=== PATIENT | male | born 1955 | race African-American/Black ===

== ENCOUNTER 2016-05-20 15:57 | Inpatient (IN) | payer OTHER ==
[2016-05-20 17:22] VITALS: BMI 24.1
--- NOTE | 2016-05-20 19:03 | HP ---
COWS - Scale Resting Pulse: 0= [place] 80 or Below Sweatin=Flushed/Facial Moisture Restless Observation: 1= Difficult to Sit Still Pupil Size: 0= Normal to Room Light Bone or Joint Aches: 1= Mild Discomfort Runny Nose/ Eye Tearin= Runny Nose/Eyes GI Upset > 30mins: 3= Vomiting/Diarrhea Tremor Observation: 2= Slight Tremor Visible Yawning Observation: 1= 1-2x During Session Anxiety or Irritability: 2=Irritable/Anxious Goose Flesh Skin: 3=Piloerection COWS Score: 17 CIWA Score - CIWA Score Nausea/Vomitin Muscle Tremors: 4-Moderate,w/Arms Extend Anxiety: 4-Mod. Anxious/Guarded Agitation: 4-Moderately Restless Paroxysmal Sweats: 2 Orientation: 0-Oriented Tacttile Disturbances: 0-None Auditory Disturbances: 0-None Visual Disturbances: 0-None Headache: 0-None Present CIWA-Ar Total Score: 16 Admission [facility] - HPI Chief Complaint: withdrawal sx Allergies/Adverse Reactions: Allergies Allergy/AdvReac Type Severity Reaction Status Date / Time acetaminophen [From Tylenol] Allergy Intermediate Rash Verified 05/20/16 17:37 ibuprofen Allergy Intermediate Rash Verified 05/20/16 17:37 History of Present Illness: 60 years old male with long history of alcohol heroin nicotine dependence has heart attack 2011, hypertension hypercholesterolemia, diabetes II and depression is admitted to detox patient had chest pain on 05/20/16 at [facility] medically cleared released to [facility] for alcohol and heroin detox Exam Limitations: No Limitations - Ebola screening Have you traveled outside of the country in the last 21 days: No Have you had contact with anyone from an Ebola affected area: No Have you been sick,other than usual withdrawal symptoms: No Do you have a fever: No - Review of Systems Constitutional: Loss of Appetite, Night Sweats, Changes in sleep, Unintentional Wgt. Loss EENT: reports: No Symptoms Reported Respiratory: reports: No Symptoms reported Cardiac: reports: No Symptoms Reported GI: reports: Nausea, Poor Appetite, Poor Fluid Intake, Vomiting, Indigestion, Abdominal cramping : reports: No Symptoms Reported Musculoskeletal: reports: Back Pain, Joint Pain, Muscle Pain, Neck Pain Integumentary: reports: No Symptoms Reported Neuro: reports: Tremors Endocrine: reports: No Symptoms Reported Hematology: reports: Easy Bleeding (plavix + aspirin) Psychiatric: reports: Judgement Intact, Orientated x3, Depressed Other Systems: Reviewed and Negative Patient History - Patient Medical History Hx Anemia: No Hx Asthma: No Hx Chronic Obstructive Pulmonary Disease (COPD): No Hx Cancer: No Hx Cardiac Disorders: Yes (CHF) Hx Congestive Heart Failure: No Hx Hypertension: Yes (BP: 149/95) Hx Hypercholesterolemia: Yes Hx Pacemaker: No HX Cerebrovascular Accident: No Hx Seizures: No Hx Dementia: No Hx Diabetes: Yes (Yes, BGM: 114) Hx Gastrointestinal Disorders: No Hx Liver Disease: No Hx Genitourinary Disorders: No Hx Sexually Transmitted Disorders: No Hx Renal Disease (ESRD): No Hx Thyroid Disease: No Hx Human Immunodeficiency Virus (HIV): No Hx Hepatitis C: Yes Hx Depression: Yes Hx Suicide Attempt: No Hx Bipolar Disorder: No Hx Schizophrenia: No - Patient Surgical History Past Surgical History: No Hx Neurologic Surgery: No Hx Cataract Extraction: No Hx Cardiac Surgery: Yes (2011 cardiac stent ) Hx Lung Surgery: No Hx Breast Surgery: No Hx Breast Biopsy: No Hx Abdominal Surgery: No Hx Appendectomy: No Hx Cholecystectomy: No Hx Genitourinary Surgery: No Hx Orthopedic Surgery: No Other Surgical History: Stent Placement in 2011 Anesthesia Reaction: No - PPD History Previous Implant?: Yes Documented Results: Negative w/o proof Implanted On Prior [facility] Admission?: No PPD to be Administered?: Yes - Smoking Cessation Smoking history: Current every day smoker Have you smoked in the past 12 months: Yes Aproximately how many cigarettes per day: 5 Hx Chewing Tobacco Use: No Initiated information on smoking cessation: Yes 'Breaking Loose' booklet given: 05/20/16 - Substance & Tx. History Hx Alcohol Use: Yes Hx Substance Use: Yes Substance Use Type: Alcohol, Heroin Hx Substance Use Treatment: Yes - Substances Abused Alcohol Route: Oral Frequency: 3-6 times per week Amount used: Beer 1x6 pack, Liquor 1 pint Age of first use: 20 Date of Last Use: 05/19/16 Heroin Route: Inhalation Frequency: Daily Amount used: 4-5 bags Age of first use: 30 Date of Last Use: 05/19/16 Cocaine Route: Smoking Frequency: Daily Amount used: $200-$300 Age of first use: 20 Date of Last Use: 05/19/16 Family Disease History - Family Disease History Family Disease History: Heart Disease: Mother, Other: Father () Admission Physical Exam [facility] - Vital Signs Vital Signs: Vital Signs - 24 hr 05/20/16 17:20 Temperature 99.4 F Pulse Rate 68 Respiratory 16 Rate Blood Pressure 149/95 - Physical General Appearance: Yes: Appropriately Dressed, Mild Distress, Thin, Tremorous, Irritable, Sweating, Anxious HEENTM: Yes: Hearing grossly Normal, Normal ENT Inspection, Normocephalic, Normal Voice Respiratory: Yes: Chest Non-Tender, Lungs Clear, Normal Breath Sounds, No Respiratory Distress, No Accessory Muscle Use Neck: Yes: Supple, Trachea in good position Breast: Yes: Breasts Symetrical Cardiology: Yes: Regular Rhythm, Regular Rate, S1, S2 Abdominal: Yes: Non Tender, Soft Genitourinary: Yes: Within Normal Limits Back: Yes: Normal Inspection Musculoskeletal: Yes: full range of Motion, Gait Steady, Back pain, Muscle Pain Extremities: Yes: Normal Range of Motion, Non-Tender, Tremors Neurological: Yes: Fully Oriented, Alert, Motor Strength 5/5, Normal Response, Depressed Affect Integumentary: Yes: Warm Lymphatic: Yes: Within Normal Limits - Diagnostic (1) Alcohol dependence with uncomplicated withdrawal Current Visit: Yes Status: Acute (2) Opioid dependence with withdrawal Current Visit: Yes Status: Acute (3) Hypertension Current Visit: Yes Status: Acute Qualifiers: Hypertension type: essential hypertension Qualified Code(s): I10 - Essential (primary) hypertension (4) Diabetes mellitus type II, controlled Current Visit: Yes Status: Acute Qualifiers: Diabetes mellitus complication status: without complication Diabetes mellitus terminal carman insulin use: without care home use Qualified Code(s): E11.9 - Type 2 diabetes mellitus without complications (5) Weight loss Current Visit: Yes Status: Acute (6) Nicotine dependence Current Visit: Yes Status: Acute Qualifiers: Nicotine product type: cigarettes Substance use status: uncomplicated Qualified Code(s): F17.210 - Nicotine dependence, cigarettes, uncomplicated (7) Depression (emotion) Current Visit: Yes Status: Suspected Qualifiers: Depression Type: dysthymia Qualified Code(s): F34.1 - Dysthymic disorder (8) History of heart artery stent Current Visit: Yes Status: Resolved Cleared for Admission [facility] - Detox or Rehab [facility] Level of Care: Medically Managed Detox Regimen/Protocol: Methadone/Librium BHS Breath Alcohol Content Breath Alcohol Content: 0 Urine Drug Screen - Results Drug Screen Negative: No Urine Drug Screen Results: OPI-Opiates
[2016-05-20] MEDS ORDERED: P-EPHED 60MG/TRIPROLIDI 2.5MG TABLET PO PRN (19:10)
[2016-05-20] MEDS ORDERED: MENTHOL/PHENOL 1 EACH UD MM PRN (19:10)
[2016-05-20] MEDS ORDERED: chlordiazePOXIDE HCL 25 MG CAPSULE PO ONE (19:10)
[2016-05-20] MEDS ORDERED: MAGNESIUM HYDROX 2400MG/30ML ORAL SUSPENSION 30 ML CUP PO PRN (19:10)
[2016-05-20] MEDS ORDERED: guaiFENesin/D-METHORPHAN HB 10 ML UNIT-DOSE CUPS PO PRN (19:10)
[2016-05-20] MEDS ORDERED: MAGNESIUM CITRATE 300 ML BOTTLE PO PRN (19:10)
[2016-05-20] MEDS ORDERED: NICOTINE POLACRILEX 2 MG GUM BC PRN (19:10)
[2016-05-20] MEDS ORDERED: MAG HYDROX/AL HYDROX/SIMETH 30 ML UNIT-DOSE CUP PO PRN (19:10)
[2016-05-20] MEDS ORDERED: chlordiazePOXIDE HCL 25 MG CAPSULE PO PRN (19:10)
[2016-05-20] MEDS ORDERED: LOPERAMIDE HCL 2 MG CAPSULE PO PRN (19:10)
[2016-05-20] MEDS ORDERED: METHADONE HCL 10 MG TABLET (FOR DETOX USE ONLY) PO ONE ×2 (19:10→23:00)
[2016-05-20] MEDS: chlordiazePOXIDE HCL 25 MG CAPSULE PO SCH (22:37)
[2016-05-20] MEDS: ATORVASTATIN CA 20 MG TABLET (FP) PO SCH (22:37)
[2016-05-20] MEDS: THIAMINE HCL 100 MG TABLET (FP) PO SCH (22:39)
[2016-05-20] MEDS: ENALAPRIL MALEATE 10 MG TABLET (FP) PO SCH (22:39)
[2016-05-20 23:04] LABS: URINE APPEARANCE CLEAR; URINE BILIRUBIN NEGATIVE (NEGATIVE); URINE BLOOD NEGATIVE (NEGATIVE); URINE COLOR STRAW; URINE GLUCOSE (UA) NEGATIVE (NEGATIVE); URINE KETONE NEGATIVE (NEGATIVE); URINE LEUK ESTERASE NEGATIVE (NEGATIVE); URINE NITRITE NEGATIVE (NEGATIVE); URINE PROTEIN NEGATIVE (NEGATIVE); URINE UROBILINOGEN NEGATIVE E.U./dl (0.2-1.0)
[2016-05-21] MEDS: glyBURIDE 5 MG TABLET (UD) PO SCH (06:00)
[2016-05-21] MEDS: metFORMIN HCL 500 MG TABLET (FP) PO SCH ×2 (06:00→17:22)
[2016-05-21] MEDS: chlordiazePOXIDE HCL 25 MG CAPSULE PO SCH ×4 (06:00→22:08)
[2016-05-21] MEDS ORDERED: GABAPENTIN 400 MG CAPSULE (FP) PO SCH (10:00)
[2016-05-21] MEDS ORDERED: METHADONE HCL 10 MG TABLET (FOR DETOX USE ONLY) PO SCH (10:00)
[2016-05-21] MEDS ORDERED: ISOSORBIDE MONONITRATE 10 MG TABLET PO SCH (10:00)
[2016-05-21 10:10] LABS: MCH 22.8 pg (25.7-33.7); MCHC 31.3 g/dl (32.0-35.9); MEAN CELL VOLUME 72.9 fl (80-96); MEAN PLT VOLUME 9.8 fl (7.5-11.1); PLATELET COUNT 138 K/MM3 (134-434); RDW 15.9 % (11.9-15.9); WHITE BLOOD COUNT 3.7 K/mm3 (4.0-10.0)
--- NOTE | 2016-05-21 10:14 | PN ---
[facility] CIWA - CIWA Score Nausea/Vomitin Muscle Tremors: 3 Anxiety: 3 Agitation: 3 Paroxysmal Sweats: 1-Minimal Palms Moist Orientation: 0-Oriented Tacttile Disturbances: 1-Very Mild Itch/Numbness Auditory Disturbances: 1-Very Mild Visual Disturbances: 1-Very Mild Sensitivity Headache: 2-Mild CIWA-Ar Total Score: 17 BHS COWS - Scale Resting Pulse: 0= [place] 80 or Below Sweatin= Chills/Flushing Restless Observation: 3= Extraneous Movement Pupil Size: 1= Pupils >than Normal Bone or Joint Aches: 2= Severe Diffuse Aches Runny Nose/ Eye Tearin= Runny Nose/Eyes GI Upset > 30mins: 3= Vomiting/Diarrhea Tremor Observation of Outstretched Hands: 2= Slight Tremor Visible Yawning Observation: 1= 1-2x During Session Anxiety or Irritability: 2=Irritable/Anxious Goose Flesh Skin: 0=Smooth Skin COWS Score: 17 S Progress Note (SOAP) Subjective: ALERT,IRRITABLE,ANXIOUS,INTERRUPTED SLEEP,TREMOR,PAIN IN THE BODY AND BACK Objective: 05/21/16 10:11 Vital Signs Temperature 96.4 F L 05/21/16 09:45 Pulse Rate 51 L 05/21/16 09:45 Respiratory Rate 18 05/21/16 09:45 Blood Pressure 146/89 05/21/16 09:45 O2 Sat by Pulse Oximetry (%) EKG NSR WITH SINUS ARRHYTHMIA OCCASIONAL VPC NO CHEST PAIN,NO SOB,NO DIZZINESS Laboratory Last Values POC Glucometer 165 UNITS (()) 05/21/16 05:58 Urine Color Straw 05/20/16 22:26 Urine Appearance Clear 05/20/16 22:26 Urine pH 6.0 (5.0-8.0) 05/20/16 22:26 Ur Specific [place] 1.006 (1.001-1.035) 05/20/16 22:26 Urine Protein Negative (NEGATIVE) 05/20/16 22:26 Urine Glucose (UA) Negative (NEGATIVE) 05/20/16 22:26 Urine Ketones Negative (NEGATIVE) 05/20/16 22:26 Urine Blood Negative (NEGATIVE) 05/20/16 22:26 Urine Nitrite Negative (NEGATIVE) 05/20/16 22:26 Urine Bilirubin Negative (NEGATIVE) 05/20/16 22:26 Urine Urobilinogen Negative E.U./dl (0.2-1.0) 05/20/16 22:26 Ur Leukocyte Esterase Negative (NEGATIVE) 05/20/16 22:26 LABS PENDING Assessment: 05/21/16 10:13 WITHDRAWAL SYMPTOM Plan: CONTINUE DETOX,BGM MONITORING
[2016-05-21] MEDS: SERTRALINE HCL 50 MG TABLET (FP) PO SCH (10:31)
[2016-05-21] MEDS: PRENATAL VITAMINS W/ FOLIC ACID TABLET (FP) PO SCH (10:31)
[2016-05-21] MEDS: GABAPENTIN 100 MG CAPSULE (FP) PO SCH (10:31)
[2016-05-21] MEDS: CLOPIDOGREL BISULFATE 75 MG TABLET (FP) PO SCH (10:31)
[2016-05-21] MEDS: ASPIRIN 81 MG CHEWABLE TABLETS PO SCH (10:31)
[2016-05-21] MEDS: NICOTINE 14 MG/24 HOURS TOPICAL PATCH TD SCH (10:32)
[2016-05-21 10:33] LABS: ALBUMIN 3.1 g/dl (3.4-5.0); ALK PHOS 81 U/L (45-117); ANION GAP 8 (8-16); BILIRUBIN,TOTAL 0.7 mg/dL (0.2-1.0); CALCIUM 8.8 mg/dL (8.5-10.1); CO2 28 mmol/L (21-32); CREATININE 0.9 mg/dL (0.7-1.3); GLUCOSE,RANDOM 133 mg/dL (74-106); SGOT/AST 66 U/L (15-37); SGPT/ALT 63 U/L (12-78); TOT PROT 6.5 g/dl (6.4-8.2)
[2016-05-21 11:46] LABS: HIV 1 & 2 AB NEGATIVE; HIV 1 AGp24 NEGATIVE
[2016-05-21] MEDS: ISOSORBIDE MONONITRATE 20 MG TABLET PO SCH (12:11)
--- NOTE | 2016-05-21 14:40 | CONSULT ---
[facility] Psychiatric Consult - Data Date of interview: 05/21/16 Admission source: [facility] Identifying data: This is 60 years old male with no psychiatric hospitalization history intoxicated with Alcohol, Opioids, Nicotine Substance Abuse History: - Smoking Cessation. Smoking history: Current every day smoker. Have you smoked in the past 12 months: Yes. Aproximately how many cigarettes per day: 5. Hx Chewing Tobacco Use: No. Initiated information on smoking cessation: Yes. 'Breaking Loose' booklet given: 05/20/16. - Substance & Tx. History. Hx Alcohol Use: Yes. Hx Substance Use: Yes. Substance Use Type : Alcohol, Heroin. Hx Substance Use Treatment: Yes. - Substances Abused. Alcohol. Route: Oral. Frequency: 3-6 times per week. Amount used: Beer 1x6 pack, Liquor 1 pint. Age of first use: 20. Date of Last Use: 05/19/16. Heroin. Route: Inhalation. Frequency: Daily. Amount used: 4-5 bags. Age of first use: 30. Date of Last Use: 05/19/16. Cocaine. Route: Smoking. Frequency: Daily. Amount used: $200-$300. Age of first use: 20. Date of Last Use: 05/19/16 Medical History: DM-2, Weight loss Psychiatric History: Patient reports history of depresion, reports taking prior to admission: Trazodone 200mg po qhs. Zoloft 50mg poqd. Gabapentin 100mg poqd Physical/Sexual Abuse/Trauma History: Denies Additional Comment: Trazodone 200mg po qhs. Zoloft 50mg poqd. Gabapentin 100mg poqd Mental Status Exam - Mental Status Exam Alert and Oriented to: Person Cognitive Function: Fair Patient Appearance: Unkempt Mood: Sad Affect: Flat Patient Behavior: Sedated Speech Pattern: Delayed Voice Loudness: Mildly Soft/Quiet Thought Process: Circumstantial Thought Disorder: Being Controlled Hallucinations: Denies Suicidal Ideation: Denies Homicidal Ideation: Denies Insight/Judgement: Impaired Sleep: Difficulty falling asleep Appetite: Weight gain Muscle strength/Tone: Mild Hypotonicity Gait/Station: Shuffling Additional Comments: Trazodone 200mg po qhs. Zoloft 50mg poqd. Gabapentin 100mg poqd Psychiatric Findings - Problem List ([place] 1, 2,3) (1) Alcohol dependence with uncomplicated withdrawal Current Visit: Yes Status: Acute (2) Nicotine dependence Current Visit: Yes Status: Acute Qualifiers: Nicotine product type: cigarettes Substance use status: uncomplicated Qualified Code(s): F17.210 - Nicotine dependence, cigarettes, uncomplicated (3) Opioid dependence with withdrawal Current Visit: Yes Status: Acute (4) Depression (emotion) Current Visit: Yes Status: Suspected Qualifiers: Depression Type: dysthymia Qualified Code(s): F34.1 - Dysthymic disorder (5) Drug-induced mood disorder Current Visit: Yes Status: Acute - Initial Treatment Plan Initial Treatment Plan: Trazodone 200mg po qhs. Zoloft 50mg poqd. Gabapentin 100mg poqd
[2016-05-21] MEDS: ATORVASTATIN CA 20 MG TABLET (FP) PO SCH (22:06)
[2016-05-21] MEDS: ENALAPRIL MALEATE 10 MG TABLET (FP) PO SCH (22:06)
[2016-05-21] MEDS: traZODone HCL 100 MG TABLET (FP) PO SCH (22:06)
[2016-05-21] MEDS: THIAMINE HCL 100 MG TABLET (FP) PO SCH (22:08)
[2016-05-22] MEDS: metFORMIN HCL 500 MG TABLET (FP) PO SCH ×2 (06:28→17:03)
[2016-05-22] MEDS: chlordiazePOXIDE HCL 25 MG CAPSULE PO SCH ×3 (06:28→17:04)
[2016-05-22] MEDS: glyBURIDE 5 MG TABLET (UD) PO SCH (06:29)
--- NOTE | 2016-05-22 10:32 | PN ---
[facility] CIWA - CIWA Score Nausea/Vomitin Muscle Tremors: 3 Anxiety: 3 Agitation: 2 Paroxysmal Sweats: 1-Minimal Palms Moist Orientation: 0-Oriented Tacttile Disturbances: 1-Very Mild Itch/Numbness Auditory Disturbances: 1-Very Mild Visual Disturbances: 1-Very Mild Sensitivity Headache: 2-Mild CIWA-Ar Total Score: 17 BHS COWS - Scale Resting Pulse: 0= [place] 80 or Below Sweatin= Chills/Flushing Restless Observation: 3= Extraneous Movement Pupil Size: 1= Pupils >than Normal Bone or Joint Aches: 2= Severe Diffuse Aches Runny Nose/ Eye Tearin= Runny Nose/Eyes GI Upset > 30mins: 2= Nausea/Diarrhea Tremor Observation of Outstretched Hands: 2= Slight Tremor Visible Yawning Observation: 1= 1-2x During Session Anxiety or Irritability: 2=Irritable/Anxious Goose Flesh Skin: 0=Smooth Skin COWS Score: 16 S Progress Note (SOAP) Subjective: alert,irritable,anxious,pain in the body and back,tremor Objective: 05/22/16 10:31 Vital Signs Temperature 96.2 F L 05/22/16 09:54 Pulse Rate 62 05/22/16 09:54 Respiratory Rate 18 05/22/16 09:54 Blood Pressure 86/57 05/22/16 09:54 O2 Sat by Pulse Oximetry (%) 05/22/16 10:31 Laboratory Last Values WBC 3.7 K/mm3 (4.0-10.0) L 05/21/16 07:00 RBC 5.18 M/mm3 (4.00-5.60) 05/21/16 07:00 Hgb 11.8 GM/dL (11.7-16.9) 05/21/16 07:00 Hct 37.7 % (35.4-49) 05/21/16 07:00 MCV 72.9 fl (80-96) L 05/21/16 07:00 MCHC 31.3 g/dl (32.0-35.9) L 05/21/16 07:00 RDW 15.9 % (11.9-15.9) 05/21/16 07:00 Plt Count 138 K/MM3 (134-434) 05/21/16 07:00 MPV 9.8 fl (7.5-11.1) 05/21/16 07:00 Sodium 143 mmol/L (136-145) 05/21/16 07:00 Potassium 3.8 mmol/L (3.5-5.1) 05/21/16 07:00 Chloride 107 mmol/L (98-107) 05/21/16 07:00 Carbon Dioxide 28 mmol/L (21-32) 05/21/16 07:00 Anion Gap 8 (8-16) 05/21/16 07:00 BUN 14 mg/dL (7-18) 05/21/16 07:00 Creatinine 0.9 mg/dL (0.7-1.3) 05/21/16 07:00 Creat Clearance w eGFR > 60 (>60) 05/21/16 07:00 POC Glucometer 157 UNITS (()) 05/21/16 16:18 Random Glucose 133 mg/dL (74-106) H 05/21/16 07:00 Calcium 8.8 mg/dL (8.5-10.1) 05/21/16 07:00 Total Bilirubin 0.7 mg/dL (0.2-1.0) 05/21/16 07:00 AST 66 U/L (15-37) H 05/21/16 07:00 ALT 63 U/L (12-78) 05/21/16 07:00 Alkaline Phosphatase 81 U/L (45-117) 05/21/16 07:00 Total Protein 6.5 g/dl (6.4-8.2) 05/21/16 07:00 Albumin 3.1 g/dl (3.4-5.0) L 05/21/16 07:00 Urine Color Straw 05/20/16 22:26 Urine Appearance Clear 05/20/16 22:26 Urine pH 6.0 (5.0-8.0) 05/20/16 22:26 Ur Specific [place] 1.006 (1.001-1.035) 05/20/16 22:26 Urine Protein Negative (NEGATIVE) 05/20/16 22:26 Urine Glucose (UA) Negative (NEGATIVE) 05/20/16 22:26 Urine Ketones Negative (NEGATIVE) 05/20/16 22:26 Urine Blood Negative (NEGATIVE) 05/20/16 22:26 Urine Nitrite Negative (NEGATIVE) 05/20/16 22:26 Urine Bilirubin Negative (NEGATIVE) 05/20/16 22:26 Urine Urobilinogen Negative E.U./dl (0.2-1.0) 05/20/16 22:26 Ur Leukocyte Esterase Negative (NEGATIVE) 05/20/16 22:26 RPR Titer Nonreactive (NONREACTIVE) 05/21/16 07:00 Hepatitis C Antibody >11.0 s/co ratio (0.0-0.9) H 05/21/16 07:00 HIV 1&2 Antibody Screen Negative 05/21/16 07:00 HIV P24 Antigen Negative 05/21/16 07:00 patient has history of hepatitis c,follow up with pmd at [facility] Assessment: 05/22/16 10:32 withdrawal symptom Plan: continue detox
[2016-05-22] MEDS: METHADONE HCL 5 MG TABLET (FOR DETOX USE ONLY) PO SCH (10:41)
[2016-05-22] MEDS: ISOSORBIDE MONONITRATE 20 MG TABLET PO SCH (10:41)
[2016-05-22] MEDS: ASPIRIN 81 MG CHEWABLE TABLETS PO SCH (10:42)
[2016-05-22] MEDS: CLOPIDOGREL BISULFATE 75 MG TABLET (FP) PO SCH (10:42)
[2016-05-22] MEDS: NICOTINE 14 MG/24 HOURS TOPICAL PATCH TD SCH (10:42)
[2016-05-22] MEDS: SERTRALINE HCL 50 MG TABLET (FP) PO SCH (10:42)
[2016-05-22] MEDS: PRENATAL VITAMINS W/ FOLIC ACID TABLET (FP) PO SCH (10:42)
[2016-05-22] MEDS: GABAPENTIN 100 MG CAPSULE (FP) PO SCH (10:42)
[2016-05-22] MEDS: ATORVASTATIN CA 20 MG TABLET (FP) PO SCH (22:20)
[2016-05-22] MEDS: THIAMINE HCL 100 MG TABLET (FP) PO SCH (22:20)
[2016-05-22] MEDS: traZODone HCL 100 MG TABLET (FP) PO SCH (22:20)
[2016-05-22] MEDS: chlordiazePOXIDE 5 MG CAPSULE PO SCH (22:20)
[2016-05-22] MEDS: diphenhydrAMINE HCL 50 MG CAPSULE PO PRN (22:20)
[2016-05-22] MEDS: ENALAPRIL MALEATE 10 MG TABLET (FP) PO SCH ×2 (22:20→22:50)
[2016-05-23] MEDS: glyBURIDE 5 MG TABLET (UD) PO SCH (06:06)
[2016-05-23] MEDS: metFORMIN HCL 500 MG TABLET (FP) PO SCH ×2 (06:06→17:42)
[2016-05-23] MEDS: chlordiazePOXIDE 5 MG CAPSULE PO SCH ×3 (06:06→17:24)
[2016-05-23] MEDS: METHADONE HCL 5 MG TABLET (FOR DETOX USE ONLY) PO SCH (10:35)
[2016-05-23] MEDS: SERTRALINE HCL 50 MG TABLET (FP) PO SCH (10:35)
[2016-05-23] MEDS: PRENATAL VITAMINS W/ FOLIC ACID TABLET (FP) PO SCH (10:35)
[2016-05-23] MEDS: GABAPENTIN 100 MG CAPSULE (FP) PO SCH (10:36)
[2016-05-23] MEDS: CLOPIDOGREL BISULFATE 75 MG TABLET (FP) PO SCH (10:36)
[2016-05-23] MEDS: ASPIRIN 81 MG CHEWABLE TABLETS PO SCH (10:36)
[2016-05-23] MEDS: NICOTINE 14 MG/24 HOURS TOPICAL PATCH TD SCH (10:36)
[2016-05-23] MEDS: ISOSORBIDE MONONITRATE 20 MG TABLET PO SCH (10:36)
[2016-05-23] MEDS: THIAMINE HCL 100 MG TABLET (FP) PO SCH (23:06)
[2016-05-23] MEDS: diphenhydrAMINE HCL 50 MG CAPSULE PO PRN (23:06)
--- NOTE | 2016-05-23 23:06 | PN ---
BHS Progress Note (SOAP) Subjective: SWEATING,INTERRUPTED SLEEP,RESTLESS Objective: 05/23/16 23:04 Vital Signs - 8 hr 05/23/16 20:02 Temperature 96.1 F L Pulse Rate 55 L Respiratory 16 Rate Blood Pressure 102/65 Assessment: 05/23/16 23:05 withdrawal sx Plan: CONTINUE DETOX
[2016-05-23] MEDS: ATORVASTATIN CA 20 MG TABLET (FP) PO SCH (23:07)
[2016-05-23] MEDS: traZODone HCL 100 MG TABLET (FP) PO SCH (23:07)
[2016-05-23] MEDS: chlordiazePOXIDE HCL 10 MG CAPSULE PO SCH (23:07)
[2016-05-23] MEDS: ENALAPRIL MALEATE 10 MG TABLET (FP) PO SCH (23:08)
[2016-05-24] MEDS: chlordiazePOXIDE HCL 10 MG CAPSULE PO SCH ×3 (05:58→17:02)
[2016-05-24] MEDS: metFORMIN HCL 500 MG TABLET (FP) PO SCH ×2 (07:39→17:02)
[2016-05-24] MEDS: glyBURIDE 5 MG TABLET (UD) PO SCH (07:40)
[2016-05-24] MEDS ORDERED: METHADONE HCL 10 MG TABLET (FOR DETOX USE ONLY) PO SCH (10:00)
[2016-05-24] MEDS: ASPIRIN 81 MG CHEWABLE TABLETS PO SCH (10:13)
[2016-05-24] MEDS: CLOPIDOGREL BISULFATE 75 MG TABLET (FP) PO SCH (10:13)
[2016-05-24] MEDS: PRENATAL VITAMINS W/ FOLIC ACID TABLET (FP) PO SCH (10:13)
[2016-05-24] MEDS: GABAPENTIN 100 MG CAPSULE (FP) PO SCH (10:14)
[2016-05-24] MEDS: SERTRALINE HCL 50 MG TABLET (FP) PO SCH (10:14)
[2016-05-24] MEDS: NICOTINE 14 MG/24 HOURS TOPICAL PATCH TD SCH (10:15)
[2016-05-24] MEDS: ISOSORBIDE MONONITRATE 20 MG TABLET PO SCH (10:16)
--- NOTE | 2016-05-24 14:57 | PN ---
BHS Progress Note (SOAP) Subjective: N/V/D (vomited once), sweating, tremor, anxiety Objective: 05/24/16 14:52 Last Vital Signs Temp Pulse Resp BP Pulse Ox 95.9 F L 64 18 96/71 05/24/16 13:32 05/24/16 13:32 05/24/16 13:32 05/24/16 13:32 Noted with hypotension Laboratory Tests 05/20/16 05/20/16 05/21/16 18:16 22:26 05:58 WBC RBC Hgb Hct MCV MCHC RDW Plt Count MPV Sodium Potassium Chloride Carbon Dioxide Anion Gap BUN Creatinine Creat Clearance w eGFR POC Glucometer 114 165 Random Glucose Calcium Total Bilirubin AST ALT Alkaline Phosphatase Total Protein Albumin Urine Color Straw Urine Appearance Clear Urine pH 6.0 Ur Specific [place] 1.006 Urine Protein Negative Urine Glucose (UA) Negative Urine Ketones Negative Urine Blood Negative Urine Nitrite Negative Urine Bilirubin Negative Urine Urobilinogen Negative Ur Leukocyte Esterase Negative RPR Titer Hepatitis C Antibody HIV 1&2 Antibody Screen HIV P24 Antigen 05/21/16 05/21/16 05/21/16 07:00 07:00 07:00 WBC 3.7 L RBC 5.18 Hgb 11.8 Hct 37.7 MCV 72.9 L MCHC 31.3 L RDW 15.9 Plt Count 138 MPV 9.8 Sodium 143 Potassium 3.8 Chloride 107 Carbon Dioxide 28 Anion Gap 8 BUN 14 Creatinine 0.9 Creat Clearance w eGFR > 60 POC Glucometer Random Glucose 133 H Calcium 8.8 Total Bilirubin 0.7 AST 66 H ALT 63 Alkaline Phosphatase 81 Total Protein 6.5 Albumin 3.1 L Urine Color Urine Appearance Urine pH Ur Specific [place] Urine Protein Urine Glucose (UA) Urine Ketones Urine Blood Urine Nitrite Urine Bilirubin Urine Urobilinogen Ur Leukocyte Esterase RPR Titer Hepatitis C Antibody HIV 1&2 Antibody Screen Negative HIV P24 Antigen Negative 05/21/16 05/21/16 05/21/16 07:00 07:00 16:18 WBC RBC Hgb Hct MCV MCHC RDW Plt Count MPV Sodium Potassium Chloride Carbon Dioxide Anion Gap BUN Creatinine Creat Clearance w eGFR POC Glucometer 157 Random Glucose Calcium Total Bilirubin AST ALT Alkaline Phosphatase Total Protein Albumin Urine Color Urine Appearance Urine pH Ur Specific [place] Urine Protein Urine Glucose (UA) Urine Ketones Urine Blood Urine Nitrite Urine Bilirubin Urine Urobilinogen Ur Leukocyte Esterase RPR Titer Nonreactive Hepatitis C Antibody >11.0 H HIV 1&2 Antibody Screen HIV P24 Antigen 05/22/16 05/23/16 05/23/16 16:18 06:08 16:18 WBC RBC Hgb Hct MCV MCHC RDW Plt Count MPV Sodium Potassium Chloride Carbon Dioxide Anion Gap BUN Creatinine Creat Clearance w eGFR POC Glucometer 147 110 143 Random Glucose Calcium Total Bilirubin AST ALT Alkaline Phosphatase Total Protein Albumin Urine Color Urine Appearance Urine pH Ur Specific [place] Urine Protein Urine Glucose (UA) Urine Ketones Urine Blood Urine Nitrite Urine Bilirubin Urine Urobilinogen Ur Leukocyte Esterase RPR Titer Hepatitis C Antibody HIV 1&2 Antibody Screen HIV P24 Antigen 05/24/16 05:57 WBC RBC Hgb Hct MCV MCHC RDW Plt Count MPV Sodium Potassium Chloride Carbon Dioxide Anion Gap BUN Creatinine Creat Clearance w eGFR POC Glucometer 156 Random Glucose Calcium Total Bilirubin AST ALT Alkaline Phosphatase Total Protein Albumin Urine Color Urine Appearance Urine pH Ur Specific [place] Urine Protein Urine Glucose (UA) Urine Ketones Urine Blood Urine Nitrite Urine Bilirubin Urine Urobilinogen Ur Leukocyte Esterase RPR Titer Hepatitis C Antibody HIV 1&2 Antibody Screen HIV P24 Antigen Labs noted: serum glucose 133, albumin 3.1 Assessment: 05/24/16 14:55 Withdrawal symptoms Noted with hyperglycemia secondary to DMT2 Noted with hypoalbuminemia Plan: Continue detox Hyperglycemia secondary to DMT2: continue present regimen Hypoalbuminemia: continue diet
[2016-05-24] MEDS: THIAMINE HCL 100 MG TABLET (FP) PO SCH (22:34)
[2016-05-24] MEDS: ATORVASTATIN CA 20 MG TABLET (FP) PO SCH (22:34)
[2016-05-24] MEDS: traZODone HCL 100 MG TABLET (FP) PO SCH (22:34)
[2016-05-24] MEDS: ENALAPRIL MALEATE 10 MG TABLET (FP) PO SCH (22:34)
[2016-05-24] MEDS: diphenhydrAMINE HCL 50 MG CAPSULE PO PRN (22:35)
[2016-05-25] MEDS ORDERED: METHADONE HCL 5 MG TABLET (FOR DETOX USE ONLY) PO SCH (06:00)
[2016-05-25 06:10] VITALS: BP 88/61; PULSE 60; TEMP 98.1
[2016-05-25] MEDS: glyBURIDE 5 MG TABLET (UD) PO SCH (07:17)
[2016-05-25] MEDS: metFORMIN HCL 500 MG TABLET (FP) PO SCH (07:17)
--- NOTE | 2016-05-25 08:21 | PN ---
S Progress Note (SOAP) Subjective: alert,no complaint Objective: 05/25/16 08:16 Vital Signs Temperature 98.1 F 05/25/16 06:10 Pulse Rate 60 05/25/16 06:10 Respiratory Rate 16 05/25/16 06:10 Blood Pressure 88/61 05/25/16 06:10 O2 Sat by Pulse Oximetry (%) Assessment: 05/25/16 08:17 detox completed,no withdrawal symptom Plan: discharge today,follow up [facility] arrangement
--- NOTE | 2016-05-25 08:27 | DS ---
[facility] Detox Discharge Summary Admission Date: 05/20/16 Discharge Date: 05/25/16 - History Present History: Alcohol Dependence, Opioid Dependence Additional Comments: follow up with after care program as arrangement and pmd as arrangement patient has all medications at home Pertinent Past History: hypertension type2 dm weight loss nicotine dependenc depression s/p angiplasty with stent hepatitis c - Physical Exam Results Vital Signs: Vital Signs Temperature 98.1 F 05/25/16 06:10 Pulse Rate 60 05/25/16 06:10 Respiratory Rate 16 05/25/16 06:10 Blood Pressure 88/61 05/25/16 06:10 O2 Sat by Pulse Oximetry (%) Pertinent Admission Physical Exam Findings: withdrawal symptom - Treatment Hospital Course: Detox Protocol Followed, Detoxed Safely, Responded well, Discharged Condition Good Patient has Accepted a Rehab Referral to: declined - Medication Discharge Medications: Ambulatory Orders Aspirin [ASA -] 81 mg PO DAILY 05/20/16 Atorvastatin Ca [Lipitor] 20 mg PO HS 05/20/16 Clopidogrel Bisulfate [Plavix -] 75 mg PO DAILY 05/20/16 Enalapril Maleate [Vasotec -] 10 mg PO DAILY 05/20/16 Gabapentin [Neurontin -] 100 mg PO DAILY 05/20/16 Glyburide 5 mg PO DAILY 05/20/16 Isosorbide Mononitrate 10 mg PO DAILY 05/20/16 Metformin HCl [Glucophage] 1,000 mg PO BID 05/20/16 Sertraline HCl [Zoloft -] 50 mg PO DAILY 05/20/16 Trazodone HCl 200 mg PO HS 05/20/16 - AMA Did Patient Leave Against Medical Advice: No
[2016-05-26 00:14] LABS: HCV RNA IU/ML 11457000 IU/mL (.)
== END 2016-05-25 09:48 | disposition home or self-care (01) | DRG 773 ==
LOC: YASAS 15:57 → Y3N 18:47
PROVIDERS: ADMIT Internal Medicine; ATTEND Internal Medicine
PROC: HZ2ZZZZ Detoxification Services for Substance Abuse Treatment (ICD-10-PCS; principal; 2016-05-20)
DX: F11.23 Opioid dependence with withdrawal (principal); F10.230 Alcohol dependence with withdrawal, uncomplicated; F17.210 Nicotine dependence, cigarettes, uncomplicated; F19.24 Other psychoactive substance dependence with psychoactive substance-induced mood disorder; F34.1 Dysthymic disorder; I10 Essential (primary) hypertension; E11.65 Type 2 diabetes mellitus with hyperglycemia; E88.09 Other disorders of plasma-protein metabolism, not elsewhere classified; E78.00 Pure hypercholesterolemia, unspecified; B18.2 Chronic viral hepatitis C; Z86.79 Personal history of other diseases of the circulatory system; Z95.5 Presence of coronary angioplasty implant and graft; Z87.898 Personal history of other specified conditions; Z79.82 Long term (current) use of aspirin
CPT/HCPCS: 36415; 80053; 81003; 85027; 86593; 86803; 87389; 87522; 93005; 93010

== ENCOUNTER 2016-06-09 16:33 | Inpatient (IN) | payer OTHER ==
[2016-06-09 18:14] VITALS: BMI 24.3
--- NOTE | 2016-06-09 20:13 | HP ---
Admission ROS [facility] - [facility] Chief Complaint: i want to go to rehab Allergies/Adverse Reactions: Allergies Allergy/AdvReac Type Severity Reaction Status Date / Time acetaminophen [From Tylenol] Allergy Intermediate Rash Verified 06/09/16 19:42 ibuprofen Allergy Intermediate Rash Verified 06/09/16 19:42 History of Present Illness: 60 years old male with alcohol heroin nicotine dependence, hypertension diabetes ii heart attack 2011 and depression and neuropathy is admitted to rehab Exam Limitations: No Limitations - Ebola screening Have you traveled outside of the country in the last 21 days: No Have you had contact with anyone from an Ebola affected area: No Have you been sick,other than usual withdrawal symptoms: No Do you have a fever: No - Review of Systems Constitutional: Loss of Appetite, Unintentional Wgt. Loss EENT: reports: No Symptoms Reported Respiratory: reports: No Symptoms reported Cardiac: reports: No Symptoms Reported GI: reports: Poor Appetite : reports: No Symptoms Reported Musculoskeletal: reports: No Symptoms Reported Integumentary: reports: No Symptoms Reported Neuro: reports: No Symptoms reported Endocrine: reports: No Symptoms Reported Hematology: reports: Blood Clots (plavix) Psychiatric: reports: Judgement Intact, Mood/Affect Appropiate Other Systems: Reviewed and Negative Patient History - Patient Medical History Hx Anemia: No Hx Asthma: No Hx Chronic Obstructive Pulmonary Disease (COPD): No Hx Cancer: No Hx Cardiac Disorders: Yes (CHF) Hx Congestive Heart Failure: No Hx Hypertension: Yes (BP: 149/95) Hx Hypercholesterolemia: Yes Hx Pacemaker: No HX Cerebrovascular Accident: No Hx Seizures: No Hx Dementia: No Hx Diabetes: Yes (Yes, BGM: 114) Hx Gastrointestinal Disorders: No Hx Liver Disease: No Hx Genitourinary Disorders: No Hx Sexually Transmitted Disorders: No Hx Renal Disease (ESRD): No Hx Thyroid Disease: No Hx Human Immunodeficiency Virus (HIV): No Hx Hepatitis C: Yes Hx Depression: Yes Hx Suicide Attempt: No Hx Bipolar Disorder: No Hx Schizophrenia: No - Patient Surgical History Past Surgical History: Yes Hx Neurologic Surgery: No Hx Cataract Extraction: No Hx Cardiac Surgery: Yes (2011 cardiac stent ) Hx Lung Surgery: No Hx Breast Surgery: No Hx Breast Biopsy: No Hx Abdominal Surgery: No Hx Appendectomy: No Hx Cholecystectomy: No Hx Genitourinary Surgery: No Hx Orthopedic Surgery: No Other Surgical History: Stent Placement in 2011 Anesthesia Reaction: No - PPD History Previous Implant?: Yes Documented Results: Negative w/proof Implanted On Prior [facility] Admission?: Yes Date: 05/22/16 PPD to be Administered?: No - Smoking Cessation Smoking history: Current every day smoker Have you smoked in the past 12 months: Yes Aproximately how many cigarettes per day: 5 Cigars Per Day: 0 Hx Chewing Tobacco Use: No Initiated information on smoking cessation: Yes 'Breaking Loose' booklet given: 06/16/16 - Substance & Tx. History Hx Alcohol Use: Yes Hx Substance Use: Yes Substance Use Type: Alcohol, Cocaine, Heroin, Marijuana Hx Substance Use Treatment: Yes - Substances Abused Alcohol Route: Oral Frequency: Daily Amount used: 2 pints volka Age of first use: 25 Date of Last Use: 06/02/16 Heroin Route: Inhalation Frequency: Daily Amount used: 7 bags Age of first use: 19 Date of Last Use: 06/02/16 Family Disease History - Family Disease History Family Disease History: Heart Disease: Mother, Other: Father () Admission Physical Exam [facility] - Vital Signs Vital Signs: Vital Signs - 24 hr 06/09/16 18:13 Temperature 97.0 F L Pulse Rate 64 Respiratory 18 Rate Blood Pressure 154/96 - Physical General Appearance: Yes: No Apparent Distress, Appropriately Dressed, Thin HEENTM: Yes: Hearing grossly Normal, Normal ENT Inspection, Normocephalic, Normal Voice Respiratory: Yes: Chest Non-Tender, Lungs Clear, Normal Breath Sounds, No Respiratory Distress, No Accessory Muscle Use Neck: Yes: Supple, Trachea in good position Breast: Yes: Breasts Symetrical Cardiology: Yes: Regular Rhythm, Regular Rate, S1, S2 Abdominal: Yes: Non Tender, Soft Genitourinary: Yes: Within Normal Limits Back: Yes: Normal Inspection Musculoskeletal: Yes: full range of Motion, Gait Steady Extremities: Yes: Normal Range of Motion, Non-Tender Neurological: Yes: Fully Oriented, Alert, Motor Strength 5/5, Normal Response, Depressed Affect Integumentary: Yes: Warm Lymphatic: Yes: Within Normal Limits - Diagnostic (1) Alcohol dependence with uncomplicated withdrawal Current Visit: Yes Status: Acute (2) Diabetes mellitus type II, controlled Current Visit: Yes Status: Acute Qualifiers: Diabetes mellitus complication status: with neurologic complications Diabetes mellitus complication detail: with other neurological complication Diabetes mellitus nursing home insulin use: without nursing home use Qualified Code(s): E11.49 - Type 2 diabetes mellitus with other diabetic neurological complication (3) Hypertension Current Visit: Yes Status: Acute Qualifiers: Hypertension type: essential hypertension Qualified Code(s): I10 - Essential (primary) hypertension (4) Nicotine dependence Current Visit: Yes Status: Acute Qualifiers: Nicotine product type: cigarettes Substance use status: in withdrawal Qualified Code(s): F17.213 - Nicotine dependence, cigarettes, with withdrawal (5) Opioid dependence with withdrawal Current Visit: Yes Status: Acute (6) Weight loss Current Visit: Yes Status: Acute (7) Depression (emotion) Current Visit: Yes Status: Suspected Qualifiers: Depression Type: dysthymia Qualified Code(s): F34.1 - Dysthymic disorder (8) Hyperlipidemia Current Visit: Yes Status: Acute Qualifiers: Hyperlipidemia type: pure hypercholesterolemia Qualified Code(s): E78.0 - Pure hypercholesterolemia (9) History of heart attack Current Visit: Yes Status: Resolved (10) S/P angioplasty with stent Current Visit: Yes Status: Resolved Cleared for Admission [facility] - Detox or Rehab [facility] Level of Care: Observation Bed Claeared for Rehab Admission: Yes [facility] Breath Alcohol Content Breath Alcohol Content: 0 Urine Drug Screen - Results Drug Screen Negative: No Urine Drug Screen Results: OPI-Opiates, BZO-Benzodiazepines, MTD-Methadone
[2016-06-09] MEDS ORDERED: NICOTINE POLACRILEX 2 MG GUM BC PRN (20:21)
[2016-06-09] MEDS ORDERED: MAGNESIUM CITRATE 300 ML BOTTLE PO PRN (20:21)
[2016-06-09] MEDS ORDERED: MENTHOL/PHENOL 1 EACH UD MM PRN (20:21)
[2016-06-09] MEDS ORDERED: hydrOXYzine PAMOATE 50 MG CAPSULE (FP) PO PRN (20:21)
[2016-06-09] MEDS ORDERED: guaiFENesin/D-METHORPHAN HB 10 ML UNIT-DOSE CUPS PO PRN (20:21)
[2016-06-09] MEDS ORDERED: P-EPHED 60MG/TRIPROLIDI 2.5MG TABLET PO PRN (20:21)
[2016-06-09] MEDS ORDERED: MAGNESIUM HYDROX 2400MG/30ML ORAL SUSPENSION 30 ML CUP PO PRN (20:21)
[2016-06-09] MEDS ORDERED: MAG HYDROX/AL HYDROX/SIMETH 30 ML UNIT-DOSE CUP PO PRN (20:21)
[2016-06-09] MEDS ORDERED: LOPERAMIDE HCL 2 MG CAPSULE PO PRN (20:21)
[2016-06-09] MEDS ORDERED: diphenhydrAMINE HCL 50 MG CAPSULE PO PRN (20:21)
[2016-06-09] MEDS ORDERED: RANOLAZINE E.R. 500 MG TABLET (FP) PO SCH (22:00)
[2016-06-09 22:32] LABS: URINE APPEARANCE CLEAR; URINE BILIRUBIN NEGATIVE (NEGATIVE); URINE BLOOD NEGATIVE (NEGATIVE); URINE COLOR LTYELLOW; URINE GLUCOSE (UA) NEGATIVE (NEGATIVE); URINE KETONE NEGATIVE (NEGATIVE); URINE LEUK ESTERASE NEGATIVE (NEGATIVE); URINE NITRITE NEGATIVE (NEGATIVE); URINE PROTEIN NEGATIVE (NEGATIVE); URINE UROBILINOGEN 2.0 E.U/dl E.U./dl (0.2-1.0)
[2016-06-09] MEDS: THIAMINE HCL 100 MG TABLET (FP) PO SCH (22:44)
[2016-06-09] MEDS: ATORVASTATIN CA 20 MG TABLET (FP) PO SCH (22:44)
--- NOTE | 2016-06-09 22:58 | PN ---
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 Anderson Chin is a 60 y/o male admitted from [facility]. Diagnosis :alcohol/heroin dependence. Co-morbidities :HTN,CHF,DM,hepatitis C and dyslipidemia. Noted hx of stent placement (2011). Contact established with patient via telephone.History taken. [facility] report reviewed.As per patient:trazodone 200 mg/hs + zoloft 50 mg/day. Discharged today from ED after evaluation for chest pain. Mr Chin indicates non-adherence to his medications for past 6 months. Decision : hold trazodone and zoloft until psychiatric evaluation in AM. Discussed with nurse on duty. .
--- NOTE | 2016-06-10 06:56 | HP ---
Psychiatrist Admission - Data Date of interview: 06/10/16 Admission source: [facility] Identifying data: This is the first [facility] admission for this 60 years old signle male, father of a 43 years old daughter, unemployed on SSI, domiciled Medical History: Significant for history of HTN, Hyperlipidemia, CAD/NM s/p stent placement in 2011, DM II, CHF, Neuropathy. Smokes 5-6 cigarettes daily Psychiatric History: Patient is initially a guarded historian and reports that his first psychiatric contact was 8-9 years ago at [facility], in order to be placed for housing, where he was diagnosed with Major Depressive Disorder and prescribed Zoloft and Trazodone by Dr. Miller. He states he took the medications a few times a year but stopped approximately 5-6 years ago. He last took Zoloft and Trazodone during his last detox treatment earlier this month. Patient denies psychiatric hospitalization and suicide attempts. Physical/Sexual Abuse/Trauma History: Denies history of physical, sexual abuse as well as DV relationship Additional Comment: Reports history of multiple arrests including 5 felony convictions. Denies being on parole/probation at present Vital Signs: Vital Signs - 24 hr 06/09/16 06/10/16 18:13 03:30 Temperature 97.0 F L Pulse Rate 64 Respiratory 18 16 Rate Blood Pressure 154/96 Allergies/Adverse Reactions: Allergies Allergy/AdvReac Type Severity Reaction Status Date / Time acetaminophen [From Tylenol] Allergy Intermediate Rash Verified 06/11/16 21:02 ibuprofen Allergy Intermediate Rash Verified 06/11/16 21:02 Date of last physical exam: 06/09/16 Concur with the findings of this exam: Yes - Substance Abuse/Tx History Hx Alcohol Use: Yes Hx Substance Use: Yes Substance Use Type: Alcohol (Started driking alcohol at age 25, consumes 2 pints of vodka daily. Last drink on 06/02/16), Cocaine (Started using cocaine at age 20, consumes $200-300 worth daily. Last used on), Heroin (Started using heroin at age 19, consumes 7 bags daily. Last used on 06/02/16), Marijuana ( Started smoking marijuana at age 15, consumes 2-3 bags 1-2 times weekly. Last smoked on 06/09/16) Hx Substance Use Treatment: Yes (Previous detox @ [facility], [facility], [facility]/Rehab : [place], [facility]) - Admission Criteria Previous failed treatment: No Poor recovery environment: Yes Comorbidities: Yes Lacks judgement: Yes Mental Status Exam - Mental Status Exam Alert and Oriented to: Time, Place, Person Cognitive Function: Fair Patient Appearance: Well Groomed Mood: Euthymic, Irritable (underlying irritability) Affect: Appropriate Patient Behavior: Guarded, Cooperative (superficially) Speech Pattern: Clear Voice Loudness: Normal Thought Process: Intact Hallucinations: Denies Suicidal Ideation: Denies Homicidal Ideation: Denies Insight/Judgement: Fair Sleep: Poorly Appetite: Good Muscle strength/Tone: Normal Gait/Station: Normal Psychiatric Findings - Problem List ([place] 1, 2,3) (1) Alcohol dependence with uncomplicated withdrawal Status: Acute (2) Opioid dependence with withdrawal Status: Acute (3) Cocaine dependence Status: Acute (4) Cannabis abuse Status: Acute (5) Nicotine dependence Status: Acute Qualifiers: Nicotine product type: cigarettes Substance use status: in withdrawal Qualified Code(s): F17.213 - Nicotine dependence, cigarettes, with withdrawal (6) Depressive disorder Status: Acute (7) MDD (major depressive disorder) Status: Ruled-out (8) Substance induced mood disorder Status: Ruled-out (9) Diabetes mellitus type II, controlled Status: Acute Qualifiers: Diabetes mellitus complication status: with neurologic complications Diabetes mellitus complication detail: with other neurological complication 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: without 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 2) Monitor progress
[2016-06-10] MEDS: metFORMIN HCL 500 MG TABLET (FP) PO SCH ×2 (07:41→17:09)
[2016-06-10] MEDS: glyBURIDE 5 MG TABLET (UD) PO SCH (07:41)
[2016-06-10] MEDS: ENALAPRIL MALEATE 10 MG TABLET (FP) PO SCH (10:22)
[2016-06-10] MEDS: GABAPENTIN 100 MG CAPSULE (FP) PO SCH (10:22)
[2016-06-10] MEDS: CLOPIDOGREL BISULFATE 75 MG TABLET (FP) PO SCH (10:22)
[2016-06-10] MEDS: RANOLAZINE E.R. 500 MG TABLET (FP) PO SCH (10:22)
[2016-06-10] MEDS: PRENATAL VITAMINS W/ FOLIC ACID TABLET (FP) PO SCH (10:22)
[2016-06-10] MEDS: ASPIRIN COATED 81 MG TABLET.EC PO SCH (10:22)
[2016-06-10] MEDS: NICOTINE 14 MG/24 HOURS TOPICAL PATCH TD SCH (10:22)
[2016-06-10] MEDS: ISOSORBIDE MONONITRATE 60 MG TAB.SR.24H (FP) PO SCH (10:22)
--- NOTE | 2016-06-10 12:32 | EKG ---
Test Reason : Blood Pressure : / mmHG Vent. Rate : 064 BPM Atrial Rate : 064 BPM P-R Int : 200 ms QRS Dur : 140 ms QT Int : 436 ms P-R-T Axes : 073 -74 027 degrees QTc Int : 449 ms NORMAL SINUS RHYTHM POSSIBLE LEFT ATRIAL ENLARGEMENT RIGHT BUNDLE BRANCH BLOCK LEFT ANTERIOR FASCICULAR BLOCK BIFASCICULAR BLOCK ANTEROSEPTAL INFARCT , AGE UNDETERMINED ABNORMAL ECG NO PREVIOUS ECGS AVAILABLE Confirmed by STEVEN DE LA TORRE MD ([id number]) on 06/10/2016 12:31:54 PM Referred By: Confirmed By:STEVEN DE LA TORRE MD
[2016-06-10] MEDS: traZODone HCL 100 MG TABLET (FP) PO SCH (21:33)
[2016-06-10] MEDS: THIAMINE HCL 100 MG TABLET (FP) PO SCH (21:33)
[2016-06-10] MEDS: ATORVASTATIN CA 20 MG TABLET (FP) PO SCH (21:34)
[2016-06-11] MEDS: metFORMIN HCL 500 MG TABLET (FP) PO SCH ×2 (07:06→16:59)
[2016-06-11] MEDS: glyBURIDE 5 MG TABLET (UD) PO SCH (07:06)
[2016-06-11] MEDS: ISOSORBIDE MONONITRATE 60 MG TAB.SR.24H (FP) PO SCH (09:49)
[2016-06-11] MEDS: NICOTINE 14 MG/24 HOURS TOPICAL PATCH TD SCH (09:49)
[2016-06-11] MEDS: GABAPENTIN 100 MG CAPSULE (FP) PO SCH (09:49)
[2016-06-11] MEDS: CLOPIDOGREL BISULFATE 75 MG TABLET (FP) PO SCH (09:49)
[2016-06-11] MEDS: ASPIRIN COATED 81 MG TABLET.EC PO SCH (09:49)
[2016-06-11] MEDS: RANOLAZINE E.R. 500 MG TABLET (FP) PO SCH (09:49)
[2016-06-11] MEDS: PRENATAL VITAMINS W/ FOLIC ACID TABLET (FP) PO SCH (09:49)
[2016-06-11] MEDS: ENALAPRIL MALEATE 10 MG TABLET (FP) PO SCH (09:49)
[2016-06-11] MEDS ORDERED: ASPIRIN 81 MG CHEWABLE TABLETS PO ONE (20:15)
--- NOTE | 2016-06-11 20:21 | PN ---
[facility] Progress Note Note: 60 years old male admitted to rehab on 06/09/16 for alcohol, opiate, cocaine, nicotine dependence, medical history of hypertension, diabetes II, hyperlipidemia, s/p cardiac stent (the one on the right) psychiatric history of depression allergic to tylenal and motrin cardiac: transient arrhythmia, ap 54 lung: clear, o2 99% skin: moist abd: soft none tender c/o 8/10 pressure like chest pain, radiating from mid left sternal border to left axillary, on and off x "hours", relieved by laying down ambulance was called information provided to ER may return to [facility] continue rehab once medically cleared
[2016-06-11 21:24] VITALS: BP 121/62; PULSE 53; TEMP 98.6
[2016-06-11] MEDS: traZODone HCL 100 MG TABLET (FP) PO SCH (21:55)
[2016-06-11] MEDS: THIAMINE HCL 100 MG TABLET (FP) PO SCH (21:55)
[2016-06-11] MEDS: ATORVASTATIN CA 20 MG TABLET (FP) PO SCH (21:55)
[2016-06-12] MEDS ORDERED: GABAPENTIN 100 MG CAPSULE (FP) PO SCH (12:00)
[2016-06-12] MEDS ORDERED: CLOPIDOGREL BISULFATE 75 MG TABLET (FP) PO SCH (12:00)
[2016-06-12] MEDS ORDERED: RANOLAZINE E.R. 500 MG TABLET (FP) PO SCH (12:00)
== END 2016-06-11 11:55 | disposition short-term general hospital (02) | DRG 772 ==
LOC: YASAS 16:33 → Y3W 19:53
PROVIDERS: ADMIT Psychiatry & Neurology Psychiatry; ATTEND Psychiatry & Neurology Psychiatry
PROC: HZ42ZZZ Group Counseling for Substance Abuse Treatment, Cognitive-Behavioral (ICD-10-PCS; principal; 2016-06-09)
DX: F11.20 Opioid dependence, uncomplicated (principal); F10.20 Alcohol dependence, uncomplicated; F14.20 Cocaine dependence, uncomplicated; F12.10 Cannabis abuse, uncomplicated; F17.210 Nicotine dependence, cigarettes, uncomplicated; F19.24 Other psychoactive substance dependence with psychoactive substance-induced mood disorder; I10 Essential (primary) hypertension; I50.9 Heart failure, unspecified; E11.9 Type 2 diabetes mellitus without complications; E07.89 Other specified disorders of thyroid; Z86.79 Personal history of other diseases of the circulatory system; Z95.5 Presence of coronary angioplasty implant and graft; R07.89 Other chest pain
CPT/HCPCS: 81003; 93005; 93010

== ENCOUNTER 2016-06-11 20:58 | Observation (INO) | payer OTHER ==
[2016-06-11 21:03] VITALS: BMI 24.3
--- NOTE | 2016-06-11 22:02 | PDOC ---
History of Present Illness - General History Source: Patient, Old Records Exam Limitations: No Limitations <Janel Lopez - Last Filed: 06/12/16 02:39> <Juan Carlos Rob - Last Filed: 06/12/16 02:47> - General Chief Complaint: Chest Pain Stated Complaint: CHEST PAIN Time Seen by Provider: 06/11/16 21:17 - History of Present Illness Initial Comments: 06/11/16 22:24 The patient is a 60 year old male, with a significant past medical history of HTN, hyperlipidemia, diabetes, CHF, ND (2011) s/p stent, and polysubstance abuse (cocaine, heroin, marijuana, alcohol), who presents to the emergency department from [facility] with intermittent radiating substernal chest pain since approximately 1PM this afternoon. The patient states that his chest pain began at 1PM and he has experienced intermittent episodes of diaphoresis, nausea and vomiting since then. He rates his chest pain as an 8/10 in severity, states that it is stabbing in nature and radiates bilaterally. He states that these symptoms feel similar to his previous ND but not as bad. After being given aspirin and nitroglycerin, he rates it as a 4/10 in severity. He reports that he has been clean since entering detox earlier this week. The patient denies fever, chills, palpitations or shortness of breath. Allergies: Acetaminophen, Ibuprofen Past Surgical History: Stent (2011) Social History: Current everyday smoker. See HPI. (Janel Lopez) Past History <Janel Lopez - Last Filed: 06/12/16 02:39> - Past Medical History Anemia: No Asthma: No Cancer: No Cardiac Disorders: Yes (CHF) CVA: No COPD: No CHF: No Dementia: No Diabetes: Yes GI Disorders: No Disorders: No HTN: Yes Hypercholesterolemia: Yes Kidney Stones: No Liver Disease: No Suicide Attempt (Hx): No Seizures: No Thyroid Disease: No - Surgical History Abdominal Surgery: No Appendectomy: No Cardiac Surgery: Yes (2011 cardiac stent ) Cholecystectomy: No Lung Surgery: No Neurologic Surgery: No Orthopedic Surgery: No - Reproductive History Testicular Surgery: No - Psycho/Social/Smoking Cessation Hx Anxiety: No Suicidal Ideation: No Smoking History: Current every day smoker Have you smoked in the past 12 months: Yes Number of Cigarettes Smoked Daily: 5 Cigars Per Day: 0 Information on smoking cessation initiated: No 'Breaking Loose' booklet given: 06/16/16 Hx Alcohol Use: Yes Drug/Substance Use Hx: Yes Substance Use Type: Alcohol (Started driking alcohol at age 25, consumes 2 pints of vodka daily. Last drink on 06/02/16), Cocaine (Started using cocaine at age 20, consumes $200-300 worth daily. Last used on), Heroin (Started using heroin at age 19, consumes 7 bags daily. Last used on 06/02/16), Marijuana ( Started smoking marijuana at age 15, consumes 2-3 bags 1-2 times weekly. Last smoked on 06/09/16) Hx Substance Use Treatment: Yes (Previous detox @ [facility], [facility]) <Juan Carlos Rob - Last Filed: 06/12/16 02:47> - Past Medical History Allergies/Adverse Reactions: Allergies Allergy/AdvReac Type Severity Reaction Status Date / Time acetaminophen [From Tylenol] Allergy Intermediate Rash Verified 06/11/16 21:02 ibuprofen Allergy Intermediate Rash Verified 06/11/16 21:02 Home Medications: Ambulatory Orders Aspirin [ASA -] 81 mg PO DAILY 05/20/16 Clopidogrel Bisulfate [Plavix -] 75 mg PO DAILY 05/20/16 Enalapril Maleate [Vasotec -] 10 mg PO DAILY 05/20/16 Gabapentin [Neurontin -] 100 mg PO DAILY 05/20/16 Glyburide 5 mg PO DAILY 05/20/16 Metformin HCl [Glucophage] 1,000 mg PO BID 05/20/16 Sertraline HCl [Zoloft -] 50 mg PO DAILY 05/20/16 Trazodone HCl 100 mg PO HS 05/20/16 Atorvastatin Ca [Lipitor] 20 mg PO HS tablet 05/25/16 Isosorbide Mononitrate [Ismo -] 10 mg PO DAILY tablet 05/25/16 Nitroglycerin 0.4 mg PO DAILY PRN MDD 1.2mg 06/09/16 Cardiac Specific PMH - Complaint Specific PMHX Pacemaker: No <Juan Carlos Rob - Last Filed: 06/12/16 02:47> Review of Systems - Review of Systems Able to Perform ROS?: Yes <Livingston,Janel - Last Filed: 06/12/16 02:39> <Juan Carlos Rob - Last Filed: 06/12/16 02:47> - Review of Systems Comments:: 06/11/16 22:11 CONSTITUTIONAL: No fever, no chills, no fatigue EYES: No visual changes ENT: No ear pain, no sore throat CARDIOVASCULAR: +Chest pain, diaphoresis. No palpitations RESPIRATORY: No cough, no SOB GI: +Nausea, vomiting. No abdominal pain, no constipation, no diarrhea GENITOURINARY: No dysuria, no frequency, no hematuria MUSKULOSKELETAL: No back pain, no joint pain, no myalgias SKIN: No rash NEURO: No headache (Janel Lopez) *Physical Exam <Janel Lopez - Last Filed: 06/12/16 02:39> <Juan Carlos Rob - Last Filed: 06/12/16 02:47> - Vital Signs Last Vital Signs Temp Pulse Resp BP Pulse Ox 98 F 59 L 18 141/70 98 06/11/16 21:02 06/11/16 21:02 06/11/16 21:02 06/11/16 21:02 06/11/16 21:02 - Physical Exam Comments: 06/12/16 02:39 CONSTITUTIONAL: Well-appearing; well-nourished; in no apparent distress. HEAD: Normocephalic; atraumatic. EYES: PERRL; EOM intact. ENMT: External appears normal; normal oropharynx. NECK: Supple; non-tender; no cervical lymphadenopathy. CARD: Normal S1, S2; no murmurs, rubs, or gallops. RESP: Normal chest excursion with respiration; breath sounds clear and equal bilaterally; no wheezes, rhonchi, or rales. ABD: Soft, non-distended; non-tender; no palpable organomegaly, no palpable hernias. EXT: Normal ROM in all four extremities; non-tender to palpation; distal pulses intact. SKIN: Warm, dry, no rash. NEURO: No focal neurological deficiencies. Gait is normal. (Janel Lopez) Heart Score/ECG Review #1 ECG reviewed & interpreted by me at: 21:03 (Vent Rate: 44 bpm. Marked sinus bradycardia. Left axis deviation. Nonspecific intraventricular block. ) <Janel Lopez - Last Filed: 06/12/16 02:39> - History History: Moderately suspicious - Electrocardiogram EKG: Non specific repolarization disturbance - Age Age: 45-65 - Risk Factors Risk Factors Heart Score: Yes Hx Hypercholesterolemia, Yes Hx Hypertension, Yes Hx Diabetes, Yes Smoking History Based on the list above the patient has:: >/=3 risk factors or Hx atherosclerotic disease - Troponin Troponin: </= normal limit - Score Heart Score - Total: 5 <Juan Carlos Rob - Last Filed: 06/12/16 02:47> ED Treatment Course - LABORATORY CBC & Chemistry Diagram: 06/12/16 01:00 06/12/16 01:00 <Janel Lopez - Last Filed: 06/12/16 02:39> - LABORATORY CBC & Chemistry Diagram: 06/12/16 01:00 06/12/16 01:00 <Juan Carlos Rob - Last Filed: 06/12/16 02:47> - ADDITIONAL ORDERS Additional order review: Laboratory Results 06/12/16 06/12/16 06/12/16 01:00 01:00 01:00 INR 0.96 D-Dimer 260 H Sodium 141 Potassium 4.3 Chloride 102 Carbon Dioxide 29 Anion Gap 10 BUN 18 D Creatinine 1.2 D Creat Clearance w eGFR > 60 Random Glucose 111 H Calcium 9.4 Total Bilirubin 0.4 D AST 45 H D ALT 54 Alkaline Phosphatase 89 Creatine Kinase 114 Troponin I 0.02 Total Protein 8.2 D Albumin 3.9 D 06/12/16 01:00 RBC 5.27 MCV 72.2 L MCHC 31.8 L RDW 16.1 H MPV 9.1 Neutrophils % 45.6 Lymphocytes % 35.1 Monocytes % 14.8 H Eosinophils % 3.2 Basophils % 1.3 - RADIOLOGY Radiology Studies Ordered: Category Date Time Status CHEST CTA [CT] Stat CT Scan 06/12/16 00:03 Taken CHEST PA & LAT [RAD] Stat Radiology 06/11/16 22:10 Taken Medical Decision Making <Janel Lopez - Last Filed: 06/12/16 02:39> <Juan Carlos Rob - Last Filed: 06/12/16 02:47> - Medical Decision Making 06/12/16 02:43 Patient is a well-appearing 60-year-old male with history of CAD, hypertension, hyperlipidemia, diabetes, status post ND, polysubstance abuse who presents with substernal chest pain, sharp, minimally relieved by sublingual nitroglycerin. On initial evaluation, patient was noted to be mildly hypertensive and bradycardic. EKG showed LBBB-like pattern without positive scarBosa criteria. Chest x-ray reveals no evidence of infiltrate or effusion. CTA of chest reveals no evidence of dissection. First set of cardiac enzymes within normal limit. Patient's received aspirin and Plavix as well as numerous sublingual nitroglycerin with relief. Patient will be placed in observation to telemetry for serial cardiac enzymes and further evaluation of. (Juan Carlos Rob) *DC/Admit/Observation/Transfer <Janel Lopez - Last Filed: 06/12/16 02:39> - Discharge Dispostion Admit: Yes <Juan Carlos Rob - Last Filed: 06/12/16 02:47> Diagnosis at time of Disposition: Chest pain Qualifiers: Chest pain type: unspecified Qualified Code(s): R07.9 - Chest pain, unspecified - Discharge Dispostion Condition at time of disposition: Fair - Attestations Scribe Attestion: 06/11/16 22:09 Documentation prepared by Janel Lopez, acting as medical office representative for Juan Carlos Rob MD. (Janel Lopez) Physician Attestion: 06/12/16 02:42 The documentation was prepared by the scribe under my direct supervision. I have reviewed the documentation which correctly represents the findings, medical decision-making and critical action taken by me. (Juan Carlos Rob)
[2016-06-11] MEDS ORDERED: NITROGLYCERIN SUBLINGUAL 1/150 0.4 MG TAB SL SCH (22:30)
[2016-06-12 01:10] LABS: BASOPHIL 1.3 % (0-2.0); EOSINOPHIL 3.2 % (0-4.5); MCHC 31.8 g/dl (32.0-35.9); MEAN CELL VOLUME 72.2 fl (80-96); MEAN PLT VOLUME 9.1 fl (7.5-11.1); NEUTROPHILS 45.6 % (42.8-82.8); PLATELET COUNT 158 K/MM3 (134-434); RDW 16.1 % (11.9-15.9); WHITE BLOOD COUNT 4.7 K/mm3 (4.0-10.0)
[2016-06-12 01:27] LABS: INR 0.96 (0.82-1.09); PROTHROMBIN TIME (PATIENT) 10.5 SEC (9.98-11.88)
[2016-06-12 01:35] LABS: ALBUMIN 3.9 g/dl (3.4-5.0); ANION GAP 10 (8-16); BILIRUBIN,TOTAL 0.4 mg/dL (0.2-1.0); CALCIUM 9.4 mg/dL (8.5-10.1); CO2 29 mmol/L (21-32); CREATININE 1.2 mg/dL (0.7-1.3); GLUCOSE,RANDOM 111 mg/dL (74-106); SGOT/AST 45 U/L (15-37); SGPT/ALT 54 U/L (12-78); TOT PROT 8.2 g/dl (6.4-8.2)
[2016-06-12 01:38] LABS: ALK PHOS 89 U/L (45-117); TROPONIN I 0.02 ng/ml (0.00-0.05)
[2016-06-12] MEDS ORDERED: traMADol HCL 50 MG TABLET PO ONE (02:38)
[2016-06-12] MEDS ORDERED: traMADol HCL 50 MG TABLET ONE (02:51)
--- NOTE | 2016-06-12 03:00 | PN ---
<Alda Seay - Last Filed: 06/12/16 02:59> Teaching Attending Note Name of Resident: Ekta Macias <Ulises Marie - Last Filed: 06/12/16 05:04> Teaching Attending Note ATTENDING PHYSICIAN STATEMENT I saw and evaluated the patient. I reviewed the resident's note and discussed the case with the resident. I agree with the resident's findings and plan as documented. SUBJECTIVE: 60 year old male who presented to the emergency department from [facility] with chest pain since 1pm. Patient described his chest pain as intermittent, stabbing in sensation, located on the right sided radiating to the left arm pit. He has been experiencing associated intermittent episodes of SOB (since resolved), diaphoresis, dry cough, nausea, vomiting (2 episodes yesterday), and right sided headache. After being given aspirin and nitroglycerin he rated his chest pain as an 4/10 in severity but states that it intermittently reaches an 8 /10 in severity. Patient recently admitted to [facility] for similar symptoms and was seen by his rotary pump operator who recommended a cardiac cath. However, patient was requested by his rotary pump operator to enter rehab in order to avoid complications during cardiac cath procedure. He reports that he has been clean since entering detox earlier this week. Patient noted associated withdrawal symptoms of diarrhea (3 episodes since arriving at the ED), runny nose, excessive yawning, difficulty sleeping, and irritability Patient denied abdominal pain, fever, chills, palpitations or shortness of breath. Past medical history: HTN, Hepatitis C, hyperlipidemia, diabetes, CHF, [place] (2012, 1 stent), current smoker, and polysubstance abuse (marijuana, heroin, crack cocaine, alcohol). Social History: Cigarettes (started smoking at age 12, consumes 5 cigarettes daily last smoked ) Marijuana (Started smoking marijuana at age 15, consumes 2-3 bags 1-2 times weekly. Last smoked on 06/09/16) Heroin (Started using heroin at age 19, consumes 7 bags daily. Last used on 06/02) Crack Cocaine (Started using cocaine at age 20, consumes $200-300 worth daily. Last smoked on 06/02/16) Alcohol (Started drinking alcohol at age 25, consumes 2 pints of vodka daily. Last drink on 06/02/16) OBJECTIVE: Vital Signs: Last Vital Signs Temp Pulse Resp BP Pulse Ox 98 F 59 L 18 141/70 98 06/11/16 21:02 06/11/16 21:02 06/11/16 21:02 06/11/16 21:02 06/11/16 21:02 GENERAL: Awake, alert, and fully oriented, in no acute distress HEENT: Atraumatic. PERRLA, EOMI. Moist mucosa. No JVD LUNGS: No distress, speaks full sentences, clear to auscultation bilaterally HEART: Regular rate irregular rhythm, normal S1 and S2, no murmurs, rubs or gallops, peripheral pulses normal and equal bilaterally. ABDOMEN: Soft, nontender, normoactive bowel sounds. No guarding, no rebound. No masses EXTREMITIES: (+) Clubbing. Normal inspection, Normal range of motion, no edema. No cyanosis. NEUROLOGICAL: Cranial nerves II through XII grossly intact. Normal speech, normal gait, no focal sensorimotor deficits SKIN: (+) Scaley, warm, dry, normal turgor, no rashes or lesions noted. Labs: CBCD WBC 4.7 K/mm3 (4.0-10.0) 06/12/16 01:00 RBC 5.27 M/mm3 (4.00-5.60) 06/12/16 01:00 Hgb 12.1 GM/dL (11.7-16.9) 06/12/16 01:00 Hct 38.1 % (35.4-49) 06/12/16 01:00 MCV 72.2 fl (80-96) L 06/12/16 01:00 MCHC 31.8 g/dl (32.0-35.9) L 06/12/16 01:00 RDW 16.1 % (11.9-15.9) H 06/12/16 01:00 Plt Count 158 K/MM3 (134-434) 06/12/16 01:00 MPV 9.1 fl (7.5-11.1) 06/12/16 01:00 CMP Sodium 141 mmol/L (136-145) 06/12/16 01:00 Potassium 4.3 mmol/L (3.5-5.1) 06/12/16 01:00 Chloride 102 mmol/L (98-107) 06/12/16 01:00 Carbon Dioxide 29 mmol/L (21-32) 06/12/16 01:00 Anion Gap 10 (8-16) 06/12/16 01:00 BUN 18 mg/dL (7-18) D 06/12/16 01:00 Creatinine 1.2 mg/dL (0.7-1.3) D 06/12/16 01:00 Creat Clearance w eGFR > 60 (>60) 06/12/16 01:00 Calcium 9.4 mg/dL (8.5-10.1) 06/12/16 01:00 Total Bilirubin 0.4 mg/dL (0.2-1.0) D 06/12/16 01:00 AST 45 U/L (15-37) H D 06/12/16 01:00 ALT 54 U/L (12-78) 06/12/16 01:00 Alkaline Phosphatase 89 U/L (45-117) 06/12/16 01:00 Total Protein 8.2 g/dl (6.4-8.2) D 06/12/16 01:00 Albumin 3.9 g/dl (3.4-5.0) D 06/12/16 01:00 Imaging: Chest CT with contrast Impression: No pulmonary embolism. No aortic dissection or aneurysm. No pneumonia or pleural effusions. Minimal emphysematous changes. ECG Impression: Marked sinus bradycardia. Left axis deviation. Nonspecific intraventricular block. Abnormal ECG. ASSESSMENT AND PLAN : Chest pain r/o ACS KESHA score of 3 -Nitro sl PRN -Aspirin -Plavix -Telemetry monitoring -Cardiology consult -ECHO -Contact monte for records -Ativan PRN -get lipid panel, hemoglobin A1c -Riss continue statin -Urine toxicology -Heparin subQ Polysubstance Abuse -Methadone 10 mg TRD -Rehab consult -Continue detox Admit to tele Documentation prepared by Ulises Marie, acting as medical director/head team physician for Alda Seay MD.
--- NOTE | 2016-06-12 04:07 | HP ---
CHIEF COMPLAINT: Chest pain PCP: Dr. Gayle Parra (electric range preparer at [facility]) HISTORY OF PRESENT ILLNESS: 60 year old male from rehab at [facility], presented to the ED via EMS with the complaint of chest pain. A/c to the patient, he started having chest pain since 1 pm yesterday, located on the right side radiating towards the left underarm, stabbing in quality, progressively getting worse from 3 to 7/10 in intensity, associated with Nausea and 3 episodes of vomiting. Vomitus containing food particles, no blood was noticed. Chest pain associated with SOB, palpitations on /off, dry cough. Denies stuffy/runny nose. Complaints of headache on/off, mainly on the right temporal area. Since his last drug abuse (cocaine, marijuana, heroine, alcohol) was on 2016, he is now developing withdrawal symptoms like 3 episodes of diarrhoea, yawning, palpitations, irritability, sweating. Lives alone in the [place]. Denies h/o loc, dizziness. Patient reports of having similar chest pain 4 days ago, visited [facility], had an EKG done. Doctor mentioned to him that he has EKG changes and has to go for Cath. Since he was under illicit drug use, he was sent to [facility] for rehab and do the cath after he is discharged from the rehab. ER course was notable for: (1) CBC, CMP, UA (2) CXR, CTA (3) Tramadol Recent Travel: None PAST MEDICAL HISTORY: HTN, hyperlipidemia, diabetes, CHF, [place] (2011) s/p stent, and polysubstance abuse (cocaine, heroin, marijuana, alcohol) PAST SURGICAL HISTORY: As mentioned above Social History: Alcohol (Started driking alcohol at age 25, consumes 2 pints of vodka daily. Last drink on 06/02/16), Cocaine (Started using cocaine at age 20, consumes $200- 300 worth daily. Last used on 06/02/2016), Heroin (Started using heroin at age 19 , consumes 7 bags daily. Last used on 06/02/16), Marijuana (Started smoking marijuana at age 15, consumes 2-3 bags 1-2 times weekly. 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 Was in shelter for 25 years. Denies being on parole/probation at present HOME MEDICATIONS: Medication Instructions Recorded Aspirin [ASA -] 81 mg PO DAILY 05/20/16 Clopidogrel Bisulfate [Plavix -] 75 mg PO DAILY 05/20/16 Enalapril Maleate [Vasotec -] 10 mg PO DAILY 05/20/16 Gabapentin [Neurontin -] 100 mg PO DAILY 05/20/16 Glyburide 5 mg PO DAILY 05/20/16 Metformin HCl [Glucophage] 1,000 mg PO BID 05/20/16 Sertraline HCl [Zoloft -] 50 mg PO DAILY 05/20/16 Trazodone HCl 100 mg PO HS 05/20/16 Atorvastatin Ca [Lipitor] 20 mg PO HS tablet 05/25/16 Isosorbide Mononitrate [Ismo -] 10 mg PO DAILY tablet 05/25/16 Nitroglycerin 0.4 mg PO DAILY PRN MDD 1.2mg 06/09/16 REVIEW OF SYSTEMS CONSTITUTIONAL: Present: diaphoresis, generalized weakness Absent: fever, chills, , malaise, loss of appetite, weight change HEENT: Absent: rhinorrhea, nasal congestion, throat pain, throat swelling, difficulty swallowing, mouth swelling, ear pain, eye pain, visual changes CARDIOVASCULAR: Present: chest pain, palpitations, Absent: , syncope, irregular heart rate, lightheadedness, peripheral edema RESPIRATORY: Present: cough, shortness of breath Absent: dyspnea with exertion, orthopnea, wheezing, stridor, hemoptysis GASTROINTESTINAL: Present: diarrhea Absent: abdominal pain, abdominal distension, nausea, vomiting, constipation, melena, hematochezia GENITOURINARY: Absent: dysuria, frequency, urgency, hesitancy, hematuria, flank pain, genital pain MUSCULOSKELETAL: Absent: myalgia, arthralgia, joint swelling, back pain, neck pain SKIN: Absent: rash, itching, pallor HEMATOLOGIC/IMMUNOLOGIC: Absent: easy bleeding, easy bruising, lymphadenopathy, frequent infections ENDOCRINE: Absent: unexplained weight gain, unexplained weight loss, heat intolerance, cold intolerance NEUROLOGIC: Absent: headache, focal weakness or paresthesias, dizziness, unsteady gait, seizure, mental status changes, bladder or bowel incontinence PSYCHIATRIC: Present: depression Absent: anxiety, suicidal or homicidal ideation, hallucinations. PHYSICAL EXAMINATION GENERAL: Patient lying in bed in supine position, Awake, alert, and fully oriented, in no acute distress. HEAD: Normal with no signs of trauma. EYES: EOM intact, no pallor or icterus. EARS, NOSE, THROAT: Ears normal. Moist mucous membranes. NECK: Supple. LUNGS: Breath sounds equal, clear to auscultation bilaterally. No wheezes, and no crackles. No accessory muscle use. HEART: Regular rate, irregularly rhythm, normal S1 and S2 without murmur. ABDOMEN: Soft, nontender, not distended, normoactive bowel sounds, no guarding, no rebound, no masses. No hepatomegaly or splenomegaly. MUSCULOSKELETAL: Normal range of motion at all joints. No bony deformities or tenderness. No CVA tenderness. UPPER EXTREMITIES: 2+ pulses, warm, well-perfused. No cyanosis. No clubbing. Cap refill <2 seconds. No peripheral edema. LOWER EXTREMITIES: 2+ pulses, warm, well-perfused. No calf tenderness. No peripheral edema. NEUROLOGICAL: Cranial nerves II-XII intact. Normal speech. Normal gait. PSYCHIATRIC: Cooperative. Good eye contact. Appropriate mood and affect. SKIN: Warm, dry, normal turgor, no rashes or lesions noted. ASSESSMENT/PLAN: 60 year old male with significant PMHx of HTN, hyperlipidemia, diabetes, CHF, SD (2011) s/p stent, and polysubstance abuse (cocaine, heroin, marijuana, alcohol) from rehab at [facility], presented to the ED via EMS with the complaint of chest pain # Chest pain-r/o ACS Most likely cocaine induced chest pain given the h/o recent use of cocaine HEART Score-7, KESHA score-5 EKG showed LBBB chest pain minimally relieved by sublingual nitrate Troponin x 1 negative, next troponin pending Cardiology consult placed Echo ordered Nasal oxygen PRN Tramadol didn't relieve the pain, patient wants morphine. Explained to the patient that morphine cannot be prescribed at this time. Upon hearing this, he said he wants to sign out AMA but agreed to stay until we get second set of troponins. Continuous cardiac monitoring Continue Aspirin, Plavix, Isosorbide mononitrate, sublingual nitroglycerine PRN # Polysubstance abuse Urine toxicology ordered, report pending Last drugs used on 06/02/2016 (cocaine, marijuana, heroine, alcohol) Continued Methadone 10mg TID Dr. Luna consult placed # CHF Not on exacerbation # Hyperlipidemia Continue Statin # FEN Not on IV fluids Electrolytes to be repeated Diabetic diet # Prophylaxis For DVT- On Heparin sq For GI- On Pantoprazole # Code Status- Full code # Dispo: Admitted in Tele. Duration of stay unknown. Illness, Investigation and Plan of care explained to the patient. He verbalized understanding. Case seen and discussed with Dr. Seay. Visit type - Emergency Visit Emergency Visit: Yes ED Registration Date: 06/12/16 Care time: The patient presented to the Emergency Department on the above date and was hospitalized for further evaluation of their emergent condition. - New Patient This patient is new to me today: Yes Date on this admission: 06/12/16 - Critical Care Critical Care patient: No
[2016-06-12] MEDS ORDERED: METHADONE HCL 10 MG TABLET (FOR DETOX USE ONLY) PO ONE (04:15)
[2016-06-12] MEDS ORDERED: NITROGLYCERIN SUBLINGUAL 1/150 0.4 MG TAB SL PRN (04:17)
[2016-06-12] MEDS ORDERED: LORAZEPAM CARPU-JECT 2 MG/ML DISP.SYRIN IVPUSH PRN (04:24)
[2016-06-12] MEDS ORDERED: METHADONE HCL 10 MG TABLET ONE ×2 (06:06→13:51)
[2016-06-12 06:11] LABS: URINE MARIJUANA THC NEGATIVE ng/ml (CUTOFF=50)
[2016-06-12 07:07] LABS: BASOPHIL 0.6 % (0-2.0); EOSINOPHIL 2.9 % (0-4.5); MCH 23.2 pg (25.7-33.7); MCHC 31.8 g/dl (32.0-35.9); MEAN CELL VOLUME 72.9 fl (80-96); MEAN PLT VOLUME 8.9 fl (7.5-11.1); NEUTROPHILS 46.3 % (42.8-82.8); PLATELET COUNT 133 K/MM3 (134-434); RDW 16.1 % (11.9-15.9); WHITE BLOOD COUNT 4.6 K/mm3 (4.0-10.0)
[2016-06-12 08:00] LABS: ALBUMIN 3.6 g/dl (3.4-5.0); ANION GAP 9 (8-16); BILIRUBIN,TOTAL 0.4 mg/dL (0.2-1.0); CALCIUM 8.8 mg/dL (8.5-10.1); CHOLESTEROL 124 mg/dL (50-200); CO2 26 mmol/L (21-32); CREATININE 1.1 mg/dL (0.7-1.3); GLUCOSE,RANDOM 100 mg/dL (74-106); LDL CHOLESTEROL (ONLY SJRH) 66 mg/dL (5-100); SGOT/AST 45 U/L (15-37); SGPT/ALT 52 U/L (12-78); TOT PROT 7.5 g/dl (6.4-8.2)
[2016-06-12 08:02] LABS: ALK PHOS 88 U/L (45-117)
[2016-06-12 08:03] LABS: TROPONIN I 0.04 ng/ml (0.00-0.05)
[2016-06-12] MEDS: INSULIN SLIDING SCALE (NOVOLOG) 1 VIAL SQ SCH ×2 (09:00→11:00)
[2016-06-12] MEDS ORDERED: GABAPENTIN 100 MG CAPSULE (FP) PO SCH (10:00)
[2016-06-12] MEDS ORDERED: SERTRALINE HCL 50 MG TABLET (FP) PO SCH (10:00)
[2016-06-12] MEDS ORDERED: CLOPIDOGREL BISULFATE 75 MG TABLET (FP) PO SCH (10:00)
[2016-06-12] MEDS ORDERED: ASPIRIN 81 MG CHEWABLE TABLETS PO SCH (10:00)
[2016-06-12] MEDS ORDERED: HEPARIN NA (PORCINE) 5,000 UNITS/ML 1ML VIAL SQ SCH (10:00)
[2016-06-12] MEDS ORDERED: ISOSORBIDE MONONITRATE 10 MG TABLET PO SCH (10:00)
[2016-06-12] MEDS ORDERED: ENALAPRIL MALEATE 10 MG TABLET (FP) PO SCH (10:00)
[2016-06-12] MEDS ORDERED: PANTOPRAZOLE 40 MG TABLET (FP) PO SCH (10:00)
--- NOTE | 2016-06-12 10:05 | EKG ---
Test Reason : Blood Pressure : / mmHG Vent. Rate : 044 BPM Atrial Rate : 044 BPM P-R Int : 192 ms QRS Dur : 148 ms QT Int : 488 ms P-R-T Axes : 059 -72 -06 degrees QTc Int : 417 ms POOR DATA QUALITY, INTERPRETATION MAY BE ADVERSELY AFFECTED MARKED SINUS BRADYCARDIA LEFT ANTERIOR HEMIBLOCK RIGHT BUNDLE BRANCH BLOCK ABNORMAL ECG Confirmed by AMY PICKENS MD ([id number]) on 06/12/2016 10:04:57 AM Referred By: Confirmed By:AMY PICKENS MD
--- NOTE | 2016-06-12 12:04 | PN ---
[facility] Progress Note (SOAP) Subjective: PT. WAS SENT TO ED BECAUSE OF CHEST PAIN. HE COMPLETED DETOX ON 05/25/16 THEN WENT HOME AND CAME BACK TO REHAB ON 06/09/16. Objective: 06/12/16 12:02 Vital Signs - 8 hr 06/12/16 06/12/16 06/12/16 05:30 07:35 07:43 Temperature 97.9 F Pulse Rate [ 45 L 51 L Left Radial] Respiratory 18 17 16 Rate Blood Pressure 159/70 151/74 [Left Arm] O2 Sat by Pulse 98 98 98 Oximetry (%) 06/12/16 09:42 Temperature 97.8 F Pulse Rate [ 55 L Left Radial] Respiratory 17 Rate Blood Pressure 143/85 [Left Arm] O2 Sat by Pulse 98 Oximetry (%) Laboratory Last Values WBC 4.6 K/mm3 (4.0-10.0) 06/12/16 06:27 RBC 5.31 M/mm3 (4.00-5.60) 06/12/16 06:27 Hgb 12.3 GM/dL (11.7-16.9) 06/12/16 06:27 Hct 38.7 % (35.4-49) 06/12/16 06:27 MCV 72.9 fl (80-96) L 06/12/16 06:27 MCHC 31.8 g/dl (32.0-35.9) L 06/12/16 06:27 RDW 16.1 % (11.9-15.9) H 06/12/16 06:27 Plt Count 133 K/MM3 (134-434) L 06/12/16 06:27 MPV 8.9 fl (7.5-11.1) 06/12/16 06:27 Neutrophils % 46.3 % (42.8-82.8) 06/12/16 06:27 Lymphocytes % 34.7 % (8-40) 06/12/16 06:27 Monocytes % 15.5 % (3.8-10.2) H 06/12/16 06:27 Eosinophils % 2.9 % (0-4.5) 06/12/16 06:27 Basophils % 0.6 % (0-2.0) 06/12/16 06:27 INR 0.96 (0.82-1.09) 06/12/16 01:00 D-Dimer 260 ng/ml (<200-235) H 06/12/16 01:00 Sodium 141 mmol/L (136-145) 06/12/16 06:27 Potassium 4.4 mmol/L (3.5-5.1) 06/12/16 06:27 Chloride 106 mmol/L (98-107) 06/12/16 06:27 Carbon Dioxide 26 mmol/L (21-32) 06/12/16 06:27 Anion Gap 9 (8-16) 06/12/16 06:27 BUN 19 mg/dL (7-18) H 06/12/16 06:27 Creatinine 1.1 mg/dL (0.7-1.3) 06/12/16 06:27 Creat Clearance w eGFR > 60 (>60) 06/12/16 06:27 POC Glucometer 145.57480 UNITS (()) 06/12/16 09:01 Random Glucose 100 mg/dL (74-106) 06/12/16 06:27 Hemoglobin A1c % 6.6 % (4.8-6.0) H 06/12/16 06:27 Calcium 8.8 mg/dL (8.5-10.1) 06/12/16 06:27 Total Bilirubin 0.4 mg/dL (0.2-1.0) 06/12/16 06:27 AST 45 U/L (15-37) H 06/12/16 06:27 ALT 52 U/L (12-78) 06/12/16 06:27 Alkaline Phosphatase 88 U/L (45-117) 06/12/16 06:27 Creatine Kinase 105 IU/L (39-308) 06/12/16 06:27 Troponin I 0.04 ng/ml (0.00-0.05) D 06/12/16 06:27 Total Protein 7.5 g/dl (6.4-8.2) 06/12/16 06:27 Albumin 3.6 g/dl (3.4-5.0) 06/12/16 06:27 Triglycerides 242 mg/dL (35-160) H 06/12/16 06:27 Cholesterol 124 mg/dL (50-200) 06/12/16 06:27 Total LDL Cholesterol 66 mg/dL (5-100) 06/12/16 06:27 HDL Cholesterol 35 mg/dL (40-60) L 06/12/16 06:27 Opiates Screen Negative ng/ml (TRPRIX=178) 06/12/16 05:25 Methadone Screen Negative ng/ml (HEXNBM=751) 06/12/16 05:25 Barbiturate Screen Negative ng/ml (CDFGBX=008) 06/12/16 05:25 Phencyclidine Screen Negative ng/ml (CUTOFF=25) 06/12/16 05:25 Ur Amphetamines Screen Negative ng/ml (SBSCBC=564) 06/12/16 05:25 MDMA (Ecstasy) Screen Negative ng/ml (AESYHF=120) 06/12/16 05:25 Benzodiazepines Screen Positive ng/ml (XOHRXS=198) 06/12/16 05:25 Cocaine Screen Negative ng/ml (JUERIU=094) 06/12/16 05:25 U Marijuana (THC) Screen Negative ng/ml (CUTOFF=50) 06/12/16 05:25 LABS NOTED Assessment: 06/12/16 12:03 CHEST PAIN Plan: PT. MAY RETURN TO REHAB ONCE MEDICALLY STABLE
--- NOTE | 2016-06-12 12:31 | CON.CARD ---
Consult Consult Specialty:: Cardiology Referred by:: Hospitalist Medicine Reason for Consultation:: Chest pain - History of Present Illness Chief Complaint: Chest pain History of Present Illness: 60 year old male with a significant past medical history of HTN, hyperlipidemia , diabetes, CHF, CAD post [place] (2011) s/p stent, and polysubstance abuse (cocaine , heroin, marijuana, alcohol), who presented to the emergency department from [facility] with sharp retrosternal chest pain since resolved without dyspnea, near or true syncope, palps, orthopnea, PND or LE edema. He reports nausea, emesis, diarrhea from withdrawal, last abuse last week, follows with ammonia print operator at [facility] Dr. Parra who has planned for LHC +/- PCI after detox. Past medical history: HTN, Hepatitis C, hyperlipidemia, diabetes, CHF, VT (2011, 1 stent), current smoker, and polysubstance abuse (marijuana, heroin, crack cocaine, alcohol). Social History: Cigarettes (started smoking at age 12, consumes 5 cigarettes daily last smoked ) Marijuana (Started smoking marijuana at age 15, consumes 2-3 bags 1-2 times weekly. Last smoked on 06/09/16) Heroin (Started using heroin at age 19, consumes 7 bags daily. Last used on 06/02) Crack Cocaine (Started using cocaine at age 20, consumes $200-300 worth daily. Last smoked on 06/02/16) Alcohol (Started drinking alcohol at age 25, consumes 2 pints of vodka daily. Last drink on 06/02/16) - History Source History Provided By: Patient Limitations to Obtaining History: No Limitations - Alcohol/Substance Use Hx Alcohol Use: Yes - Smoking History Smoking history: Current every day smoker Have you smoked in the past 12 months: Yes Aproximately how many cigarettes per day: 5 Home Medications - Allergies Allergies/Adverse Reactions: Allergies Allergy/AdvReac Type Severity Reaction Status Date / Time acetaminophen [From Tylenol] Allergy Intermediate Rash Verified 06/11/16 21:02 ibuprofen Allergy Intermediate Rash Verified 06/11/16 21:02 - Home Medications Home Medications: Ambulatory Orders Aspirin [ASA -] 81 mg PO DAILY 05/20/16 Clopidogrel Bisulfate [Plavix -] 75 mg PO DAILY 05/20/16 Enalapril Maleate [Vasotec -] 10 mg PO DAILY 05/20/16 Gabapentin [Neurontin -] 100 mg PO DAILY 05/20/16 Glyburide 5 mg PO DAILY 05/20/16 Metformin HCl [Glucophage] 1,000 mg PO BID 05/20/16 Sertraline HCl [Zoloft -] 50 mg PO DAILY 05/20/16 Trazodone HCl 100 mg PO HS 05/20/16 Atorvastatin Ca [Lipitor] 20 mg PO HS tablet 05/25/16 Isosorbide Mononitrate [Ismo -] 10 mg PO DAILY tablet 05/25/16 Nitroglycerin 0.4 mg PO DAILY PRN MDD 1.2mg 06/09/16 Family Disease History - Family Disease History Family Disease History: Heart Disease: Mother, Other: Father () Review of Systems - Review of Systems Cardiovascular: reports: Chest Pain Vital Signs: Vital Signs Temperature 97.8 F 06/12/16 09:42 Pulse Rate 55 L 06/12/16 09:42 Respiratory Rate 17 06/12/16 09:42 Blood Pressure 143/85 06/12/16 09:42 O2 Sat by Pulse Oximetry (%) 98 06/12/16 09:42 Constitutional: Yes: No Distress, Calm Neck: Yes: Supple Respiratory: Yes: Regular, CTA Bilaterally Gastrointestinal: Yes: Normal Bowel Sounds, Soft Cardiovascular: Yes: Regular Rate and Rhythm JVD: No Carotid Bruit: No Heart Sounds: Yes: S1, S2 Edema: No - Other Data Labs, Other Data: CBC, BMP 06/12/16 06:27 06/12/16 06:27 INR, PTT INR 0.96 (0.82-1.09) 06/12/16 01:00 Troponin, BNP 06/12/16 06:27 Troponin I 0.04 D Troponin, BNP 06/12/16 06:27 Troponin I 0.04 D SB @ 44 Incomplete LBBB Prior Cardiac Procedures: PTCA with Stent Ejection Fraction %: LVEF > or = 40 % Imaging - Results Chest X-ray: Report Reviewed (NAD) Cat Scan: Report Reviewed (No dissection or aneurysm, 6 mm RUL nodule for 6 month f/u) Problem List - Problems (1) Chest pain Code(s): R07.9 - CHEST PAIN, UNSPECIFIED Qualifiers: Chest pain type: unspecified Qualified Code(s): R07.9 - Chest pain, unspecified (2) Cocaine dependence Code(s): F14.20 - COCAINE DEPENDENCE, UNCOMPLICATED (3) Diabetes mellitus type II, controlled Code(s): E11.9 - TYPE 2 DIABETES MELLITUS WITHOUT COMPLICATIONS Qualifiers: Diabetes mellitus complication status: with neurologic complications Diabetes mellitus complication detail: with other neurological complication Diabetes mellitus superintendent terminal insulin use: without intermediate use Qualified Code(s): E11.49 - Type 2 diabetes mellitus with other diabetic neurological complication (4) Hyperlipidemia Code(s): E78.5 - HYPERLIPIDEMIA, UNSPECIFIED Qualifiers: Hyperlipidemia type: pure hypercholesterolemia Qualified Code(s): E78.0 - Pure hypercholesterolemia (5) Hypertension Code(s): I10 - ESSENTIAL (PRIMARY) HYPERTENSION Qualifiers: Hypertension type: essential hypertension Qualified Code(s): I10 - Essential (primary) hypertension (6) History of heart attack Code(s): I25.2 - OLD MYOCARDIAL INFARCTION (7) S/P angioplasty with stent Code(s): Z95.9 - PRESENCE OF CARDIAC AND VASCULAR IMPLANT AND GRAFT, UNSP (8) Hypertensive cardiomyopathy Code(s): I11.9 - HYPERTENSIVE HEART DISEASE WITHOUT HEART FAILURE I42.9 - CARDIOMYOPATHY, UNSPECIFIED Assessment/Plan 06/12/2016 Echo: Mildly dilated with mild decreased LV fxn, mild inf HK, mild LAE , mild MR, TR 1. Chest pain ruled out for VT 2. CAD s/p VT, PCI (stent), angina pectoris 3. LV systolic dysfunction 4. Polysubstance abuse 5. Type 2 DM 6. HTN/HCVD P:1. Ruled out for VT 2. Continue ASA 81 qd, Plavix 75 qd, vasotec 10 qd, Lipitor 20 qd, change ISMO to Imdur 30 qd with emphasis on medication compliance 3. May return to [facility] for detox with further CV f/u with ammonia print operator at [facility] 4. Thank you for consultative opportunity
[2016-06-12 12:37] LABS: TROPONIN I 0.02 ng/ml (0.00-0.05)
--- NOTE | 2016-06-12 12:43 | HOSP ---
Physical Examination Vital Signs: Vital Signs Temperature 97.8 F 06/12/16 09:42 Pulse Rate 55 L 06/12/16 09:42 Respiratory Rate 17 06/12/16 09:42 Blood Pressure 143/85 06/12/16 09:42 O2 Sat by Pulse Oximetry (%) 98 06/12/16 09:42 Findings/Remarks: Chief complaint: Chest Pain History of Present Illness: This is a 60 year old male with PMH of HTN, HLD, DM , CHF, PA (2011), Hep C, and poly substance abuse (cocaine, heroin, marijuana, alcohol and current smoker), who [facility] with substernal chest pain that radiates to the left shoulder and back. The patient rates the pain 8/10 that was relieved for 5-10 minutes by nitroglycerin to 4/10 pain. Patient states that pain he has also experienced episodes on nausea/vomiting/diaphoresis since, likely due to withdrawal. Patient can typically walk four blocks before he becomes dyspneic, swelling and pain in his legs, and chest pain that is only relieved (sustained) by morphine when he receives it at the hospital. Was seen by feed miller at [facility], who requested he go to rehab in order to decrease complications before receiving a cardiac cath procedure. Progress note: today the patient states he has pain a pounding chest pain that is currently an 8/10 and that comes on with some to no exertion, and headache ( likely d/t nitroglycerin). Objective: GENERAL: awake, alert and oriented, answers questions appropriately HEENT: normocephalic atramatic LUNGS: no acute respiratory distress, equal rise and fall bilaterally, clear to auscultation bilaterally. HEART: Bradycardic, normal S1, S2, no murmurs, gallops, rubs, peripheral pulses (radial and DP) equal bilaterally. ABDOMEN: soft nontender, non- distended, normoactive bowel sounds. No guarding, rebound or masses. EXTREMITIES: + clubbing, normal range of motion, gait stable. NEURO: Cranial nerves II- XII intact, normal speech, normal gait, 4/5 strength. SKIN: dry, scaley, no edema noted to b/l lower extremites, no rashes or lesions. Selected Entries 06/12/16 09:42 Temperature 97.8 F Pulse Rate [ 55 L Left Radial] Pulse Rhythm [ Regular Left Radial] Blood Pressure 143/85 [Left Arm] Blood Pressure 104 Mean [Left Arm] Blood Pressure Sitting Position [Left Arm] O2 Sat by Pulse 98 Oximetry (%) Oxygen Delivery Room Air Method CBCD WBC 4.6 K/mm3 (4.0-10.0) 06/12/16 06:27 RBC 5.31 M/mm3 (4.00-5.60) 06/12/16 06:27 Hgb 12.3 GM/dL (11.7-16.9) 06/12/16 06:27 Hct 38.7 % (35.4-49) 06/12/16 06:27 MCV 72.9 fl (80-96) L 06/12/16 06:27 MCHC 31.8 g/dl (32.0-35.9) L 06/12/16 06:27 RDW 16.1 % (11.9-15.9) H 06/12/16 06:27 Plt Count 133 K/MM3 (134-434) L 06/12/16 06:27 MPV 8.9 fl (7.5-11.1) 06/12/16 06:27 CMP Sodium 141 mmol/L (136-145) 06/12/16 06:27 Potassium 4.4 mmol/L (3.5-5.1) 06/12/16 06:27 Chloride 106 mmol/L (98-107) 06/12/16 06:27 Carbon Dioxide 26 mmol/L (21-32) 06/12/16 06:27 Anion Gap 9 (8-16) 06/12/16 06:27 BUN 19 mg/dL (7-18) H 06/12/16 06:27 Creatinine 1.1 mg/dL (0.7-1.3) 06/12/16 06:27 Creat Clearance w eGFR > 60 (>60) 06/12/16 06:27 Random Glucose 100 mg/dL (74-106) 06/12/16 06:27 Calcium 8.8 mg/dL (8.5-10.1) 06/12/16 06:27 Total Bilirubin 0.4 mg/dL (0.2-1.0) 06/12/16 06:27 AST 45 U/L (15-37) H 06/12/16 06:27 ALT 52 U/L (12-78) 06/12/16 06:27 Alkaline Phosphatase 88 U/L (45-117) 06/12/16 06:27 Total Protein 7.5 g/dl (6.4-8.2) 06/12/16 06:27 Albumin 3.6 g/dl (3.4-5.0) 06/12/16 06:27 CARDIAC ENZYMES Creatine Kinase 105 IU/L (39-308) 06/12/16 06:27 Troponin I 0.04 ng/ml (0.00-0.05) D 06/12/16 06:27 Assessment: 60 year old male with PMH of HTN, HLD, DM, CHF, PA (2011), Hep C, and poly substance abuse (cocaine, heroin, marijuana, alcohol and current smoker ), who presented to to the Emergency Department from [facility] rehab with substernal chest pain that radiates to the left shoulder and back Plan: (1) ACS - Possible Unstable Angina -Chest pain is very briefly relived by nitroglycerin , and comes on with or without exertion. - Troponin - 0.04, CK 105 IU/L - EKG changes- sinus bradycardic, left anterior doyle-block, and RBBB - Please repeat EKG - ECHO - left ventricle is mildly dilated and left systolic function is mildly reduced. Inferior wall and apex mild hypokinesis. There is mild MR and TR, and mild aortic sclerosis. - CXR - no infiltrate or edema in the lungs - CT Chest CTA - no evidence of PE, aortic dissection/aneurism, no PNA/pleural effusion. - Continue Aspirin, plavix - Continue telemetry monitoring - Cardiology consult, for possible cardiac cath (recommended by cardiology at [facility]) - Follow up medical records from [facility] Poly substance abuse - Negative Urine tox - Nicotine patch/gum - Methadone 10 mg TRD - Return to [facility] to continue detox as per Detox consult Endocrine - Diabetes Mellitus - Hgb A1C - 6.6 - Continue Insulin Sliding Scale Respiratory - Education on cigarette cessation - Right upper lobe lung nodule (6mm) on CT Chest - Pulmonary consult - Will likely need repeat CT in 6 months. Labs: CBC, BMP 06/12/16 06:27 06/12/16 06:27
[2016-06-12] MEDS ORDERED: METHADONE HCL 10 MG TABLET PO SCH (13:00)
--- NOTE | 2016-06-12 14:01 | DS ---
[id number] 4Bd Past Medical History: Cardiac: Hypertension, hyperlipidemia, congestive heart failure, coronary artery disease post [place] (2011) s/p stent Endocrine: diabetes Poly substance abuse: cocaine, heroin, marijuana, alcohol, current smoker. Social history Cigarettes (started smoking at age 12, consumes 5 cigarettes daily last smoked ) Marijuana (Started smoking marijuana at age 15, consumes 2-3 bags 1-2 times weekly. Last smoked on 06/09/16) Heroin (Started using heroin at age 19, consumes 7 bags daily. Last used on 06/02) Crack Cocaine (Started using cocaine at age 20, consumes $200-300 worth daily. Last smoked on 06/02/16) Alcohol (Started drinking alcohol at age 25, consumes 2 pints of vodka daily. Last drink on 06/02/16) Family history Mother - heart disease Father - Medication Instructions Recorded Aspirin [ASA -] 81 mg PO DAILY 05/20/16 Clopidogrel Bisulfate [Plavix -] 75 mg PO DAILY 05/20/16 Enalapril Maleate [Vasotec -] 10 mg PO DAILY 05/20/16 Gabapentin [Neurontin -] 100 mg PO DAILY 05/20/16 Glyburide 5 mg PO DAILY 05/20/16 Metformin HCl [Glucophage] 1,000 mg PO BID 05/20/16 Sertraline HCl [Zoloft -] 50 mg PO DAILY 05/20/16 Trazodone HCl 100 mg PO HS 05/20/16 Atorvastatin Ca [Lipitor] 20 mg PO HS tablet 05/25/16 Nitroglycerin 0.4 mg PO DAILY PRN MDD 1.2mg 06/09/16 Isosorbide Mononitrate [Imdur -] 30 mg PO DAILY tab.sr.24h 06/12/16 Methadone [Dolophine -] 10 mg PO Q8H tablet MDD 30mg 06/12/16 Allergies: Acetaminophen, Ibuprofen OBJECTIVE: Vital Signs Period Temp Pulse Resp BP Sys/Paulino Pulse Ox Last 24 Hr 97.8 F-97.9 F 45-55 16-18 143-159/70-85 98-98 PHYSICAL EXAM GENERAL: The patient is awake, alert, and fully oriented, in no acute distress, answers questions appropriately. HEAD: Normocephalic, atraumatic, with no signs of trauma. EYES: PERRL, extraocular movements intact, sclera anicteric, conjunctiva clear. ENT: Ears normal, nares patent, oropharynx clear without exudates, moist mucous membranes. NECK: Trachea midline, full range of motion, supple. No JVD LUNGS: Breath sounds equal, clear to auscultation bilaterally, no wheezes, no crackles, no accessory muscle use. No acute respiratory distress, equal rise and fall bilaterally. HEART: Bradycardic, normal S1, S2, no murmurs, gallops, rubs, peripheral pulses (radial and DP) equal bilaterally. ABDOMEN: Soft nontender, non- distended, normoactive bowel sounds. No guarding, rebound or masses. EXTREMITIES: (+) clubbing, normal range of 2+ pulses, warm, well-perfused, no edema. NEUROLOGICAL: Cranial nerves II through XII grossly intact. Normal speech, gait not observed. PSYCH: Normal mood, normal affect. SKIN: dry, scaley, no edema noted to b/l lower extremites, no rashes or lesions. LABS CBCD WBC 4.6 K/mm3 (4.0-10.0) 06/12/16 06:27 RBC 5.31 M/mm3 (4.00-5.60) 06/12/16 06:27 Hgb 12.3 GM/dL (11.7-16.9) 06/12/16 06:27 Hct 38.7 % (35.4-49) 06/12/16 06:27 MCV 72.9 fl (80-96) L 06/12/16 06:27 MCHC 31.8 g/dl (32.0-35.9) L 06/12/16 06:27 RDW 16.1 % (11.9-15.9) H 06/12/16 06:27 Plt Count 133 K/MM3 (134-434) L 06/12/16 06:27 MPV 8.9 fl (7.5-11.1) 06/12/16 06:27 CMP Sodium 141 mmol/L (136-145) 06/12/16 06:27 Potassium 4.4 mmol/L (3.5-5.1) 06/12/16 06:27 Chloride 106 mmol/L (98-107) 06/12/16 06:27 Carbon Dioxide 26 mmol/L (21-32) 06/12/16 06:27 Anion Gap 9 (8-16) 06/12/16 06:27 BUN 19 mg/dL (7-18) H 06/12/16 06:27 Creatinine 1.1 mg/dL (0.7-1.3) 06/12/16 06:27 Creat Clearance w eGFR > 60 (>60) 06/12/16 06:27 Random Glucose 100 mg/dL (74-106) 06/12/16 06:27 Calcium 8.8 mg/dL (8.5-10.1) 06/12/16 06:27 Total Bilirubin 0.4 mg/dL (0.2-1.0) 06/12/16 06:27 AST 45 U/L (15-37) H 06/12/16 06:27 ALT 52 U/L (12-78) 06/12/16 06:27 Alkaline Phosphatase 88 U/L (45-117) 06/12/16 06:27 Total Protein 7.5 g/dl (6.4-8.2) 06/12/16 06:27 Albumin 3.6 g/dl (3.4-5.0) 06/12/16 06:27 CARDIAC ENZYMES Creatine Kinase 105 IU/L (39-308) 06/12/16 06:27 Troponin I 0.04 ng/ml (0.00-0.05) D 06/12/16 06:27 Laboratory Tests 06/12/16 05:25 Opiates Screen Negative Methadone Screen Negative Barbiturate Screen Negative Phencyclidine Screen Negative Ur Amphetamines Screen Negative MDMA (Ecstasy) Screen Negative Benzodiazepines Screen Positive Cocaine Screen Negative U Marijuana (THC) Screen Negative HOSPITAL COURSE: This is a 60 year old male with PMH of HTN, HLD, DM, CHF, [place] ( 2011), Hep C, and poly substance abuse (cocaine, heroin, marijuana, alcohol and current smoker), who [facility] and presented to to the Emergency Department via EMS with substernal chest pain that radiates to the left shoulder and back. The patient rates the stabbing and progressive pain quality as 8/10 that was relieved for 5-10 minutes by nitroglycerin to 4/10 pain. Patient states that chest pain has also associated dyspnea, palpitations and dry cough. Since his last abuse (06/02/16) he has had episodes of nausea, vomiting, diaphoresis. Patient lives alone in the [place] and can typically walk four blocks before he becomes dyspneic, swelling and pain in his legs, and chest pain that is only relieved by morphine, when he receives it at the hospital. Four days ago, patient was seen by fixed income trading vice president at [facility], who discussed cath procedure, was sent to [facility] rehab in order to decrease complications of his illicit drug use, and will do cardiac cath procedure after discharged from rehab. ED Course: 06/11/16 - Patient presented to the ED with chest pain that started since 1PM that afternoon, that improved in severity after receiving aspirin and nitroglycerin. Patient placed on telemetry monitoring, urine toxicology negative , except benzodiazepines. 06/12/16 - Chest pain minimally relieved by sublingual nitrate. Tramadol given without relief, patient wants morphine. Methodone continued for detox. Chest pain ruled out for [place]. Troponin x3 negative, and EKG showed LBBB. Seen by detox (Dr. Luna) and cardiology consult stating patient may return to rehab once medically stable with further CV follow up with fixed income trading vice president at [facility]. Continue Aspirin, Plavix, Isosorbide mononitrate, sublingual nitroglycerine PRN with emphasis on medication compliance. Imaging: - EKG changes- sinus bradycardia, left axis deviation. Non specific intraventricular block, and LBBB - ECHO - left ventricle is mildly dilated and left systolic function is mildly reduced. Inferior wall and apex mild hypokinesis. There is mild MR and TR, and mild aortic sclerosis. - CXR - no infiltrate or edema in the lungs - CTA - no evidence of PE, aortic dissection/aneurism, no PNA/pleural effusion. Right upper lobe lung nodule (6mm) present, pulmonary follow up and need repeat CT in 6 months. Consults - Cardiology: Virgil Beebe - Detox: Geoffrey Luna - Pulmonary: Abram Ruiz Date of Admission:06/12/16 Date of Discharge: 06/12/16 Minutes to complete discharge: 45 Discharge Summary Reason For Visit: CHEST PAIN Current Active Problems Alcohol dependence with uncomplicated withdrawal (Acute) Cannabis abuse (Acute) Chest pain (Acute) Cocaine dependence (Acute) Depressive disorder (Acute) Diabetes mellitus type II, controlled (Acute) Hyperlipidemia (Acute) Hypertension (Acute) Hypertensive cardiomyopathy (Acute) Nicotine dependence (Acute) Opioid dependence with withdrawal (Acute) Weight loss (Acute) Condition: Improved - Instructions Diet, Activity, Other Instructions: You are being transferred back to [facility]. Please return to the ED with new, persistent, or worsening symptoms. Please follow-up with providers as indicated. Please follow-up in 6 months to have your right upper lobe nodule checked with a CT scan of your chest. Please follow-up with your fixed income trading vice president at [facility] within 1 week. Referrals: Micah Henderson MD [Staff Physician] - 1 Week Abram Ruiz MD [Staff Physician] - (Please follow-up with pulmonary within [address] chest to evaluate your right upper lobe nodule.) Disposition: TRANSFER ACUTE CARE/OTHER HOSP - Home Medications Comprehensive Discharge Medication List: Ambulatory Orders Aspirin [ASA -] 81 mg PO DAILY 05/20/16 Clopidogrel Bisulfate [Plavix -] 75 mg PO DAILY 05/20/16 Enalapril Maleate [Vasotec -] 10 mg PO DAILY 05/20/16 Gabapentin [Neurontin -] 100 mg PO DAILY 05/20/16 Glyburide 5 mg PO DAILY 05/20/16 Metformin HCl [Glucophage] 1,000 mg PO BID 05/20/16 Sertraline HCl [Zoloft -] 50 mg PO DAILY 05/20/16 Trazodone HCl 100 mg PO HS 05/20/16 Atorvastatin Ca [Lipitor] 20 mg PO HS tablet 05/25/16 Nitroglycerin 0.4 mg PO DAILY PRN MDD 1.2mg 06/09/16 Isosorbide Mononitrate [Imdur -] 30 mg PO DAILY tab.sr.24h 06/12/16 Methadone [Dolophine -] 10 mg PO Q8H tablet MDD 30mg 06/12/16 This patient is new to me today: Yes Date on this admission: 06/23/16 Emergency Visit: Yes ED Registration Date: 06/12/16 Care time: The patient presented to the Emergency Department on the above date and was hospitalized for further evaluation of their emergent condition. Critical Care patient: No - Discharge Referral Referred to [facility] Med [facility].C[facility] Yes Physician Referral: Micah Del Angel MD ([facility])
[2016-06-12 14:24] VITALS: BP 137/75; PULSE 53; TEMP 97.7
[2016-06-12] MEDS ORDERED: ATORVASTATIN CA 20 MG TABLET (FP) PO SCH (22:00)
[2016-06-13] MEDS ORDERED: ISOSORBIDE MONONITRATE 30 MG TAB.SR.24H (FP) PO SCH (10:00)
--- NOTE | 2016-06-17 09:14 | EKG ---
Test Reason : Blood Pressure : / mmHG Vent. Rate : 056 BPM Atrial Rate : 056 BPM P-R Int : 208 ms QRS Dur : 128 ms QT Int : 472 ms P-R-T Axes : 079 -74 007 degrees QTc Int : 455 ms SINUS BRADYCARDIA LEFT AXIS DEVIATION NON-SPECIFIC INTRA-VENTRICULAR CONDUCTION BLOCK CANNOT RULE OUT ANTEROSEPTAL INFARCT (CITED ON OR BEFORE 09-JUN-2016) ABNORMAL ECG WHEN COMPARED WITH ECG OF 09-JUN-2016 20:59, LIKELY NO SIGNIFICANT CHANGE. Confirmed by KIM PÉREZ, JILLIAN ([id number]), greeting card editor ALAYNA LOYOLA (1) on 06/17/2016 9:14:43 AM Referred By: Confirmed By:JILLIAN ALVAREZ MD
== END 2016-06-12 13:56 | disposition short-term general hospital (02) ==
LOC: JER 20:58 → JERBED 06-12 03:18
PROVIDERS: ADMIT Internal Medicine; ATTEND Registered Nurse
DX: R07.89 Other chest pain (principal); I10 Essential (primary) hypertension; E78.5 Hyperlipidemia, unspecified; E11.9 Type 2 diabetes mellitus without complications; I25.2 Old myocardial infarction; Z95.5 Presence of coronary angioplasty implant and graft; F14.10 Cocaine abuse, uncomplicated; F12.10 Cannabis abuse, uncomplicated; I50.9 Heart failure, unspecified; E78.00 Pure hypercholesterolemia, unspecified; F17.200 Nicotine dependence, unspecified, uncomplicated
CPT/HCPCS: 36415; 71020-TC; 71275-TC; 80053; 80061; 80307; 82550; 83036; 83721; 84484; 85025; 85379; 85610; 93005; 93010; 93306-TC; 99285-25; G0378; J1644

== ENCOUNTER 2016-06-12 14:46 | Inpatient (IN) | payer OTHER ==
[2016-06-12 15:05] VITALS: BMI 25.0
--- NOTE | 2016-06-12 15:18 | HP ---
KAVON PÉREZ Rehab Assess/Revision - Admission History Admitted to Rehab from: Emergency Department (PT BROUGHT BACK FROM [facility] TO GO BACK TO REHAB.) Date of Admission to Rehab: 06/12/16 - Vital signs Vital Signs: Vital Signs Period Temp Pulse Resp BP Sys/Paulino Pulse Ox Last 24 Hr 96.7 F 54 20 136/88 - Findings Detox History & Physical reviewed: Yes Concur with findings: Yes Comments/Additional Findings: PT RETURNED FROM [facility] TODAY. WAS ADMITTED TO REHAB ON 06/09/16 AND TRANSFERRED TO ER ON 06/11/16 DUE TO C/O CHEST PAIN. EVALUATED, TREATED AND CLEARED TO RETURN TO [facility]. PT TO F/U WITH HIS BUSINESS CENTER REPRESENTATIVE AT [facility] WITHIN 1 WEEK. ALERT O X 3. NAD. NO C/O CHEST PAIN AT THIS TIME. VSS- BP 136/88 P54 RR20 T96.7. PT TO RETURN TO [facility]
[2016-06-12] MEDS ORDERED: LOPERAMIDE HCL 2 MG CAPSULE PO PRN (15:19)
[2016-06-12] MEDS ORDERED: MENTHOL/PHENOL 1 EACH UD MM PRN (15:19)
[2016-06-12] MEDS ORDERED: guaiFENesin/D-METHORPHAN HB 10 ML UNIT-DOSE CUPS PO PRN (15:19)
[2016-06-12] MEDS ORDERED: MAG HYDROX/AL HYDROX/SIMETH 30 ML UNIT-DOSE CUP PO PRN (15:19)
[2016-06-12] MEDS ORDERED: NICOTINE POLACRILEX 2 MG GUM BC PRN (15:19)
[2016-06-12] MEDS ORDERED: P-EPHED 60MG/TRIPROLIDI 2.5MG TABLET PO PRN (15:19)
[2016-06-12] MEDS ORDERED: IBUPROFEN 400 MG TABLET (FP) PO PRN (15:19)
[2016-06-12] MEDS ORDERED: ACETAMINOPHEN 325 MG TABLET (FP) PO PRN (15:19)
[2016-06-12] MEDS ORDERED: MAGNESIUM HYDROX 2400MG/30ML ORAL SUSPENSION 30 ML CUP PO PRN (15:19)
[2016-06-12] MEDS ORDERED: MAGNESIUM CITRATE 300 ML BOTTLE PO PRN (15:19)
[2016-06-12] MEDS: metFORMIN HCL 500 MG TABLET (FP) PO SCH (19:16)
[2016-06-12] MEDS: NICOTINE 14 MG/24 HOURS TOPICAL PATCH TD SCH (19:18)
[2016-06-12] MEDS: ATORVASTATIN CA 20 MG TABLET (FP) PO SCH (21:38)
[2016-06-12] MEDS: diphenhydrAMINE HCL 50 MG CAPSULE PO PRN (21:38)
[2016-06-12] MEDS: THIAMINE HCL 100 MG TABLET (FP) PO SCH (21:38)
[2016-06-13] MEDS: glyBURIDE 5 MG TABLET (UD) PO SCH (07:22)
[2016-06-13] MEDS: metFORMIN HCL 500 MG TABLET (FP) PO SCH ×2 (07:25→17:03)
--- NOTE | 2016-06-13 09:31 | EKG ---
Test Reason : Blood Pressure : / mmHG Vent. Rate : 052 BPM Atrial Rate : 052 BPM P-R Int : 202 ms QRS Dur : 150 ms QT Int : 478 ms P-R-T Axes : 074 -72 -31 degrees QTc Int : 444 ms SINUS BRADYCARDIA WITH OCCASIONAL PREMATURE VENTRICULAR COMPLEXES RIGHT BUNDLE BRANCH BLOCK LEFT ANTERIOR FASCICULAR BLOCK BIFASCICULAR BLOCK CANNOT RULE OUT ANTEROSEPTAL INFARCT (MASKED BY FASCICULAR BLOCK?) ABNORMAL ECG WHEN COMPARED WITH ECG OF 11-JUN-2016 21:03, PREMATURE VENTRICULAR COMPLEXES ARE NOW PRESENT RIGHT BUNDLE BRANCH BLOCK HAS REPLACED NON-SPECIFIC INTRA-VENTRICULAR CONDUCTION BLOCK ANTEROSEPTAL INFARCT IS NOW PRESENT Confirmed by CELIO PÉREZ, AMY ([id number]) on 06/13/2016 9:30:39 AM Referred By: Confirmed By:AMY PICKENS MD
[2016-06-13] MEDS: ASPIRIN 81 MG CHEWABLE TABLETS PO SCH (10:10)
[2016-06-13] MEDS: NICOTINE 14 MG/24 HOURS TOPICAL PATCH TD SCH (10:10)
[2016-06-13] MEDS: ISOSORBIDE MONONITRATE 30 MG TAB.SR.24H (FP) PO SCH (10:10)
[2016-06-13] MEDS: CLOPIDOGREL BISULFATE 75 MG TABLET (FP) PO SCH (10:11)
[2016-06-13] MEDS: PRENATAL VITAMINS W/ FOLIC ACID TABLET (FP) PO SCH (10:11)
[2016-06-13] MEDS: THIAMINE HCL 100 MG TABLET (FP) PO SCH (21:29)
[2016-06-13] MEDS: diphenhydrAMINE HCL 50 MG CAPSULE PO PRN (21:30)
[2016-06-13] MEDS: ATORVASTATIN CA 20 MG TABLET (FP) PO SCH (21:30)
[2016-06-14] MEDS: glyBURIDE 5 MG TABLET (UD) PO SCH (07:04)
[2016-06-14] MEDS: metFORMIN HCL 500 MG TABLET (FP) PO SCH ×2 (07:04→17:53)
[2016-06-14] MEDS: CLOPIDOGREL BISULFATE 75 MG TABLET (FP) PO SCH ×2 (10:20→11:20)
[2016-06-14] MEDS: NICOTINE 14 MG/24 HOURS TOPICAL PATCH TD SCH (10:20)
[2016-06-14] MEDS: ASPIRIN 81 MG CHEWABLE TABLETS PO SCH ×2 (10:20→11:20)
[2016-06-14] MEDS: ISOSORBIDE MONONITRATE 30 MG TAB.SR.24H (FP) PO SCH ×2 (10:20→11:21)
[2016-06-14] MEDS: PRENATAL VITAMINS W/ FOLIC ACID TABLET (FP) PO SCH (10:21)
[2016-06-14] MEDS: NITROGLYCERIN SUBLINGUAL 1/150 0.4 MG TAB SL PRN ×4 (14:07→17:44)
--- NOTE | 2016-06-14 14:14 | PN ---
[facility] Progress Note (SOAP) Subjective: PT. C/O CHEST PAIN WHICH STARTED ON RT. SIDE OF CHEST WHICH PT. SAYS WILL ULTIMATELY MOVE TO THE LEFT.PT. WAS PREVIOUSLY IN THE ED FOR W/U OF CHEST PAIN, CARDIAC ENZYMES & EKGs WERE NEGATIVE FOR ACUTE FL. BURGLAR ALARM INSTALLER WAS CONSULTED, NO FL & CLEARED PT. TO RETURN TO REHAB. Objective: 06/14/16 14:15 Vital Signs - 8 hr 06/14/16 06/14/16 07:15 10:30 Temperature 98.3 F Pulse Rate 50 L 53 L Respiratory 18 16 Rate Blood Pressure 136/80 140/80 EKG DONE TODAY WAS COMPARED TO PREVIOUS EKGs,NO ACUTE CHANGES NOTED. O2 SAT 98% LUNGS : CLEAR TO A&P HEART : RR,NO MURMUR,S1 S2 Assessment: 06/14/16 14:17 CHEST PAIN,NO FL PER EKG Plan: CONTINUE REHAB PRN NITRO
--- NOTE | 2016-06-14 18:03 | PN ---
Cj Progress Note Note: PT. IS STILL C/O CHEST PAIN,NOW IT IS 6/10 FROM 3/10 EARLIER. SL NITRO X3 WAS GIVEN WITHOUT ANY RELIEF. NO NEED TO REPEAT EKG BECAUSE PT. HAS TO GO TO ED FOR [place] W/U. Vital Signs - 8 hr 06/14/16 06/14/16 10:30 17:46 Temperature 98.7 F Pulse Rate 53 L 76 Respiratory 16 20 Rate Blood Pressure 140/80 125/81 DX. : ANGINA PECTORIS P : PT. WILL BE TRANSFERRED TO [facility] ED, REPORT GIVEN TO DR. FAGAN.
[2016-06-14 19:21] LABS: URINE APPEARANCE CLEAR; URINE BILIRUBIN NEGATIVE (NEGATIVE); URINE BLOOD NEGATIVE (NEGATIVE); URINE COLOR YELLOW; URINE GLUCOSE (UA) NEGATIVE (NEGATIVE); URINE KETONE NEGATIVE (NEGATIVE); URINE LEUK ESTERASE NEGATIVE (NEGATIVE); URINE NITRITE NEGATIVE (NEGATIVE); URINE PROTEIN NEGATIVE (NEGATIVE); URINE UROBILINOGEN NEGATIVE E.U./dl (0.2-1.0)
[2016-06-14] MEDS: ATORVASTATIN CA 20 MG TABLET (FP) PO SCH (22:59)
[2016-06-14] MEDS: THIAMINE HCL 100 MG TABLET (FP) PO SCH (22:59)
[2016-06-15] MEDS: metFORMIN HCL 500 MG TABLET (FP) PO SCH ×2 (07:33→17:45)
[2016-06-15] MEDS: glyBURIDE 5 MG TABLET (UD) PO SCH (07:33)
[2016-06-15] MEDS: ISOSORBIDE MONONITRATE 30 MG TAB.SR.24H (FP) PO SCH (10:04)
[2016-06-15] MEDS: NICOTINE 14 MG/24 HOURS TOPICAL PATCH TD SCH (10:04)
[2016-06-15] MEDS: CLOPIDOGREL BISULFATE 75 MG TABLET (FP) PO SCH (10:04)
[2016-06-15] MEDS: PRENATAL VITAMINS W/ FOLIC ACID TABLET (FP) PO SCH (10:08)
[2016-06-15 10:18] VITALS: BP 133/84; PULSE 64; TEMP 97.8
[2016-06-15] MEDS: ASPIRIN 81 MG CHEWABLE TABLETS PO SCH (10:26)
--- NOTE | 2016-06-15 10:37 | EKG ---
Test Reason : Blood Pressure : / mmHG Vent. Rate : 051 BPM Atrial Rate : 051 BPM P-R Int : 188 ms QRS Dur : 146 ms QT Int : 452 ms P-R-T Axes : 072 -77 001 degrees QTc Int : 416 ms SINUS BRADYCARDIA LEFT AXIS DEVIATION LEFT BUNDLE BRANCH BLOCK ABNORMAL ECG WHEN COMPARED WITH ECG OF 12-JUN-2016 21:17, PREMATURE VENTRICULAR COMPLEXES ARE NO LONGER PRESENT Confirmed by GEORGIA LEYVA MD ([id number]) on 06/15/2016 10:37:18 AM Referred By: Confirmed By:GEORGIA LEYVA MD
--- NOTE | 2016-06-15 12:09 | HP ---
Psychiatrist Admission - Data Date of interview: 06/15/16 Admission source: [facility]/Amandeep Lee Identifying data: Patient is a 60 years old single Black male, father of a 43 years old daughter, unemployed on SSI, domiciled. He was originally admitted for inpatient rehab on this unit on 06/09/16. On 06/11/16, he developed chest pain and was transferred to [facility] for evaluation. On 06/12/16, after proper investigation, he was medically cleared and transferred back to this unit so he can resume inpatient rehabilitation Medical History: Significant for history of HTN, Hyperlipidemia, CAD/[place] s/p stent placement in 2011, DM II, CHF, Neuropathy. Smokes 5-6 cigarettes daily Psychiatric History: Patient is initially a guarded historian and reports that his first psychiatric contact was 8-9 years ago at [facility], in order to be placed for housing, where he was diagnosed with Major Depressive Disorder and prescribed Zoloft and Trazodone by Dr. Miller. He states he took the medications a few times a year but stopped approximately 5-6 years ago. He last took Zoloft and Trazodone during his last detox treatment earlier this month. Patient denies psychiatric hospitalization and suicide attempts. Physical/Sexual Abuse/Trauma History: Denies history of physical and sexual abuse as well as DV relationship Additional Comment: Reports history of multiple arrests including 5 felony convictions. Denies being on parole/probation at present Vital Signs: Vital Signs - 24 hr 06/14/16 06/15/16 06/15/16 17:46 06:20 10:18 Temperature 98.7 F 97.6 F 97.8 F Pulse Rate 76 61 64 Respiratory 20 18 18 Rate Blood Pressure 125/81 128/67 133/84 Allergies/Adverse Reactions: Allergies Allergy/AdvReac Type Severity Reaction Status Date / Time acetaminophen [From Tylenol] Allergy Intermediate Rash Verified 06/14/16 18:36 ibuprofen Allergy Intermediate Rash Verified 06/14/16 18:36 - Substance Abuse/Tx History Hx Alcohol Use: Yes Hx Substance Use: Yes Substance Use Type: Alcohol (Started driking alcohol at age 25, consumes 2 pints of vodka daily. Last drink on 06/02/16), Cocaine (Started using cocaine at age 20, consumes $200-300 worth daily. Last used on 06/05/16), Heroin (Started using heroin at age 19, consumes 7 bags daily. Last used on 06/02/16), Marijuana (Started smoking marijuana at age 15, consumes 2-3 bags 1-2 times weekly. Last smoked on 06/09/16)) Hx Substance Use Treatment: Yes (Previous detox @ [facility], [facility], [facility]/Rehab : [facility], [facility]) - Admission Criteria Previous failed treatment: No Poor recovery environment: Yes Comorbidities: Yes Lacks judgement: Yes Mental Status Exam - Mental Status Exam Alert and Oriented to: Time, Place, Person Cognitive Function: Fair Patient Appearance: Well Groomed Mood: Irritable Affect: Appropriate Patient Behavior: Guarded, Cooperative Speech Pattern: Clear Voice Loudness: Normal Thought Process: Intact Thought Disorder: Not Present Hallucinations: Denies Suicidal Ideation: Denies Homicidal Ideation: Denies Insight/Judgement: Poor Sleep: Well, Poorly Appetite: Good Muscle strength/Tone: Normal Gait/Station: Normal Psychiatric Findings - Problem List ([place] 1, 2,3) (1) Alcohol dependence with uncomplicated withdrawal Current Visit: No Status: Acute (2) Opioid dependence with withdrawal Current Visit: No Status: Acute (3) Cocaine dependence Current Visit: No Status: Acute (4) Cannabis abuse Current Visit: No Status: Acute (5) Nicotine dependence Current Visit: No Status: Acute Qualifiers: Nicotine product type: cigarettes Substance use status: in withdrawal Qualified Code(s): F17.213 - Nicotine dependence, cigarettes, with withdrawal (6) Depressive disorder Current Visit: No Status: Acute (7) Drug-induced mood disorder Current Visit: No Status: Ruled-out (8) Chest pain Current Visit: No Status: Acute Qualifiers: Chest pain type: unspecified Qualified Code(s): R07.9 - Chest pain, unspecified (9) Diabetes mellitus type II, controlled Current Visit: No Status: Acute Qualifiers: Diabetes mellitus complication status: with neurologic complications Diabetes mellitus complication detail: with other neurological complication Diabetes mellitus oysterman insulin use: without long-term use Qualified Code(s): E11.49 - Type 2 diabetes mellitus with other diabetic neurological complication (10) Hyperlipidemia Current Visit: No Status: Acute Qualifiers: Hyperlipidemia type: pure hypercholesterolemia Qualified Code(s): E78.0 - Pure hypercholesterolemia (11) Hypertension Current Visit: No Status: Acute Qualifiers: Hypertension type: essential hypertension Qualified Code(s): I10 - Essential (primary) hypertension (12) Hypertensive cardiomyopathy Current Visit: No Status: Acute - Initial Treatment Plan Initial Treatment Plan: Patient was referred by his hospice clinical supervisor to rehab so indicated procedure could be performed in a sober state. However, because of patient's medical condition, he has not been able to participate in this program. Twice, [facility]. He will be discharged tomorrow and referred to [facility] for outpatient treatment. Patient reports seeing Dr Zechariah Javed from [facility]. [facility] was contacted and copy writer was told that the doctor no longer worked there
--- NOTE | 2016-06-15 13:00 | PN ---
Cj Progress Note Note: Patient, due to his medical condition, is not able to function in this setting. He will be discharged tomorrow and referred to [facility] for [facility].
[2016-06-15] MEDS: ATORVASTATIN CA 20 MG TABLET (FP) PO SCH (22:02)
[2016-06-15] MEDS: diphenhydrAMINE HCL 50 MG CAPSULE PO PRN (22:02)
[2016-06-15] MEDS: THIAMINE HCL 100 MG TABLET (FP) PO SCH (22:02)
[2016-06-16] MEDS: glyBURIDE 5 MG TABLET (UD) PO SCH (06:24)
[2016-06-16] MEDS: metFORMIN HCL 500 MG TABLET (FP) PO SCH (06:24)
[2016-06-16] MEDS ORDERED: ASPIRIN COATED 81 MG TABLET.EC PO SCH (10:00)
== END 2016-06-16 08:55 | disposition home or self-care (01) | DRG 772 ==
LOC: YASAS 14:46 → Y3W 15:56
PROVIDERS: ADMIT Psychiatry & Neurology Psychiatry; ATTEND Psychiatry & Neurology Psychiatry
PROC: HZ42ZZZ Group Counseling for Substance Abuse Treatment, Cognitive-Behavioral (ICD-10-PCS; principal; 2016-06-16)
DX: F11.23 Opioid dependence with withdrawal (principal); F10.230 Alcohol dependence with withdrawal, uncomplicated; F14.20 Cocaine dependence, uncomplicated; F12.20 Cannabis dependence, uncomplicated; F17.213 Nicotine dependence, cigarettes, with withdrawal; F19.24 Other psychoactive substance dependence with psychoactive substance-induced mood disorder; F32.9 Major depressive disorder, single episode, unspecified; R07.9 Chest pain, unspecified; I10 Essential (primary) hypertension; I11.9 Hypertensive heart disease without heart failure; E11.49 Type 2 diabetes mellitus with other diabetic neurological complication; Z79.84 Long term (current) use of oral hypoglycemic drugs; E78.00 Pure hypercholesterolemia, unspecified
CPT/HCPCS: 81003; 93005; 93010

== ENCOUNTER 2016-06-14 18:26 | Emergency (ER) | payer OTHER ==
--- NOTE | 2016-06-14 18:35 | PDOC ---
History of Present Illness <Nicole Lomeli - Last Filed: 06/14/16 20:47> <Melvi Turner - Last Filed: 06/15/16 02:41> - General Chief Complaint: Chest Pain Stated Complaint: CHEST PAIN Time Seen by Provider: 06/14/16 18:30 - History of Present Illness Initial Comments: 06/14/16 20:11 Patient is a 60 year old male with significant medical hx of HTN, HLD, DM, CHF, DE (2011) s/p stent, and polysubstance abuse (cocaine, heroin, marijuana, alcohol) who has been sent to the ED from [facility] for intermittent chest pain for the past month but worsened today. Patient reports that he has had chest pain three times in the past month that resolved with three administrations of nitroglycerin. He reports that his chest pain usually occurs while he is at rest. Today the patient had right sided chest pain that radiated over to his left side. During the time of onset, patient reports his pain was 6/10 in severity and describes it as a stabbing sensation. He took 3 NTG that eased the pain but reports it still lingered. The patient states that after a while his pain returned with greater severity. The patient denies fever, chills, nausea, vomiting, diarrhea, shortness of breath, and changes in urination. The patient is currently at [facility] for rehab; he was sent by yoke presser so he can be detoxed before possible stent placement. Patient was at the ER at [facility] 05/20/16 and was cleared for detox. He was discharged from here twice within the past week for chest pain. Service Line Bus Cleaner: Zechariah Parra MD Allergies: Tylenol, Motrin Social Hx: Alcohol abuse (since age 25, consumes 2 pints of vodka daily), cocaine (started using cocaine at age 20, consumes $200-300 worth daily), heroin (started using heroin at age 19, consumes 7 bags daily), marijuana ( started smoking at age 15, consumes 2-3 bags, 1-2 times weekly). Patient received a chest CTA and echocardiogram on 06/12/16. CTA revealed no aortic dissection, no aneurysm, no PE, and no pleural effusion. Echocardiogram revealed mildly dilated left ventricle, inferior wall and apex with mild hypokinesis, mild MR and TR, and mild aortic sclerosis. (Nicole Lomeli) Past History <YaniNicole - Last Filed: 06/14/16 20:47> - Past Medical History Anemia: No Asthma: No Cancer: No Cardiac Disorders: Yes (CHF) CVA: No COPD: No CHF: No Dementia: No Diabetes: Yes GI Disorders: No Disorders: No HTN: Yes Hypercholesterolemia: Yes Kidney Stones: No Liver Disease: No Suicide Attempt (Hx): No Seizures: No Thyroid Disease: No - Surgical History Abdominal Surgery: No Appendectomy: No Cardiac Surgery: Yes (2011 cardiac stent ) Cholecystectomy: No Lung Surgery: No Neurologic Surgery: No Orthopedic Surgery: No - Reproductive History Testicular Surgery: No - Psycho/Social/Smoking Cessation Hx Anxiety: No Suicidal Ideation: No Smoking History: Current every day smoker Have you smoked in the past 12 months: Yes Number of Cigarettes Smoked Daily: 5 Cigars Per Day: 0 'Breaking Loose' booklet given: 06/16/16 Hx Alcohol Use: Yes Drug/Substance Use Hx: Yes Substance Use Type: Alcohol (Started driking alcohol at age 25, consumes 2 pints of vodka daily. Last drink on 06/02/16), Cocaine (Started using cocaine at age 20, consumes $200-300 worth daily. Last used on), Heroin (Started using heroin at age 19, consumes 7 bags daily. Last used on 06/02/16), Marijuana ( Started smoking marijuana at age 15, consumes 2-3 bags 1-2 times weekly. Last smoked on 06/09/16) Hx Substance Use Treatment: Yes (Previous detox @ [facility] [place] & [facility]/Rehab : [place] [facility], [facility]) <Melvi Turner - Last Filed: 06/15/16 02:41> - Past Medical History Allergies/Adverse Reactions: Allergies Allergy/AdvReac Type Severity Reaction Status Date / Time acetaminophen [From Tylenol] Allergy Intermediate Rash Verified 06/14/16 18:36 ibuprofen Allergy Intermediate Rash Verified 06/14/16 18:36 Home Medications: Ambulatory Orders Aspirin [ASA -] 81 mg PO DAILY 05/20/16 Clopidogrel Bisulfate [Plavix -] 75 mg PO DAILY 05/20/16 Enalapril Maleate [Vasotec -] 10 mg PO DAILY 05/20/16 Gabapentin [Neurontin -] 100 mg PO DAILY 05/20/16 Glyburide 5 mg PO DAILY 05/20/16 Metformin HCl [Glucophage] 1,000 mg PO BID 05/20/16 Sertraline HCl [Zoloft -] 50 mg PO DAILY 05/20/16 Trazodone HCl 100 mg PO HS 05/20/16 Atorvastatin Ca [Lipitor] 20 mg PO HS tablet 05/25/16 Nitroglycerin 0.4 mg PO DAILY PRN MDD 1.2mg 06/09/16 Isosorbide Mononitrate [Imdur -] 30 mg PO DAILY tab.sr.24h 06/12/16 Cardiac Specific PMH - Complaint Specific PMHX Pacemaker: No <Melvi Turner - Last Filed: 06/15/16 02:41> Review of Systems <Nicole Lomeli - Last Filed: 06/14/16 20:47> <Melvi Turner - Last Filed: 06/15/16 02:41> - Review of Systems Comments:: 06/14/16 20:28 CONSTITUTIONAL: Absent: fever, chills, diaphoresis, generalized weakness, malaise, loss of appetite HEENT: Absent: rhinorrhea, nasal congestion, throat pain, throat swelling, difficulty swallowing, mouth swelling, ear pain, eye pain, visual changes CARDIOVASCULAR: Present: chest pain Absent: syncope, palpitations, irregular heart rate, lightheadedness, peripheral edema RESPIRATORY: Absent: cough, shortness of breath, dyspnea with exertion, orthopnea, wheezing, stridor, hemoptysis GASTROINTESTINAL: Absent: abdominal pain, abdominal distension, nausea, vomiting, diarrhea, constipation, melena, hematochezia GENITOURINARY: Absent: dysuria, frequency, urgency, hesitancy, hematuria, flank pain, genital pain MUSCULOSKELETAL: Absent: myalgia, arthralgia, joint swelling SKIN: Absent: rash, itching, pallor HEMATOLOGIC/IMMUNOLOGIC: Absent: easy bleeding, easy bruising, lymphadenopathy, frequent infections ENDOCRINE: Absent: unexplained weight gain, unexplained weight loss, heat intolerance, cold intolerance NEUROLOGIC: Absent: headache, focal weakness or paresthesia, dizziness, unsteady gait, seizure, mental status changes, bladder or bowel incontinence. PSYCHIATRIC: Absent: anxiety, depression, suicidal or homicidal ideation, hallucinations (Nicole Lomeli) *Physical Exam <Sly Lomelia - Last Filed: 06/14/16 20:47> <Melvi Turner - Last Filed: 06/15/16 02:41> - Vital Signs Last Vital Signs Temp Pulse Resp BP Pulse Ox 99.0 F 64 16 125/82 98 06/14/16 18:29 06/15/16 01:47 06/15/16 01:47 06/15/16 01:47 06/15/16 01:47 - Physical Exam Comments: 06/14/16 20:28 GENERAL: Well developed, well nourished. Awake and alert. No acute distress. HEENT: Normocephalic, atraumatic. PERRLA, EOMI. No conjunctival pallor. Sclera are non- icteric. Moist mucous membranes. Oropharynx is clear. NECK: Supple. Full ROM. No JVD. Carotid pulses 2+ and symmetric, without bruits. No thyromegaly. No lymphadenopathy. CARDIOVASCULAR: Regular rate and rhythm. No murmurs, rubs, or gallops. Distal pulses are 2+ and symmetric. PULMONARY: No evidence of respiratory distress. Lungs clear to auscultation bilaterally. No wheezing, rales or rhonchi. ABDOMINAL: Soft. Non-tender. Non-distended. No rebound or guarding. No organomegaly. Normoactive bowel sounds. MUSCULOSKELETAL: Normal range of motion at all joints. No bony deformities or tenderness. No CVA tenderness. EXTREMITIES: No cyanosis. No clubbing. No edema. No calf tenderness. SKIN: Warm and dry. Normal capillary refill. No rashes. No jaundice. NEUROLOGICAL: Alert, awake, appropriate. Cranial nerves 2-12 intact. Normal speech. Gait is normal without ataxia. PSYCHIATRIC: Cooperative. Good eye contact. Appropriate mood and affect. (YaniNicole) Heart Score/ECG Review <Stan Lomeliantha - Last Filed: 06/14/16 20:47> <Melvi Turner - Last Filed: 06/15/16 02:41> #1 06/14/16 20:47 Sinus rhythm with premature supraventricular complexes at 61 bpm Left axis deviation Nonspecific intraventricular block Cannot rule out Septal infarct, age undetermined Abnormal ECG (Nicole Lomeli) ED Treatment Course - LABORATORY CBC & Chemistry Diagram: 06/14/16 18:50 06/14/16 18:50 <Nicole Lomeli - Last Filed: 06/14/16 20:47> - LABORATORY CBC & Chemistry Diagram: 06/14/16 18:50 06/14/16 18:50 <Melvi Turner - Last Filed: 06/15/16 02:41> - ADDITIONAL ORDERS Additional order review: Laboratory Results 06/15/16 06/14/16 06/14/16 00:54 18:50 18:50 INR 1.02 Sodium 139 Potassium 4.7 Chloride 103 Carbon Dioxide 27 Anion Gap 9 BUN 24 H D Creatinine 1.2 Creat Clearance w eGFR > 60 Random Glucose 182 H D Calcium 9.0 Total Bilirubin 0.3 D AST 43 H ALT 53 Alkaline Phosphatase 82 Creatine Kinase 94 98 Troponin I 0.02 < 0.02 Total Protein 7.5 Albumin 3.6 06/14/16 18:50 RBC 5.20 MCV 73.1 L MCHC 31.4 L RDW 16.1 H MPV 8.8 Neutrophils % 46.5 Lymphocytes % 31.3 Monocytes % 18.4 H Eosinophils % 3.0 Basophils % 0.8 - Medications Given in the ED: ED Medications Discontinued Medications Generic Name Dose Route Start Last Admin Trade Name Freq PRN Reason Stop Dose Admin Morphine Sulfate 2 mg 06/14/16 21:05 06/14/16 21:05 Morphine Injection - IVPUSH 06/14/16 21:06 2 mg NOW ONE Administration Morphine Sulfate 2 mg 06/15/16 01:01 06/15/16 01:47 Morphine Injection - IVPUSH 06/15/16 01:02 2 mg ONCE ONE Administration Medical Decision Making <Nicole Lomeli - Last Filed: 06/14/16 20:47> <Melvi Turner - Last Filed: 06/15/16 02:41> - Medical Decision Making 06/14/16 19:59 60-year-old male with a known history of coronary artery disease and had cardiac stents in 2011 and is currently over at [facility] for polysubstance abuse experienced right sided chest pain that he describes as 5 out of 10 and sharp. He said at the time he was just reading a newspaper. He took his 3 nitroglycerin each 5 minutes prior, but still had some chest pain although is diminished. Reviewing an old chart. His yoke presser, Dr. Zechariah Parra stated that once he was done with rehabilitation, he would probably need to be restented. He did have a hospital admission several days ago to telemetry observation for a 3 cardiac enzyme rule out after which she was referred back to rehabilitation. Past medical history -coronary artery disease, diabetes, hypertension, hyperlipidemia Past surgical history- cardiac stents 2012 Sent from [facility] and is currently refusing any Hep-Lock placement, but he did allow blood to be drawn 06/14/16 23:40 patient eventually did allow us to draw blood and trace Hep-Lock after explained to him he could not get any IV morphine without Hep-Lock -My concern is that the patient may be stating he has chest pain in order to get IV morphine. He currently is in rehabilitation for polysubstance abuse. EKG did not show any signs of acute ischemia and the first cardiac enzyme was negative pt will require repeat cardiac enzymes and ekg prior to his returning to [facility]. He did receive some IV morphine and since that time has not complained of any chest pain. We'll repeat a second cardiac enzyme 2 hours 06/15/16 01:03 (Melvi Turner) *DC/Admit/Observation/Transfer <Nicole Lomeli - Last Filed: 06/14/16 20:47> <Melvi Turner - Last Filed: 06/15/16 02:41> Diagnosis at time of Disposition: Chest pain Qualifiers: Chest pain type: unspecified Qualified Code(s): R07.9 - Chest pain, unspecified - Discharge Dispostion Disposition: I.P. ALCOHOL/SUBS ABUSE REHAB Condition at time of disposition: Stable - Referrals Referrals: STAFF,NOT ON [Primary Care Provider] - - Patient Instructions Printed Discharge Instructions: DI for Atypical Chest Pain Additional Instructions: please see your yoke presser for further evaluation - Attestations Scribe Attestion: 06/14/16 20:29 Documentation prepared by Nicole Lomeli, acting as medical clerical assistant for Melvi Turner MD. (Nicole Lomeli)
[2016-06-14 18:38] VITALS: TEMP 99; BMI 24.5
[2016-06-14 19:10] LABS: BASOPHIL 0.8 % (0-2.0); MCH 22.9 pg (25.7-33.7); MCHC 31.4 g/dl (32.0-35.9); MEAN CELL VOLUME 73.1 fl (80-96); MEAN PLT VOLUME 8.8 fl (7.5-11.1); NEUTROPHILS 46.5 % (42.8-82.8); PLATELET COUNT 147 K/MM3 (134-434); RDW 16.1 % (11.9-15.9); WHITE BLOOD COUNT 4.5 K/mm3 (4.0-10.0)
[2016-06-14 19:22] LABS: INR 1.02 (0.82-1.09); PROTHROMBIN TIME (PATIENT) 11.2 SEC (9.98-11.88)
[2016-06-14 20:05] LABS: ALBUMIN 3.6 g/dl (3.4-5.0); ANION GAP 9 (8-16); CO2 27 mmol/L (21-32); CREATININE 1.2 mg/dL (0.7-1.3); GLUCOSE,RANDOM 182 mg/dL (74-106)
[2016-06-14 20:13] LABS: ALK PHOS 82 U/L (45-117); BILIRUBIN,TOTAL 0.3 mg/dL (0.2-1.0); SGOT/AST 43 U/L (15-37); SGPT/ALT 53 U/L (12-78); TOT PROT 7.5 g/dl (6.4-8.2); TROPONIN I < 0.02 ng/ml (0.00-0.05)
[2016-06-14] MEDS ORDERED: morphine CARPU-JECT 2 MG/1 ML DISP.SYRIN ONE (20:50)
[2016-06-14] MEDS ORDERED: morphine CARPU-JECT 2 MG/1 ML DISP.SYRIN IVPUSH ONE ×2 (21:05→21:40)
[2016-06-15] MEDS ORDERED: morphine CARPU-JECT 2 MG/1 ML DISP.SYRIN IVPUSH ONE (01:01)
[2016-06-15] MEDS ORDERED: morphine CARPU-JECT 2 MG/1 ML DISP.SYRIN ONE (01:43)
[2016-06-15 01:47] VITALS: BP 125/82; PULSE 64
[2016-06-15 02:38] LABS: TROPONIN I 0.02 ng/ml (0.00-0.05)
--- NOTE | 2016-06-15 10:26 | EKG ---
Test Reason : Blood Pressure : / mmHG Vent. Rate : 061 BPM Atrial Rate : 061 BPM P-R Int : 182 ms QRS Dur : 142 ms QT Int : 442 ms P-R-T Axes : 079 -75 050 degrees QTc Int : 444 ms SINUS RHYTHM WITH PREMATURE SUPRAVENTRICULAR COMPLEXES LEFT AXIS DEVIATION NON-SPECIFIC INTRA-VENTRICULAR CONDUCTION BLOCK CANNOT RULE OUT SEPTAL INFARCT , AGE UNDETERMINED ABNORMAL ECG WHEN COMPARED WITH ECG OF 14-JUN-2016 13:06, PREMATURE SUPRAVENTRICULAR COMPLEXES ARE NOW PRESENT T WAVE INVERSION NO LONGER EVIDENT IN INFERIOR LEADS Confirmed by GEORGIA LEYVA MD ([id number]) on 06/15/2016 10:26:17 AM Referred By: Confirmed By:GEORGIA LEYVA MD
== END 2016-06-15 03:16 | disposition other institution (70) ==
LOC: JER 18:26
PROC: 3E033NZ Introduction of Analgesics, Hypnotics, Sedatives into Peripheral Vein, Percutaneous Approach (ICD-10-PCS; principal; 2016-06-14)
DX: R07.9 Chest pain, unspecified (principal); I25.2 Old myocardial infarction; I10 Essential (primary) hypertension; F17.210 Nicotine dependence, cigarettes, uncomplicated; Z95.5 Presence of coronary angioplasty implant and graft; E11.9 Type 2 diabetes mellitus without complications; Z79.84 Long term (current) use of oral hypoglycemic drugs; E78.00 Pure hypercholesterolemia, unspecified; F10.20 Alcohol dependence, uncomplicated; F19.20 Other psychoactive substance dependence, uncomplicated; F11.20 Opioid dependence, uncomplicated; F14.20 Cocaine dependence, uncomplicated; F12.20 Cannabis dependence, uncomplicated
CPT/HCPCS: 36415; 71010-TC; 80053; 82550; 84484; 85025; 85610; 93005; 93010; 96374; 96375; 99284-25

== ENCOUNTER 2016-10-23 16:36 | Inpatient (IN) | payer OTHER ==
[2016-10-23 18:15] VITALS: BMI 24.4
--- NOTE | 2016-10-23 18:34 | HP ---
COWS - Scale Resting Pulse: 0= [place] 80 or Below Sweatin= Chills/Flushing Restless Observation: 3= Extraneous Movement Pupil Size: 0= Normal to Room Light Bone or Joint Aches: 2= Severe Diffuse Aches Runny Nose/ Eye Tearin= Runny Nose/Eyes GI Upset > 30mins: 3= Vomiting/Diarrhea Tremor Observation: 2= Slight Tremor Visible Yawning Observation: 0= None Anxiety or Irritability: 2=Irritable/Anxious Goose Flesh Skin: 0=Smooth Skin COWS Score: 15 CIWA Score - CIWA Score Nausea/Vomitin-Mild Nausea/No Vomiting Muscle Tremors: 4-Moderate,w/Arms Extend Anxiety: 4-Mod. Anxious/Guarded Agitation: 4-Moderately Restless Paroxysmal Sweats: 1-Minimal Palms Moist Orientation: 0-Oriented Tacttile Disturbances: 0-None Auditory Disturbances: 0-None Visual Disturbances: 0-None Headache: 0-None Present CIWA-Ar Total Score: 14 Admission ROS S - HPI Chief Complaint: WITHDRAWAL SX Allergies/Adverse Reactions: Allergies Allergy/AdvReac Type Severity Reaction Status Date / Time acetaminophen [From Tylenol] Allergy Intermediate Rash Verified 06/14/16 18:36 ibuprofen Allergy Intermediate Rash Verified 06/14/16 18:36 History of Present Illness: 61 YEARS OLD MALE WITH LONG HISTORY OF ALCOHOL, COCAINE, OPIUM, NICOTINE DEPENDENCE HAS HYPERTENSIN AND DIABETES II AND DEPRESSION AND CHRONIC CHEST PAIN , TREATED AT [facility] 10/23/16 IS ADMITTED TO DETOX Exam Limitations: No Limitations - Ebola screening Have you traveled outside of the country in the last 21 days: No Have you had contact with anyone from an Ebola affected area: No Have you been sick,other than usual withdrawal symptoms: No Do you have a fever: No - Review of Systems Constitutional: Chills, Changes in sleep, Weight Stable EENT: reports: No Symptoms Reported Respiratory: reports: No Symptoms reported Cardiac: reports: No Symptoms Reported, Chest Pain (CHRONIC CHEST PAIN X 4 YEARS ) GI: reports: Nausea, Poor Fluid Intake, Vomiting, Abdominal cramping : reports: No Symptoms Reported Musculoskeletal: reports: Back Pain, Joint Pain, Muscle Pain, Neck Pain Integumentary: reports: No Symptoms Reported Neuro: reports: Tremors Endocrine: reports: No Symptoms Reported Hematology: reports: Blood Clots Psychiatric: reports: Judgement Intact, Orientated x3, Depressed Other Systems: Reviewed and Negative Patient History - Patient Medical History Hx Anemia: No Hx Asthma: No Hx Chronic Obstructive Pulmonary Disease (COPD): No Hx Cancer: No Hx Cardiac Disorders: Yes (CHF) Hx Congestive Heart Failure: No Hx Hypertension: Yes Hx Hypercholesterolemia: No Hx Pacemaker: No HX Cerebrovascular Accident: No Hx Seizures: No Hx Dementia: No Hx Diabetes: Yes Hx Gastrointestinal Disorders: No Hx Liver Disease: No Hx Genitourinary Disorders: No Hx Sexually Transmitted Disorders: No Hx Renal Disease (ESRD): No Hx Thyroid Disease: No Hx Human Immunodeficiency Virus (HIV): No Hx Hepatitis C: Yes Hx Depression: Yes Hx Suicide Attempt: No Hx Bipolar Disorder: No Hx Schizophrenia: No - Patient Surgical History Past Surgical History: Yes Hx Neurologic Surgery: No Hx Cataract Extraction: No Hx Cardiac Surgery: Yes (2011 cardiac stent ) Hx Lung Surgery: No Hx Breast Surgery: No Hx Breast Biopsy: No Hx Abdominal Surgery: No Hx Appendectomy: No Hx Cholecystectomy: No Hx Genitourinary Surgery: No Hx Orthopedic Surgery: No Other Surgical History: Stent Placement in 2011 Anesthesia Reaction: No - PPD History Previous Implant?: Yes Documented Results: Negative w/o proof Implanted On Prior R Admission?: Yes Date: 05/22/16 Results: 0mm PPD to be Administered?: Yes - Smoking Cessation Smoking history: Current every day smoker Have you smoked in the past 12 months: Yes Aproximately how many cigarettes per day: 5 Cigars Per Day: 0 Hx Chewing Tobacco Use: No Initiated information on smoking cessation: Yes 'Breaking Loose' booklet given: 10/23/16 - Substance & Tx. History Hx Alcohol Use: Yes Hx Substance Use: Yes Substance Use Type: Alcohol, Cocaine, Opiates Hx Substance Use Treatment: Yes ([facility] 06/12/16-06/16/16) - Substances Abused Alcohol Route: Oral Frequency: Daily Amount used: 6 PACK 22 OZ+ PINT VOLKA Age of first use: 25 Date of Last Use: 10/23/16 Heroin Route: Inhalation Frequency: Daily Amount used: 15 BAGS Age of first use: 25 Date of Last Use: 10/23/16 Family Disease History - Family Disease History Family Disease History: Heart Disease: Mother, Other: Father () Admission Physical Exam B[facility] - Vital Signs Vital Signs: Vital Signs - 24 hr 10/23/16 18:05 Temperature 96.5 F L Pulse Rate 54 L Respiratory 18 Rate Blood Pressure 145/83 - Physical General Appearance: Yes: Nourished, Appropriately Dressed, Mild Distress, Tremorous, Irritable, Sweating, Anxious HEENTM: Yes: Hearing grossly Normal, Normal ENT Inspection, Normocephalic, Normal Voice Respiratory: Yes: Chest Non-Tender, Lungs Clear, Normal Breath Sounds, No Respiratory Distress, No Accessory Muscle Use Neck: Yes: Supple, Trachea in good position Breast: Yes: Breasts Symetrical Cardiology: Yes: Regular Rhythm, S1, S2, Bradycardia Abdominal: Yes: Non Tender, Soft Genitourinary: Yes: Within Normal Limits Back: Yes: Normal Inspection Musculoskeletal: Yes: full range of Motion, Gait Steady Extremities: Yes: Normal Inspection, Normal Range of Motion, Non-Tender, Tremors Neurological: Yes: Alert, Motor Strength 5/5, Normal Response, Depressed Affect Integumentary: Yes: Warm Lymphatic: Yes: Within Normal Limits - Diagnostic (1) Alcohol dependence with uncomplicated withdrawal Current Visit: Yes Status: Acute (2) Diabetes mellitus type II, controlled Current Visit: Yes Status: Chronic Qualifiers: Diabetes mellitus complication status: with neurologic complications Diabetes mellitus complication detail: with other neurological complication Diabetes mellitus moth exterminator insulin use: without moth exterminator use Qualified Code(s): E11.49 - Type 2 diabetes mellitus with other diabetic neurological complication (3) Hyperlipidemia Current Visit: Yes Status: Chronic Qualifiers: Hyperlipidemia type: pure hypercholesterolemia (4) Hypertension Current Visit: Yes Status: Chronic Qualifiers: Hypertension type: essential hypertension Qualified Code(s): I10 - Essential (primary) hypertension (5) Nicotine dependence Current Visit: Yes Status: Acute Qualifiers: Nicotine product type: cigarettes Substance use status: in withdrawal Qualified Code(s): F17.213 - Nicotine dependence, cigarettes, with withdrawal (6) GERD (gastroesophageal reflux disease) Current Visit: Yes Status: Chronic Qualifiers: Esophagitis presence: without esophagitis Qualified Code(s): K21.9 - Gastro-esophageal reflux disease without esophagitis (7) H/O heart artery stent Current Visit: Yes Status: Resolved Cleared for Admission B[facility] - Detox or Rehab S Level of Care: Medically Managed Detox Regimen/Protocol: Methadone/Librium B[facility] Breath Alcohol Content Breath Alcohol Content: 0 Urine Drug Screen - Results Drug Screen Negative: No Urine Drug Screen Results: SIDDHARTH-Cocaine, OPI-Opiates, BZO-Benzodiazepines, MTD- Methadone
[2016-10-23] MEDS ORDERED: METHADONE HCL 10 MG TABLET (FOR DETOX USE ONLY) PO ONE ×2 (18:38→23:00)
[2016-10-23] MEDS ORDERED: P-EPHED 60MG/TRIPROLIDI 2.5MG TABLET PO PRN (18:38)
[2016-10-23] MEDS ORDERED: MAG HYDROX/AL HYDROX/SIMETH 30 ML UNIT-DOSE CUP PO PRN (18:38)
[2016-10-23] MEDS ORDERED: guaiFENesin/D-METHORPHAN HB 10 ML UNIT-DOSE CUPS PO PRN (18:38)
[2016-10-23] MEDS ORDERED: MENTHOL/PHENOL 1 EACH UD MM PRN (18:38)
[2016-10-23] MEDS ORDERED: diphenhydrAMINE HCL 50 MG CAPSULE PO PRN (18:38)
[2016-10-23] MEDS ORDERED: MAGNESIUM CITRATE 300 ML BOTTLE PO PRN (18:38)
[2016-10-23] MEDS ORDERED: MAGNESIUM HYDROX 2400MG/30ML ORAL SUSPENSION 30 ML CUP PO PRN (18:38)
[2016-10-23] MEDS ORDERED: NICOTINE POLACRILEX 2 MG GUM BC PRN (18:38)
[2016-10-23] MEDS ORDERED: LOPERAMIDE HCL 2 MG CAPSULE PO PRN (18:38)
[2016-10-23] MEDS ORDERED: chlordiazePOXIDE HCL 25 MG CAPSULE PO PRN (18:38)
[2016-10-23] MEDS ORDERED: NITROGLYCERIN SUBLINGUAL 1/150 0.4 MG TAB SL PRN (19:11)
[2016-10-23] MEDS ORDERED: METHADONE HCL 10 MG TABLET (FOR DETOX USE ONLY) ONE (21:46)
[2016-10-23] MEDS: ATORVASTATIN CA 40 MG TABLET (FP) PO SCH (21:46)
[2016-10-23] MEDS: THIAMINE HCL 100 MG TABLET (FP) PO SCH (21:48)
[2016-10-23] MEDS: RANITIDINE HCL 150 MG TABLET (FP) PO SCH (21:48)
[2016-10-23] MEDS: chlordiazePOXIDE HCL 25 MG CAPSULE PO SCH (22:34)
[2016-10-23] MEDS: RANOLAZINE E.R. 500 MG TABLET (FP) PO SCH (22:42)
[2016-10-24] MEDS: chlordiazePOXIDE HCL 25 MG CAPSULE PO SCH ×4 (05:55→22:51)
[2016-10-24] MEDS: metFORMIN HCL 500 MG TABLET (FP) PO SCH ×2 (08:28→17:13)
[2016-10-24] MEDS ORDERED: METHADONE HCL 10 MG TABLET (FOR DETOX USE ONLY) PO SCH (10:00)
[2016-10-24 10:10] LABS: ALBUMIN 3.5 g/dl (3.4-5.0); BILIRUBIN,TOTAL 0.7 mg/dL (0.2-1.0); COCKROFT - GAULT 59.7; CREATININE 1.3 mg/dL (0.7-1.3); MCH 23.1 pg (25.7-33.7); MCHC 31.2 g/dl (32.0-35.9); MEAN CELL VOLUME 74.2 fl (80-96); MEAN PLT VOLUME 9.5 fl (7.5-11.1); PLATELET COUNT 154 K/MM3 (134-434); TOT PROT 7.1 g/dl (6.4-8.2)
[2016-10-24] MEDS: NICOTINE 14 MG/24 HOURS TOPICAL PATCH TD SCH (10:33)
[2016-10-24] MEDS: ASPIRIN 81 MG CHEWABLE TABLETS PO SCH (10:33)
[2016-10-24] MEDS: PRENATAL VITAMINS W/ FOLIC ACID TABLET (FP) PO SCH (10:33)
[2016-10-24] MEDS: CLOPIDOGREL BISULFATE 75 MG TABLET (FP) PO SCH (10:33)
[2016-10-24] MEDS: RANITIDINE HCL 150 MG TABLET (FP) PO SCH ×2 (10:33→22:21)
[2016-10-24] MEDS: ENALAPRIL MALEATE 10 MG TABLET (FP) PO SCH (10:33)
[2016-10-24] MEDS: RANOLAZINE E.R. 500 MG TABLET (FP) PO SCH ×2 (10:34→22:22)
[2016-10-24] MEDS: ISOSORBIDE MONONITRATE 60 MG TAB.SR.24H (FP) PO SCH (11:33)
--- NOTE | 2016-10-24 14:02 | CONSULT ---
[facility] Psychiatric Consult - Data Date of interview: 10/24/16 Admission source: [facility] Identifying data: Readmission to [facility] for this 61 y/o AA male seeking detox treatment for alcohol,cocaine and heroin dependence.Patient is single,a father of one,domiciled,unemployed and supported on SSI benefits. Substance Abuse History: - Smoking Cessation. Smoking history: Current every day smoker. Have you smoked in the past 12 months: Yes. Aproximately how many cigarettes per day: 5. Cigars Per Day: 0. Hx Chewing Tobacco Use: No. Initiated information on smoking cessation: Yes. 'Breaking Loose' booklet given : 10/23/16. - Substance & Tx. History. Hx Alcohol Use: Yes. Hx Substance Use : Yes. Substance Use Type: Alcohol, Cocaine, Opiates. Hx Substance Use Treatment: Yes ([facility] 06/12/16-06/16/16). - Substances Abused. Alcohol. Route: Oral. Frequency: Daily. Amount used: 6 PACK 22 OZ+ PINT VOLKA. Age of first use: 25. Date of Last Use: 10/23/16. Heroin. Route: Inhalation. Frequency: Daily. Amount used: 15 BAGS. Age of first use: 25. Date of Last Use: 10/23/16. Confirmed by patient. Medical History: Hypertension,dyslipidemia,neuropathy,diabetes mellitus, congestive heart failure (stent placed in 2011) and hepatitis C. Psychiatric History: Diagnosed with MDD (10 years ago) during a stay at [facility].Prescribed trazodone 50 mg/hs and zoloft 50 mg/day.Mr Chin admits to poor compliance with medications and referrals.No current psychiatric OPD care.Last took his medications shortly after discharge from [facility] in May 2016.No reported history of psychiatric hospitalizations.Patient denies suicide attempts. Physical/Sexual Abuse/Trauma History: Patient denies. Additional Comment: Urine Drug Screen Results: SIDDHARTH-Cocaine, OPI-Opiates, BZO- Benzodiazepines, MTD-Methadone.Noted. Mental Status Exam - Mental Status Exam Alert and Oriented to: Time, Place, Person Cognitive Function: Grossly Intact Patient Appearance: Well Groomed Mood: Nervous, Withdrawn Affect: Mood Congruent Patient Behavior: Fatigued, Appropriate, Cooperative Speech Pattern: Clear Voice Loudness: Normal Thought Process: Goal Oriented Thought Disorder: Not Present Hallucinations: Denies Suicidal Ideation: Denies Homicidal Ideation: Denies Insight/Judgement: Fair Sleep: Poorly, Difficulty falling asleep Appetite: Good Muscle strength/Tone: Normal Gait/Station: Normal Psychiatric Findings - Problem List ([place] 1, 2,3) (1) Opioid dependence with withdrawal Current Visit: Yes Status: Acute (2) Alcohol dependence with uncomplicated withdrawal Current Visit: Yes Status: Acute (3) Cocaine dependence Current Visit: Yes Status: Acute (4) Nicotine dependence Current Visit: Yes Status: Acute Qualifiers: Nicotine product type: cigarettes Substance use status: in withdrawal Qualified Code(s): F17.213 - Nicotine dependence, cigarettes, with withdrawal (5) Diabetes mellitus type II, controlled Current Visit: Yes Status: Chronic Qualifiers: Diabetes mellitus complication status: with neurologic complications Diabetes mellitus complication detail: with other neurological complication Diabetes mellitus termite inspector insulin use: without termite inspector use Qualified Code(s): E11.49 - Type 2 diabetes mellitus with other diabetic neurological complication (6) GERD (gastroesophageal reflux disease) Current Visit: Yes Status: Chronic Qualifiers: Esophagitis presence: without esophagitis Qualified Code(s): K21.9 - Gastro-esophageal reflux disease without esophagitis (7) Hyperlipidemia Current Visit: Yes Status: Chronic Qualifiers: Hyperlipidemia type: pure hypercholesterolemia (8) Hypertension Current Visit: Yes Status: Chronic Qualifiers: Hypertension type: essential hypertension Qualified Code(s): I10 - Essential (primary) hypertension (9) H/O heart artery stent Current Visit: Yes Status: Resolved (10) Depressive disorder Current Visit: Yes Status: Chronic (11) Insomnia Current Visit: Yes Status: Acute - Initial Treatment Plan Initial Treatment Plan: Psychoeducation.Detoxification.Medications : zoloft 50 mg po daily + trazodone 50 mg po hs.Side effects/benefits discussed with the patient.Made aware of potential for priapism (trazodone).Keily is in agreement with careplan.Eager to resume his medications and inquisitive about scripts at discharge.Observation.
--- NOTE | 2016-10-24 15:46 | PN ---
[facility] CIWA - CIWA Score Nausea/Vomitin-Mild Nausea/No Vomiting Muscle Tremors: 4-Moderate,w/Arms Extend Anxiety: 3 Agitation: 2 Paroxysmal Sweats: 3 Orientation: 0-Oriented Tacttile Disturbances: 2-Mild Itch/Numbness/Burn Auditory Disturbances: 2-Mild Harshness/Frighten Visual Disturbances: 0-None Headache: 0-None Present CIWA-Ar Total Score: 17 S COWS - Scale Resting Pulse: 0= [place] 80 or Below Sweatin= Chills/Flushing Restless Observation: 1= Difficult to Sit Still Pupil Size: 0= Normal to Room Light Bone or Joint Aches: 1= Mild Discomfort Runny Nose/ Eye Tearin= Nasal Congestion GI Upset > 30mins: 1= Stomach Cramp Tremor Observation of Outstretched Hands: 2= Slight Tremor Visible Yawning Observation: 1= 1-2x During Session Anxiety or Irritability: 2=Irritable/Anxious Goose Flesh Skin: 3=Piloerection COWS Score: 13 S Progress Note (SOAP) Subjective: Interrupted sleep, sweating, Tremors. Objective: PT. A & O X 3, OBSERVED AMBULATING ON UNIT. NO ACUTE DISTRESS. 10/24/16 15:43 Vital Signs Temperature 97.3 F L 10/24/16 13:11 Pulse Rate 65 10/24/16 13:11 Respiratory Rate 18 10/24/16 13:11 Blood Pressure 106/65 10/24/16 13:11 O2 Sat by Pulse Oximetry (%) Laboratory Tests 10/24/16 10/24/16 10/24/16 05:54 08:00 08:00 WBC 3.0 L D RBC 5.04 Hgb 11.7 Hct 37.4 MCV 74.2 L MCHC 31.2 L RDW 15.0 Plt Count 154 MPV 9.5 Sodium 143 Potassium 4.2 Chloride 108 H Carbon Dioxide 28 Anion Gap 7 L BUN 19 H D Creatinine 1.3 Creat Clearance w eGFR 56.12 POC Glucometer 120 Random Glucose 88 D Calcium 9.0 Total Bilirubin 0.7 D AST 89 H D ALT 72 D Alkaline Phosphatase 71 Total Protein 7.1 Albumin 3.5 LABS NOTED. Assessment: 10/24/16 15:43 WITHDRAWAL SYMPTOMS. Plan: CONTINUE DETOX. D/C MAGNESIUM-CONTAINING MEDS. REPEAT AST LEVEL ON 10/26/2016 FOR ELEVATED ADMISSION LEVEL. ADVISED PATIENT TO FOLLOW-UP WITH [facility] AFTER DISCHARGE FROM DETOX FOR GENERAL MEDICAL ASSESSMENT AND FOR ABNORMAL ADMISSION RENAL LAB VALUES.
--- NOTE | 2016-10-24 15:46 | EKG ---
Test Reason : Blood Pressure : / mmHG Vent. Rate : 046 BPM Atrial Rate : 046 BPM P-R Int : 212 ms QRS Dur : 144 ms QT Int : 502 ms P-R-T Axes : 074 -78 -32 degrees QTc Int : 439 ms SINUS BRADYCARDIA WITH 1ST DEGREE A-V BLOCK LEFT AXIS DEVIATION NON-SPECIFIC INTRA-VENTRICULAR CONDUCTION BLOCK ABNORMAL ECG WHEN COMPARED WITH ECG OF 14-JUN-2016 18:38, PREMATURE SUPRAVENTRICULAR COMPLEXES ARE NO LONGER PRESENT ME INTERVAL HAS INCREASED T WAVE INVERSION NOW EVIDENT IN INFERIOR LEADS CLINICAL CORRELATION IS RECOMMENDED Confirmed by GELY PÉREZ, YUN ([id number]) on 10/24/2016 3:46:19 PM Referred By: Confirmed By:YUN HONG MD
[2016-10-24] MEDS: ATORVASTATIN CA 40 MG TABLET (FP) PO SCH (22:21)
[2016-10-24] MEDS: traZODone HCL 50 MG TABLET (FP) PO SCH (22:21)
[2016-10-24] MEDS: THIAMINE HCL 100 MG TABLET (FP) PO SCH (22:21)
[2016-10-25] MEDS: chlordiazePOXIDE HCL 25 MG CAPSULE PO SCH ×3 (05:41→17:05)
[2016-10-25] MEDS: metFORMIN HCL 500 MG TABLET (FP) PO SCH ×2 (06:18→17:05)
[2016-10-25] MEDS: ISOSORBIDE MONONITRATE 60 MG TAB.SR.24H (FP) PO SCH (10:13)
[2016-10-25] MEDS: ASPIRIN 81 MG CHEWABLE TABLETS PO SCH (10:13)
[2016-10-25] MEDS: METHADONE HCL 5 MG TABLET (FOR DETOX USE ONLY) PO SCH (10:13)
[2016-10-25] MEDS: PRENATAL VITAMINS W/ FOLIC ACID TABLET (FP) PO SCH (10:13)
[2016-10-25] MEDS: SERTRALINE HCL 50 MG TABLET (FP) PO SCH (10:13)
[2016-10-25] MEDS: CLOPIDOGREL BISULFATE 75 MG TABLET (FP) PO SCH (10:13)
[2016-10-25] MEDS: ENALAPRIL MALEATE 10 MG TABLET (FP) PO SCH (10:13)
[2016-10-25] MEDS: NICOTINE 14 MG/24 HOURS TOPICAL PATCH TD SCH (10:14)
[2016-10-25] MEDS: RANITIDINE HCL 150 MG TABLET (FP) PO SCH ×2 (10:14→23:04)
[2016-10-25] MEDS: RANOLAZINE E.R. 500 MG TABLET (FP) PO SCH ×2 (10:14→23:03)
[2016-10-25 10:35] LABS: URINE APPEARANCE CLEAR; URINE BILIRUBIN NEGATIVE (NEGATIVE); URINE BLOOD NEGATIVE (NEGATIVE); URINE COLOR LTYELLOW; URINE GLUCOSE (UA) NEGATIVE (NEGATIVE); URINE KETONE NEGATIVE (NEGATIVE); URINE LEUK ESTERASE NEGATIVE (NEGATIVE); URINE NITRITE NEGATIVE (NEGATIVE); URINE PROTEIN NEGATIVE (NEGATIVE); URINE UROBILINOGEN NEGATIVE E.U./dl (0.2-1.0)
--- NOTE | 2016-10-25 14:12 | PN ---
S CIWA - CIWA Score Nausea/Vomitin Muscle Tremors: 4-Moderate,w/Arms Extend Anxiety: 4-Mod. Anxious/Guarded Agitation: 4-Moderately Restless Paroxysmal Sweats: 3 Orientation: 0-Oriented Tacttile Disturbances: 1-Very Mild Itch/Numbness Auditory Disturbances: 0-None Visual Disturbances: 0-None Headache: 0-None Present CIWA-Ar Total Score: 19 [facility] COWS - Scale Resting Pulse: 0= [place] 80 or Below Sweatin=Flushed/Facial Moisture Restless Observation: 3= Extraneous Movement Pupil Size: 1= Pupils >than Normal Bone or Joint Aches: 2= Severe Diffuse Aches Runny Nose/ Eye Tearin= Runny Nose/Eyes GI Upset > 30mins: 3= Vomiting/Diarrhea Tremor Observation of Outstretched Hands: 2= Slight Tremor Visible Yawning Observation: 1= 1-2x During Session Anxiety or Irritability: 2=Irritable/Anxious Goose Flesh Skin: 0=Smooth Skin COWS Score: 18 [facility] Progress Note (SOAP) Subjective: Stomach cramps, nausea, diarrhea, sweating, tremor Objective: 10/25/16 14:10 Last Vital Signs Temp Pulse Resp BP Pulse Ox 96.8 F L 46 L 18 83/51 10/25/16 13:11 10/25/16 13:11 10/25/16 13:11 10/25/16 13:11 b/p: 83/51, pulse 46 Laboratory Tests 10/24/16 10/24/16 10/24/16 05:54 08:00 08:00 WBC 3.0 L D RBC 5.04 Hgb 11.7 Hct 37.4 MCV 74.2 L MCHC 31.2 L RDW 15.0 Plt Count 154 MPV 9.5 Sodium 143 Potassium 4.2 Chloride 108 H Carbon Dioxide 28 Anion Gap 7 L BUN 19 H D Creatinine 1.3 Creat Clearance w eGFR 56.12 POC Glucometer 120 Random Glucose 88 D Calcium 9.0 Total Bilirubin 0.7 D AST 89 H D ALT 72 D Alkaline Phosphatase 71 Total Protein 7.1 Albumin 3.5 Urine Color Urine Appearance Urine pH Ur Specific [place] Urine Protein Urine Glucose (UA) Urine Ketones Urine Blood Urine Nitrite Urine Bilirubin Urine Urobilinogen Ur Leukocyte Esterase 10/24/16 10/25/16 10/25/16 16:12 05:39 09:00 WBC RBC Hgb Hct MCV MCHC RDW Plt Count MPV Sodium Potassium Chloride Carbon Dioxide Anion Gap BUN Creatinine Creat Clearance w eGFR POC Glucometer 108 120 Random Glucose Calcium Total Bilirubin AST ALT Alkaline Phosphatase Total Protein Albumin Urine Color Ltyellow Urine Appearance Clear Urine pH 5.0 Ur Specific [place] 1.010 Urine Protein Negative Urine Glucose (UA) Negative Urine Ketones Negative Urine Blood Negative Urine Nitrite Negative Urine Bilirubin Negative Urine Urobilinogen Negative Ur Leukocyte Esterase Negative Labs noted 10/25/16 14:13 Assessment: 10/25/16 14:11 Withdrawal symptoms Noted with hypotension Plan: Continue detox Hypotension and bradycardia: encouraged to drink lots of water, hold detox medication if b/p < 90/60, water pitcher ordered
[2016-10-25] MEDS ORDERED: TRIMETHOBENZAMIDE HCL 200MG/2ML INJ IM PRN (22:24)
[2016-10-25] MEDS: ONDANSETRON *ODT* 4 MG TABLET SL PRN (23:03)
[2016-10-25] MEDS: chlordiazePOXIDE 5 MG CAPSULE PO SCH (23:04)
[2016-10-25] MEDS: THIAMINE HCL 100 MG TABLET (FP) PO SCH (23:04)
[2016-10-25] MEDS: traZODone HCL 50 MG TABLET (FP) PO SCH (23:04)
[2016-10-25] MEDS: ATORVASTATIN CA 40 MG TABLET (FP) PO SCH (23:04)
[2016-10-26] MEDS: metFORMIN HCL 500 MG TABLET (FP) PO SCH ×2 (06:17→17:30)
[2016-10-26] MEDS: chlordiazePOXIDE 5 MG CAPSULE PO SCH ×3 (06:54→17:30)
[2016-10-26] MEDS: PRENATAL VITAMINS W/ FOLIC ACID TABLET (FP) PO SCH (10:28)
[2016-10-26] MEDS: ISOSORBIDE MONONITRATE 60 MG TAB.SR.24H (FP) PO SCH (10:28)
[2016-10-26] MEDS: METHADONE HCL 5 MG TABLET (FOR DETOX USE ONLY) PO SCH (10:28)
[2016-10-26] MEDS: CLOPIDOGREL BISULFATE 75 MG TABLET (FP) PO SCH (10:28)
[2016-10-26] MEDS: RANOLAZINE E.R. 500 MG TABLET (FP) PO SCH ×2 (10:28→22:26)
[2016-10-26] MEDS: NICOTINE 14 MG/24 HOURS TOPICAL PATCH TD SCH (10:29)
[2016-10-26] MEDS: RANITIDINE HCL 150 MG TABLET (FP) PO SCH ×2 (10:29→22:26)
[2016-10-26] MEDS: ASPIRIN 81 MG CHEWABLE TABLETS PO SCH (10:29)
[2016-10-26] MEDS: SERTRALINE HCL 50 MG TABLET (FP) PO SCH (10:29)
--- NOTE | 2016-10-26 12:41 | PN ---
[facility] Progress Note (SOAP) Subjective: Sweating,interrupted sleep,restless Objective: 10/26/16 12:39 Vital Signs - 8 hr 10/26/16 10/26/16 06:16 09:24 Temperature 97.8 F 97.0 F L Pulse Rate 45 L 44 L Respiratory 16 18 Rate Blood Pressure 89/56 104/60 Laboratory Last Values WBC 3.0 K/mm3 (4.0-10.0) L D 10/24/16 08:00 RBC 5.04 M/mm3 (4.00-5.60) 10/24/16 08:00 Hgb 11.7 GM/dL (11.7-16.9) 10/24/16 08:00 Hct 37.4 % (35.4-49) 10/24/16 08:00 MCV 74.2 fl (80-96) L 10/24/16 08:00 MCHC 31.2 g/dl (32.0-35.9) L 10/24/16 08:00 RDW 15.0 % (11.9-15.9) 10/24/16 08:00 Plt Count 154 K/MM3 (134-434) 10/24/16 08:00 MPV 9.5 fl (7.5-11.1) 10/24/16 08:00 Sodium 143 mmol/L (136-145) 10/24/16 08:00 Potassium 4.2 mmol/L (3.5-5.1) 10/24/16 08:00 Chloride 108 mmol/L (98-107) H 10/24/16 08:00 Carbon Dioxide 28 mmol/L (21-32) 10/24/16 08:00 Anion Gap 7 (8-16) L 10/24/16 08:00 BUN 19 mg/dL (7-18) H D 10/24/16 08:00 Creatinine 1.3 mg/dL (0.7-1.3) 10/24/16 08:00 Creat Clearance w eGFR 56.12 (>60) 10/24/16 08:00 POC Glucometer 179 UNITS (()) 10/26/16 06:13 Random Glucose 88 mg/dL (74-106) D 10/24/16 08:00 Calcium 9.0 mg/dL (8.5-10.1) 10/24/16 08:00 Total Bilirubin 0.7 mg/dL (0.2-1.0) D 10/24/16 08:00 AST 63 U/L (15-37) H D 10/26/16 07:00 ALT 72 U/L (12-78) D 10/24/16 08:00 Alkaline Phosphatase 71 U/L (45-117) 10/24/16 08:00 Total Protein 7.1 g/dl (6.4-8.2) 10/24/16 08:00 Albumin 3.5 g/dl (3.4-5.0) 10/24/16 08:00 Urine Color Ltyellow 10/25/16 09:00 Urine Appearance Clear 10/25/16 09:00 Urine pH 5.0 (5.0-8.0) 10/25/16 09:00 Ur Specific [place] 1.010 (1.005-1.025) 10/25/16 09:00 Urine Protein Negative (NEGATIVE) 10/25/16 09:00 Urine Glucose (UA) Negative (NEGATIVE) 10/25/16 09:00 Urine Ketones Negative (NEGATIVE) 10/25/16 09:00 Urine Blood Negative (NEGATIVE) 10/25/16 09:00 Urine Nitrite Negative (NEGATIVE) 10/25/16 09:00 Urine Bilirubin Negative (NEGATIVE) 10/25/16 09:00 Urine Urobilinogen Negative E.U./dl (0.2-1.0) 10/25/16 09:00 Ur Leukocyte Esterase Negative (NEGATIVE) 10/25/16 09:00 labs noted Assessment: 10/26/16 12:40 Withdrawal sx. Plan: Continue detox
[2016-10-26] MEDS: ONDANSETRON *ODT* 4 MG TABLET SL PRN (14:32)
[2016-10-26] MEDS: chlordiazePOXIDE HCL 10 MG CAPSULE PO SCH (22:26)
[2016-10-26] MEDS: traZODone HCL 50 MG TABLET (FP) PO SCH (22:26)
[2016-10-26] MEDS: THIAMINE HCL 100 MG TABLET (FP) PO SCH (22:26)
[2016-10-26] MEDS: ATORVASTATIN CA 40 MG TABLET (FP) PO SCH (22:26)
[2016-10-27] MEDS: metFORMIN HCL 500 MG TABLET (FP) PO SCH ×2 (06:41→16:49)
[2016-10-27] MEDS: chlordiazePOXIDE HCL 10 MG CAPSULE PO SCH ×3 (06:41→16:49)
[2016-10-27] MEDS ORDERED: INSULIN (NOVOLOG) ASPART 100 UNITS/ML 10ML VIAL ONE (07:39)
[2016-10-27] MEDS ORDERED: METHADONE HCL 10 MG TABLET (FOR DETOX USE ONLY) PO SCH (10:00)
--- NOTE | 2016-10-27 10:12 | PN ---
[facility] Progress Note (SOAP) Subjective: Sweating,interrupted sleep,restless. Objective: 10/27/16 10:10 Vital Signs - 8 hr 10/27/16 10/27/16 10/27/16 06:14 07:49 09:21 Temperature 97.7 F 96.8 F L Pulse Rate 47 L 48 L 45 L Respiratory 16 18 Rate Blood Pressure 85/54 104/66 90/51 Laboratory Last Values WBC 3.0 K/mm3 (4.0-10.0) L D 10/24/16 08:00 RBC 5.04 M/mm3 (4.00-5.60) 10/24/16 08:00 Hgb 11.7 GM/dL (11.7-16.9) 10/24/16 08:00 Hct 37.4 % (35.4-49) 10/24/16 08:00 MCV 74.2 fl (80-96) L 10/24/16 08:00 MCHC 31.2 g/dl (32.0-35.9) L 10/24/16 08:00 RDW 15.0 % (11.9-15.9) 10/24/16 08:00 Plt Count 154 K/MM3 (134-434) 10/24/16 08:00 MPV 9.5 fl (7.5-11.1) 10/24/16 08:00 Sodium 143 mmol/L (136-145) 10/24/16 08:00 Potassium 4.2 mmol/L (3.5-5.1) 10/24/16 08:00 Chloride 108 mmol/L (98-107) H 10/24/16 08:00 Carbon Dioxide 28 mmol/L (21-32) 10/24/16 08:00 Anion Gap 7 (8-16) L 10/24/16 08:00 BUN 19 mg/dL (7-18) H D 10/24/16 08:00 Creatinine 1.3 mg/dL (0.7-1.3) 10/24/16 08:00 Creat Clearance w eGFR 56.12 (>60) 10/24/16 08:00 POC Glucometer 128 UNITS (()) 10/26/16 16:13 Random Glucose 88 mg/dL (74-106) D 10/24/16 08:00 Calcium 9.0 mg/dL (8.5-10.1) 10/24/16 08:00 Total Bilirubin 0.7 mg/dL (0.2-1.0) D 10/24/16 08:00 AST 63 U/L (15-37) H D 10/26/16 07:00 ALT 72 U/L (12-78) D 10/24/16 08:00 Alkaline Phosphatase 71 U/L (45-117) 10/24/16 08:00 Total Protein 7.1 g/dl (6.4-8.2) 10/24/16 08:00 Albumin 3.5 g/dl (3.4-5.0) 10/24/16 08:00 Urine Color Ltyellow 10/25/16 09:00 Urine Appearance Clear 10/25/16 09:00 Urine pH 5.0 (5.0-8.0) 10/25/16 09:00 Ur Specific [place] 1.010 (1.005-1.025) 10/25/16 09:00 Urine Protein Negative (NEGATIVE) 10/25/16 09:00 Urine Glucose (UA) Negative (NEGATIVE) 10/25/16 09:00 Urine Ketones Negative (NEGATIVE) 10/25/16 09:00 Urine Blood Negative (NEGATIVE) 10/25/16 09:00 Urine Nitrite Negative (NEGATIVE) 10/25/16 09:00 Urine Bilirubin Negative (NEGATIVE) 10/25/16 09:00 Urine Urobilinogen Negative E.U./dl (0.2-1.0) 10/25/16 09:00 Ur Leukocyte Esterase Negative (NEGATIVE) 10/25/16 09:00 RPR Titer Reactive 1:2 (NONREACTIVE) H D 10/24/16 08:00 T.pallidum Ab (MHA) Reactive (NONREACTIVE) 10/24/16 08:00 pt. tells me that he had syphillis in the 1960s and was previously treated.No treatment needed. Assessment: 10/27/16 10:12 Withdrawal sx. Plan: Continue detox
[2016-10-27] MEDS ORDERED: ONDANSETRON *ODT* 4 MG TABLET SL PRN (10:16)
[2016-10-27] MEDS: RANITIDINE HCL 150 MG TABLET (FP) PO SCH (10:41)
[2016-10-27] MEDS: PRENATAL VITAMINS W/ FOLIC ACID TABLET (FP) PO SCH (10:41)
[2016-10-27] MEDS: ASPIRIN 81 MG CHEWABLE TABLETS PO SCH (10:41)
[2016-10-27] MEDS: SERTRALINE HCL 50 MG TABLET (FP) PO SCH (10:41)
[2016-10-27] MEDS: CLOPIDOGREL BISULFATE 75 MG TABLET (FP) PO SCH (10:41)
[2016-10-27] MEDS: ISOSORBIDE MONONITRATE 60 MG TAB.SR.24H (FP) PO SCH (10:41)
[2016-10-27] MEDS: RANOLAZINE E.R. 500 MG TABLET (FP) PO SCH (10:42)
[2016-10-27] MEDS: NICOTINE 14 MG/24 HOURS TOPICAL PATCH TD SCH (10:42)
[2016-10-27 17:54] VITALS: BP 108/65; PULSE 46; TEMP 96.5
[2016-10-28] MEDS ORDERED: METHADONE HCL 5 MG TABLET (FOR DETOX USE ONLY) PO SCH (06:00)
--- NOTE | 2016-10-28 17:20 | DS ---
[facility] Detox Discharge Summary Admission Date: 10/23/16 Discharge Date: 10/27/16 - History Present History: Alcohol Dependence, Cocaine Dependence, Opioid Dependence Additional Comments: patient wants to leave the facility, refuses to wait face to face with the provider, refuses e prescription, will consider aftercare as per counselor arranged Pertinent Past History: diabetes ii hypertension - Physical Exam Results Vital Signs: Vital Signs Temperature 96.5 F L 10/27/16 17:53 Pulse Rate 46 L 10/27/16 17:53 Respiratory Rate 20 10/27/16 17:53 Blood Pressure 108/65 10/27/16 17:53 O2 Sat by Pulse Oximetry (%) Pertinent Admission Physical Exam Findings: withdrawal sx Laboratory Last Values WBC 3.0 K/mm3 (4.0-10.0) L D 10/24/16 08:00 RBC 5.04 M/mm3 (4.00-5.60) 10/24/16 08:00 Hgb 11.7 GM/dL (11.7-16.9) 10/24/16 08:00 Hct 37.4 % (35.4-49) 10/24/16 08:00 MCV 74.2 fl (80-96) L 10/24/16 08:00 MCHC 31.2 g/dl (32.0-35.9) L 10/24/16 08:00 RDW 15.0 % (11.9-15.9) 10/24/16 08:00 Plt Count 154 K/MM3 (134-434) 10/24/16 08:00 MPV 9.5 fl (7.5-11.1) 10/24/16 08:00 Sodium 143 mmol/L (136-145) 10/24/16 08:00 Potassium 4.2 mmol/L (3.5-5.1) 10/24/16 08:00 Chloride 108 mmol/L (98-107) H 10/24/16 08:00 Carbon Dioxide 28 mmol/L (21-32) 10/24/16 08:00 Anion Gap 7 (8-16) L 10/24/16 08:00 BUN 19 mg/dL (7-18) H D 10/24/16 08:00 Creatinine 1.3 mg/dL (0.7-1.3) 10/24/16 08:00 Creat Clearance w eGFR 56.12 (>60) 10/24/16 08:00 POC Glucometer 95 UNITS (()) 10/27/16 16:13 Random Glucose 88 mg/dL (74-106) D 10/24/16 08:00 Calcium 9.0 mg/dL (8.5-10.1) 10/24/16 08:00 Total Bilirubin 0.7 mg/dL (0.2-1.0) D 10/24/16 08:00 AST 63 U/L (15-37) H D 10/26/16 07:00 ALT 72 U/L (12-78) D 10/24/16 08:00 Alkaline Phosphatase 71 U/L (45-117) 10/24/16 08:00 Total Protein 7.1 g/dl (6.4-8.2) 10/24/16 08:00 Albumin 3.5 g/dl (3.4-5.0) 10/24/16 08:00 Urine Color Ltyellow 10/25/16 09:00 Urine Appearance Clear 10/25/16 09:00 Urine pH 5.0 (5.0-8.0) 10/25/16 09:00 Ur Specific Lefors 1.010 (1.005-1.025) 10/25/16 09:00 Urine Protein Negative (NEGATIVE) 10/25/16 09:00 Urine Glucose (UA) Negative (NEGATIVE) 10/25/16 09:00 Urine Ketones Negative (NEGATIVE) 10/25/16 09:00 Urine Blood Negative (NEGATIVE) 10/25/16 09:00 Urine Nitrite Negative (NEGATIVE) 10/25/16 09:00 Urine Bilirubin Negative (NEGATIVE) 10/25/16 09:00 Urine Urobilinogen Negative E.U./dl (0.2-1.0) 10/25/16 09:00 Ur Leukocyte Esterase Negative (NEGATIVE) 10/25/16 09:00 RPR Titer Reactive 1:2 (NONREACTIVE) H D 10/24/16 08:00 T.pallidum Ab (MHA) Reactive (NONREACTIVE) 10/24/16 08:00 lab noted - Treatment Hospital Course: Detox Protocol Followed, Responded well - Medication Discharge Medications: Ambulatory Orders Gabapentin [Neurontin -] 100 mg PO DAILY 05/20/16 Sertraline HCl [Zoloft -] 50 mg PO DAILY 05/20/16 Trazodone HCl 100 mg PO HS 05/20/16 Aspirin [ASA -] 81 mg PO DAILY #30 tab.chew 06/15/16 Atorvastatin Ca [Lipitor] 20 mg PO HS #30 tablet 06/15/16 Clopidogrel Bisulfate [Plavix -] 75 mg PO DAILY #30 tablet 06/15/16 Enalapril Maleate [Vasotec -] 10 mg PO DAILY #30 tablet 06/15/16 Glyburide [Micronase -] 5 mg PO ACBK #30 tablet 06/15/16 Isosorbide Mononitrate [Imdur -] 30 mg PO DAILY #60 tab.sr.24h 06/15/16 Metformin HCl [Glucophage] 1,000 mg PO BID #60 tablet 06/15/16 Nitroglycerin 0.4 mg PO DAILY PRN #30 tab.subl MDD 1.2mg 06/15/16 Sertraline HCl [Zoloft -] 50 mg PO DAILY #30 tablet 10/24/16 Trazodone HCl [Desyrel -] 50 mg PO HS #30 tablet 10/24/16 - Diagnosis (1) Alcohol dependence with uncomplicated withdrawal Status: Acute (2) Diabetes mellitus type II, controlled Status: Chronic Qualifiers: Diabetes mellitus complication status: with neurologic complications Diabetes mellitus complication detail: with other neurological complication Diabetes mellitus organizational research consultant insulin use: without organizational research consultant use Qualified Code(s): E11.49 - Type 2 diabetes mellitus with other diabetic neurological complication (3) Hypertension Status: Chronic Qualifiers: Hypertension type: essential hypertension Qualified Code(s): I10 - Essential (primary) hypertension (4) Nicotine dependence Status: Acute Qualifiers: Nicotine product type: cigarettes Substance use status: in withdrawal Qualified Code(s): F17.213 - Nicotine dependence, cigarettes, with withdrawal - AMA Did Patient Leave Against Medical Advice: Yes
== END 2016-10-27 18:58 | disposition left against medical advice (07) | DRG 770 ==
LOC: YASAS 16:36 → Y3N 20:18
PROVIDERS: ADMIT Internal Medicine; ATTEND Internal Medicine
PROC: HZ2ZZZZ Detoxification Services for Substance Abuse Treatment (ICD-10-PCS; principal; 2016-10-23)
DX: F11.23 Opioid dependence with withdrawal (principal); F10.230 Alcohol dependence with withdrawal, uncomplicated; F14.20 Cocaine dependence, uncomplicated; F17.213 Nicotine dependence, cigarettes, with withdrawal; F32.9 Major depressive disorder, single episode, unspecified; E11.49 Type 2 diabetes mellitus with other diabetic neurological complication; E78.5 Hyperlipidemia, unspecified; K21.9 Gastro-esophageal reflux disease without esophagitis; I10 Essential (primary) hypertension; I25.10 Atherosclerotic heart disease of native coronary artery without angina pectoris; I50.9 Heart failure, unspecified; I95.9 Hypotension, unspecified; G47.00 Insomnia, unspecified; R00.1 Bradycardia, unspecified; Z87.438 Personal history of other diseases of male genital organs; Z95.5 Presence of coronary angioplasty implant and graft
CPT/HCPCS: 36415; 80053; 81003; 84450; 85027; 86593; 86780; 93005; 93010

== ENCOUNTER 2017-11-30 16:28 | Inpatient (IN) | payer OTHER ==
[2017-11-30 19:23] VITALS: BMI 24.5
[2017-11-30] MEDS ORDERED: guaiFENesin/D-METHORPHAN HB 10 ML UNIT-DOSE CUPS PO PRN (21:11)
[2017-11-30] MEDS ORDERED: MENTHOL/PHENOL 1 EACH UD MM PRN (21:11)
[2017-11-30] MEDS ORDERED: MAGNESIUM CITRATE 300 ML BOTTLE PO PRN (21:11)
[2017-11-30] MEDS ORDERED: LOPERAMIDE HCL 2 MG CAPSULE PO PRN (21:11)
[2017-11-30] MEDS ORDERED: MAGNESIUM HYDROX 2400MG/30ML ORAL SUSPENSION 30 ML CUP PO PRN (21:11)
[2017-11-30] MEDS ORDERED: MAG HYDROX/AL HYDROX/SIMETH 30 ML UNIT-DOSE CUP PO PRN (21:11)
[2017-11-30] MEDS ORDERED: hydrOXYzine PAMOATE 50 MG CAPSULE (FP) PO PRN (21:11)
[2017-11-30] MEDS ORDERED: P-EPHED 60MG/TRIPROLIDI 2.5MG TABLET PO PRN (21:11)
--- NOTE | 2017-11-30 21:11 | HP ---
[facility] Rehab Assess/Revision - Admission History Admitted to Rehab from: Medical/Surgical ([facility]) Date of Admission to Rehab: 11/30/2017 - Vital signs Vital Signs: Vital Signs Period Temp Pulse Resp BP Sys/Paulino Pulse Ox Last 24 Hr 97.1 F 72 16 105/58 - Findings Detox History & Physical reviewed: Yes Concur with findings: Yes Comments/Additional Findings: CLIENT IS A READMISSION AFTER A 24 HOUR OBSERVATION AT [facility] IN [facility] FOR C/O C.P. HE HAS SINCE BEEN CLEARED AND HAS NOW RETURNED TO COMPLETE REHAB
[2017-11-30] MEDS ORDERED: NICOTINE POLACRILEX 2 MG GUM BUC PRN (21:17)
[2017-11-30] MEDS ORDERED: PATIENT'S OWN MEDICATION (NON-FORMULARY) (Metformin Hcl [Glucophage] 1,000 MG) PO SCH (22:00)
[2017-11-30] MEDS: THIAMINE HCL 100 MG TABLET (FP) PO SCH (23:26)
[2017-11-30] MEDS: ATORVASTATIN CA 20 MG TABLET (FP) PO SCH (23:26)
[2017-12-01] MEDS: metFORMIN HCL 500 MG TABLET (FP) PO SCH ×2 (06:36→16:30)
[2017-12-01] MEDS: glyBURIDE 5 MG TABLET (UD) PO SCH (06:36)
[2017-12-01] MEDS: PRENATAL VITAMINS W/ FOLIC ACID TABLET (FP) PO SCH (10:16)
[2017-12-01] MEDS: NICOTINE 14 MG/24 HOURS TOPICAL PATCH TD SCH (10:16)
[2017-12-01] MEDS: ENALAPRIL MALEATE 10 MG TABLET (FP) PO SCH (10:16)
[2017-12-01] MEDS: ASPIRIN 81 MG CHEWABLE TABLETS PO SCH (10:16)
[2017-12-01] MEDS: GABAPENTIN 100 MG CAPSULE (FP) PO SCH ×2 (10:16→10:19)
[2017-12-01] MEDS: CLOPIDOGREL BISULFATE 75 MG TABLET (FP) PO SCH (10:16)
[2017-12-01] MEDS: ISOSORBIDE MONONITRATE 30 MG TAB.SR.24H (FP) PO SCH (10:16)
[2017-12-01] MEDS: THIAMINE HCL 100 MG TABLET (FP) PO SCH (21:53)
[2017-12-01] MEDS: ATORVASTATIN CA 20 MG TABLET (FP) PO SCH (21:53)
[2017-12-02] MEDS ORDERED: PT OWN MED DRAWER 7, Y5N ONE (04:26)
[2017-12-02] MEDS: glyBURIDE 5 MG TABLET (UD) PO SCH (06:01)
[2017-12-02] MEDS: metFORMIN HCL 500 MG TABLET (FP) PO SCH ×2 (06:01→16:48)
[2017-12-02] MEDS: ASPIRIN 81 MG CHEWABLE TABLETS PO SCH (11:08)
[2017-12-02] MEDS: ENALAPRIL MALEATE 10 MG TABLET (FP) PO SCH (11:08)
[2017-12-02] MEDS: NICOTINE 14 MG/24 HOURS TOPICAL PATCH TD SCH (11:08)
[2017-12-02] MEDS: CLOPIDOGREL BISULFATE 75 MG TABLET (FP) PO SCH (11:08)
[2017-12-02] MEDS: PRENATAL VITAMINS W/ FOLIC ACID TABLET (FP) PO SCH (11:08)
[2017-12-02] MEDS: ISOSORBIDE MONONITRATE 30 MG TAB.SR.24H (FP) PO SCH (11:08)
[2017-12-02] MEDS: GABAPENTIN 100 MG CAPSULE (FP) PO SCH ×2 (11:08→11:10)
--- NOTE | 2017-12-02 12:02 | HP ---
Psychiatrist Admission - Data Date of interview: 12/02/17 Admission source: [facility] Identifying data: This is the third [facility] admission for this 62 years old single Black male, father of a 43 years old daughter, unemployed on SSI, domiciled sharing apt with his brother Medical History: Significant for hypertension, dyslipidemia, neuropathy, diabetes mellitus, congestive heart failure/ coronary heart disease (stent placed in 2011) and hepatitis C. Smokes 5 cigarettes daily Psychiatric History: Patient is well known to this facility and to grant writer by virtue of previous admissions to this facility. Historical narrative is more or less consistent. He reports that he was diagnosed with MDD (10 years ago) during a 6 months stay at [facility] and was prescribed Trazodone 50 mg/hs and Zoloft 50 mg/day. Reports since leaving [facility] his compliance with medication hs been erratic at best. Told grant writer that he only takes medications when admitted to substance abuse inpatient including this facility. Told grant writer that he last took medications(Zoloft 50 mg & Trazadone 50 mg) when he was admitted to this facility in October 2016. He reports feeling, sleeping well and has no need for medication. No reported history of psychiatric hospitalizations or suicide attempt. Physical/Sexual Abuse/Trauma History: Denies history of physical and sexual abuse as well as DV relationship Additional Comment: Reports history of multiple arrests including 5 felony convictions. Denies being on parole/probation at present. Patient was originally admitted to this unit on 11/26/17. On 11/29/17, he developed chest pain and was referred to [facility] for evaluation. He was cleared by cardiology and transferred to back to the unit of 11/30/17. His chest pain was labelled atypical likely musculosheletal Vital Signs: Vital Signs - 24 hr 12/02/17 12/02/17 12/02/17 00:30 07:06 10:00 Temperature 97 F L Pulse Rate 47 L 55 L Respiratory 16 16 18 Rate Blood Pressure 127/62 123/64 Allergies/Adverse Reactions: Allergies Allergy/AdvReac Type Severity Reaction Status Date / Time acetaminophen [From Tylenol] Allergy Intermediate Rash Verified 11/30/17 20:26 ibuprofen Allergy Intermediate Rash Verified 11/30/17 20:26 Date of last physical exam: 11/26/17 Concur with the findings of this exam: Yes - Substance Abuse/Tx History Hx Alcohol Use: Yes Hx Substance Use: Yes Substance Use Type: Alcohol (Started drinking alcohol at age 30, consumes half to one pint 1-2 times weekly. Last drank on 11/19/17), Cocaine (Started smoking crack cocaine at age , consumes $100 3-6 times weekly. Last smoked on 11/19/17), Heroin (Started using heroin at age 53, consumes 9-10 bags 3-6 times weekly. Last used on 11/19/17) Hx Substance Use Treatment: Yes (2 previous inpt detox & 2 inpt rehab @ [facility]) Mental Status Exam - Mental Status Exam Alert and Oriented to: Time, Place, Person Cognitive Function: Fair Patient Appearance: Disheveled Mood: Hopeful, Euthymic Patient Behavior: Cooperative Speech Pattern: Clear Voice Loudness: Normal Thought Process: Intact, Goal Oriented Hallucinations: Denies Suicidal Ideation: Denies Homicidal Ideation: Denies Insight/Judgement: Fair Sleep: Well Appetite: Fair Muscle strength/Tone: Normal Gait/Station: Normal Psychiatric Findings - Problem List ([place] 1, 2,3) (1) Alcohol dependence Current Visit: Yes Status: Acute (2) Opioid dependence Current Visit: Yes Status: Acute (3) Cocaine dependence Current Visit: Yes Status: Acute (4) Nicotine dependence Current Visit: No Status: Chronic Qualifiers: (5) Depressive disorder Current Visit: No Status: Chronic (6) CAD (coronary artery disease) Current Visit: No Status: Chronic (7) History of heart artery stent Current Visit: No Status: Chronic (8) Hypertensive cardiomyopathy Current Visit: No Status: Chronic (9) Diabetes mellitus type II, controlled Current Visit: No Status: Chronic Qualifiers: (10) Hyperlipidemia Current Visit: No Status: Chronic Qualifiers: (11) Hypertension Current Visit: No Status: Chronic Qualifiers: - Initial Treatment Plan Initial Treatment Plan: Monitor progress
[2017-12-02] MEDS: THIAMINE HCL 100 MG TABLET (FP) PO SCH (23:07)
[2017-12-02] MEDS: ATORVASTATIN CA 20 MG TABLET (FP) PO SCH (23:07)
[2017-12-03] MEDS: metFORMIN HCL 500 MG TABLET (FP) PO SCH ×2 (06:14→16:37)
[2017-12-03] MEDS: glyBURIDE 5 MG TABLET (UD) PO SCH (06:14)
[2017-12-03] MEDS: GABAPENTIN 100 MG CAPSULE (FP) PO SCH (10:14)
[2017-12-03] MEDS: PRENATAL VITAMINS W/ FOLIC ACID TABLET (FP) PO SCH (10:14)
[2017-12-03] MEDS: ISOSORBIDE MONONITRATE 30 MG TAB.SR.24H (FP) PO SCH (10:14)
[2017-12-03] MEDS: CLOPIDOGREL BISULFATE 75 MG TABLET (FP) PO SCH (10:14)
[2017-12-03] MEDS: ASPIRIN 81 MG CHEWABLE TABLETS PO SCH (10:14)
[2017-12-03] MEDS: ENALAPRIL MALEATE 10 MG TABLET (FP) PO SCH (10:14)
[2017-12-03] MEDS: NICOTINE 14 MG/24 HOURS TOPICAL PATCH TD SCH (10:15)
--- NOTE | 2017-12-03 14:32 | PN ---
[facility] Progress Note Note: PATIENT SEEN FOR REFUSAL OF DIABETES MEDICATION AND BGM. PATIENT STATES HE DOES NOT HAVE DIABETES AND WILL NOT ALLOW BLOOD SUGAR TO BE TESTED DAILY. PATIENT EXPLAINED HEALTH RISK FACTORS REGARDING MEDICATION TREATMENT AND BLOOD SUGAR TESTING. PATIENT CONTINUED TO REFUSED ALL TREATMENT. RECOMMENDED HG AIC TESTING TO CONFIRM DIAGNOSIS OF DM AND PATIENT REFUSED BLOOD TEST WELL. PATIENT RECOMMENDED TO FOLLOW UP WITH PCP ONCE DISCHARGE FOR FOLLOW UP AND TESTING.
[2017-12-03] MEDS: ATORVASTATIN CA 20 MG TABLET (FP) PO SCH (21:43)
[2017-12-03] MEDS: THIAMINE HCL 100 MG TABLET (FP) PO SCH (21:43)
[2017-12-04] MEDS: metFORMIN HCL 500 MG TABLET (FP) PO SCH ×2 (06:46→16:59)
[2017-12-04] MEDS: glyBURIDE 5 MG TABLET (UD) PO SCH (06:46)
[2017-12-04] MEDS: ISOSORBIDE MONONITRATE 30 MG TAB.SR.24H (FP) PO SCH (10:05)
[2017-12-04] MEDS: ASPIRIN 81 MG CHEWABLE TABLETS PO SCH (10:05)
[2017-12-04] MEDS: PRENATAL VITAMINS W/ FOLIC ACID TABLET (FP) PO SCH (10:05)
[2017-12-04] MEDS: GABAPENTIN 100 MG CAPSULE (FP) PO SCH (10:05)
[2017-12-04] MEDS: CLOPIDOGREL BISULFATE 75 MG TABLET (FP) PO SCH (10:06)
[2017-12-04] MEDS: ENALAPRIL MALEATE 10 MG TABLET (FP) PO SCH (10:06)
[2017-12-04] MEDS: NICOTINE 14 MG/24 HOURS TOPICAL PATCH TD SCH (10:06)
[2017-12-04] MEDS: ATORVASTATIN CA 20 MG TABLET (FP) PO SCH (21:47)
[2017-12-04] MEDS: THIAMINE HCL 100 MG TABLET (FP) PO SCH (21:47)
[2017-12-05] MEDS: glyBURIDE 5 MG TABLET (UD) PO SCH (07:04)
[2017-12-05] MEDS: metFORMIN HCL 500 MG TABLET (FP) PO SCH ×2 (07:05→16:30)
[2017-12-05] MEDS: ASPIRIN 81 MG CHEWABLE TABLETS PO SCH (09:43)
[2017-12-05] MEDS: GABAPENTIN 100 MG CAPSULE (FP) PO SCH (09:43)
[2017-12-05] MEDS: PRENATAL VITAMINS W/ FOLIC ACID TABLET (FP) PO SCH (09:43)
[2017-12-05] MEDS: CLOPIDOGREL BISULFATE 75 MG TABLET (FP) PO SCH (09:43)
[2017-12-05] MEDS: NICOTINE 14 MG/24 HOURS TOPICAL PATCH TD SCH (09:43)
[2017-12-05] MEDS: ISOSORBIDE MONONITRATE 30 MG TAB.SR.24H (FP) PO SCH (09:43)
[2017-12-05] MEDS: ENALAPRIL MALEATE 10 MG TABLET (FP) PO SCH (09:43)
[2017-12-05] MEDS: THIAMINE HCL 100 MG TABLET (FP) PO SCH (21:23)
[2017-12-05] MEDS: ATORVASTATIN CA 20 MG TABLET (FP) PO SCH (21:23)
[2017-12-06] MEDS: metFORMIN HCL 500 MG TABLET (FP) PO SCH ×2 (06:07→16:37)
[2017-12-06] MEDS: glyBURIDE 5 MG TABLET (UD) PO SCH (06:07)
[2017-12-06] MEDS: CLOPIDOGREL BISULFATE 75 MG TABLET (FP) PO SCH (09:45)
[2017-12-06] MEDS: ENALAPRIL MALEATE 10 MG TABLET (FP) PO SCH (09:45)
[2017-12-06] MEDS: ISOSORBIDE MONONITRATE 30 MG TAB.SR.24H (FP) PO SCH (09:45)
[2017-12-06] MEDS: PRENATAL VITAMINS W/ FOLIC ACID TABLET (FP) PO SCH (09:45)
[2017-12-06] MEDS: ASPIRIN 81 MG CHEWABLE TABLETS PO SCH (09:45)
[2017-12-06] MEDS: GABAPENTIN 100 MG CAPSULE (FP) PO SCH (09:45)
[2017-12-06] MEDS: NICOTINE 14 MG/24 HOURS TOPICAL PATCH TD SCH (09:46)
[2017-12-06] MEDS: ATORVASTATIN CA 20 MG TABLET (FP) PO SCH (21:38)
[2017-12-06] MEDS: THIAMINE HCL 100 MG TABLET (FP) PO SCH (21:38)
[2017-12-07] MEDS: metFORMIN HCL 500 MG TABLET (FP) PO SCH ×2 (06:23→17:07)
[2017-12-07] MEDS: glyBURIDE 5 MG TABLET (UD) PO SCH (06:23)
[2017-12-07] MEDS: GABAPENTIN 100 MG CAPSULE (FP) PO SCH (10:02)
[2017-12-07] MEDS: NICOTINE 14 MG/24 HOURS TOPICAL PATCH TD SCH (10:02)
[2017-12-07] MEDS: PRENATAL VITAMINS W/ FOLIC ACID TABLET (FP) PO SCH (10:02)
[2017-12-07] MEDS: ENALAPRIL MALEATE 10 MG TABLET (FP) PO SCH (10:02)
[2017-12-07] MEDS: ISOSORBIDE MONONITRATE 30 MG TAB.SR.24H (FP) PO SCH (10:02)
[2017-12-07] MEDS: CLOPIDOGREL BISULFATE 75 MG TABLET (FP) PO SCH (10:02)
[2017-12-07] MEDS: ASPIRIN 81 MG CHEWABLE TABLETS PO SCH (10:05)
--- NOTE | 2017-12-07 13:58 | EKG ---
Test Reason : Blood Pressure : / mmHG Vent. Rate : 055 BPM Atrial Rate : 044 BPM P-R Int : 202 ms QRS Dur : 124 ms QT Int : 454 ms P-R-T Axes : 075 -74 -36 degrees QTc Int : 434 ms MARKED SINUS BRADYCARDIA WITH FREQUENT PREMATURE VENTRICULAR COMPLEXES LEFT AXIS DEVIATION LEFT BUNDLE BRANCH BLOCK ABNORMAL ECG Confirmed by Heriberto Dyson MD ([id number]) on 12/07/2017 1:57:49 PM Referred By: Confirmed By:Heriberto Dyson MD
[2017-12-07] MEDS: THIAMINE HCL 100 MG TABLET (FP) PO SCH (21:27)
[2017-12-07] MEDS: MELATONIN 5 MG TABLETS PO PRN (21:27)
[2017-12-07] MEDS: ATORVASTATIN CA 20 MG TABLET (FP) PO SCH (21:28)
[2017-12-08] MEDS: metFORMIN HCL 500 MG TABLET (FP) PO SCH ×2 (06:31→17:10)
[2017-12-08] MEDS: glyBURIDE 5 MG TABLET (UD) PO SCH (06:31)
[2017-12-08] MEDS: ASPIRIN 81 MG CHEWABLE TABLETS PO SCH (10:03)
[2017-12-08] MEDS: ENALAPRIL MALEATE 10 MG TABLET (FP) PO SCH (10:03)
[2017-12-08] MEDS: ISOSORBIDE MONONITRATE 30 MG TAB.SR.24H (FP) PO SCH (10:03)
[2017-12-08] MEDS: NICOTINE 14 MG/24 HOURS TOPICAL PATCH TD SCH (10:03)
[2017-12-08] MEDS: PRENATAL VITAMINS W/ FOLIC ACID TABLET (FP) PO SCH (10:03)
[2017-12-08] MEDS: GABAPENTIN 100 MG CAPSULE (FP) PO SCH (10:05)
[2017-12-08] MEDS: CLOPIDOGREL BISULFATE 75 MG TABLET (FP) PO SCH (10:05)
[2017-12-08] MEDS: THIAMINE HCL 100 MG TABLET (FP) PO SCH (21:28)
[2017-12-08] MEDS: MELATONIN 5 MG TABLETS PO PRN (21:28)
[2017-12-08] MEDS: ATORVASTATIN CA 20 MG TABLET (FP) PO SCH (21:28)
[2017-12-09] MEDS: metFORMIN HCL 500 MG TABLET (FP) PO SCH ×2 (07:40→16:45)
[2017-12-09] MEDS: glyBURIDE 5 MG TABLET (UD) PO SCH (07:40)
[2017-12-09] MEDS: PRENATAL VITAMINS W/ FOLIC ACID TABLET (FP) PO SCH (10:14)
[2017-12-09] MEDS: CLOPIDOGREL BISULFATE 75 MG TABLET (FP) PO SCH (10:14)
[2017-12-09] MEDS: ISOSORBIDE MONONITRATE 30 MG TAB.SR.24H (FP) PO SCH (10:14)
[2017-12-09] MEDS: NICOTINE 14 MG/24 HOURS TOPICAL PATCH TD SCH (10:14)
[2017-12-09] MEDS: ENALAPRIL MALEATE 10 MG TABLET (FP) PO SCH (10:14)
[2017-12-09] MEDS: ASPIRIN 81 MG CHEWABLE TABLETS PO SCH (10:14)
[2017-12-09] MEDS: GABAPENTIN 100 MG CAPSULE (FP) PO SCH (10:15)
[2017-12-09] MEDS: MELATONIN 5 MG TABLETS PO PRN (21:31)
[2017-12-09] MEDS: ATORVASTATIN CA 20 MG TABLET (FP) PO SCH (21:31)
[2017-12-09] MEDS: THIAMINE HCL 100 MG TABLET (FP) PO SCH (21:32)
[2017-12-10] MEDS: metFORMIN HCL 500 MG TABLET (FP) PO SCH ×2 (07:01→16:39)
[2017-12-10] MEDS: glyBURIDE 5 MG TABLET (UD) PO SCH (07:01)
[2017-12-10] MEDS: ENALAPRIL MALEATE 10 MG TABLET (FP) PO SCH (10:39)
[2017-12-10] MEDS: CLOPIDOGREL BISULFATE 75 MG TABLET (FP) PO SCH (10:39)
[2017-12-10] MEDS: PRENATAL VITAMINS W/ FOLIC ACID TABLET (FP) PO SCH (10:39)
[2017-12-10] MEDS: ASPIRIN 81 MG CHEWABLE TABLETS PO SCH (10:39)
[2017-12-10] MEDS: GABAPENTIN 100 MG CAPSULE (FP) PO SCH (10:39)
[2017-12-10] MEDS: ISOSORBIDE MONONITRATE 30 MG TAB.SR.24H (FP) PO SCH (10:39)
[2017-12-10] MEDS: NICOTINE 14 MG/24 HOURS TOPICAL PATCH TD SCH (10:40)
[2017-12-10] MEDS: ATORVASTATIN CA 20 MG TABLET (FP) PO SCH (21:52)
[2017-12-10] MEDS: THIAMINE HCL 100 MG TABLET (FP) PO SCH (21:52)
[2017-12-11] MEDS: glyBURIDE 5 MG TABLET (UD) PO SCH (06:21)
[2017-12-11] MEDS: metFORMIN HCL 500 MG TABLET (FP) PO SCH ×2 (06:21→17:50)
[2017-12-11 07:16] VITALS: TEMP 98.3
[2017-12-11] MEDS: ENALAPRIL MALEATE 10 MG TABLET (FP) PO SCH (09:46)
[2017-12-11] MEDS: ASPIRIN 81 MG CHEWABLE TABLETS PO SCH (09:46)
[2017-12-11] MEDS: PRENATAL VITAMINS W/ FOLIC ACID TABLET (FP) PO SCH (09:46)
[2017-12-11] MEDS: GABAPENTIN 100 MG CAPSULE (FP) PO SCH (09:47)
[2017-12-11] MEDS: CLOPIDOGREL BISULFATE 75 MG TABLET (FP) PO SCH (09:47)
[2017-12-11] MEDS: ISOSORBIDE MONONITRATE 30 MG TAB.SR.24H (FP) PO SCH (09:47)
[2017-12-11] MEDS: NICOTINE 14 MG/24 HOURS TOPICAL PATCH TD SCH (09:47)
[2017-12-11 10:13] VITALS: BP 132/72; PULSE 64
--- NOTE | 2017-12-11 11:26 | PN ---
[facility] Progress Note Note: PATIENT REPORTS CHEST PAIN (CONTINUOUS, SHARP QUALITY, 6/10 ON PAIN SCALE) SINCE YESTERDAY. PATIENT REPORTS HISTORY OF INTERMITTENT PERIODS OF CHEST PAIN IN PAST, BUT NOTES THAT PAIN HAS BECOME MORE NOTICEABLE AND SEVERE YESTERDAY. PATIENT DENIES PAIN IN JAW, FACE, OR IN LEFT ARM. PATIENT DENIES N/V, DIZZINESS , AND SOB. PATIENT DENIES HISTORY OF RESPIRATORY/LUNG DISEASE OR GASTRIC DISEASE. ECG ORDERED, RESULTS NOTED. VS STABLE. LUNG SOUNDS AUSCULTATED CLEAR AND EQUAL BILATERALLY. PATIENT HAS HISTORY OF HTN, CARDIAC STENT PLACEMENT (2), TYPE II DM, AND HYPERCHOLESTEROLEMIA. REPORT GIVEN TO DR. Janette SALVADOR MD AT [facility]. PATIENT TO BE TAKEN TO [facility] VIA AMBULANCE FOR FURTHER MEDICAL EVALUATION. Zane ERNANDEZ NP
--- NOTE | 2017-12-13 11:08 | EKG ---
Test Reason : Blood Pressure : / mmHG Vent. Rate : 061 BPM Atrial Rate : 061 BPM P-R Int : 196 ms QRS Dur : 146 ms QT Int : 416 ms P-R-T Axes : 076 -77 031 degrees QTc Int : 418 ms SINUS RHYTHM WITH OCCASIONAL PREMATURE VENTRICULAR COMPLEXES LEFT BUNDLE BRANCH BLOCK ABNORMAL ECG WHEN COMPARED WITH ECG OF 30-NOV-2017 22:41, T WAVE VARIATION Confirmed by JILLIAN ALVAREZ MD ([id number]) on 12/13/2017 11:08:10 AM Referred By: Confirmed By:JILLIAN ALVAREZ MD
== END 2017-12-11 11:01 | disposition short-term general hospital (02) | DRG 772 ==
LOC: YASAS 16:28 → Y3W 20:05
PROVIDERS: ADMIT Psychiatry & Neurology Psychiatry; ATTEND Nurse Practitioner Acute Care
PROC: HZ42ZZZ Group Counseling for Substance Abuse Treatment, Cognitive-Behavioral (ICD-10-PCS; principal; 2017-11-30)
DX: F11.20 Opioid dependence, uncomplicated (principal); F10.20 Alcohol dependence, uncomplicated; F17.210 Nicotine dependence, cigarettes, uncomplicated; F32.9 Major depressive disorder, single episode, unspecified; R07.9 Chest pain, unspecified; B18.2 Chronic viral hepatitis C; I25.10 Atherosclerotic heart disease of native coronary artery without angina pectoris; I11.9 Hypertensive heart disease without heart failure; I43 Cardiomyopathy in diseases classified elsewhere; Z95.5 Presence of coronary angioplasty implant and graft; E11.9 Type 2 diabetes mellitus without complications; Z79.84 Long term (current) use of oral hypoglycemic drugs; E78.5 Hyperlipidemia, unspecified
CPT/HCPCS: 82962; 93005; 93010

== ENCOUNTER 2017-12-11 12:16 | Observation (INO) | payer OTHER ==
[2017-12-11] MEDS ORDERED: ASPIRIN 81 MG CHEWABLE TABLETS PO ONE (12:29)
[2017-12-11] MEDS ORDERED: ASPIRIN 81 MG CHEWABLE TABLETS ONE (12:32)
--- NOTE | 2017-12-11 12:37 | PDOC ---
Attending Attestation - HPI HPI: 12/11/17 12:58 The patient is a 62 year old male, with a significant past medical history of PR (1 month ago, s/p stents x2), hypertension, and CHF, who presents to the emergency department with chest pain since last night. He reports his pain began at approximately 19:00 while lying down and has been constant since. Patient currently rates his pain a 10/10. He reports it radiates into his left arm, neck, and back. He denies any alleviating or exacerbating factors. However , he denies any associated shortness of breath, diaphoresis, palpitations, or lower extremity edema. He denies catheterization one month ago. He denies any abdominal pain, nausea, or vomiting. He denies any fever, chills, cough, headache, dizziness, or lightheadedness. He denies any recent travel or sick contacts. Allergies: Acetominophen, Ibuprofen Past Surgical History: Cardiac stentsx2 Social History: Current everyday smoker. ETOH, cocaine, and heroin abuse. - Medical Decision Making 12/11/17 13:04 Documentation prepared by Nitish Mendez, acting as medical accounts receivable specialist for Renetta King MD. <Nitish Mendez - Last Filed: 12/11/17 13:04> - Resident Resident Name: Janel Waite - ED Attending Attestation I have performed the following: I have examined & evaluated the patient, The case was reviewed & discussed with the resident, I agree w/resident's findings & plan, Exceptions are as noted - Physicial Exam PE: GENERAL: Awake, alert, and fully oriented, in no acute distress HEAD: No signs of trauma EYES: PERRLA, EOMI, sclera anicteric, conjunctiva clear ENT: Auricles normal inspection, hearing grossly normal, nares patent, oropharynx clear without exudates. Moist mucosa NECK: Normal ROM, supple, no lymphadenopathy, JVD, or masses LUNGS: Breath sounds equal, clear to auscultation bilaterally. No wheezes, and no crackles HEART: Regular rate and rhythm, normal S1 and S2, no murmurs, rubs or gallops ABDOMEN: Soft, nontender, normoactive bowel sounds. No guarding, no rebound. No masses EXTREMITIES: Normal range of motion, no edema. No clubbing or cyanosis. No cords, erythema, or tenderness NEUROLOGICAL: Cranial nerves II through XII grossly intact. Normal speech, motor and sensation intact. SKIN: Warm, Dry, normal turgor, no rashes or lesions noted. - Medical Decision Making Pt presents with substernal chest pain since last night, progressively worsening. He has prior cardiac history with placement of two stents. His EKG is abnormal, showing multiple PVCs, and he has risk factors for ACS. However, he also has history of substance abuse including cocaine. Will avoid any B- blockers. <Renetta King - Last Filed: 12/11/17 15:31>
--- NOTE | 2017-12-11 12:47 | PDOC ---
History of Present Illness - General Stated Complaint: CHEST PAIN Time Seen by Provider: 12/11/17 12:23 History Source: Patient, EMS Exam Limitations: No Limitations - History of Present Illness Initial Comments: 12/11/17 12:43 62 year old male with PMH TN (x1 month ago), 2 stents, HTN, CHF presents to ED from [facility] for chest pain since last night. He states the pain started at 7-8pm, has been constant, increasing in severity, currently 10/10, radiating to his left arm/left neck/back, with no alleviating or aggravating factors. He states he was lying down at rest when this pain began. He states he was not catheterized with his TN x1 month ago. Pt admits to everyday cocaine abuse, last used x3 weeks ago. Pt admits to everyday heroine use, last used x3 week ago. Pt admits to everyday ETOH use, last drank x3 weeks ago. Past History - Past Medical History Allergies/Adverse Reactions: Allergies Allergy/AdvReac Type Severity Reaction Status Date / Time acetaminophen [From Tylenol] Allergy Intermediate Rash Verified 11/30/17 20:26 ibuprofen Allergy Intermediate Rash Verified 11/30/17 20:26 Home Medications: Ambulatory Orders Gabapentin [Neurontin -] 100 mg PO DAILY 05/20/16 Trazodone HCl 200 mg PO HS 05/20/16 Aspirin [ASA -] 81 mg PO DAILY #30 tab.chew 06/15/16 Atorvastatin Ca [Lipitor] 20 mg PO HS #30 tablet 06/15/16 Clopidogrel Bisulfate [Plavix -] 75 mg PO DAILY #30 tablet 06/15/16 Enalapril Maleate [Vasotec -] 10 mg PO DAILY #30 tablet 06/15/16 Glyburide [Micronase -] 5 mg PO ACBK #30 tablet 06/15/16 Isosorbide Mononitrate [Imdur -] 30 mg PO DAILY #60 tab.sr.24h 06/15/16 Metformin HCl [Glucophage] 1,000 mg PO BID #60 tablet 06/15/16 Nitroglycerin 0.4 mg PO DAILY PRN #30 tab.subl MDD 1.2mg 06/15/16 Sertraline HCl [Zoloft -] 50 mg PO DAILY #30 tablet 10/24/16 traZODone HCL [Desyrel -] 50 mg PO HS #30 tablet 10/24/16 Anemia: No Asthma: No Cancer: No Cardiac Disorders: No CVA: No COPD: No CHF: No Dementia: No Diabetes: No GI Disorders: No Disorders: No HTN: Yes Hypercholesterolemia: No Kidney Stones: No Liver Disease: No Seizures: No Thyroid Disease: No - Surgical History Abdominal Surgery: No Appendectomy: No Cardiac Surgery: Yes (2011 cardiac stent ) Cholecystectomy: No Lung Surgery: No Neurologic Surgery: No Orthopedic Surgery: No - Reproductive History Testicular Surgery: No - Suicide/Smoking/Psychosocial Hx Smoking History: Current every day smoker Have you smoked in the past 12 months: Yes Number of Cigarettes Smoked Daily: 3 Cigars Per Day: 0 Information on smoking cessation initiated: No 'Breaking Loose' booklet given: 11/26/17 Hx Alcohol Use: Yes (3 wks ago) Drug/Substance Use Hx: Yes (cocaine,heroin) Substance Use Type: Alcohol (Started drinking alcohol at age 30, consumes half to one pint 1-2 times weekly. Last drank on 11/19/17), Cocaine (Started smoking crack cocaine at age , consumes $100 3-6 times weekly. Last smoked on 11/19/17), Heroin (Started using heroin at age 53, consumes 9-10 bags 3-6 times weekly. Last used on 11/19/17) Hx Substance Use Treatment: Yes (2 previous inpt detox & 2 inpt rehab @ [facility]) Review of Systems - Review of Systems Able to Perform ROS?: Yes Comments:: 12/11/17 12:45 General: denies fever, chills, night sweats, generalized weakness. HEENT: denies sore throat, rhinorrhea, ear pain. Heart: admits to chest pain, palpitations, lightheadedness. denies syncope, lower extremity swelling. Respiratory: admits to shortness of breath. denies cough, sputum production, hematemesis. Abdomen: denies abdominal pain, nausea, vomiting, diarrhea, constipation, blood in stool. : denies dysuria, urinary frequency, hematuria. Musculoskeletal: denies joint pain, muscle pain, joint swelling. Neurological: admits to dizziness. denies headache, numbness, tingling. Skin: denies rash, laceration, abrasion. *Physical Exam - Vital Signs Last Vital Signs Temp Pulse Resp BP Pulse Ox 98.9 F 63 20 106/69 98 12/11/17 12:20 12/11/17 12:20 12/11/17 12:20 12/11/17 12:20 12/11/17 12:20 - Physical Exam Comments: 12/11/17 12:46 Appearance: awake. alert. laying flat in bed. HEENT: head is normocephalic, atraumatic. EOMI. PERRLA. Neck: supple. Full ROM. Heart: regular rhythm. no murmurs, rubs or gallops. Lungs: clear to auscultation bilaterally. no crackles, rhonchi or wheezing. no stridor. Abdomen: soft, nontender. normal bowel sounds. no rebound, guarding, masses. Back: no CVA tenderness. Extremities: Peripheral pulses intact and equal. No lower extremity edema. Neurological: Alert. Oriented x3. CN 2-12 grossly intact. Moves all four extremities. 12/11/17 18:13 Equal radial and femoral pulses. Bradycardia, 50 bpm Right arm BP 103/71 Left arm BP 112/78 Heart Score/ECG Review - ECG Impressions Comment:: 12/11/17 12:49 Rate 65. Regular rhythm with occasional PVCs. Left axis. No acute ST changes. 12/11/17 18:26 Repeat EKG at 18:15 - rate 50. regular rhythm. left axis. newly flipped T waves in V5, V6, 3 and AVF. ED Treatment Course - LABORATORY CBC & Chemistry Diagram: 12/11/17 12:45 12/11/17 12:45 - RADIOLOGY Radiology Studies Ordered: Category Date Time Status CHEST X-RAY PORTABLE* [RAD] Stat Radiology 12/11/17 12:28 Ordered - Medications Given in the ED: ED Medications Discontinued Medications Generic Name Dose Route Start Last Admin Trade Name Freq PRN Reason Stop Dose Admin Aspirin 224 mg 12/11/17 12:29 12/11/17 12:31 Asa - PO 12/11/17 12:30 224 mg ONCE ONE Administration Medical Decision Making - Medical Decision Making 12/11/17 13:06 62 year old male with PMH TN (x1 month ago), 2 stents, HTN, CHF, cocaine abuse, heroine abuse, etoh abuse, on ASA 81 mg and plavix presents for chest pain. Chest pain is located to the left chest, constant since last night, increasing in severity, currently 10/10, radiating to left arm/left neck/back. Initial Vital Signs Temp Pulse Resp BP Pulse Ox 98.9 F 63 20 106/69 98 12/11/17 12:20 12/11/17 12:20 12/11/17 12:20 12/11/17 12:20 12/11/17 12:20 Afebrile. No bradycardia. No tachycardia. Mild hypotension. No hypoxia. EKG - rate 65. normal rhythm with occasional PVC. Left axis. no acute ST changes. ASA 244 mg given. Cannot give nitro for pain due to mild hypotension. Morphine for pain. Pending labs, CXR. 12/11/17 13:35 Pt reassessed, state his pain is a 7/10 after given morphine. 12/11/17 14:20 Pt reassessed, states his current pain is 9/10. Unable to control pt's chest pain medically. No leukocytosis. WBC 4.3 Magnesium 1.5, electrolytes other nathan normal. Kidney function normal. BUN 30. Cr 1.2. Coags within normal limits. CXR negative. Troponin negative. BNP normal. Pending urine drug screen. HEART Score = 3 Pt will be admitted for observation of chest pain to Dr. Rudolph. 12/11/17 17:58 Pt reassessed. Continued chest pain, now radiating to his back. Equal radial and femoral pulses. Bradycardia, 50 bpm Pending repeat EKG. Right arm BP 103/71 Left arm BP 112/78 Repeat EKG at 18:15 - rate 50. regular rhythm. left axis. newly flipped T waves in V5, V6, 3 and AVF. I presented the two EKGs to Adela Ramey at the patient's bedside. She has placed a consult for cardiology, Dr. Stover. *DC/Admit/Observation/Transfer Diagnosis at time of Disposition: Chest pain, Cocaine abuse, Heroin abuse - Discharge Dispostion Condition at time of disposition: Stable Decision to Admit order: Yes - Referrals - Patient Instructions - Post Discharge Activity
[2017-12-11] MEDS ORDERED: NITROGLYCERIN SUBLINGUAL 1/150 0.4 MG TAB SL PRN ×2 (12:51→18:17)
[2017-12-11 12:55] VITALS: BMI 25.0
[2017-12-11] MEDS ORDERED: morphine CARPU-JECT 4 MG/1 ML DISP.SYRIN IVPUSH ONE ×2 (12:57→18:12)
[2017-12-11 13:00] LABS: BASO % 0.9 % (0-2.0); EOS % 2.8 % (0-4.5); HEMATOCRIT 34.8 % (35.4-49); LYMPH % 29.5 % (8-40); MCH 22.8 pg (25.7-33.7); MCHC 31.8 g/dl (32.0-35.9); MEAN CELL VOLUME 71.7 fl (80-96); MEAN PLT VOLUME 8.7 fl (7.5-11.1); MONO % 18.4 % (3.8-10.2); NEUT % 48.4 % (42.8-82.8); PLATELET COUNT 157 K/MM3 (134-434); RBC 4.85 M/mm3 (4.00-5.60); RDW 15.3 % (11.9-15.9); WHITE BLOOD COUNT 4.3 K/mm3 (4.0-10.0)
[2017-12-11] MEDS ORDERED: morphine SULFATE 4 MG/ML VIAL ONE (13:06)
[2017-12-11 13:30] LABS: INR 0.97 (0.82-1.09)
[2017-12-11 13:33] LABS: ACTIVATED PTT 27.5 SECONDS (25.2-36.5)
[2017-12-11 13:54] LABS: ALBUMIN 3.5 g/dl (3.4-5.0); ANION GAP 7 (8-16); BLOOD UREA NITROGEN 30 mg/dL (7-18); CALCIUM 9.2 mg/dL (8.5-10.1); CHLORIDE 106 mmol/L (98-107); CO2 25 mmol/L (21-32); CREATININE 1.2 mg/dL (0.7-1.3); GLUCOSE,RANDOM 98 mg/dL (74-106); SGPT/ALT 60 U/L (12-78); SODIUM 138 mmol/L (136-145)
[2017-12-11 13:58] LABS: ALK PHOS 78 U/L (45-117); BILIRUBIN,TOTAL 0.5 mg/dL (0.2-1.0); N-TERMINAL BNP 123.07 pg/ml (5-125); TOT PROT 7.7 g/dl (6.4-8.2)
[2017-12-11 13:59] LABS: MAGNESIUM 1.5 mg/dL (1.8-2.4); POTASSIUM 5.1 mmol/L (3.5-5.1); SGOT/AST 52 U/L (15-37)
--- NOTE | 2017-12-11 15:05 | HP ---
CHIEF COMPLAINT: Chest pain HISTORY OF PRESENT ILLNESS: 62 year old male with PMH significant for HTN, HLD, CAD s/p HI s/p stents, systolic HF, NIDDM and polysubstance abuse. Patient was seen and evaluated for chest pain at [facility] on 11/02/17 and was told he had a mild heart attack. He did not have a catheterization at that time. He was evaluated again for chest pain here from 11/30-12/01/17, the workup was negative for ACS. Patient presents today with a complaint of chest pain since last night. He reports his pain began at approximately 7:00pm while lying down and has been constant since. Patient currently rates his pain a 10/10. He reports it radiates into his left arm, neck, and back. He denies any alleviating or exacerbating factors. He denies any associated shortness of breath, diaphoresis, palpitations, or lower extremity edema. He denies any abdominal pain, nausea, or vomiting. He denies any fever, chills, cough, headache, dizziness, or lightheadedness. He denies any recent travel or sick contacts. Recent Travel: No PAST MEDICAL HISTORY: Hypertension Hyperlipidemia Coronary artery disease Systolic heart failure NIDDM Polysubstance abuse PAST SURGICAL HISTORY: Coronary stenting (2011) Social History: Smoking: current every day Alcohol/Drugs: Alcohol (Started drinking alcohol at age 30, consumes half to one pint 1-2 times weekly. Last drank on 11/19/17), Cocaine (Started smoking crack cocaine at age , consumes $100 3-6 times weekly. Last smoked on 11/19/17), Heroin (Started using heroin at age 53, consumes 9-10 bags 3-6 times weekly. Last used on 11/19/17) Family History: Allergies acetaminophen [From Tylenol] Allergy (Intermediate, Verified 11/30/17 20:26) Rash ibuprofen Allergy (Intermediate, Verified 11/30/17 20:26) Rash HOME MEDICATIONS: Home Medications Medication Instructions Recorded Gabapentin [Neurontin -] 100 mg PO DAILY 05/20/16 Trazodone HCl 200 mg PO HS 05/20/16 Aspirin [ASA -] 81 mg PO DAILY #30 tab.chew 06/15/16 Atorvastatin Ca [Lipitor] 20 mg PO HS #30 tablet 06/15/16 Clopidogrel Bisulfate [Plavix -] 75 mg PO DAILY #30 tablet 06/15/16 Enalapril Maleate [Vasotec -] 10 mg PO DAILY #30 tablet 06/15/16 Glyburide [Micronase -] 5 mg PO ACBK #30 tablet 06/15/16 Isosorbide Mononitrate [Imdur -] 30 mg PO DAILY #60 tab.sr.24h 06/15/16 Metformin HCl [Glucophage] 1,000 mg PO BID #60 tablet 06/15/16 Nitroglycerin 0.4 mg PO DAILY PRN #30 tab.subl 06/15/16 MDD 1.2mg Sertraline HCl [Zoloft -] 50 mg PO DAILY #30 tablet 10/24/16 traZODone HCL [Desyrel -] 50 mg PO HS #30 tablet 10/24/16 REVIEW OF SYSTEMS CONSTITUTIONAL: Absent: fever, chills, diaphoresis, generalized weakness, malaise, loss of appetite, weight change HEENT: Absent: rhinorrhea, nasal congestion, throat pain, throat swelling, difficulty swallowing, mouth swelling, ear pain, eye pain, visual changes CARDIOVASCULAR: +chest pain Absent: syncope, palpitations, irregular heart rate, lightheadedness, peripheral edema RESPIRATORY: Absent: cough, shortness of breath, dyspnea with exertion, orthopnea, wheezing, stridor, hemoptysis GASTROINTESTINAL: Absent: abdominal pain, abdominal distension, nausea, vomiting, diarrhea, constipation, melena, hematochezia GENITOURINARY: Absent: dysuria, frequency, urgency, hesitancy, hematuria, flank pain, genital pain MUSCULOSKELETAL: Absent: myalgia, arthralgia, joint swelling, back pain, neck pain SKIN: Absent: rash, itching, pallor HEMATOLOGIC/IMMUNOLOGIC: Absent: easy bleeding, easy bruising, lymphadenopathy, frequent infections ENDOCRINE: Absent: unexplained weight gain, unexplained weight loss, heat intolerance, cold intolerance NEUROLOGIC: Absent: headache, focal weakness or paresthesias, dizziness, unsteady gait, seizure, mental status changes, bladder or bowel incontinence PSYCHIATRIC: Absent: anxiety, depression, suicidal or homicidal ideation, hallucinations. PHYSICAL EXAMINATION Vital Signs - 24 hr 12/11/17 12/11/17 12/11/17 12:20 12:25 14:43 Temperature 98.9 F Pulse Rate 63 Pulse Rate [ 62 Apical] Respiratory 20 18 Rate Blood Pressure 106/69 Blood Pressure 97/64 [Left Arm] O2 Sat by Pulse 98 98 98 Oximetry (%) GENERAL: Awake, alert, and fully oriented, in no acute distress. HEAD: Normal with no signs of trauma. EYES: Pupils equal, round and reactive to light, extraocular movements intact, sclera anicteric, conjunctiva clear. No lid lag. Poor dentition. LUNGS: Breath sounds equal, clear to auscultation bilaterally. No wheezes, and no crackles. No accessory muscle use. HEART: Regular rate and rhythm, normal S1 and S2; + murmur ABDOMEN: Soft, nontender, not distended MUSCULOSKELETAL: Normal range of motion at all joints. No bony deformities or tenderness. No CVA tenderness. UPPER EXTREMITIES: 2+ pulses, warm, well-perfused. No cyanosis. No clubbing. No peripheral edema. LOWER EXTREMITIES: 2+ pulses, warm, well-perfused. No calf tenderness. No peripheral edema. NEUROLOGICAL: Cranial nerves II-XII intact. Laboratory Results - last 24 hr 12/11/17 12/11/17 12/11/17 12:45 12:45 12:45 WBC 4.3 RBC 4.85 Hgb 11.0 L Hct 34.8 L MCV 71.7 L MCH 22.8 L MCHC 31.8 L RDW 15.3 Plt Count 157 MPV 8.7 Absolute Neuts (auto) 2.1 Neutrophils % 48.4 Lymphocytes % 29.5 Monocytes % 18.4 H Eosinophils % 2.8 Basophils % 0.9 Nucleated RBC % 0 PT with INR 11.00 INR 0.97 PTT (Actin FS) 27.5 Sodium 138 Potassium 5.1 Chloride 106 Carbon Dioxide 25 Anion Gap 7 L BUN 30 H Creatinine 1.2 Creat Clearance w eGFR > 60 Random Glucose 98 Calcium 9.2 Magnesium 1.5 L Total Bilirubin 0.5 AST 52 H D ALT 60 D Alkaline Phosphatase 78 Creatine Kinase 147 Troponin I 0.02 D B-Natriuretic Peptide 123.07 Total Protein 7.7 Albumin 3.5 ASSESSMENT/PLAN: 62 year old male with PMH significant for HTN, HLD, CAD s/p HI s/p stents, systolic HF, NIDDM and polysubstance abuse. Presents today from [facility] with a complaint of chest pain. Patient was seen and evaluated for chest pain at [facility] on 11/02/17, and here at [facility] from 11/30-12/01/17. Chest pain --first troponin neg, two pending --first ECG sinus rhythm @ 65bpm; second sinus prem @50 with mildly inverted T waves in Lead III, LBBB seen in 2017 --CXR unremarkable --06/12/16 Echo: mild cLVH; LV function mildly reduced; RV normal; inferior wall apex mildly hypokinetic; RV normal; LAE; mild MR, mild TR --repeat echo --cardiolody consult requested Hypertension --BP stable --continue enalapril Hyperlipidemia --continue atorvastatin Coronary artery disease s/p HI s/p stents --continue ASA, Plavix, Lipitor, isosorbide, nitro PRN Systolic heart failure --continue enalapril --appears euvolemic, not on diuretics NIDDM --Novolog sliding scale Polysubstance abuse --has been in rehab at [facility] since 11/26/17; not on librium or methadone --continue sertraline, trazadone FEN Fluids: PO intake adequate Electrolytes: replete as indicated Nutrition: diabetic low sodium DVT prophylaxis: subq heparin Dispo: continues to require observation. Full code. Visit type - Emergency Visit Emergency Visit: Yes ED Registration Date: 12/11/17 Care time: The patient presented to the Emergency Department on the above date and was hospitalized for further evaluation of their emergent condition. - New Patient This patient is new to me today: Yes Date on this admission: 12/11/17 - Critical Care Critical Care patient: No Hospitalist Screening - Colonoscopy Questionnaire Colonoscopy Questionnaire: Colonoscopy Questionnaire - Patient: 50 - 75 years old and never had a screening colonoscopy: Yes History of colon or rectal polyps, or CA: No History of IBD, Crohn's disease or UC: No History of abdominal radiation therapy as a child: No - Relative: 1 with colon or rectal CA, or polyps at age 60 or younger: No Colon or rectal CA diagnosed at age 45 or younger: No Multiple relatives with colon or rectal CA: No - Outcome: Screening Result: Positive Screen
[2017-12-11 15:09] LABS: COCAINE, UR NEGATIVE ng/ml (CUTOFF=300); METHADONE, UR NEGATIVE ng/ml (CUTOFF=300); PHENCYCLIDINE,URINE NEGATIVE ng/ml (CUTOFF=25); URINE AMPHETAMINES NEGATIVE ng/ml (CUTOFF=500); URINE BARBITURATES NEGATIVE ng/ml (CUTOFF=200); URINE BENZODIAZEPINES NEGATIVE ng/ml (CUTOFF=200)
[2017-12-11 15:10] LABS: OPIATES, URI POSITIVE ng/ml (CUTOFF=300)
[2017-12-11] MEDS ORDERED: MORPHINE SULFATE 2 MG/ML VIAL IVPUSH PRN (18:49)
[2017-12-11] MEDS ORDERED: ENALAPRIL MALEATE 5 MG TABLET (FP) ONE (18:51)
[2017-12-11] MEDS ORDERED: GABAPENTIN 100 MG CAPSULE (FP) ONE (18:52)
[2017-12-11] MEDS ORDERED: ISOSORBIDE MONONITRATE 60 MG TAB.SR.24H (FP) PO ONE (18:52)
[2017-12-11] MEDS ORDERED: CLOPIDOGREL BISULFATE 75 MG TABLET (FP) ONE (18:52)
[2017-12-11] MEDS ORDERED: SERTRALINE HCL 50 MG TABLET (FP) ONE (18:52)
[2017-12-11] MEDS ORDERED: MORPHINE SULFATE 2 MG/ML VIAL ONE (18:53)
[2017-12-11] MEDS: GABAPENTIN 100 MG CAPSULE (FP) PO SCH (19:08)
[2017-12-11] MEDS: SERTRALINE HCL 50 MG TABLET (FP) PO SCH (19:08)
[2017-12-11] MEDS: CLOPIDOGREL BISULFATE 75 MG TABLET (FP) PO SCH (19:08)
[2017-12-11] MEDS: ISOSORBIDE MONONITRATE 30 MG TAB.SR.24H (FP) PO SCH (19:23)
[2017-12-11] MEDS: ENALAPRIL MALEATE 10 MG TABLET (FP) PO SCH (19:23)
[2017-12-11] MEDS: MORPHINE SULFATE 2 MG/ML VIAL IVPUSH PRN ×2 (19:30→21:52)
[2017-12-11] MEDS: HEPARIN NA (PORCINE) 5,000 UNITS/ML 1ML VIAL SQ SCH (21:48)
[2017-12-11] MEDS: INSULIN SLIDING SCALE (NOVOLOG) 1 VIAL SQ SCH (21:50)
[2017-12-11] MEDS ORDERED: traZODone HCL 50 MG TABLET (FP) PO SCH (22:00)
[2017-12-11] MEDS ORDERED: ATORVASTATIN CA 20 MG TABLET (FP) PO SCH (22:00)
[2017-12-12] MEDS: HEPARIN NA (PORCINE) 5,000 UNITS/ML 1ML VIAL SQ SCH ×2 (05:23→13:43)
[2017-12-12] MEDS: INSULIN SLIDING SCALE (NOVOLOG) 1 VIAL SQ SCH ×2 (06:13→12:10)
[2017-12-12 08:01] LABS: ANION GAP 8 (8-16); BLOOD UREA NITROGEN 32 mg/dL (7-18); CHLORIDE 106 mmol/L (98-107); CO2 26 mmol/L (21-32); GLUCOSE,RANDOM 85 mg/dL (74-106); MAGNESIUM 1.7 mg/dL (1.8-2.4); POTASSIUM 4.5 mmol/L (3.5-5.1); SODIUM 140 mmol/L (136-145)
[2017-12-12 08:02] LABS: CREATININE 1.3 mg/dL (0.7-1.3)
[2017-12-12] MEDS: MORPHINE SULFATE 2 MG/ML VIAL IVPUSH PRN ×2 (08:04→15:22)
[2017-12-12] MEDS ORDERED: PT OWN MED DRAWER 7, Y5N ONE (08:50)
--- NOTE | 2017-12-12 09:52 | CON.CARD ---
Consult Consult Specialty:: Cardiology Referred by:: Hospitalist Reason for Consultation:: Cardiac evaluation - History of Present Illness Chief Complaint: Chest pain History of Present Illness: Patient is a 62 year old male with underlying history of HTN, hypercholesterolemia, CAD, SC, PCI/stent and DM who presents again with left and mid chest discomfort and back pain described as sharp initially and than tightness now asymptomatic. He denies SOB or palpitations. He denies paroxysmal nocturnal dyspnea or orthopnea. He denies fever or chills. He denies nausea, vomiting, diarrhea or abdominal pain. He denies headache or lightheadedness. He has history of substance abuse with cocaine, heroine, marijuana and ETOH. He is in rehab/detox at [facility] and to be placed at a prison care facility. He wants to be discharged back to finish his detox. He sees Dr. Zechariah Parra, assayer helper at [facility]. - History Source History Provided By: Patient, Medical Record Limitations to Obtaining History: No Limitations - Past Medical History Cardio/Vascular: Yes: CAD, HTN, Hyperlipdemia, SC Endocrine: Yes: Diabetes Mellitus - Alcohol/Substance Use Hx Alcohol Use: Yes (3 wks ago) History of Substance Use: reports: Cocaine, Heroin, Marijuana - Smoking History Smoking history: Current every day smoker Have you smoked in the past 12 months: Yes Aproximately how many cigarettes per day: 3 Home Medications - Allergies Allergies/Adverse Reactions: Allergies Allergy/AdvReac Type Severity Reaction Status Date / Time acetaminophen [From Tylenol] Allergy Intermediate Rash Verified 11/30/17 20:26 ibuprofen Allergy Intermediate Rash Verified 11/30/17 20:26 - Home Medications Home Medications: Ambulatory Orders Gabapentin [Neurontin -] 100 mg PO DAILY 05/20/16 Trazodone HCl 200 mg PO HS 05/20/16 Aspirin [ASA -] 81 mg PO DAILY #30 tab.chew 06/15/16 Atorvastatin Ca [Lipitor] 20 mg PO HS #30 tablet 06/15/16 Clopidogrel Bisulfate [Plavix -] 75 mg PO DAILY #30 tablet 06/15/16 Enalapril Maleate [Vasotec -] 10 mg PO DAILY #30 tablet 06/15/16 Glyburide [Micronase -] 5 mg PO ACBK #30 tablet 06/15/16 Isosorbide Mononitrate [Imdur -] 30 mg PO DAILY #60 tab.sr.24h 06/15/16 Metformin HCl [Glucophage] 1,000 mg PO BID #60 tablet 06/15/16 Nitroglycerin 0.4 mg PO DAILY PRN #30 tab.subl MDD 1.2mg 06/15/16 Sertraline HCl [Zoloft -] 50 mg PO DAILY #30 tablet 10/24/16 traZODone HCL [Desyrel -] 50 mg PO HS #30 tablet 10/24/16 Family Disease History - Family Disease History Family Disease History: Heart Disease: Mother, Other: Father () Review of Systems - Review of Systems Constitutional: denies: Chills, Fever Cardiovascular: reports: Chest Pain. denies: Palpitations, Shortness of Breath Respiratory: denies: Cough, Hemoptysis, Orthopnea, SOB, SOB on Exertion, Wheezing Gastrointestinal: denies: Abdominal Pain, Constipation, Diarrhea, Melena, Nausea , Rectal Bleeding, Vomiting Genitourinary: denies: Dysuria, Hematuria Neurological: denies: Dizziness, Headache, Seizure, Syncope Vital Signs: Vital Signs Temperature 97.8 F 12/12/17 06:00 Pulse Rate 52 L 12/12/17 06:00 Respiratory Rate 18 12/12/17 06:00 Blood Pressure 98/54 12/12/17 06:00 O2 Sat by Pulse Oximetry (%) 99 12/11/17 20:29 Eyes: Yes: PERRL HENT: Yes: Atraumatic Neck: Yes: Supple Respiratory: Yes: Regular Gastrointestinal: Yes: Normal Bowel Sounds, Soft. No: Tenderness Cardiovascular: Yes: Regular Rate and Rhythm JVD: No Carotid Bruit: No PMI: Non-Displaced Heart Sounds: Yes: S1, S2 Edema: No - Other Data Labs, Other Data: CBC, BMP 12/11/17 12:45 12/12/17 06:00 INR, PTT INR 0.97 (0.82-1.09) 12/11/17 12:45 Troponin, BNP 12/11/17 12/11/17 12/12/17 12:45 19:00 01:00 Troponin I 0.02 D < 0.02 0.02 B-Natriuretic Peptide 123.07 Sinus rhythm with nonspecific intraventricular conduction block Imaging - Results Chest X-ray: Report Reviewed (Unremarkable) EKG: Report Reviewed Problem List - Problems (1) Chest pain Code(s): R07.9 - CHEST PAIN, UNSPECIFIED (2) Cocaine abuse Code(s): F14.10 - COCAINE ABUSE, UNCOMPLICATED (3) Heroin abuse Code(s): F11.10 - OPIOID ABUSE, UNCOMPLICATED (4) Alcohol dependence in remission Code(s): F10.21 - ALCOHOL DEPENDENCE, IN REMISSION (5) Cannabis abuse Code(s): F12.10 - CANNABIS ABUSE, UNCOMPLICATED (6) CAD (coronary artery disease) Code(s): I25.10 - ATHSCL HEART DISEASE OF [place] CORONARY ARTERY W/O ANG PCTRS (7) Diabetes mellitus type II, controlled Code(s): E11.9 - TYPE 2 DIABETES MELLITUS WITHOUT COMPLICATIONS Qualifiers: (8) History of heart artery stent Code(s): Z95.5 - PRESENCE OF CORONARY ANGIOPLASTY IMPLANT AND GRAFT (9) Hyperlipidemia Code(s): E78.5 - HYPERLIPIDEMIA, UNSPECIFIED Qualifiers: (10) Hypertension Code(s): I10 - ESSENTIAL (PRIMARY) HYPERTENSION Qualifiers: Assessment/Plan 1. Chest pain syndrome 2. CAD s/p history of SC, PCI/stent 3. HTN 4. Hypercholesterolemia 5. DM 6. Polysubstance abuse PLAN: 1. Troponins are negative 3 sets 2. Continue ASA and Plavix 3. Continue Vasotec and Lipitor 4. Continue Imdur, may uptitrate if BP permits, otherwise may also use Ranexa 500 BID as tolerated 5. Optimize medical therapy for now and discharge him back to rehab. He can also follow up with his assayer helper at [facility] as outpatient Further plans are to follow Reno Stover MD
[2017-12-12] MEDS: ISOSORBIDE MONONITRATE 30 MG TAB.SR.24H (FP) PO SCH (09:56)
[2017-12-12] MEDS: ENALAPRIL MALEATE 10 MG TABLET (FP) PO SCH (09:56)
[2017-12-12] MEDS: CLOPIDOGREL BISULFATE 75 MG TABLET (FP) PO SCH (09:56)
[2017-12-12] MEDS: SERTRALINE HCL 50 MG TABLET (FP) PO SCH (09:56)
[2017-12-12] MEDS: GABAPENTIN 100 MG CAPSULE (FP) PO SCH (09:57)
[2017-12-12] MEDS ORDERED: ASPIRIN COATED 81 MG TABLET.EC PO SCH (10:00)
[2017-12-12] MEDS ORDERED: RANOLAZINE E.R. 500 MG TABLET (FP) PO SCH (10:00)
--- NOTE | 2017-12-12 15:26 | DS ---
Physical Exam: SUBJECTIVE: Patient seen and examined OBJECTIVE: Vital Signs Period Temp Pulse Resp BP Sys/Paulino Pulse Ox Last 24 Hr 97.5 F-98.1 F 25-56 18-18 98-125/54-76 97-100 PHYSICAL EXAM GENERAL: The patient is awake, alert, and fully oriented, in no acute distress. HEAD: Normal with no signs of trauma. EYES: PERRL, extraocular movements intact, sclera anicteric, conjunctiva clear. ENT: Ears normal, nares patent, oropharynx clear without exudates, moist mucous membranes. NECK: Trachea midline, full range of motion, supple. LUNGS: Breath sounds equal, clear to auscultation bilaterally, no wheezes, no crackles, no accessory muscle use. HEART: Regular rate and rhythm, S1, S2 without murmur, rub or gallop. ABDOMEN: Soft, nontender, nondistended, normoactive bowel sounds, no guarding, no rebound, no hepatosplenomegaly, no masses. EXTREMITIES: 2+ pulses, warm, well-perfused, no edema. NEUROLOGICAL: Cranial nerves II through XII grossly intact. Normal speech, gait not observed. PSYCH: Normal mood, normal affect. SKIN: Warm, dry, normal turgor, no rashes or lesions noted. LABS Laboratory Results - last 24 hr 12/11/17 12/11/17 12/12/17 19:00 21:50 01:00 Sodium Potassium Chloride Carbon Dioxide Anion Gap BUN Creatinine Creat Clearance w eGFR POC Glucometer 136 Random Glucose Calcium Magnesium Troponin I < 0.02 0.02 12/12/17 12/12/17 06:00 06:12 Sodium 140 Potassium 4.5 Chloride 106 Carbon Dioxide 26 Anion Gap 8 BUN 32 H Creatinine 1.3 Creat Clearance w eGFR 55.94 POC Glucometer 93 Random Glucose 85 Calcium 9.0 Magnesium 1.7 L Troponin I HOSPITAL COURSE: Date of Admission:12/11/17 Date of Discharge: 12/12/17 Pre hospital course 62 year old male with PMH significant for HTN, HLD, CAD s/p NV s/p stents, systolic HF, NIDDM and polysubstance abuse. Patient was seen and evaluated for chest pain at [facility] on 11/02/17 and was told he had a mild heart attack. He did not have a catheterization at that time. He was evaluated again for chest pain here from 11/30-12/01/17, the workup was negative for ACS. Patient presents today with a complaint of chest pain since last night. He reports his pain began at approximately 7:00pm while lying down and has been constant since. Patient currently rates his pain a 10/10. He reports it radiates into his left arm, neck, and back. He denies any alleviating or exacerbating factors. He denies any associated shortness of breath, diaphoresis, palpitations, or lower extremity edema. He denies any abdominal pain, nausea, or vomiting. He denies any fever, chills, cough, headache, dizziness, or lightheadedness. He denies any recent travel or sick contacts. Hospital course Chest pain --troponins negative x 3 --first ECG sinus rhythm @ 65bpm; second sinus prem @50 with mildly inverted T waves in Lead III, LBBB seen in 2017 --CXR unremarkable --06/12/16 Echo: mild cLVH; LV function mildly reduced; RV normal; inferior wall apex mildly hypokinetic; RV normal; LAE; mild MR, mild TR --seen and evaluated by cardiology, optimize medical therapy, follow up with milieu manager Dr. Zechariah Zimmer at [facility] as outpatient Hypertension --BP stable --continued enalapril Hyperlipidemia --continued atorvastatin Coronary artery disease s/p NV s/p stents --continue ASA, Plavix, Lipitor, isosorbide, nitro PRN Systolic heart failure --continue enalapril --appeared euvolemic, not on diuretics NIDDM --Novolog sliding scale Polysubstance abuse --has been in rehab at [facility] since 11/26/17; not on librium or methadone --continued sertraline, trazadone Minutes to complete discharge: 35 Discharge Summary Reason For Visit: CHEST PAIN HEROINE ABUSE COCAIN ABUSE Current Active Problems Chest pain (Acute) Cocaine abuse (Acute) Heroin abuse (Acute) Condition: Stable - Instructions Diet, Activity, Other Instructions: It is recommended you follow up with your milieu manager, Dr. Zechariah Parra, at [facility] at your earliest opportunity. Disposition: TRANSFER ACUTE CARE/OTHER HOSP - Home Medications Comprehensive Discharge Medication List: Ambulatory Orders Gabapentin [Neurontin -] 100 mg PO DAILY 05/20/16 Aspirin [ASA -] 81 mg PO DAILY #30 tab.chew 06/15/16 Atorvastatin Ca [Lipitor] 20 mg PO HS #30 tablet 06/15/16 Clopidogrel Bisulfate [Plavix -] 75 mg PO DAILY #30 tablet 06/15/16 Enalapril Maleate [Vasotec -] 10 mg PO DAILY #30 tablet 06/15/16 Glyburide [Micronase -] 5 mg PO ACBK #30 tablet 06/15/16 Isosorbide Mononitrate [Imdur -] 30 mg PO DAILY #60 tab.sr.24h 06/15/16 Metformin HCl [Glucophage] 1,000 mg PO BID #60 tablet 06/15/16 Nitroglycerin 0.4 mg PO DAILY PRN #30 tab.subl MDD 1.2mg 06/15/16 Sertraline HCl [Zoloft -] 50 mg PO DAILY #30 tablet 10/24/16 traZODone HCL [Desyrel -] 50 mg PO HS #30 tablet 10/24/16 This patient is new to me today: No Emergency Visit: Yes ED Registration Date: 12/11/17 Care time: The patient presented to the Emergency Department on the above date and was hospitalized for further evaluation of their emergent condition. Critical Care patient: No - Discharge Referral Referred to [facility] No
[2017-12-12 16:09] VITALS: BP 128/70; PULSE 55; TEMP 97.8
--- NOTE | 2017-12-13 10:28 | EKG ---
Test Reason : Blood Pressure : / mmHG Vent. Rate : 050 BPM Atrial Rate : 050 BPM P-R Int : 204 ms QRS Dur : 142 ms QT Int : 436 ms P-R-T Axes : 073 -72 -15 degrees QTc Int : 397 ms SINUS BRADYCARDIA LEFT BUNDLE BRANCH BLOCK ABNORMAL ECG WHEN COMPARED WITH ECG OF 11-DEC-2017 12:29, PREMATURE VENTRICULAR COMPLEXES ARE NO LONGER PRESENT T WAVE INVERSION NOW EVIDENT IN INFERIOR LEADS Confirmed by KIM PÉREZ, JILLIAN ([id number]) on 12/13/2017 10:27:45 AM Referred By: Confirmed By:JILLIAN ALVAREZ MD
--- NOTE | 2017-12-13 10:34 | EKG ---
Test Reason : Blood Pressure : / mmHG Vent. Rate : 065 BPM Atrial Rate : 065 BPM P-R Int : 178 ms QRS Dur : 130 ms QT Int : 422 ms P-R-T Axes : 074 -72 059 degrees QTc Int : 438 ms SINUS RHYTHM WITH OCCASIONAL PREMATURE VENTRICULAR COMPLEXES LEFT AXIS DEVIATION LEFT BUNDLE BRANCH BLOCK ABNORMAL ECG WHEN COMPARED WITH ECG OF 11-DEC-2017 10:40, NO SIGNIFICANT CHANGE WAS FOUND Confirmed by KIM PÉREZ, JILLIAN ([id number]) on 12/13/2017 10:34:27 AM Referred By: Confirmed By:JILLIAN ALVAREZ MD
== END 2017-12-12 17:24 | disposition other institution (70) ==
LOC: JER 12:16 → INTOOBSV 14:17 → JERBED 14:17 → J4S 20:28
PROVIDERS: ADMIT Internal Medicine; ATTEND Nurse Practitioner Acute Care
PROC: 3E033NZ Introduction of Analgesics, Hypnotics, Sedatives into Peripheral Vein, Percutaneous Approach (ICD-10-PCS; principal; 2017-12-11)
DX: R07.9 Chest pain, unspecified (principal); I10 Essential (primary) hypertension; E78.5 Hyperlipidemia, unspecified; I25.2 Old myocardial infarction; I50.20 Unspecified systolic (congestive) heart failure; I25.10 Atherosclerotic heart disease of native coronary artery without angina pectoris; E11.9 Type 2 diabetes mellitus without complications; F11.10 Opioid abuse, uncomplicated; F10.21 Alcohol dependence, in remission; F14.10 Cocaine abuse, uncomplicated; F17.210 Nicotine dependence, cigarettes, uncomplicated; R00.1 Bradycardia, unspecified; Z95.5 Presence of coronary angioplasty implant and graft; Z88.8 Allergy status to other drugs, medicaments and biological substances; Z79.82 Long term (current) use of aspirin; Z79.84 Long term (current) use of oral hypoglycemic drugs
CPT/HCPCS: 36415; 71045-TC-FY; 80048; 80053; 80307; 82550; 82962; 83735; 83880; 84484; 85025; 85610; 85730; 93005; 93010; 96374; 96376; 99285-25; G0378

== ENCOUNTER 2017-12-12 18:00 | Inpatient (IN) | payer OTHER ==
[2017-12-12 18:25] VITALS: BMI 24.5
[2017-12-12] MEDS ORDERED: NITROGLYCERIN SUBLINGUAL 1/150 0.4 MG TAB SL PRN (18:28)
[2017-12-12] MEDS ORDERED: MENTHOL/PHENOL 1 EACH UD MM PRN (18:32)
[2017-12-12] MEDS ORDERED: P-EPHED 60MG/TRIPROLIDI 2.5MG TABLET PO PRN (18:32)
[2017-12-12] MEDS ORDERED: LOPERAMIDE HCL 2 MG CAPSULE PO PRN (18:32)
[2017-12-12] MEDS ORDERED: MAG HYDROX/AL HYDROX/SIMETH 30 ML UNIT-DOSE CUP PO PRN (18:32)
[2017-12-12] MEDS ORDERED: guaiFENesin/D-METHORPHAN HB 10 ML UNIT-DOSE CUPS PO PRN (18:32)
--- NOTE | 2017-12-12 18:37 | HP ---
KAVON PÉREZ Rehab Assess/Revision - Admission History Admitted to Rehab from: Medical/Surgical Date of Admission to Rehab: 12/12/17 - Vital signs Vital Signs: Vital Signs Period Temp Pulse Resp BP Sys/Paulino Pulse Ox Last 24 Hr 96.8 F 100 18 141/77 - Findings Detox History & Physical reviewed: Yes Concur with findings: Yes Inpatient Rehab Admission - Initial Determination Are CD services needed?: Yes Free of communicable disease: Yes Not in need of hospitalization: Yes - Rehab Admission Criteria Previous failed treatment: Yes Poor recovery environment: Yes Comorbidities: Yes Lacks judgement: Yes Patient is meeting Inpatient Rehab admission criteria:: Yes
[2017-12-12] MEDS ORDERED: THIAMINE HCL 100 MG TABLET (FP) PO SCH (22:00)
[2017-12-12] MEDS ORDERED: ATORVASTATIN CA 20 MG TABLET (FP) PO SCH (22:00)
[2017-12-12] MEDS ORDERED: MELATONIN 5 MG TABLETS PO PRN (22:00)
[2017-12-13 06:50] VITALS: BP 148/87; PULSE 64; TEMP 98.4
[2017-12-13] MEDS ORDERED: glyBURIDE 5 MG TABLET (UD) PO SCH (07:00)
[2017-12-13] MEDS ORDERED: metFORMIN HCL 500 MG TABLET (FP) PO SCH (07:00)
[2017-12-13] MEDS ORDERED: ENALAPRIL MALEATE 10 MG TABLET (FP) PO SCH (10:00)
[2017-12-13] MEDS ORDERED: ISOSORBIDE MONONITRATE 30 MG TAB.SR.24H (FP) PO SCH (10:00)
[2017-12-13] MEDS ORDERED: CLOPIDOGREL BISULFATE 75 MG TABLET (FP) PO SCH (10:00)
[2017-12-13] MEDS ORDERED: GABAPENTIN 100 MG CAPSULE (FP) PO SCH (10:00)
[2017-12-13] MEDS ORDERED: PRENATAL VITAMINS W/ FOLIC ACID TABLET (FP) PO SCH (10:00)
--- NOTE | 2017-12-13 10:11 | PN ---
Psychiatric Progress Note Vital Signs: Vital Signs Period Temp Pulse Resp BP Sys/Paulino Pulse Ox Last 24 Hr 96.8 F-98.4 F 64-100 16-18 141-148/77-87 Date of Session: 12/13/17 Chief Complaint:: Discharge Note HPI: Patient addressing Alcohol, Opioid and Cocaine Dependence comorbid with Nicotine Dependence and Depressive Disorder ROS: CAD with stent, HTN, HLD, Hypertensive cardiomyopathy, type 2 DM Current Medications: Active Medications Generic Name Dose Route Start Last Admin Trade Name Freq PRN Reason Stop Dose Admin Al Hydroxide/Mg Hydroxide 30 ml 12/12/17 18:32 Mylanta Oral Suspension - PO Q6H PRN DYSPEPSIA Atorvastatin Calcium 20 mg 12/12/17 22:00 12/12/17 21:57 Lipitor - PO Not Given HS ELINA Clopidogrel Bisulfate 75 mg 12/13/17 10:00 Plavix - PO DAILY ELINA Enalapril Maleate 10 mg 12/13/17 10:00 Vasotec - PO DAILY [facility] Eucalyptus/Menthol/Phenol/Sorbitol 1 each 12/12/17 18:32 Cepastat Lozenge - MM Q4H PRN SORE THROAT Gabapentin 100 mg 12/13/17 10:00 Neurontin - PO DAILY ELINA Glyburide 5 mg 12/13/17 07:00 12/13/17 06:43 Diabeta - PO Not Given ACBK ELINA Guaifenesin 10 ml 12/12/17 18:32 Robitussin Dm - PO Q6H PRN COUGH Isosorbide Mononitrate 30 mg 12/13/17 10:00 Imdur - PO DAILY [facility] Loperamide HCl 4 mg 12/12/17 18:32 Imodium - PO Q6H PRN DIARRHEA Melatonin 5 mg 12/12/17 22:00 Melatonin PO HS PRN INSOMNIA Metformin HCl 1,000 mg 12/13/17 07:00 12/13/17 06:44 Glucophage - PO Not Given BIDAC ELINA Nitroglycerin 0.4 mg 12/12/17 18:28 Nitrostat - SL PRN PRN chest pain Multivit/Folic Acid/Iron 1 tab 12/13/17 10:00 Vitamins (Sjr) - PO DAILY ELINA Pseudoephedrine/Triprolidine 1 combo 12/12/17 18:32 Actifed - PO TID PRN NASAL CONGESTION Thiamine HCl 100 mg 12/12/17 22:00 12/12/17 21:57 Vitamin B1 - PO Not Given HS ELINA Current Side Effect: No Lab tests ordered: Yes Lab tests reviewed: Yes Provider note:: Patient has completed this program today. He has met his treatment goals and will continue to addess his issues in intermission coordinator treatment at [facility]. Told instructional writer from his participation in this program, he has learned the importance of making meetings and have a sponsor. He is stable for discharge today Total face to face time:: 35 Mental Status Exam - Mental Status Exam Alert and Oriented to: Time, Place, Person Cognitive Function: Fair Patient Appearance: Well Groomed Mood: Hopeful, Euthymic Affect: Appropriate Patient Behavior: Cooperative Speech Pattern: Clear Voice Loudness: Normal Thought Process: Intact, Goal Oriented Thought Disorder: Not Present Hallucinations: Denies Suicidal Ideation: Denies Homicidal Ideation: Denies Insight/Judgement: Fair Sleep: Fair Appetite: Good Muscle strength/Tone: Normal Gait/Station: Normal Psychiatric Treatment Plan - Problem List (1) Alcohol dependence Current Visit: No (2) Opioid dependence Current Visit: No (3) Cocaine dependence Current Visit: No (4) Nicotine dependence Current Visit: No Qualifiers: (5) Depressive disorder Current Visit: No (6) History of heart artery stent Current Visit: No (7) CAD (coronary artery disease) Current Visit: No (8) Diabetes mellitus type II, controlled Current Visit: No Qualifiers: (9) Hyperlipidemia Current Visit: No Qualifiers: (10) Hypertension Current Visit: No Qualifiers: (11) Hypertensive cardiomyopathy Current Visit: No Initial treatment plan: Patient is discharged today and referred to [facility] for halfway residential treatment
== END 2017-12-13 10:30 | disposition home or self-care (01) | DRG 772 ==
LOC: YASAS 18:00 → Y3W 18:05
PROVIDERS: ADMIT Psychiatry & Neurology Psychiatry; ATTEND Psychiatry & Neurology Psychiatry
PROC: HZ42ZZZ Group Counseling for Substance Abuse Treatment, Cognitive-Behavioral (ICD-10-PCS; principal; 2017-12-12)
DX: F11.20 Opioid dependence, uncomplicated (principal); F10.20 Alcohol dependence, uncomplicated; F14.20 Cocaine dependence, uncomplicated; F17.210 Nicotine dependence, cigarettes, uncomplicated; F32.9 Major depressive disorder, single episode, unspecified; I25.10 Atherosclerotic heart disease of native coronary artery without angina pectoris; I11.9 Hypertensive heart disease without heart failure; Z95.5 Presence of coronary angioplasty implant and graft; E78.5 Hyperlipidemia, unspecified; E11.9 Type 2 diabetes mellitus without complications; Z79.84 Long term (current) use of oral hypoglycemic drugs

== ENCOUNTER 2018-06-24 16:21 | Inpatient (IN) | payer OTHER ==
[2018-06-24 17:58] VITALS: BMI 24.7
--- NOTE | 2018-06-24 18:42 | HP ---
COWS - Scale Resting Pulse: 0= [place] 80 or Below Sweatin=Flushed/Facial Moisture Restless Observation: 3= Extraneous Movement Pupil Size: 2= Moderately Dilated (Pupils = 5 mm) Bone or Joint Aches: 0= None Runny Nose/ Eye Tearin= Nasal Congestion GI Upset > 30mins: 2= Nausea/Diarrhea Tremor Observation: 2= Slight Tremor Visible Yawning Observation: 0= None Anxiety or Irritability: 1=Feels Anxious/Irritable Goose Flesh Skin: 0=Smooth Skin COWS Score: 13 CIWA Score - Admission Criteria OASAS Guidelines: Admission for Medically Managed Detox: Requires at least one of the followin. CIWA greater than 12 2. Seizures within the past 24 hours 3. Delirium tremens within the past 24 hours 4. Hallucinations within the past 24 hours 5. Acute intervention needed for co occurring medical disorder 6. Acute intervention needed for co occurring psychiatric disorder 7. Severe withdrawal that cannot be handled at a lower level of care (continued vomiting, continued diarrhea, abnormal vital signs) requiring intravenous medication and/or fluids 8. Admission ROS [facility] Chief Complaint: States here with opaite withdrawal Allergies/Adverse Reactions: Allergies Allergy/AdvReac Type Severity Reaction Status Date / Time acetaminophen [From Tylenol] Allergy Intermediate Rash Verified 11/30/17 20:26 ibuprofen Allergy Intermediate Rash Verified 11/30/17 20:26 History of Present Illness: Here for opiate detox. States used drug while in hospital (Hospitalized 06/21 to ). Multiple admissions for this patient with cocaine and opiate use disorder and chronic chest pain. Patient discharged fro [facility] on after being f/u for c/o chest pain and sent here to [facility] for Detox Hx. Bradycardia, LAD, LBBB. Discharge documents indicates Non-ST elevation and myocardial infarction Cardiac stents insitu 2015. 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 Will start medications, as identified in patients discharge summary from [facility]. Hx: HTN, elevated cholesterol, CAD/angina Hx; Enlarged Prostate - on Tamsulosin. 3-4 x/night nocturia. Denies blood, pain , burning w/ urination. Hx Type II Diabetes - controlled w/o medications. Will follow BGM -BID to evaluate. Patient prescribed a low sodium, low cholesterol diabetic diet. Heroin use began at age 14. Cocaine use began at age 25. Alcohol use began at age 30. Denies hx seizures, blackouts, overdoses. Mental Real: Hx Depression. Denies thoughts of harming self or others. Patient Name: Anderson Chin Date: 1955 Address: [address] [place], [place] [id number] Sex: Male Rx Written Rx Dispensed Drug Quantity Days Supply Prescriber Name 04/12/2018 04/13/2018 suboxone 8 mg-2 mg sl film 60 30 Salvador Meredith) 04/12/2018 04/13/2018 suboxone 2 mg-0.5 mg sl film 30 30 Salvador Meredith) Patient Name: Anderson Chin Date: 1955 Address: [address] [address] Sex: Male Rx Written Rx Dispensed Drug Quantity Days Supply Prescriber Name 09/07/2017 09/07/2017 suboxone 8 mg-2 mg sl film 30 10 Collette Pressley 08/12/2017 08/13/2017 suboxone 8 mg-2 mg sl film 14 7 Brandi Recinos 07/10/2017 07/20/2017 suboxone 8 mg-2 mg sl film 60 20 Dayana Sanchez ( ) 06/30/2017 06/30/2017 suboxone 8 mg-2 mg sl film 30 10 Collette Pressley Patient Name: Anderson Chin Date: 1955 Address: [address] [place] [address] Sex: Male Rx Written Rx Dispensed Drug Quantity Days Supply Prescriber Name 08/17/2017 08/24/2017 suboxone 8 mg-2 mg sl film 14 7 Renetta Nicholas) Exam Limitations: No Limitations - Ebola screening Have you traveled outside of the country in the last 21 days: No (N) Have you had contact with anyone from an Ebola affected area: No Have you been sick,other than usual withdrawal symptoms: No Do you have a fever: No - Review of Systems Constitutional: Chills, Changes in sleep (Difficulty falling and staying asleep. ) EENT: reports: Blurred Vision, Nose Congestion, Dental Problems (Missing teeth. Chews and swallows ok.) Respiratory: reports: No Symptoms reported Cardiac: reports: See HPI GI: reports: Diarrhea, Indigestion (acid reflux) : reports: See HPI Musculoskeletal: reports: Joint Pain (Knee pain w/ climbing stairs or walking long distances) Integumentary: reports: No Symptoms Reported Neuro: reports: Headache (Slight) Endocrine: reports: No Symptoms Reported Hematology: reports: Other (Cardiac stents) Psychiatric: reports: Judgement Intact, Orientated x3, Agitated, Anxious, Depressed (Denies thoughts of harming self or others.) Patient History - Patient Medical History Hx Anemia: No Hx Asthma: No Hx Chronic Obstructive Pulmonary Disease (COPD): No Hx Cancer: No Hx Cardiac Disorders: Yes (ID with stent insertion ) Hx Congestive Heart Failure: No Hx Hypertension: Yes Hx Hypercholesterolemia: No Hx Pacemaker: No HX Cerebrovascular Accident: No Hx Seizures: No Hx Dementia: No Hx Diabetes: Yes Hx Gastrointestinal Disorders: No Hx Liver Disease: No Hx Genitourinary Disorders: No Hx Sexually Transmitted Disorders: No Hx Renal Disease (ESRD): No Hx Thyroid Disease: No Hx Human Immunodeficiency Virus (HIV): No Hx Hepatitis C: Yes (No treatment) Hx Depression: Yes Hx Suicide Attempt: No Hx Bipolar Disorder: No Hx Schizophrenia: No - Patient Surgical History Past Surgical History: Yes Hx Neurologic Surgery: No Hx Cataract Extraction: No Hx Cardiac Surgery: Yes (2011 cardiac stent ) Hx Lung Surgery: No Hx Breast Surgery: No Hx Breast Biopsy: No Hx Abdominal Surgery: No Hx Appendectomy: No Hx Cholecystectomy: No Hx Genitourinary Surgery: No Hx Orthopedic Surgery: No Other Surgical History: Stent Placement in 2011 Anesthesia Reaction: No - PPD History Previous Implant?: Yes Documented Results: Negative w/proof Date: 11/28/17 Results: neg PPD to be Administered?: No - Smoking Cessation Smoking history: Current every day smoker Have you smoked in the past 12 months: Yes Aproximately how many cigarettes per day: 3 Cigars Per Day: 0 Hx Chewing Tobacco Use: No Initiated information on smoking cessation: Yes 'Breaking Loose' booklet given: 06/24/18 - Substance & Tx. History Hx Alcohol Use: Yes Hx Substance Use: Yes Substance Use Type: Alcohol, Cocaine, Heroin Hx Substance Use Treatment: Yes (detox, rehab, past Suboxone use) Family Disease History - Family Disease History Family Disease History: Heart Disease: Mother, Other: Father () Admission Physical Exam BHS - Vital Signs Vital Signs: Vital Signs - 24 hr 06/24/18 17:57 Temperature 98.6 F Pulse Rate 70 Respiratory 18 Rate Blood Pressure 150/84 - Physical General Appearance: Yes: Appropriately Dressed, Mild Distress, Tremorous, Sweating, Anxious HEENTM: Yes: EOMI, Hearing grossly Normal, Normocephalic, Normal Voice, SHELLIE ( Pupils = mm), Pharynx Normal, Nasal Congestion Respiratory: Yes: Lungs Clear, Normal Breath Sounds, No Respiratory Distress Neck: Yes: No masses,lesions,Nodules, Supple Breast: Yes: Breast Exam Deferred Cardiology: Yes: Regular Rhythm, S1, S2, Bradycardia (Has a hx), Murmur Abdominal: Yes: Non Tender, Flat, Soft, Increased Bowel Sounds Genitourinary: Yes: Nocturia Back: Yes: Normal Inspection Musculoskeletal: Yes: full range of Motion, Gait Steady Extremities: Yes: Normal Capillary Refill, Normal Range of Motion, Non-Tender, Tremors Neurological: Yes: building operator II-XII NML intact, Fully Oriented, Alert, Motor Strength 5/5, Normal Mood/Affect, Normal Response Integumentary: Yes: Normal Color, Dry, Warm Lymphatic: Yes: Within Normal Limits - Diagnostic (1) Cocaine dependence Current Visit: Yes Status: Chronic Qualifiers: Substance use status: uncomplicated Qualified Code(s): F14.20 - Cocaine dependence, uncomplicated (2) Opioid dependence with withdrawal Current Visit: Yes Status: Acute (3) CAD (coronary artery disease) Current Visit: Yes Status: Chronic Qualifiers: Coronary Disease-Associated Artery/Lesion type: unspecified vessel or lesion type [place] vs. transplanted heart: [place] heart Associated angina: with unspecified angina Qualified Code(s): I25.119 - Atherosclerotic heart disease of [place] coronary artery with unspecified angina pectoris (4) Diabetes mellitus type II, controlled Current Visit: Yes Status: Chronic Qualifiers: Diabetes mellitus ferry terminal agent insulin use: without fdc use Diabetes mellitus complication status: without complication Qualified Code(s): E11.9 - Type 2 diabetes mellitus without complications (5) History of heart artery stent Current Visit: Yes Status: Chronic Comment: On Plavix (6) Nicotine dependence Current Visit: Yes Status: Chronic Qualifiers: Nicotine product type: cigarettes Substance use status: uncomplicated Qualified Code(s): F17.210 - Nicotine dependence, cigarettes, uncomplicated (7) Enlarged prostate with lower urinary tract symptoms (LUTS) Current Visit: Yes Status: Acute (8) Hx of myocardial infarction Current Visit: Yes Status: Chronic (9) Hyperlipidemia Current Visit: Yes Status: Chronic Qualifiers: Hyperlipidemia type: unspecified Qualified Code(s): E78.5 - Hyperlipidemia , unspecified (10) Hypertension Current Visit: Yes Status: Chronic Qualifiers: Hypertension type: essential hypertension (11) Murmur, cardiac Current Visit: Yes Status: Chronic Cleared for Admission [facility] - Detox or Rehab [facility] Level of Care: Medically Managed Detox Regimen/Protocol: Methadone [facility] Breath Alcohol Content Breath Alcohol Content: 0.003 Urine Drug Screen - Results Drug Screen Negative: No Urine Drug Screen Results: SIDDHARTH-Cocaine, OPI-Opiates, MTD-Methadone Inpatient Rehab Admission - Rehab Decision to Admit Inpatient rehab admission?: No
[2018-06-24] MEDS ORDERED: MAG HYDROX/AL HYDROX/SIMETH 30 ML UNIT-DOSE CUP PO PRN (20:05)
[2018-06-24] MEDS ORDERED: MAGNESIUM CITRATE 300 ML BOTTLE PO PRN (20:05)
[2018-06-24] MEDS ORDERED: NICOTINE POLACRILEX 4 MG GUM BC PRN (20:05)
[2018-06-24] MEDS ORDERED: LOPERAMIDE HCL 2 MG CAPSULE PO PRN (20:05)
[2018-06-24] MEDS ORDERED: MENTHOL/PHENOL 1 EACH UD MM PRN (20:05)
[2018-06-24] MEDS ORDERED: NICOTINE POLACRILEX 2 MG GUM BC PRN (20:05)
[2018-06-24] MEDS ORDERED: MAGNESIUM HYDROX 2400MG/30ML ORAL SUSPENSION 30 ML CUP PO PRN (20:05)
[2018-06-24] MEDS ORDERED: P-EPHED 60MG/TRIPROLIDI 2.5MG TABLET PO PRN (20:05)
[2018-06-24] MEDS ORDERED: METHADONE HCL 10 MG TABLET (FOR DETOX USE ONLY) PO ONE ×2 (21:00→23:00)
[2018-06-24] MEDS ORDERED: NITROGLYCERIN SUBLINGUAL 1/150 0.4 MG TAB SL PRN (22:30)
[2018-06-24] MEDS: ATORVASTATIN CA 20 MG TABLET (FP) PO SCH (23:24)
[2018-06-24] MEDS: THIAMINE HCL 100 MG TABLET (FP) PO SCH (23:25)
[2018-06-24] MEDS: diazePAM 5 MG TABLET PO PRN (23:25)
--- NOTE | 2018-06-25 09:15 | PN ---
BHS COWS - Scale Resting Pulse: 1= OR 81-100 Sweatin= No chills or Flushing Restless Observation: 0= Sits Still Pupil Size: 0= Normal to Room Light Bone or Joint Aches: 0= None Runny Nose/ Eye Tearin= None GI Upset > 30mins: 0= None Tremor Observation of Outstretched Hands: 0= None Yawning Observation: 0= None Anxiety or Irritability: 0= None Goose Flesh Skin: 0=Smooth Skin COWS Score: 1 BHS Progress Note (SOAP) Subjective: pt states he is feeling fine, ate breakfast, states that he is not a diabetic and does not need a diabetic diet. There is a problem of diabetes in problem list. Laboratory Tests 06/25/18 06:28 POC Glucometer 138 Vital Signs - 24 hr 06/24/18 06/24/18 06/25/18 17:57 23:46 00:30 Temperature 98.6 F 98.2 F Pulse Rate 70 60 Respiratory 18 18 18 Rate Blood Pressure 150/84 154/90 06/25/18 06:00 Temperature 97.3 F L Pulse Rate 52 L Respiratory 18 Rate Blood Pressure 105/64 a/p: heroin detox protocol- pt doing well BGM this morning 138. Pt states not a diabetic- would like regular diet- diet changed continue monitor BGM and if WNL can d/c BGM monitoring
[2018-06-25] MEDS ORDERED: METHADONE HCL 10 MG TABLET (FOR DETOX USE ONLY) PO ONE (10:00)
[2018-06-25] MEDS: CLOPIDOGREL BISULFATE 75 MG TABLET (FP) PO SCH (10:12)
[2018-06-25] MEDS: amLODIPine BESYLATE 5 MG TABLET (FP) PO SCH (10:12)
[2018-06-25] MEDS: PRENATAL VITAMINS W/ FOLIC ACID TABLET (FP) PO SCH (10:12)
[2018-06-25] MEDS: diazePAM 5 MG TABLET PO PRN ×2 (10:13→22:50)
[2018-06-25] MEDS: ASPIRIN 81 MG CHEWABLE TABLETS PO SCH (10:13)
[2018-06-25] MEDS: TAMSULOSIN HCL 0.4 MG CAP PO SCH (10:13)
[2018-06-25] MEDS: ISOSORBIDE MONONITRATE 30 MG TAB.SR.24H (FP) PO SCH (10:15)
[2018-06-25] MEDS: PANTOPRAZOLE 40 MG TABLET (FP) PO SCH (10:17)
--- NOTE | 2018-06-25 11:34 | CONSULT ---
[facility] Psychiatric Consult - Data Date of interview: 06/25/18 Admission source: [facility] Identifying data: This is one of multiple admissions to [facility] for this 62 y/ o AA male undergoing detoxification (alcohol, cocaine, heroin). Referrred by [facility]. Interviewed on . Patient is single, a father of one, homeless, unemployed and supported on SSI benefits. Substance Abuse History: Confirmed by patient in this interview. Details in current [facility] report : Smoking history: Current every day smoker. Have you smoked in the past 12 months: Yes. Aproximately how many cigarettes per day: 3. Cigars Per Day: 0. Hx Chewing Tobacco Use: No. Initiated information on smoking cessation: Yes. 'Breaking Loose' booklet given: 06/24/18. - Substance & Tx. History. Hx Alcohol Use: Yes. Hx Substance Use: Yes. Substance Use Type : Alcohol, Cocaine, Heroin. Hx Substance Use Treatment: Yes (detox, rehab, past Suboxone use) Medical History: Remarkable for history of prostatic enlargement, hypertension, dyslipidemia, neuropathy, diabetes mellitus, coronary artery disease, two episodes of myocardial infarction, congestive heart failure (stents placed in 2011 + 2016), hepatitis C (no history of treatment). Psychiatric History: Patient denies history of psychiatric hospitalizations. Reports treatment with sertraline + trazodone. Mr Chin states that his diagnosis is MDD (established 10 years ago) at [facility]. Used to be on trazodone 300 mg/hs (?) and zoloft 50 mg/day. Has not taken these medications for " over a year ". No contact with psychiatric OPD care providers. Patient denies suicide attempts. Physical/Sexual Abuse/Trauma History: Patient denies. Additional Comment: Urine Drug Screen Results: SIDDHARTH-Cocaine, OPI-Opiates, MTD- Methadone. Noted. Mental Status Exam - Mental Status Exam Alert and Oriented to: Time, Place, Person Cognitive Function: Good Patient Appearance: Well Groomed Mood: Hopeful, Euthymic Affect: Appropriate, Normal Range Patient Behavior: Fatigued, Appropriate, Cooperative Speech Pattern: Clear Voice Loudness: Normal Thought Process: Intact, Goal Oriented Thought Disorder: Not Present Hallucinations: Denies Suicidal Ideation: Denies Homicidal Ideation: Denies Insight/Judgement: Poor Sleep: Poorly, Difficulty falling asleep Appetite: Good Muscle strength/Tone: Normal Gait/Station: Normal Psychiatric Findings - Problem List ([place] 1, 2,3) (1) Alcohol dependence with uncomplicated withdrawal Current Visit: Yes Status: Acute (2) Opioid dependence with withdrawal Current Visit: Yes Status: Acute (3) Cocaine dependence Current Visit: Yes Status: Chronic (4) Nicotine dependence Current Visit: Yes Status: Chronic Qualifiers: Nicotine product type: cigarettes Substance use status: uncomplicated Qualified Code(s): F17.210 - Nicotine dependence, cigarettes, uncomplicated (5) Substance induced mood disorder Current Visit: Yes Status: Chronic (6) Insomnia Current Visit: Yes Status: Chronic (7) Non-compliance Current Visit: Yes Status: Chronic - Initial Treatment Plan Initial Treatment Plan: Psychoeducation. Detoxification in progress. Sleep hygiene. Support. AA?NA meetings. Groups. Insomnia is addressed with melatonin. Patient made aware. Agrees. Trazodone/sertraline not resumed at this time in view of chronic non-adherence to these medications. Observation.
[2018-06-25 11:39] LABS: ALBUMIN 3.5 g/dl (3.4-5.0); ALK PHOS 91 U/L (45-117); ANION GAP 6 MMOL/L (8-16); BILIRUBIN,TOTAL 0.5 mg/dL (0.2-1); BLOOD UREA NITROGEN 21 mg/dL (7-18); CALCIUM 8.8 mg/dL (8.5-10.1); CHLORIDE 106 mmol/L (98-107); CO2 26 mmol/L (21-32); CREATININE 1.4 mg/dL (0.55-1.3); GLUCOSE,RANDOM 126 mg/dL (74-106); POTASSIUM 4.3 mmol/L (3.5-5.1); SGOT/AST 96 U/L (15-37); SGPT/ALT 116 U/L (13-61); SODIUM 138 mmol/L (136-145); TOT PROT 7.9 g/dl (6.4-8.2)
[2018-06-25 11:54] LABS: HEMATOCRIT 35.6 % (35.4-49); HEMOGLOBIN 11.5 GM/dL (11.7-16.9); MCH 22.8 pg (25.7-33.7); MCHC 32.2 g/dl (32.0-35.9); MEAN CELL VOLUME 70.7 fl (80-96); PLATELET COUNT 207 K/MM3 (134-434); RBC 5.03 M/mm3 (4.00-5.60); RDW 17.6 % (11.9-15.9); WHITE BLOOD COUNT 4.7 K/mm3 (4.0-10.0)
[2018-06-25 13:08] LABS: RPR REACTIVE 1:2 (NONREACTIVE)
[2018-06-25 13:09] LABS: TREPONEMA ANTIBODY PREVIOUSLY REACTIVE (NONREACTIVE)
--- NOTE | 2018-06-25 14:44 | EKG ---
Test Reason : Blood Pressure : / mmHG Vent. Rate : 067 BPM Atrial Rate : 067 BPM P-R Int : 192 ms QRS Dur : 138 ms QT Int : 442 ms P-R-T Axes : 086 -79 001 degrees QTc Int : 467 ms SINUS RHYTHM WITH OCCASIONAL PREMATURE VENTRICULAR COMPLEXES LEFT AXIS DEVIATION NON-SPECIFIC INTRA-VENTRICULAR CONDUCTION BLOCK ABNORMAL ECG Confirmed by Heriberto Dyson MD ([id number]) on 06/25/2018 2:43:54 PM Referred By: Confirmed By:Heriberto Dyson MD
[2018-06-25] MEDS ORDERED: traZODone HCL 50 MG TABLET (FP) PO SCH (22:00)
[2018-06-25] MEDS: ATORVASTATIN CA 20 MG TABLET (FP) PO SCH (22:50)
[2018-06-25] MEDS: THIAMINE HCL 100 MG TABLET (FP) PO SCH (22:51)
[2018-06-26] MEDS: diazePAM 5 MG TABLET PO PRN ×2 (05:04→10:25)
[2018-06-26] MEDS ORDERED: METHADONE HCL 5 MG TABLET (FOR DETOX USE ONLY) PO ONE (10:00)
[2018-06-26] MEDS ORDERED: SERTRALINE HCL 50 MG TABLET (FP) PO SCH (10:00)
[2018-06-26] MEDS: ASPIRIN 81 MG CHEWABLE TABLETS PO SCH (10:24)
[2018-06-26] MEDS: PANTOPRAZOLE 40 MG TABLET (FP) PO SCH (10:24)
[2018-06-26] MEDS: amLODIPine BESYLATE 5 MG TABLET (FP) PO SCH (10:24)
[2018-06-26] MEDS: PRENATAL VITAMINS W/ FOLIC ACID TABLET (FP) PO SCH (10:24)
[2018-06-26] MEDS: TAMSULOSIN HCL 0.4 MG CAP PO SCH (10:24)
[2018-06-26] MEDS: CLOPIDOGREL BISULFATE 75 MG TABLET (FP) PO SCH (10:24)
[2018-06-26] MEDS: ISOSORBIDE MONONITRATE 30 MG TAB.SR.24H (FP) PO SCH (10:24)
--- NOTE | 2018-06-26 13:35 | PN ---
BHS COWS - Scale Resting Pulse: 0= [place] 80 or Below Sweatin= Chills/Flushing Restless Observation: 1= Difficult to Sit Still Pupil Size: 0= Normal to Room Light Bone or Joint Aches: 1= Mild Discomfort Runny Nose/ Eye Tearin= Runny Nose/Eyes GI Upset > 30mins: 1= Stomach Cramp Tremor Observation of Outstretched Hands: 2= Slight Tremor Visible Yawning Observation: 0= None Anxiety or Irritability: 1=Feels Anxious/Irritable Goose Flesh Skin: 0=Smooth Skin COWS Score: 9 BHS Progress Note (SOAP) Subjective: Chills, tremor, diarrhea x 2 this morning, headache, sweating Objective: 06/26/18 13:33 Last Vital Signs Temp Pulse Resp BP Pulse Ox 98.0 F 64 18 134/74 06/26/18 09:11 06/26/18 09:11 06/26/18 09:11 06/26/18 09:11 Laboratory Tests 06/25/18 06/25/18 06/25/18 06:28 07:40 07:40 WBC 4.7 RBC 5.03 Hgb 11.5 L Hct 35.6 MCV 70.7 L MCH 22.8 L MCHC 32.2 RDW 17.6 H Plt Count 207 D MPV 9.0 Sodium 138 Potassium 4.3 Chloride 106 Carbon Dioxide 26 Anion Gap 6 L BUN 21 H Creatinine 1.4 H Creat Clearance w eGFR 51.35 POC Glucometer 138 Random Glucose 126 H Calcium 8.8 Total Bilirubin 0.5 AST 96 H ALT 116 H Alkaline Phosphatase 91 Total Protein 7.9 Albumin 3.5 RPR Titer T.pallidum Ab (MHA) 06/25/18 06/25/18 06/26/18 07:40 17:02 05:03 WBC RBC Hgb Hct MCV MCH MCHC RDW Plt Count MPV Sodium Potassium Chloride Carbon Dioxide Anion Gap BUN Creatinine Creat Clearance w eGFR POC Glucometer 167 134 Random Glucose Calcium Total Bilirubin AST ALT Alkaline Phosphatase Total Protein Albumin RPR Titer Reactive 1:2 H T.pallidum Ab (MHA) Previously reactive Labs reviewed: hyperglycemia and ADELIA noted Assessment: 06/26/18 13:35 Withdrawal symptoms Noted with ADELIA and hyperglycemia Plan: Continue detox ADELIA: encouraged PO water hydration, repeat BMP Hyperglycemia r/t DMT2: encourage adherence to diabetic diet (patient refused diabetic diet), continue finger stick, follow up with PCP for management
[2018-06-26] MEDS: THIAMINE HCL 100 MG TABLET (FP) PO SCH (22:53)
[2018-06-26] MEDS: MELATONIN 5 MG TABLETS PO PRN (22:53)
[2018-06-26] MEDS: ATORVASTATIN CA 20 MG TABLET (FP) PO SCH (22:53)
[2018-06-27] MEDS ORDERED: METHADONE HCL 5 MG TABLET (FOR DETOX USE ONLY) PO ONE (10:00)
[2018-06-27 10:24] LABS: ANION GAP 7 MMOL/L (8-16); BLOOD UREA NITROGEN 26 mg/dL (7-18); CALCIUM 9.4 mg/dL (8.5-10.1); CHLORIDE 107 mmol/L (98-107); CO2 26 mmol/L (21-32); CREATININE 1.3 mg/dL (0.55-1.3); GLUCOSE,RANDOM 143 mg/dL (74-106); POTASSIUM 4.4 mmol/L (3.5-5.1); SODIUM 140 mmol/L (136-145)
[2018-06-27] MEDS: amLODIPine BESYLATE 5 MG TABLET (FP) PO SCH (10:36)
[2018-06-27] MEDS: CLOPIDOGREL BISULFATE 75 MG TABLET (FP) PO SCH (10:36)
[2018-06-27] MEDS: PANTOPRAZOLE 40 MG TABLET (FP) PO SCH (10:36)
[2018-06-27] MEDS: ASPIRIN 81 MG CHEWABLE TABLETS PO SCH (10:36)
[2018-06-27] MEDS: TAMSULOSIN HCL 0.4 MG CAP PO SCH (10:36)
[2018-06-27] MEDS: PRENATAL VITAMINS W/ FOLIC ACID TABLET (FP) PO SCH (10:37)
[2018-06-27] MEDS: ISOSORBIDE MONONITRATE 30 MG TAB.SR.24H (FP) PO SCH (12:05)
[2018-06-27] MEDS ORDERED: TRIMETHOBENZAMIDE HCL 300 MG CAPSULE PO PRN (13:37)
--- NOTE | 2018-06-27 14:26 | PN ---
S Progress Note (SOAP) Subjective: Sweating, Vomiting, Diarrhea, Tremors, Body Aches. Objective: PATIENT A & O X 2 (UNCERTAIN ABOUT CURRENT DAY / DATE). PATIENT OBSERVED AMBULATING ON UNIT. IN NO ACUTE DISTRESS. 06/27/18 14:24 Vital Signs Temperature 97.6 F 06/27/18 13:17 Pulse Rate 55 L 06/27/18 13:17 Respiratory Rate 16 06/27/18 13:17 Blood Pressure 96/52 L 06/27/18 13:17 O2 Sat by Pulse Oximetry (%) Laboratory Tests 06/25/18 06/25/18 06/25/18 06:28 07:40 07:40 WBC 4.7 RBC 5.03 Hgb 11.5 L Hct 35.6 MCV 70.7 L MCH 22.8 L MCHC 32.2 RDW 17.6 H Plt Count 207 D MPV 9.0 Sodium 138 Potassium 4.3 Chloride 106 Carbon Dioxide 26 Anion Gap 6 L BUN 21 H Creatinine 1.4 H Creat Clearance w eGFR 51.35 POC Glucometer 138 Random Glucose 126 H Calcium 8.8 Total Bilirubin 0.5 AST 96 H ALT 116 H Alkaline Phosphatase 91 Total Protein 7.9 Albumin 3.5 RPR Titer T.pallidum Ab (MHA) 06/25/18 06/25/18 06/26/18 07:40 17:02 05:03 WBC RBC Hgb Hct MCV MCH MCHC RDW Plt Count MPV Sodium Potassium Chloride Carbon Dioxide Anion Gap BUN Creatinine Creat Clearance w eGFR POC Glucometer 167 134 Random Glucose Calcium Total Bilirubin AST ALT Alkaline Phosphatase Total Protein Albumin RPR Titer Reactive 1:2 H T.pallidum Ab (MHA) Previously reactive 06/26/18 06/27/18 06/27/18 16:36 05:36 07:50 WBC RBC Hgb Hct MCV MCH MCHC RDW Plt Count MPV Sodium 140 Potassium 4.4 Chloride 107 Carbon Dioxide 26 Anion Gap 7 L BUN 26 H Creatinine 1.3 Creat Clearance w eGFR 55.94 POC Glucometer 157 143 Random Glucose 143 H Calcium 9.4 Total Bilirubin AST ALT Alkaline Phosphatase Total Protein Albumin RPR Titer T.pallidum Ab (MHA) LABS NOTED. RESULTS OF BMP NOTED. MINOR OVERALL IMPROVEMENT NOTE IN GFR AND IN CREATININE LEVELS. PATIENT REPORTS THAT HE COMPLETED A FULL COURSE OF ANTIBIOTIC TREATMENT FOR SYPHILIS IN THE PAST. 06/27/18 14:27 Assessment: 06/27/18 14:28 WITHDRAWAL SYMPTOMS. Plan: CONTINUE DETOX. INCREASE DAILY PO FLUID INTAKE. PRN IMMODIUM FOR DIARRHEA. PRN TIGAN PO FOR NAUSEA / VOMITING. D/C MAGNESIUM-CONTAINING MEDS. FOR ABNORMAL ADMISSION RENAL LAB VALUES. PATIENT REPORTS THAT HE DOES NOT CURRENTLY HAVE SOLUTIONS MANAGER AT THIS TIME. PATIENT ADVISED TO OBTAIN A SOLUTIONS MANAGER AT HOSPITAL NEAR WHERE HE LIVES ([place], [place]), EX: [facility], AFTER DISCHARGE FROM DETOX UNIT FOR GENERAL MEDICAL ASSESSMENT AND FOR HISTORY OF SYPHILIS AND TREATMENT IN PAST AND FOR ABNORMAL RENAL LABS NOTED ON ADMISSION AND ON REPEAT ASSESSMENT WHILE ADMITTED FOR DETOX. PATIENT VERBALIZED UNDERSTANDING OF RECOMMENDATION. COPIES OF ALL LABS DRAWN WHILE ADMITTED FOR DETOX WILL BE GIVEN TO PATIENT AT TIME OF DISCHARGE FROM DETOX UNIT.
[2018-06-27] MEDS: MELATONIN 5 MG TABLETS PO PRN (22:41)
[2018-06-27] MEDS: THIAMINE HCL 100 MG TABLET (FP) PO SCH (22:41)
[2018-06-27] MEDS: ATORVASTATIN CA 20 MG TABLET (FP) PO SCH (22:41)
--- NOTE | 2018-06-28 09:01 | PN ---
S Progress Note (SOAP) Subjective: alert,anxious, Objective: 06/28/18 08:59 Vital Signs Temperature 96.8 F L 06/28/18 06:42 Pulse Rate 65 06/28/18 06:42 Respiratory Rate 18 06/28/18 06:42 Blood Pressure 106/61 06/28/18 06:42 O2 Sat by Pulse Oximetry (%) Assessment: 06/28/18 08:59 Vital Signs Temperature 96.8 F L 06/28/18 06:42 Pulse Rate 65 06/28/18 06:42 Respiratory Rate 18 06/28/18 06:42 Blood Pressure 106/61 06/28/18 06:42 O2 Sat by Pulse Oximetry (%) 06/28/18 09:00 withdrawal symptom Plan: continue detox,discharge in am
[2018-06-28] MEDS ORDERED: METHADONE HCL 10 MG TABLET (FOR DETOX USE ONLY) PO ONE (10:00)
[2018-06-28] MEDS: PRENATAL VITAMINS W/ FOLIC ACID TABLET (FP) PO SCH (10:23)
[2018-06-28] MEDS: amLODIPine BESYLATE 5 MG TABLET (FP) PO SCH (10:23)
[2018-06-28] MEDS: ISOSORBIDE MONONITRATE 30 MG TAB.SR.24H (FP) PO SCH (10:23)
[2018-06-28] MEDS: PANTOPRAZOLE 40 MG TABLET (FP) PO SCH (10:23)
[2018-06-28] MEDS: CLOPIDOGREL BISULFATE 75 MG TABLET (FP) PO SCH (10:23)
[2018-06-28] MEDS: TAMSULOSIN HCL 0.4 MG CAP PO SCH (10:23)
[2018-06-28] MEDS: ASPIRIN 81 MG CHEWABLE TABLETS PO SCH (10:23)
[2018-06-28] MEDS: ATORVASTATIN CA 20 MG TABLET (FP) PO SCH (22:24)
[2018-06-28] MEDS: THIAMINE HCL 100 MG TABLET (FP) PO SCH (22:24)
[2018-06-29] MEDS ORDERED: METHADONE HCL 5 MG TABLET (FOR DETOX USE ONLY) PO ONE (06:00)
--- NOTE | 2018-06-29 08:41 | DS ---
[facility] Detox Discharge Summary Admission Date: 06/24/18 Discharge Date: 06/29/18 - History Present History: Alcohol Dependence, Cannabis Dependence, Cocaine Dependence, Opioid Dependence - Physical Exam Results Vital Signs: Vital Signs Temperature 97.5 F L 06/29/18 07:28 Pulse Rate 62 06/29/18 07:28 Respiratory Rate 18 06/29/18 07:28 Blood Pressure 119/72 06/29/18 07:28 O2 Sat by Pulse Oximetry (%) - Treatment Hospital Course: Detox Protocol Followed, Detoxed Safely, Responded well, Discharged Condition Good, Rehab Referral Accepted - Medication Discharge Medications: Ambulatory Orders Aspirin [ASA -] 81 mg PO DAILY #30 tab.chew 06/15/16 Sertraline HCl [Zoloft -] 50 mg PO DAILY #30 tablet 10/24/16 traZODone HCL [Desyrel -] 50 mg PO HS #30 tablet 10/24/16 Atorvastatin Ca [Lipitor] 20 mg PO HS #30 tablet 12/13/17 Clopidogrel Bisulfate [Plavix -] 75 mg PO DAILY #30 tablet 12/13/17 Amlodipine Besylate [Norvasc -] 10 mg PO DAILY 06/24/18 Isosorbide Mononitrate [Imdur -] 30 mg PO DAILY 06/24/18 Nitroglycerin 0.4 mg SL DAILY 06/24/18 Pantoprazole Sodium [Protonix -] 40 mg PO DAILY 06/24/18 Tamsulosin HCl [Flomax] 0.4 mg PO DAILY 06/24/18 - Diagnosis (1) ADELIA (acute kidney injury) Current Visit: Yes Status: Acute (2) Alcohol dependence with uncomplicated withdrawal Current Visit: Yes Status: Chronic (3) History of syphilis Current Visit: Yes Status: Acute (4) Opioid dependence with withdrawal Current Visit: Yes Status: Chronic (5) Positive RPR test Current Visit: Yes Status: Acute (6) CAD (coronary artery disease) Current Visit: Yes Status: Chronic Qualifiers: Coronary Disease-Associated Artery/Lesion type: unspecified vessel or lesion type [place] vs. transplanted heart: [place] heart Associated angina: with unspecified angina Qualified Code(s): I25.119 - Atherosclerotic heart disease of [place] coronary artery with unspecified angina pectoris (7) Cocaine dependence Current Visit: Yes Status: Chronic Qualifiers: Complication of substance-induced condition: uncomplicated (8) Depression (emotion) Current Visit: Yes Status: Chronic Qualifiers: Depression Type: dysthymia Qualified Code(s): F34.1 - Dysthymic disorder (9) Diabetes mellitus type II, controlled Current Visit: Yes Status: Chronic Qualifiers: Diabetes mellitus shelter insulin use: without shelter use Diabetes mellitus complication status: without complication Qualified Code(s): E11.9 - Type 2 diabetes mellitus without complications (10) Enlarged prostate with lower urinary tract symptoms (LUTS) Current Visit: Yes Status: Chronic (11) GERD (gastroesophageal reflux disease) Current Visit: Yes Status: Chronic (12) Hepatitis C Current Visit: Yes Status: Chronic Qualifiers: Viral hepatitis chronicity: chronic Hepatic coma status: without hepatic coma Qualified Code(s): B18.2 - Chronic viral hepatitis C (13) History of heart artery stent Current Visit: Yes Status: Chronic (14) Hx of myocardial infarction Current Visit: Yes Status: Chronic (15) Hyperlipidemia Current Visit: Yes Status: Chronic Qualifiers: Hyperlipidemia type: unspecified Qualified Code(s): E78.5 - Hyperlipidemia , unspecified (16) Hypertension Current Visit: Yes Status: Chronic Qualifiers: Hypertension type: essential hypertension (17) Insomnia Current Visit: Yes Status: Chronic (18) Murmur, cardiac Current Visit: Yes Status: Chronic (19) Nicotine dependence Current Visit: Yes Status: Chronic Qualifiers: Nicotine product type: cigarettes Substance use status: uncomplicated Qualified Code(s): F17.210 - Nicotine dependence, cigarettes, uncomplicated (20) Non-compliance Current Visit: Yes Status: Chronic (21) Substance induced mood disorder Current Visit: Yes Status: Chronic (22) Type 2 diabetes mellitus with hyperglycemia Current Visit: Yes Status: Chronic (23) Cocaine dependence in remission Current Visit: No Status: Acute (24) Non-compliance Current Visit: No Status: Acute (25) Weight loss Current Visit: No Status: Acute (26) Depressive disorder Current Visit: No Status: Chronic (27) Hypertensive cardiomyopathy Current Visit: No Status: Chronic - AMA Did Patient Leave Against Medical Advice: No (. [facility])
[2018-06-29 09:32] VITALS: BP 114/72; PULSE 70; TEMP 98.1
[2018-06-29] MEDS: PRENATAL VITAMINS W/ FOLIC ACID TABLET (FP) PO SCH (10:14)
[2018-06-29] MEDS: PANTOPRAZOLE 40 MG TABLET (FP) PO SCH (10:14)
[2018-06-29] MEDS: TAMSULOSIN HCL 0.4 MG CAP PO SCH (10:14)
[2018-06-29] MEDS: ISOSORBIDE MONONITRATE 30 MG TAB.SR.24H (FP) PO SCH (10:14)
[2018-06-29] MEDS: amLODIPine BESYLATE 5 MG TABLET (FP) PO SCH (10:14)
[2018-06-29] MEDS: ASPIRIN 81 MG CHEWABLE TABLETS PO SCH (10:14)
[2018-06-29] MEDS: CLOPIDOGREL BISULFATE 75 MG TABLET (FP) PO SCH (10:14)
--- NOTE | 2018-07-09 22:20 | EKG ---
Test Reason : Blood Pressure : / mmHG Vent. Rate : 052 BPM Atrial Rate : 052 BPM P-R Int : 224 ms QRS Dur : 144 ms QT Int : 504 ms P-R-T Axes : 078 -76 -59 degrees QTc Int : 468 ms SINUS BRADYCARDIA WITH 1ST DEGREE A-V BLOCK LEFT AXIS DEVIATION LEFT BUNDLE BRANCH BLOCK ABNORMAL ECG WHEN COMPARED WITH ECG OF 24-JUN-2018 23:02, PREMATURE VENTRICULAR COMPLEXES ARE NO LONGER PRESENT IA INTERVAL HAS INCREASED T WAVE VARIATION Confirmed by JILLIAN ALVAREZ MD ([id number]) on 07/09/2018 10:20:41 PM Referred By: Confirmed By:JILLIAN ALVAREZ MD
== END 2018-06-29 10:53 | disposition home or self-care (01) | DRG 773 ==
LOC: YASAS 16:21 → Y6N 21:23
PROVIDERS: ADMIT Surgery; ATTEND Surgery
PROC: HZ2ZZZZ Detoxification Services for Substance Abuse Treatment (ICD-10-PCS; principal; 2018-06-24)
DX: F11.23 Opioid dependence with withdrawal (principal); F10.230 Alcohol dependence with withdrawal, uncomplicated; F14.20 Cocaine dependence, uncomplicated; F17.210 Nicotine dependence, cigarettes, uncomplicated; F19.24 Other psychoactive substance dependence with psychoactive substance-induced mood disorder; F34.1 Dysthymic disorder; I11.9 Hypertensive heart disease without heart failure; I25.119 Atherosclerotic heart disease of native coronary artery with unspecified angina pectoris; N18.9 Chronic kidney disease, unspecified; E11.65 Type 2 diabetes mellitus with hyperglycemia; N40.1 Benign prostatic hyperplasia with lower urinary tract symptoms; K21.9 Gastro-esophageal reflux disease without esophagitis; B18.2 Chronic viral hepatitis C; E78.5 Hyperlipidemia, unspecified; G47.00 Insomnia, unspecified; R01.1 Cardiac murmur, unspecified; Z95.5 Presence of coronary angioplasty implant and graft; Z87.438 Personal history of other diseases of male genital organs; Z91.19 Patient's noncompliance with other medical treatment and regimen
CPT/HCPCS: 36415; 80048; 80053; 82962; 85027; 86593; 86780; 93005; 93010

== ENCOUNTER 2019-02-13 10:03 | Inpatient (IN) | payer OTHER ==
[2019-02-13 10:42] VITALS: BMI 25.3
--- NOTE | 2019-02-13 11:32 | HP ---
COWS - Scale Resting Pulse: 0= [place] 80 or Below Sweatin= Chills/Flushing Restless Observation: 1= Difficult to Sit Still Pupil Size: 2= Moderately Dilated Bone or Joint Aches: 2= Severe Diffuse Aches Runny Nose/ Eye Tearin= Runny Nose/Eyes GI Upset > 30mins: 3= Vomiting/Diarrhea Tremor Observation: 2= Slight Tremor Visible Yawning Observation: 1= 1-2x During Session Anxiety or Irritability: 2=Irritable/Anxious Goose Flesh Skin: 3=Piloerection COWS Score: 19 CIWA Score - Admission Criteria OASAS Guidelines: Admission for Medically Managed Detox: Requires at least one of the followin. CIWA greater than 12 2. Seizures within the past 24 hours 3. Delirium tremens within the past 24 hours 4. Hallucinations within the past 24 hours 5. Acute intervention needed for co occurring medical disorder 6. Acute intervention needed for co occurring psychiatric disorder 7. Severe withdrawal that cannot be handled at a lower level of care (continued vomiting, continued diarrhea, abnormal vital signs) requiring intravenous medication and/or fluids 8. Admitting History and Physical - Admission Chief Complaint: " I want to put my life back on track." History of Present Illness: 63 year old black male with history of opioid dependence with withdrawals, cocaine use disorder, alcohol use disorder. He is using heroin 10-15 bags of heroin daily, last used yesterday. He is drinking alcohol 1 pint of vodka every other day, last drank 3 days ago. He is uses cocaine sporadically, last used 3 days ago. PMH: HTN, Hyperlipidemia, CAD by MIX2, 2 stents. Psur stents placed in coronary arteries. - Past Medical History Cardiovascular: Yes: CAD, HTN, Hyperlipdemia, [place] Endocrine: Yes: Diabetes Mellitus - Smoking History Smoking history: Current every day smoker Have you smoked in the past 12 months: Yes Aproximately how many cigarettes per day: 3 - Alcohol/Substance Use Hx Alcohol Use: Yes History of Substance Use: reports: Cocaine, Heroin, Marijuana Admission [facility] Chief Complaint: " I want to straighten out my life and put it back on track." Allergies/Adverse Reactions: Allergies Allergy/AdvReac Type Severity Reaction Status Date / Time acetaminophen [From Tylenol] Allergy Intermediate Rash Verified 11/30/17 20:26 ibuprofen Allergy Intermediate Rash Verified 11/30/17 20:26 History of Present Illness: 63 year old black male with history of opioid dependence with withdrawals. Alcohol use disorder and cocain use disorder. Smokes ciggarettes 2 per day, last smoked today. PMH: HTN, CAD by NH and stents, Hyperlipidemia and HCV disease Psych: Depression. Exam Limitations: No Limitations - Ebola screening Have you traveled outside of the country in the last 21 days: No Have you had contact with anyone from an Ebola affected area: No Have you been sick,other than usual withdrawal symptoms: No Do you have a fever: No - Review of Systems Constitutional: Chills, Diaphoresis EENT: reports: No Symptoms Reported Respiratory: reports: No Symptoms reported Cardiac: denies: Chest Pain, Irregular Heart Rate, Lightheadedness, Palpitations GI: reports: No Symptoms Reported : reports: No Symptoms Reported Musculoskeletal: reports: Muscle Pain Integumentary: reports: No Symptoms Reported Neuro: reports: No Symptoms reported Endocrine: reports: No Symptoms Reported Hematology: reports: No Symptoms Reported Psychiatric: reports: Anxious, Depressed Other Systems: Reviewed and Negative Patient History - Patient Medical History Hx Anemia: No Hx Asthma: No Hx Chronic Obstructive Pulmonary Disease (COPD): No Hx Cancer: No Hx Cardiac Disorders: Yes (NH with stent insertion ) Hx Congestive Heart Failure: No Hx Hypertension: Yes Hx Hypercholesterolemia: No Hx Pacemaker: No HX Cerebrovascular Accident: No Hx Seizures: No Hx Dementia: No Hx Diabetes: No (no longer on meds.) Hx Gastrointestinal Disorders: No Hx Liver Disease: No Hx Genitourinary Disorders: No Hx Sexually Transmitted Disorders: No Hx Renal Disease (ESRD): No Hx Thyroid Disease: No Hx Human Immunodeficiency Virus (HIV): No Hx Hepatitis C: Yes (No treatment) Hx Depression: Yes Hx Suicide Attempt: No Hx Bipolar Disorder: No Hx Schizophrenia: No - Patient Surgical History Past Surgical History: Yes Hx Neurologic Surgery: No Hx Cataract Extraction: No Hx Cardiac Surgery: Yes (2011 cardiac stent ) Hx Lung Surgery: No Hx Breast Surgery: No Hx Breast Biopsy: No Hx Abdominal Surgery: No Hx Appendectomy: No Hx Cholecystectomy: No Hx Genitourinary Surgery: No Hx Orthopedic Surgery: No Other Surgical History: Stent Placement in 2011 Anesthesia Reaction: No - PPD History Previous Implant?: Yes Documented Results: Negative w/proof Implanted On Prior R Admission?: Yes Date: 11/28/17 Results: neg PPD to be Administered?: Yes - Smoking Cessation Smoking history: Current every day smoker Have you smoked in the past 12 months: Yes Aproximately how many cigarettes per day: 3 Cigars Per Day: 0 Hx Chewing Tobacco Use: No Initiated information on smoking cessation: Yes 'Breaking Loose' booklet given: 02/13/19 - Substance & Tx. History Hx Alcohol Use: Yes (usually when he uses heroin it causes him to drink but not steady.) Hx Substance Use: Yes Substance Use Type: Alcohol, Cocaine, Heroin Hx Substance Use Treatment: No - Substances abused Cocaine Substance route: Smoking Frequency: 3-6 times per week Amount used: $200-$300 Age of first use: 40 Date of last use: 02/06/19 Heroin Substance route: Inhalation Frequency: Daily Amount used: 10-15 bags Age of first use: 53 Date of last use: 02/12/19 Alcohol Substance route: Oral Frequency: 3-6 times per week Amount used: 1 pint liqour Age of first use: 50 Date of last use: 02/12/19 Admission Physical Exam BHS - Vital Signs Vital Signs: Vital Signs - 24 hr 02/13/19 10:27 Temperature 99.3 F Pulse Rate 55 L Respiratory 18 Rate Blood Pressure 142/76 Screened but not Admitted - Documentation of Visit Screened but not Admitted: No Breathalyzer - Breathalyzer Breathalyzer: 0 Vital Signs - Vital Signs Vital signs refused: No Temperature: 993 F Temperature source: Oral Pulse Rate: 55 Respiratory Rate: 18 Blood Pressure: 142/76 BP Location: Left Arm Blood Pressure position: Sitting - Height Height: 5 ft 7 in - Weight Weight: 162 lb Weight measurement method: Standing scale - BMI Body Mass Index (BMI): 25.3 - Bowel Function Bowel Movement: Yes Urine Drug Screen - Test Device Lot number: [id number] Expiration date: 10/14/20 - Control Is test valid?: Yes - Results Drug screen NEGATIVE: No Urine drug screen results: MOP-Opiates, MTD-Methadone Inpatient Rehab Admission - Rehab Decision to Admit Inpatient rehab admission?: No
[2019-02-13] MEDS ORDERED: MAG HYDROX/AL HYDROX/SIMETH 30 ML UNIT-DOSE CUP PO PRN (11:42)
[2019-02-13] MEDS ORDERED: hydrOXYzine PAMOATE 25 MG CAPSULE (FP) PO PRN (11:42)
[2019-02-13] MEDS ORDERED: MELATONIN 5 MG TABLETS PO PRN (11:42)
[2019-02-13] MEDS ORDERED: BISMUTH SUBSALICYLATE 524 MG/30 ML UD PO PRN (11:42)
[2019-02-13] MEDS ORDERED: MAGNESIUM CITRATE 300 ML BOTTLE PO PRN (11:42)
[2019-02-13] MEDS ORDERED: METHOCARBAMOL 500 MG TABLET PO PRN (11:42)
[2019-02-13] MEDS ORDERED: MENTHOL/PHENOL 1 EACH UD MM PRN (11:42)
[2019-02-13] MEDS ORDERED: cloNIDine HCL 0.1 MG TABLET PO PRN (11:42)
[2019-02-13] MEDS ORDERED: MAGNESIUM HYDROX 2400MG/30ML ORAL SUSPENSION 30 ML CUP PO PRN (11:42)
[2019-02-13] MEDS ORDERED: ACETAMINOPHEN 325 MG TABLET (FP) PO PRN ×2 (11:42)
[2019-02-13] MEDS ORDERED: METHADONE HCL 10 MG TABLET (FOR DETOX USE ONLY) PO ONE (12:15)
[2019-02-13 14:06] LABS: HEMATOCRIT 35.6 % (35.4-49); HEMOGLOBIN 11.2 GM/dL (11.7-16.9); MCH 23.1 pg (25.7-33.7); MCHC 31.3 g/dl (32.0-35.9); MEAN CELL VOLUME 73.7 fl (80-96); MEAN PLT VOLUME 8.6 fl (7.5-11.1); PLATELET COUNT 151 K/MM3 (134-434); RBC 4.84 M/mm3 (4.00-5.60); RDW 15.6 % (11.9-15.9); WHITE BLOOD COUNT 4.1 K/mm3 (4.0-10.0)
[2019-02-13 14:19] LABS: ALBUMIN 3.9 g/dl (3.4-5.0); BILIRUBIN,TOTAL 0.5 mg/dL (0.2-1); BLOOD UREA NITROGEN 24.1 mg/dL (7-18); CALCIUM 9.4 mg/dL (8.5-10.1); CREATININE 1.3 mg/dL (0.55-1.3); POTASSIUM 4.2 mmol/L (3.5-5.1); TOT PROT 8.1 g/dl (6.4-8.2)
[2019-02-13] MEDS ORDERED: traZODone HCL 50 MG TABLET (FP) PO SCH (22:00)
[2019-02-13] MEDS ORDERED: THIAMINE HCL 100 MG TABLET (FP) PO SCH (22:00)
[2019-02-13] MEDS ORDERED: ATORVASTATIN CA 20 MG TABLET (FP) PO SCH (22:00)
[2019-02-14] MEDS ORDERED: METHADONE HCL 5 MG TABLET (FOR DETOX USE ONLY) ONE (08:52)
[2019-02-14] MEDS ORDERED: METHADONE HCL 10 MG TABLET (FOR DETOX USE ONLY) ONE (08:52)
[2019-02-14 09:00] VITALS: BP 128/73; PULSE 58; TEMP 98.6
[2019-02-14] MEDS ORDERED: ISOSORBIDE MONONITRATE 30 MG TAB.SR.24H (FP) PO SCH (10:00)
[2019-02-14] MEDS ORDERED: METHADONE (DETOX) 20 MG, METHADONE (DETOX) 5 MG PO ONE (10:00)
[2019-02-14] MEDS ORDERED: CLOPIDOGREL BISULFATE 75 MG TABLET (FP) PO SCH (10:00)
[2019-02-14] MEDS ORDERED: NITROGLYCERIN SUBLINGUAL 1/150 0.4 MG TAB SL PRN (10:00)
[2019-02-14] MEDS ORDERED: PRENATAL VITAMINS W/ FOLIC ACID TABLET (FP) PO SCH (10:00)
[2019-02-14] MEDS ORDERED: NICOTINE 7 MG/24 HOURS TOPICAL PATCH TD SCH (10:00)
[2019-02-14] MEDS ORDERED: amLODIPine BESYLATE 10 MG TABLET (FP) PO SCH (10:00)
[2019-02-14] MEDS ORDERED: ASPIRIN 81 MG CHEWABLE TABLETS PO SCH (10:00)
[2019-02-14 15:45] LABS: RPR REACTIVE 1:4 (NONREACTIVE)
[2019-02-14 15:47] LABS: TREPONEMA ANTIBODY PREVIOUSLY REACTIVE (NONREACTIVE)
--- NOTE | 2019-02-14 16:17 | DS ---
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 RISKS OF LEAVING DETOX UNIT AGAINST MEDICAL ADVICE AND PRIOR TO COMPLETION OF DETOX REGIMEN EXPLAINED TO PATIENT. PATIENT ADVISED TO GO IMMEDIATELY TO NEAREST ER SHOULD ANY INTOLERABLE WITHDRAWAL / DETOX SYMPTOMS DEVELOP AT ANY TIME. PATIENT VERBALIZED UNDERSTANDING OF ALL INFORMATION / RECOMMENDATIONS PRESENTED TO HIM PRIOR TO DEPARTURE FROM DETOX UNIT. PATIENT DECLINED OFFER OF MEDICATION PRESCRIPTION FOR HOME MEDICATION PRIOR TO LEAVING DETOX UNIT, NOTING THAT HE CURRENTLY HAS ADEQUATE SUPPLIES OF ALL PRESCRIBED HOME MEDICATIONS AT HOME. PATIENT LEFT DETOX UNIT IN STABLE MEDICAL CONDITION. Pertinent Past History: HTN, Anemia, Elevated AST Level, Elevated ALT Level, Reactive RPR, History Of CAD, History Of PR, History of Cardiac Stent Placement (X 2), Hyperlipidemia, DM , Depression. - Physical Exam Results Vital Signs: Vital Signs Temperature 98.6 F 02/14/19 09:00 Pulse Rate 58 L 02/14/19 09:00 Respiratory Rate 18 02/14/19 09:00 Blood Pressure 128/73 02/14/19 09:00 O2 Sat by Pulse Oximetry (%) Pertinent Admission Physical Exam Findings: WITHDRAWAL SYMPTOMS. Laboratory Tests 02/13/19 02/13/19 02/13/19 12:20 12:20 12:20 WBC 4.1 RBC 4.84 Hgb 11.2 L Hct 35.6 MCV 73.7 L MCH 23.1 L MCHC 31.3 L RDW 15.6 D Plt Count 151 D MPV 8.6 Sodium 141 Potassium 4.2 Chloride 110 H Carbon Dioxide 26 Anion Gap 5 L BUN 24.1 H Creatinine 1.3 Est GFR (CKD-EPI)AfAm 67.30 Est GFR (CKD-EPI)NonAf 58.07 Random Glucose 113 H Calcium 9.4 Total Bilirubin 0.5 AST 56 H ALT 62 H Alkaline Phosphatase 86 Total Protein 8.1 Albumin 3.9 RPR Titer Reactive 1:4 H D T.pallidum Ab (MHA) Previously reactive HIV 1&2 Antibody Screen HIV P24 Antigen 02/13/19 12:20 WBC RBC Hgb Hct MCV MCH MCHC RDW Plt Count MPV Sodium Potassium Chloride Carbon Dioxide Anion Gap BUN Creatinine Est GFR (CKD-EPI)AfAm Est GFR (CKD-EPI)NonAf Random Glucose Calcium Total Bilirubin AST ALT Alkaline Phosphatase Total Protein Albumin RPR Titer T.pallidum Ab (MHA) HIV 1&2 Antibody Screen Negative HIV P24 Antigen Negative LABS NOTED. - Medication Discharge Medications: Ambulatory Orders Aspirin [ASA -] 81 mg PO DAILY #30 tab.chew 06/15/16 traZODone HCL [Desyrel -] 50 mg PO HS #30 tablet 10/24/16 Atorvastatin Ca [Lipitor] 20 mg PO HS #30 tablet 12/13/17 Clopidogrel Bisulfate [Plavix -] 75 mg PO DAILY #30 tablet 12/13/17 Amlodipine Besylate [Norvasc -] 10 mg PO DAILY 06/24/18 Isosorbide Mononitrate [Imdur -] 30 mg PO DAILY 06/24/18 Nitroglycerin 0.4 mg SL DAILY 06/24/18 Folic Acid 1 mg PO 02/13/19 - Diagnosis (1) Uncomplicated alcohol dependence Status: Chronic (2) CAD (coronary artery disease) Status: Chronic Qualifiers: Coronary Disease-Associated Artery/Lesion type: unspecified vessel or lesion type [place] vs. transplanted heart: [place] heart Associated angina: with unspecified angina Qualified Code(s): I25.119 - Atherosclerotic heart disease of [place] coronary artery with unspecified angina pectoris (3) Cocaine dependence Status: Chronic Qualifiers: Substance use status: in withdrawal Qualified Code(s): F14.23 - Cocaine dependence with withdrawal (4) Diabetes mellitus type II, controlled Status: Chronic Qualifiers: Diabetes mellitus retirement insulin use: without retirement use Diabetes mellitus complication status: without complication Qualified Code(s): E11.9 - Type 2 diabetes mellitus without complications (5) Hepatitis C Status: Chronic Qualifiers: Viral hepatitis chronicity: chronic Hepatic coma status: without hepatic coma Qualified Code(s): B18.2 - Chronic viral hepatitis C (6) History of heart artery stent Status: Chronic (7) Hx of myocardial infarction Status: Chronic (8) Hyperlipidemia Status: Chronic Qualifiers: Hyperlipidemia type: unspecified Qualified Code(s): E78.5 - Hyperlipidemia , unspecified (9) Hypertension Status: Chronic Qualifiers: Hypertension type: essential hypertension (10) Nicotine dependence Status: Chronic Qualifiers: Nicotine product type: cigarettes Substance use status: uncomplicated Qualified Code(s): F17.210 - Nicotine dependence, cigarettes, uncomplicated (11) Opioid dependence with withdrawal Status: Chronic - AMA Did Patient Leave Against Medical Advice: Yes (PATIENT DID NOT EISH TO REMAIN TO COMPLETE DETOX REGIMEN.) COWS - Scale Resting Pulse: 0= [place] 80 or Below Sweatin= No chills or Flushing Restless Observation: 1= Difficult to Sit Still Pupil Size: 0= Normal to Room Light Bone or Joint Aches: 2= Severe Diffuse Aches Runny Nose/ Eye Tearin= None GI Upset > 30mins: 0= None Tremor Observation: 2= Slight Tremor Visible Yawning Observation: 1= 1-2x During Session Anxiety or Irritability: 2=Irritable/Anxious Goose Flesh Skin: 3=Piloerection COWS Score: 11
[2019-02-15] MEDS ORDERED: METHADONE HCL 10 MG TABLET (FOR DETOX USE ONLY) PO ONE (10:00)
[2019-02-16] MEDS ORDERED: METHADONE (DETOX) 10 MG, METHADONE (DETOX) 5 MG PO ONE (10:00)
[2019-02-17] MEDS ORDERED: METHADONE HCL 10 MG TABLET (FOR DETOX USE ONLY) PO ONE (10:00)
[2019-02-18] MEDS ORDERED: METHADONE HCL 5 MG TABLET (FOR DETOX USE ONLY) PO ONE (06:00)
== END 2019-02-14 10:57 | disposition left against medical advice (07) | DRG 770 ==
LOC: YASAS 10:03 → Y3N 12:09
PROVIDERS: ADMIT Surgery; ATTEND Surgery
PROC: HZ2ZZZZ Detoxification Services for Substance Abuse Treatment (ICD-10-PCS; principal; 2019-02-13)
DX: F11.23 Opioid dependence with withdrawal (principal); F10.230 Alcohol dependence with withdrawal, uncomplicated; F14.20 Cocaine dependence, uncomplicated; F17.210 Nicotine dependence, cigarettes, uncomplicated; I10 Essential (primary) hypertension; I25.10 Atherosclerotic heart disease of native coronary artery without angina pectoris; I25.2 Old myocardial infarction; E11.9 Type 2 diabetes mellitus without complications; B18.2 Chronic viral hepatitis C; E78.5 Hyperlipidemia, unspecified; Z88.6 Allergy status to analgesic agent; Z95.5 Presence of coronary angioplasty implant and graft
CPT/HCPCS: 36415; 80053; 85027; 86593; 86780; 87389

== ENCOUNTER 2019-02-23 14:08 | Inpatient (IN) | payer OTHER ==
[2019-02-23 18:23] VITALS: BMI 25.0
--- NOTE | 2019-02-23 19:17 | HP ---
CIWA Score - Admission Criteria OASAS Guidelines: Admission for Medically Managed Detox: Requires at least one of the followin. CIWA greater than 12 2. Seizures within the past 24 hours 3. Delirium tremens within the past 24 hours 4. Hallucinations within the past 24 hours 5. Acute intervention needed for co occurring medical disorder 6. Acute intervention needed for co occurring psychiatric disorder 7. Severe withdrawal that cannot be handled at a lower level of care (continued vomiting, continued diarrhea, abnormal vital signs) requiring intravenous medication and/or fluids 8. Admitting History and Physical - Past Medical History Cardiovascular: Yes: CAD, HTN, Hyperlipdemia, [place] Endocrine: Yes: Diabetes Mellitus - Smoking History Smoking history: Current every day smoker Have you smoked in the past 12 months: Yes Aproximately how many cigarettes per day: 3 - Alcohol/Substance Use Hx Alcohol Use: Yes (usually when he uses heroin it causes him to drink but not steady.) History of Substance Use: reports: Cocaine, Heroin, Marijuana Admission ROS [facility] Chief Complaint: Anderson Chin is a 63 year old male presenting for alcohol, heroin, and cocaine abuse. Allergies/Adverse Reactions: Allergies Allergy/AdvReac Type Severity Reaction Status Date / Time acetaminophen [From Tylenol] Allergy Intermediate Rash Verified 02/23/19 18:15 ibuprofen Allergy Intermediate Rash Verified 02/23/19 18:15 History of Present Illness: Anderson Chin is a 63 year old male presenting for alcohol, heroin, and cocaine abuse. Alcohol: 3 pints weekly. Drinking every other day. Denies seizures, blackouts, falls, head hits. Started drinking at around age 16. Longest period of sobriety 3 years. 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 Started drinking again due to want. Cocaine: 200-300$ worth per day. Smoking. Denies IVDU. Heroin: 10-15 bags daily. Inhalation. Denies IVDU. Denies overdose. Has a Narcan kit, knows how to use them. In the last week, has been to [facility] for chest pain. Was cleared by hospital each time. Has been to detox and rehab in the past. Medical History: HTN, HLD, 2 stents, 2 MIs previously, Hep C (untreated), ? prostate issues (on Flomax) Psychiatric History: depression Surgical History: 2 stents Smokin cigarettes/day currently. Previously smoked up to a pack a day. 51 years. Social: Stays with siblings. 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 Will be admitted for rehab. UTox: MTD, BUP LEONID: 0.000 Will be admitted for rehab for alcohol, heroin, cocaine. Will need verification of medications when pharmacy is open. Exam Limitations: No Limitations - Ebola screening Have you traveled outside of the country in the last 21 days: No Have you had contact with anyone from an Ebola affected area: No Do you have a fever: No - Review of Systems Constitutional: Loss of Appetite EENT: reports: No Symptoms Reported Respiratory: reports: No Symptoms reported Cardiac: reports: No Symptoms Reported GI: reports: No Symptoms Reported : reports: Frequency, Other (difficulty initiating stream) Musculoskeletal: reports: No Symptoms Reported Integumentary: reports: Dryness (on legs, arms) Endocrine: reports: No Symptoms Reported Hematology: reports: No Symptoms Reported Psychiatric: reports: Judgement Intact, Mood/Affect Appropiate, Orientated x3 Patient History - Patient Medical History Hx Anemia: No Hx Asthma: No Hx Chronic Obstructive Pulmonary Disease (COPD): No Hx Cancer: No Hx Cardiac Disorders: Yes (2 stents 2011.2016,) Hx Congestive Heart Failure: No Hx Hypertension: Yes Hx Hypercholesterolemia: Yes Hx Pacemaker: No HX Cerebrovascular Accident: No Hx Seizures: No Hx Dementia: No Hx Diabetes: No Hx Gastrointestinal Disorders: No Hx Liver Disease: No Hx Genitourinary Disorders: No Hx Sexually Transmitted Disorders: No Hx Renal Disease (ESRD): No Hx Thyroid Disease: No Hx Human Immunodeficiency Virus (HIV): No Hx Hepatitis C: Yes (No treatment) Hx Depression: Yes Hx Suicide Attempt: No Hx Bipolar Disorder: No Hx Schizophrenia: No - Patient Surgical History Past Surgical History: Yes Hx Neurologic Surgery: No Hx Cataract Extraction: No Hx Cardiac Surgery: Yes (2011 cardiac stent, 2016) Hx Lung Surgery: No Hx Breast Surgery: No Hx Breast Biopsy: No Hx Abdominal Surgery: No Hx Appendectomy: No Hx Cholecystectomy: No Hx Genitourinary Surgery: No Hx Orthopedic Surgery: No Other Surgical History: Stent Placement in 2011 Anesthesia Reaction: No - PPD History Previous Implant?: Yes Documented Results: Negative w/proof Date: 02/15/19 Results: neg PPD to be Administered?: No - Smoking Cessation Smoking history: Current every day smoker Have you smoked in the past 12 months: Yes Aproximately how many cigarettes per day: 3 Cigars Per Day: 0 Hx Chewing Tobacco Use: No Initiated information on smoking cessation: Yes 'Breaking Loose' booklet given: 02/23/19 - Substance & Tx. History Hx Alcohol Use: Yes Hx Substance Use: Yes Substance Use Type: Alcohol, Cocaine, Opiates - Substances abused Cocaine Substance route: Smoking Frequency: 3-6 times per week Amount used: $200-$300 Age of first use: 40 Date of last use: 02/06/19 Heroin Substance route: Inhalation Frequency: Daily Amount used: 10-15 bags Age of first use: 53 Date of last use: 02/12/19 Alcohol Substance route: Oral Frequency: 3-6 times per week Amount used: 1 pint liqour Age of first use: 50 Date of last use: 02/12/19 Admission Physical Exam S - Vital Signs Vital Signs: Vital Signs - 24 hr 02/23/19 18:20 Temperature 97.4 F L Pulse Rate 69 Respiratory 16 Rate Blood Pressure 161/83 - Physical General Appearance: Yes: No Apparent Distress, Appropriately Dressed HEENTM: Yes: EOMI, Normocephalic, Normal Voice, SHELLIE, Pharynx Normal, Other ( multiple teeth missing) Respiratory: Yes: Chest Non-Tender, Lungs Clear, Normal Breath Sounds, No Respiratory Distress, No Accessory Muscle Use Neck: Yes: No masses,lesions,Nodules, Trachea in good position Breast: Yes: Breast Exam Deferred Cardiology: Yes: Regular Rhythm, Regular Rate, S1, S2 Abdominal: Yes: Normal Bowel Sounds, Non Tender, Flat Genitourinary: Yes: Frequency, Hesitency Back: Yes: Normal Inspection Musculoskeletal: Yes: Within Normal Limits Extremities: Yes: Normal Capillary Refill, Normal Inspection, Normal Range of Motion, Non-Tender Neurological: Yes: 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 (3) Positive RPR test Current Visit: No Status: Acute Comment: SYPHILIS TREATED IN PAST. (4) Alcohol dependence with uncomplicated withdrawal Current Visit: No Status: Chronic (5) CAD (coronary artery disease) Current Visit: No Status: Chronic Qualifiers: Coronary Disease-Associated Artery/Lesion type: unspecified vessel or lesion type [place] vs. transplanted heart: [place] heart Associated angina: with unspecified angina Qualified Code(s): I25.119 - Atherosclerotic heart disease of [place] coronary artery with unspecified angina pectoris (6) Depression (emotion) Current Visit: No Status: Chronic Qualifiers: Depression Type: dysthymia Qualified Code(s): F34.1 - Dysthymic disorder (7) GERD (gastroesophageal reflux disease) Current Visit: No Status: Chronic (8) Hepatitis C Current Visit: No Status: Chronic Qualifiers: Viral hepatitis chronicity: chronic Hepatic coma status: without hepatic coma Qualified Code(s): B18.2 - Chronic viral hepatitis C (9) History of heart artery stent Current Visit: No Status: Chronic Comment: On Plavix (10) Hx of myocardial infarction Current Visit: No Status: Chronic (11) Hyperlipidemia Current Visit: No Status: Chronic Qualifiers: Hyperlipidemia type: unspecified Qualified Code(s): E78.5 - Hyperlipidemia , unspecified (12) Hypertension Current Visit: No Status: Chronic Qualifiers: Hypertension type: essential hypertension Qualified Code(s): I10 - Essential (primary) hypertension (13) Nicotine dependence Current Visit: No Status: Chronic Qualifiers: Nicotine product type: cigarettes Substance use status: uncomplicated Qualified Code(s): F17.210 - Nicotine dependence, cigarettes, uncomplicated (14) Type 2 diabetes mellitus with hyperglycemia Current Visit: No Status: Chronic Breathalyzer - Breathalyzer Breathalyzer: 0 Urine Drug Screen - Test Device Lot number: [id number] Expiration date: 10/14/20 - Control Is test valid?: Yes - Results Drug screen NEGATIVE: Yes Urine drug screen results: MTD-Methadone, BUP-Suboxone Inpatient Rehab Admission - Rehab Decision to Admit Inpatient rehab admission?: Yes - Initial Determination Are CD services needed?: Yes Free of communicable disease: Yes Not in need of hospitalization: Yes - Rehab Admission Criteria Previous failed treatment: Yes Poor recovery environment: Yes Comorbidities: Yes Lacks judgement: Yes Patient is meeting Inpatient Rehab admission criteria:: Yes (will be admitted for alcohol, cocaine, heroin)
[2019-02-23] MEDS ORDERED: P-EPHED 60MG/TRIPROLIDI 2.5MG TABLET PO PRN (19:48)
[2019-02-23] MEDS ORDERED: guaiFENesin 200 MG/10 ML 10 ML UNIT-DOSE CUPS PO PRN (19:48)
[2019-02-23] MEDS ORDERED: LOPERAMIDE HCL 2 MG CAPSULE PO PRN (19:48)
[2019-02-23] MEDS ORDERED: MENTHOL/PHENOL 1 EACH UD MM PRN (19:48)
[2019-02-23] MEDS ORDERED: MAGNESIUM CITRATE 300 ML BOTTLE PO PRN (19:48)
[2019-02-23] MEDS ORDERED: MAG HYDROX/AL HYDROX/SIMETH 30 ML UNIT-DOSE CUP PO PRN (19:48)
[2019-02-23] MEDS ORDERED: MAGNESIUM HYDROX 2400MG/30ML ORAL SUSPENSION 30 ML CUP PO PRN (19:48)
--- NOTE | 2019-02-23 19:54 | PN ---
Teaching Attending Note Name of Resident: Pascual Jean ATTENDING PHYSICIAN STATEMENT I saw and evaluated the patient. I reviewed the resident's note and discussed the case with the resident. I agree with the resident's findings and plan as documented. SUBJECTIVE: 63 year old male presenting for alcohol, heroin, and cocaine abuse. Alcohol: 3 pints weekly , states drinking alcohol every other day , latest use last . 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 Cocaine: 200-300$ worth per day via inhalation. Denies IVDU. Heroin: 10-15 bags daily via inhalation. Denies IVDU. Denies overdose. Has a Narcan kit, knows how to use it. In the last week, has been to [facility] for chest pain. Was cleared by hospital each time , claims he was given buprenorphine while hospitalized . Medical History: HTN, HLD, 2 stents, 2 MIs , Hep C (untreated), BPH ( previously on Flomax) Psychiatric History: depression denies SI / [place] Smokin cigarettes/day currently, previously 1 ppd x 51 years. Social: Stays with siblings. 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 UTox: MTD, BUP LEONID: 0.000 OBJECTIVE: wnwd Vital Signs - 24 hr 02/23/19 18:20 Temperature 97.4 F L Pulse Rate 69 Respiratory 16 Rate Blood Pressure 161/83 ASSESSMENT AND PLAN: Alcohol dependence / Opioid dependence / cocaine dependence / nicotine dependence - rehab . Psychiatry consult meds to be verified in the am with pharmacy , which is currently closed.
[2019-02-23] MEDS: THIAMINE HCL 100 MG TABLET (FP) PO SCH (21:33)
[2019-02-23] MEDS: ATORVASTATIN CA 20 MG TABLET (FP) PO SCH (21:33)
[2019-02-23] MEDS: MELATONIN 5 MG TABLETS PO PRN (21:33)
--- NOTE | 2019-02-24 09:15 | CONSULT ---
[facility] Psychiatric Consult - Data Date of interview: 02/24/19 Admission source: [facility] Identifying data: Patient is a 63 year single male, father of one, unemployed, homeless, and is supported by [facility]. This is one of multiple admissions for patient. Patient admitted to for alcohol, cocaine, and opiate dependence. Substance Abuse History: Smoking Cessation. Smoking history: Current every day smoker. Have you smoked in the past 12 months: Yes. Aproximately how many cigarettes per day: 3. Cigars Per Day: 0. Hx Chewing Tobacco Use: No. Initiated information on smoking cessation: Yes. 'Breaking Loose' booklet given : 02/23/19. - Substance & Tx. History. Hx Alcohol Use: Yes. Hx Substance Use : Yes. Substance Use Type: Alcohol, Cocaine, Opiates. - Substances abused. * * Cocaine. Substance route: Smoking. Frequency: 3-6 times per week. Amount used: $200-$300. Age of first use: 40. Date of last use: 02/06/19. Heroin. Substance route: Inhalation. Frequency: Daily. Amount used: 10-15 bags. Age of first use: 53. Date of last use: 02/12/19. Alcohol. Substance route: Oral. Frequency: 3-6 times per week. Amount used: 1 pint liqour. Age of first use: 50. Date of last use: 02/12/19 Medical History: HTN, HLD, 2 stents, 2 MIs previously, Hep C (untreated) Psychiatric History: Patient's first psychiatric contact was in 2010 after he was required to complete a psychiatric evaluation for the housing process in the [facility] which is managed [facility]. Mr. Chin was diagnosed with depression and prescribed zoloft + Trazodone. Patient discontinued treatment after six months and denies receiving psychiatric treatment again. Patient denies history of psychiatric hospitalizations and suicide attempt. At present he reports feeling fine and sleeping well. Patient not interested in resuming psychotropic medications. Physical/Sexual Abuse/Trauma History: denies. Mental Status Exam - Mental Status Exam Alert and Oriented to: Time, Place, Person Cognitive Function: Good Patient Appearance: Well Groomed Mood: Withdrawn Affect: Mood Congruent Patient Behavior: Cooperative Speech Pattern: Appropriate Voice Loudness: Moderately Soft/Quiet Thought Process: Goal Oriented Thought Disorder: Not Present Hallucinations: Denies Suicidal Ideation: Denies Homicidal Ideation: Denies Insight/Judgement: Poor Sleep: Fair Appetite: Fair Muscle strength/Tone: Normal Gait/Station: Normal Psychiatric Findings - Problem List ([place] 1, 2,3) (1) Cocaine dependence Current Visit: Yes Status: Acute (2) Alcohol dependence Current Visit: Yes Status: Acute (3) Nicotine dependence Current Visit: Yes Status: Acute (4) Substance induced mood disorder Current Visit: Yes Status: Suspected - Initial Treatment Plan Initial Treatment Plan: Psychoeducation provided. Rehab in progress. Observation.
[2019-02-24] MEDS: CLOPIDOGREL BISULFATE 75 MG TABLET (FP) PO SCH (09:52)
[2019-02-24] MEDS: PRENATAL VITAMINS W/ FOLIC ACID TABLET (FP) PO SCH (09:52)
[2019-02-24] MEDS: ISOSORBIDE MONONITRATE 30 MG TAB.SR.24H (FP) PO SCH (09:52)
[2019-02-24] MEDS: amLODIPine BESYLATE 5 MG TABLET (FP) PO SCH (09:52)
[2019-02-24] MEDS: ASPIRIN 81 MG CHEWABLE TABLETS PO SCH (09:52)
[2019-02-24] MEDS: NICOTINE 7 MG/24 HOURS TOPICAL PATCH TD SCH (09:53)
[2019-02-24] MEDS ORDERED: NITROGLYCERIN SUBLINGUAL 1/150 0.4 MG TAB SL SCH (10:00)
[2019-02-24 12:59] LABS: EPI CELLS 0.3 /HPF (0-5/HPF); HYALINE CASTS 2 /lpf (0-8); PH,URINE 5.5 (5.0-8.0); URINE APPEARANCE CLEAR; URINE BILIRUBIN NEGATIVE (NEGATIVE); URINE COLOR YELLOW; URINE GLUCOSE (UA) NEGATIVE (NEGATIVE); URINE KETONE NEGATIVE (NEGATIVE); URINE LEUK ESTERASE 1+ (NEGATIVE); URINE NITRITE NEGATIVE (NEGATIVE); URINE PROTEIN NEGATIVE (NEGATIVE); URINE RBC 0 /hpf (0-4); URINE WBC 1 /hpf (0-5)
[2019-02-24] MEDS: ATORVASTATIN CA 20 MG TABLET (FP) PO SCH (21:08)
[2019-02-24] MEDS: MELATONIN 5 MG TABLETS PO PRN (21:08)
[2019-02-24] MEDS: THIAMINE HCL 100 MG TABLET (FP) PO SCH (21:08)
[2019-02-25] MEDS: PRENATAL VITAMINS W/ FOLIC ACID TABLET (FP) PO SCH (10:21)
[2019-02-25] MEDS: CLOPIDOGREL BISULFATE 75 MG TABLET (FP) PO SCH (10:21)
[2019-02-25] MEDS: amLODIPine BESYLATE 5 MG TABLET (FP) PO SCH (10:21)
[2019-02-25] MEDS: NICOTINE 7 MG/24 HOURS TOPICAL PATCH TD SCH (10:21)
[2019-02-25] MEDS: ASPIRIN 81 MG CHEWABLE TABLETS PO SCH (10:21)
[2019-02-25] MEDS ORDERED: PT OWN MED DRAWER 7, Y5N ONE (10:22)
[2019-02-25] MEDS: ISOSORBIDE MONONITRATE 30 MG TAB.SR.24H (FP) PO SCH (10:22)
[2019-02-25] MEDS: NITROGLYCERIN SUBLINGUAL 1/150 0.4 MG TAB SL PRN (18:54)
[2019-02-25] MEDS: MELATONIN 5 MG TABLETS PO PRN (21:32)
[2019-02-25] MEDS: THIAMINE HCL 100 MG TABLET (FP) PO SCH (21:32)
[2019-02-25] MEDS: ATORVASTATIN CA 20 MG TABLET (FP) PO SCH (21:32)
[2019-02-26 06:50] VITALS: TEMP 97.6
[2019-02-26 09:13] VITALS: BP 142/72; PULSE 56
[2019-02-26] MEDS: PRENATAL VITAMINS W/ FOLIC ACID TABLET (FP) PO SCH (10:14)
[2019-02-26] MEDS: NICOTINE 7 MG/24 HOURS TOPICAL PATCH TD SCH (10:14)
[2019-02-26] MEDS: amLODIPine BESYLATE 5 MG TABLET (FP) PO SCH (10:14)
[2019-02-26] MEDS: ASPIRIN 81 MG CHEWABLE TABLETS PO SCH (10:15)
[2019-02-26] MEDS: ISOSORBIDE MONONITRATE 30 MG TAB.SR.24H (FP) PO SCH (10:15)
[2019-02-26] MEDS: CLOPIDOGREL BISULFATE 75 MG TABLET (FP) PO SCH (10:15)
[2019-02-26] MEDS: NITROGLYCERIN SUBLINGUAL 1/150 0.4 MG TAB SL PRN ×3 (21:00→22:00)
[2019-02-26] MEDS: MELATONIN 5 MG TABLETS PO PRN (21:03)
[2019-02-26] MEDS: THIAMINE HCL 100 MG TABLET (FP) PO SCH (21:03)
[2019-02-26] MEDS: ATORVASTATIN CA 20 MG TABLET (FP) PO SCH (21:03)
--- NOTE | 2019-02-26 22:39 | HP ---
CIWA Score - Admission Criteria OASAS Guidelines: Admission for Medically Managed Detox: Requires at least one of the followin. CIWA greater than 12 2. Seizures within the past 24 hours 3. Delirium tremens within the past 24 hours 4. Hallucinations within the past 24 hours 5. Acute intervention needed for co occurring medical disorder 6. Acute intervention needed for co occurring psychiatric disorder 7. Severe withdrawal that cannot be handled at a lower level of care (continued vomiting, continued diarrhea, abnormal vital signs) requiring intravenous medication and/or fluids 8. Admitting History and Physical - Past Medical History Cardiovascular: Yes: CAD, HTN, Hyperlipdemia, [place] Endocrine: Yes: Diabetes Mellitus - Smoking History Smoking history: Current every day smoker Have you smoked in the past 12 months: Yes Aproximately how many cigarettes per day: 3 - Alcohol/Substance Use Hx Alcohol Use: Yes History of Substance Use: reports: Cocaine, Heroin, Marijuana Admission [facility] Allergies/Adverse Reactions: Allergies Allergy/AdvReac Type Severity Reaction Status Date / Time acetaminophen [From Tylenol] Allergy Intermediate Rash Verified 02/23/19 18:15 ibuprofen Allergy Intermediate Rash Verified 02/23/19 18:15 - Ebola screening Have you traveled outside of the country in the last 21 days: No Have you had contact with anyone from an Ebola affected area: No Do you have a fever: No Patient History - Patient Medical History Hx Anemia: No Hx Asthma: No Hx Chronic Obstructive Pulmonary Disease (COPD): No Hx Cancer: No Hx Cardiac Disorders: No Hx Congestive Heart Failure: No Hx Hypertension: Yes Hx Hypercholesterolemia: Yes Hx Pacemaker: No HX Cerebrovascular Accident: No Hx Seizures: No Hx Dementia: No Hx Diabetes: No Hx Gastrointestinal Disorders: No Hx Liver Disease: No Hx Genitourinary Disorders: No Hx Sexually Transmitted Disorders: Yes (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, treated) Hx Renal Disease (ESRD): No Hx Thyroid Disease: No Hx Human Immunodeficiency Virus (HIV): No Hx Hepatitis C: Yes (No treatment) Hx Depression: Yes Hx Suicide Attempt: No Hx Bipolar Disorder: No Hx Schizophrenia: No - Patient Surgical History Past Surgical History: Yes Hx Neurologic Surgery: No Hx Cataract Extraction: No Hx Cardiac Surgery: Yes (2011 cardiac stent, 2017) Hx Lung Surgery: No Hx Breast Surgery: No Hx Breast Biopsy: No Hx Abdominal Surgery: No Hx Appendectomy: No Hx Cholecystectomy: No Hx Genitourinary Surgery: No Hx Orthopedic Surgery: No Other Surgical History: Stent Placement in 2012 Anesthesia Reaction: No - PPD History Previous Implant?: Yes Documented Results: Negative w/proof Date: 02/15/19 Results: neg - Smoking Cessation Smoking history: Current every day smoker Have you smoked in the past 12 months: Yes Aproximately how many cigarettes per day: 3 Cigars Per Day: 0 Hx Chewing Tobacco Use: No Initiated information on smoking cessation: Yes - Substances abused Cocaine Substance route: Smoking Frequency: 3-6 times per week Amount used: $200-$300 Age of first use: 40 Date of last use: 02/06/19 Heroin Substance route: Inhalation Frequency: Daily Amount used: 10-15 bags Age of first use: 53 Date of last use: 02/12/19 Alcohol Substance route: Oral Frequency: 3-6 times per week Amount used: 1 pint liqour Age of first use: 50 Date of last use: 02/12/19 Admission Physical Exam [facility] - Vital Signs Vital Signs: Vital Signs - 24 hr 02/26/19 02/26/19 02/26/19 00:30 03:30 06:49 Temperature 97.6 F Pulse Rate 58 L Respiratory 18 18 18 Rate Blood Pressure 147/85 02/26/19 09:12 Temperature Pulse Rate 56 L Respiratory Rate Blood Pressure 142/72 Breathalyzer - Breathalyzer Breathalyzer: 0 Urine Drug Screen - Test Device Lot number: [id number] Expiration date: 10/14/20 - Control Is test valid?: Yes - Results Drug screen NEGATIVE: Yes Urine drug screen results: MTD-Methadone, BUP-Suboxone
--- NOTE | 2019-02-26 22:42 | PN ---
[facility] Progress Note Note: Patient is complaining of chest pain . Nitroglycerin 0.4mg administer sublingual administered x 3 without relieve. Patient had Aspirin this morning. EKG in dicates Sinus Bradycardia. Left bundle branchy block . Abnormal ECG. Patient is to be [id number] to ER . Endorsed to Dr Anne
--- NOTE | 2019-02-27 13:01 | EKG ---
Test Reason : Blood Pressure : / mmHG Vent. Rate : 057 BPM Atrial Rate : 057 BPM P-R Int : 204 ms QRS Dur : 142 ms QT Int : 440 ms P-R-T Axes : 074 -77 041 degrees QTc Int : 428 ms SINUS BRADYCARDIA LEFT BUNDLE BRANCH BLOCK ABNORMAL ECG WHEN COMPARED WITH ECG OF 25-JUN-2018 04:59, NONSPECIFIC T WAVE ABNORMALITY HAS REPLACED INVERTED T WAVES IN INFERIOR LEADS Confirmed by GEORGIA LEYVA MD ([id number]) on 02/27/2019 1:01:14 PM Referred By: Confirmed By:GEORGIA LEYVA MD
== END 2019-02-27 06:45 | disposition short-term general hospital (02) | DRG 772 ==
LOC: YASAS 14:08 → Y3W 19:59
PROVIDERS: ADMIT Neuromusculoskeletal Medicine & OMM; ATTEND Neuromusculoskeletal Medicine & OMM
PROC: HZ42ZZZ Group Counseling for Substance Abuse Treatment, Cognitive-Behavioral (ICD-10-PCS; principal; 2019-02-23)
DX: F10.20 Alcohol dependence, uncomplicated (principal); F11.20 Opioid dependence, uncomplicated; F14.20 Cocaine dependence, uncomplicated; F17.210 Nicotine dependence, cigarettes, uncomplicated; F19.24 Other psychoactive substance dependence with psychoactive substance-induced mood disorder; I25.119 Atherosclerotic heart disease of native coronary artery with unspecified angina pectoris; I10 Essential (primary) hypertension; Z95.5 Presence of coronary angioplasty implant and graft; I25.2 Old myocardial infarction; E78.5 Hyperlipidemia, unspecified; E11.9 Type 2 diabetes mellitus without complications; K21.9 Gastro-esophageal reflux disease without esophagitis; L85.3 Xerosis cutis; E11.65 Type 2 diabetes mellitus with hyperglycemia; R07.9 Chest pain, unspecified; R94.31 Abnormal electrocardiogram [ECG] [EKG]; Z88.6 Allergy status to analgesic agent
CPT/HCPCS: 81003; 82962; 93005; 93010

== ENCOUNTER 2019-02-26 23:07 | Observation (INO) | payer OTHER ==
[2019-02-26 23:39] VITALS: BMI 25.5
--- NOTE | 2019-02-26 23:58 | PDOC ---
History of Present Illness - General Chief Complaint: Chest Pain Stated Complaint: CHEST PAIN Time Seen by Provider: 02/26/19 23:58 History Source: Patient Exam Limitations: No Limitations - History of Present Illness Initial Comments: 02/26/19 23:58 Anderson Chin is a 63 year old male with PMH NC x2 s/p 2 stents, HTN, HLD, CHF, polysubstance abuse (heroin, cocaine, EtOH) [facility] ( [facility]) for chest pain. Sudden onset R chest pain radiating to L chest and shoulder while watching TV yesterday afternoon. Took 3 nitro without relief. Took 81 aspirin today. Denies alcohol, substance use for last month. Was admitted at [facility] for chest pain last month, neg workup including cath for chest pain. Denies fever, headache, nausea/vomiting, AB pain, urinary/bowel movement changes. Past History - Past Medical History Allergies/Adverse Reactions: Allergies Allergy/AdvReac Type Severity Reaction Status Date / Time acetaminophen [From Tylenol] Allergy Intermediate Rash Verified 02/23/19 18:15 ibuprofen Allergy Intermediate Rash Verified 02/23/19 18:15 Home Medications: Ambulatory Orders Aspirin [ASA -] 81 mg PO DAILY #30 tab.chew 06/15/16 traZODone HCL [Desyrel -] 50 mg PO HS #30 tablet 10/24/16 Atorvastatin Ca [Lipitor] 20 mg PO HS #30 tablet 12/13/17 Clopidogrel Bisulfate [Plavix -] 75 mg PO DAILY #30 tablet 12/13/17 Amlodipine Besylate [Norvasc -] 10 mg PO DAILY 06/24/18 Isosorbide Mononitrate [Imdur -] 30 mg PO DAILY 06/24/18 Nitroglycerin 0.4 mg SL DAILY 06/24/18 Folic Acid 1 mg PO DAILY 02/13/19 Anemia: No Asthma: No Cancer: No Cardiac Disorders: No CVA: No COPD: No CHF: No Dementia: No Diabetes: No GI Disorders: No Disorders: No HTN: Yes Hypercholesterolemia: Yes Kidney Stones: No Liver Disease: No Seizures: No Thyroid Disease: No - Surgical History Abdominal Surgery: No Appendectomy: No Cardiac Surgery: Yes (2011 cardiac stent, 2016) Cholecystectomy: No Lung Surgery: No Neurologic Surgery: No Orthopedic Surgery: No - Reproductive History Testicular Surgery: No - Psycho Social/Smoking Cessation Hx Smoking History: Current every day smoker Have you smoked in the past 12 months: Yes Number of Cigarettes Smoked Daily: 3 Cigars Per Day: 0 Information on smoking cessation initiated: No 'Breaking Loose' booklet given: 02/23/19 Hx Alcohol Use: Yes Drug/Substance Use Hx: Yes Substance Use Type: Alcohol, Cocaine, Opiates Hx Substance Use Treatment: Yes Cardiac Specific PMH - Complaint Specific PMHX Pacemaker: No Review of Systems - Review of Systems Constitutional: No: Chills, Fever HEENTM: No: Eye Pain, Nose Pain, Throat Pain, Mouth Pain Respiratory: No: Cough, Shortness of Breath Cardiac (ROS): Yes: Chest Pain. No: Palpitations, Syncope ABD/GI: No: Abdominal Distended, Constipated, Diarrhea, Nausea, Vomiting : No: Burning, Dysuria, Discharge, Flank Pain, Hematuria, Incontinence Musculoskeletal: No: Back Pain, Joint Pain, Muscle Pain, Muscle Weakness Integumentary: No: Bruising, Flushing, Lesions Neurological: No: Headache, Seizure, Tingling, Tremors Psychiatric: No: Anxiety, Depression, Stressors Endocrine: No: Excessive Sweating, Flushing, Intolerance to Cold, Intolerance to Heat Hematologic/Lymphatic: No: Anemia, Blood Clots, Easy Bleeding *Physical Exam - Vital Signs Last Vital Signs Temp Pulse Resp BP Pulse Ox 98.2 F 51 L 14 129/62 99 02/26/19 23:33 02/26/19 23:33 02/26/19 23:33 02/26/19 23:33 02/26/19 23:33 - Physical Exam General Appearance: Yes: Nourished, Appropriately Dressed, Mild Distress HEENT: positive: EOMI, SHELLIE, Normal Voice, Hearing Grossly Normal. negative: Scleral Icterus (R), Scleral Icterus (L), Nasal Congestion, Rhinorrhea Respiratory/Chest: positive: Lungs Clear, Normal Breath Sounds. negative: Chest Tender, Respiratory Distress, Crackles, Rhonchi, Stridor, Wheezing Cardiovascular: positive: Regular Rhythm, Regular Rate, S1, S2. negative: Edema , Murmur Extremity: positive: Normal Capillary Refill Integumentary: positive: Normal Color Neurologic: positive: Fully Oriented, Alert, Normal Response, Responsive. negative: Sensory Deficit, Confused, Disoriented Heart Score/ECG Review - History History: Moderately suspicious - Electrocardiogram EKG: Non specific repolarization disturbance - Age Age: 45-65 - Risk Factors Risk Factors Heart Score: Yes Hx Hypercholesterolemia, Yes Hx Hypertension, Yes Hx Diabetes, No Smoking History Based on the list above the patient has:: >/=3 risk factors or Hx atherosclerotic disease - Troponin Troponin: </= normal limit - Score Heart Score - Total: 5 ED Treatment Course - LABORATORY CBC & Chemistry Diagram: 02/27/19 00:50 02/27/19 00:50 - ADDITIONAL ORDERS Additional order review: Laboratory Results 02/27/19 00:50 Sodium Cancelled Potassium Cancelled Chloride Cancelled Carbon Dioxide Cancelled Anion Gap Cancelled BUN Cancelled Creatinine Cancelled Est GFR (CKD-EPI)AfAm Cancelled Est GFR (CKD-EPI)NonAf Cancelled Random Glucose Cancelled Calcium Cancelled Total Bilirubin Cancelled AST Cancelled ALT Cancelled Alkaline Phosphatase Cancelled Creatine Kinase Cancelled Troponin I Cancelled Total Protein Cancelled Albumin Cancelled 02/27/19 00:50 RBC 4.55 MCV 73.7 L MCHC 31.3 L RDW 15.8 MPV 8.9 Neutrophils % 50.8 Lymphocytes % 29.4 Monocytes % 16.8 H Eosinophils % 1.8 Basophils % 1.2 - RADIOLOGY Radiology Studies Ordered: Category Date Time Status CHEST X-RAY PORTABLE* [RAD] Stat Radiology 02/27/19 00:28 Taken - Medications Given in the ED: ED Medications Discontinued Medications Generic Name Dose Route Start Last Admin Trade Name Freq PRN Reason Stop Dose Admin Aspirin 243 mg 02/27/19 00:13 02/27/19 01:25 Asa - PO 02/27/19 00:14 243 mg ONCE ONE Administration Medical Decision Making - Medical Decision Making 02/27/19 00:30 CBC CMP trop EKG CXR 243 aspirin for pain EKG shows new flipped T waves V3, unchanged (from 06/2018) sinus bradycardia, q waves, L axis deviation, HR 51, QTc 418 CXR shows clear lung rojas Hgb 10.5 --- Anderson Chin is a 63 year old male with PMH NC x2 s/p 2 stents, HTN, HLD, CHF, polysubstance abuse (heroin, cocaine, EtOH) presenting from [facility] rehab ( alcohol) for chest pain. Consider ACS vs MSK. EKG shows new flipped T waves V3 vs 06/2018. Low concern for dissection (not hypertensive). Given aspirin for pain. Anticipate admit tele/obvs for NC rule out (5 HEART score, past cardiac hx) Signed out to night team - pending CMP, trop - admit to tele/obvs hospitalist No PCP Discharge - Discharge Information Problems reviewed: Yes Clinical Impression/Diagnosis: Chest pain Qualifiers: Chest pain type: unspecified Qualified Code(s): R07.9 - Chest pain, unspecified Condition: Good - Follow up/Referral - Patient Discharge Instructions - Post Discharge Activity
[2019-02-27] MEDS ORDERED: ASPIRIN 81 MG CHEWABLE TABLETS PO ONE (00:13)
[2019-02-27] MEDS ORDERED: ASPIRIN 81 MG CHEWABLE TABLETS ONE (00:59)
[2019-02-27 01:00] LABS: BASO % 1.2 % (0-2.0); EOS % 1.8 % (0-4.5); HEMATOCRIT 33.5 % (35.4-49); HEMOGLOBIN 10.5 GM/dL (11.7-16.9); LYMPH % 29.4 % (8-40); MCHC 31.3 g/dl (32.0-35.9); MEAN CELL VOLUME 73.7 fl (80-96); MEAN PLT VOLUME 8.9 fl (7.5-11.1); MONO % 16.8 % (3.8-10.2); NEUT % 50.8 % (42.8-82.8); PLATELET COUNT 202 K/MM3 (134-434); RBC 4.55 M/mm3 (4.00-5.60); RDW 15.8 % (11.9-15.9); WHITE BLOOD COUNT 4.5 K/mm3 (4.0-10.0)
--- NOTE | 2019-02-27 01:23 | PDOC ---
Attending Attestation - Resident Resident Name: ChristianEduin prabhakar - ED Attending Attestation I have performed the following: I have examined & evaluated the patient, The case was reviewed & discussed with the resident, I agree w/resident's findings & plan, Exceptions are as noted - HPI HPI: 02/27/19 01:22 63-year-old male presents with complaint of chest pain - Physicial Exam PE: 02/27/19 01:22 Well-nourished well-developed 63-year-old male is complaining of chest pain Has normocephalic atraumatic Neck is supple Lungs are clear to auscultation bilaterally CVS is regular rate and rhythm S1-S2 no rubs or gallops or murmurs Abdomen flat nontender Extremities no pitting edema Skin warm and dry Neuro alert and oriented x3 with no gross focal neuro deficits - Medical Decision Making 02/27/19 01:25 ekg NSR with no sign of acute ischemia 02/27/19 01:27 This patient has a history of coronary artery disease and is status post several stents. He will be admitted to OBS telemetry to rule out KS
[2019-02-27 02:46] LABS: ALBUMIN 3.4 g/dl (3.4-5.0); BILIRUBIN,TOTAL 0.4 mg/dL (0.2-1); CALCIUM 8.9 mg/dL (8.5-10.1); CREATININE 1.2 mg/dL (0.55-1.3); POTASSIUM 4.6 mmol/L (3.5-5.1); TOT PROT 7.3 g/dl (6.4-8.2)
[2019-02-27] MEDS ORDERED: SODIUM CHLORIDE 500 ML IV STA (03:04)
[2019-02-27] MEDS ORDERED: NITROGLYCERIN SUBLINGUAL 1/150 0.4 MG TAB SL ONE (03:22)
--- NOTE | 2019-02-27 04:01 | PDOC ---
*Physical Exam - Vital Signs Last Vital Signs Temp Pulse Resp BP Pulse Ox 98.2 F 51 L 14 129/62 99 02/26/19 23:33 02/26/19 23:33 02/26/19 23:33 02/26/19 23:33 02/26/19 23:33 ED Treatment Course - LABORATORY CBC & Chemistry Diagram: 02/27/19 00:50 02/27/19 01:57 - ADDITIONAL ORDERS Additional order review: Laboratory Results 02/27/19 02/27/19 01:57 00:50 Sodium 139 Cancelled Potassium 4.6 Cancelled Chloride 109 H Cancelled Carbon Dioxide 25 Cancelled Anion Gap 5 L Cancelled BUN 23.0 H Cancelled Creatinine 1.2 Cancelled Est GFR (CKD-EPI)AfAm 74.14 Cancelled Est GFR (CKD-EPI)NonAf 63.97 Cancelled Random Glucose 124 H Cancelled Calcium 8.9 Cancelled Total Bilirubin 0.4 Cancelled AST 75 H Cancelled ALT 91 H Cancelled Alkaline Phosphatase 82 Cancelled Creatine Kinase 215 Cancelled Creatine Kinase Index 1.5 CK-MB (CK-2) 3.4 Troponin I 0.03 Cancelled Total Protein 7.3 Cancelled Albumin 3.4 Cancelled 02/27/19 00:50 RBC 4.55 MCV 73.7 L MCHC 31.3 L RDW 15.8 MPV 8.9 Neutrophils % 50.8 Lymphocytes % 29.4 Monocytes % 16.8 H Eosinophils % 1.8 Basophils % 1.2 - Medications Given in the ED: ED Medications Discontinued Medications Generic Name Dose Route Start Last Admin Trade Name Freq PRN Reason Stop Dose Admin Aspirin 243 mg 02/27/19 00:13 02/27/19 01:25 Asa - PO 02/27/19 00:14 243 mg ONCE ONE Administration Nitroglycerin 0.4 mg 02/27/19 03:22 02/27/19 03:55 Nitrostat - SL 02/27/19 03:23 0.4 mg ONCE ONE Administration Medical Decision Making - Medical Decision Making 02/27/19 04:02 s/o from day team 63 yo male PMH 2 OH with stents, HTN, HLD, CHF, polysubstance abuse (heroin, cocaine, EtOH) presenting from [facility] rehab (alcohol) for chest pain. EKG sinus prem with flipped T waves V3 vs 06/2018 given ASA, SL nitrog Trops neg Pt heart score is 5 and should be admitted to tele obs for OH r/o Pt reluctant however agrees to admission pt accepted for admission Discharge - Discharge Information Problems reviewed: Yes Clinical Impression/Diagnosis: Chest pain Qualifiers: Chest pain type: unspecified Qualified Code(s): R07.9 - Chest pain, unspecified Condition: Improved - Follow up/Referral - Patient Discharge Instructions - Post Discharge Activity
--- NOTE | 2019-02-27 04:50 | PN ---
Teaching Attending Note Name of Resident: Earlene Saucedo ATTENDING PHYSICIAN STATEMENT I saw and evaluated the patient. I reviewed the resident's note and discussed the case with the resident. I agree with the resident's findings and plan as documented. SUBJECTIVE: Patient is a 63 year old man with PMH IL x2 s/p 2 stents, HTN, HLD, CHF, Hepatitis C disease, BPH, Depression, Tobacco use and Polysubstance abuse ( alcohol, opiates, heroin, cocaine) presenting from [facility] rehab for chest pain. Sudden onset right-sided chest pain radiating to left chest and shoulder while watching TV yesterday afternoon. Took 3 nitro without relief. Took 81 aspirin today. Denies alcohol, substance use for last month. [facility] - negative workup including cath for chest pain. Denies fever, headache, nausea/vomiting, abdominal pain, urinary/bowel movement changes. OBJECTIVE: Alert Vital Signs Period Temp Pulse Resp BP Sys/Paulino Pulse Ox Last 24 Hr 98.2 F 51 14 129/62 99 HEENT: No Jaundice, eye redness or discharge, PERRLA, EOMI. Normocephalic, atraumatic. External ears are normal and hearing is grossly intact. No nasal discharge. Neck: Supple, nontender. No palpable adenopathy or thyromegaly. No JVD Chest: Good effort. Clear to auscultation and percussion. Heart: Irregularly irregular. No S3, rub or murmur Abdomen: Not distended, soft, nontender and no HSM. No rebound or guarding. Normal bowel sounds. Ext: Peripheral pulses intact. No leg edema. Skin: Warm and dry. No petechiae, rash or ecchymosis. Neuro: Alert. Oriented x3.No tremors or asterexis. CN 2-12 grossly intact. Sensation grossly intact in all four extremities and DTR are symmetric. Psych: Appropriate mood and affect. Good insight. Home Medications Medication Instructions Recorded Aspirin [ASA -] 81 mg PO DAILY #30 tab.chew 06/15/16 traZODone HCL [Desyrel -] 50 mg PO HS #30 tablet 10/24/16 Atorvastatin Ca [Lipitor] 20 mg PO HS #30 tablet 12/13/17 Clopidogrel Bisulfate [Plavix -] 75 mg PO DAILY #30 tablet 12/13/17 Amlodipine Besylate [Norvasc -] 10 mg PO DAILY 06/24/18 Isosorbide Mononitrate [Imdur -] 30 mg PO DAILY 06/24/18 Nitroglycerin 0.4 mg SL DAILY 06/24/18 Folic Acid 1 mg PO DAILY 02/13/19 Abnormal Lab Results 02/27/19 02/27/19 00:50 01:57 Hgb 10.5 L Hct 33.5 L MCV 73.7 L MCH 23.0 L MCHC 31.3 L Monocytes % 16.8 H Chloride 109 H Anion Gap 5 L BUN 23.0 H Random Glucose 124 H AST 75 H ALT 91 H ASSESSMENT AND PLAN: 1. Chest pain - EKG is sinus bradycardia with LBBB and no significant ST-T wave changes. Initial troponin is negative. Will admit to telemetry to rule out ACS, get ECHO, fasting lipids and consult cardiology. No acute abnormality on CXR. Check Hep C viral load and refer to GI for treatment. Will continue comprehensive care for all of patients comorbid conditions. 2. Polysubstance and Alcohol abuse -Will monitor for sihns of drug withdrawal. Will implement [facility] alcohol withdrawal protocol and do neurochecks. Implement seizure, fall and aspiration precautions. Treat with thiamine and folic acid and monitor electrolytes (Ca,Mg,K,P). Counseled patient about abstaining from alcohol or illicit drugs. Will consult customer sales specialist and refer to drug/alcohol detox upon discharge. 3. DVT prophylaxis - Lovenox 40 mg SQ q 24 hours. 4. Heparin 5000u sq tid. - Advance directives - Full code
[2019-02-27] MEDS ORDERED: HEPARIN NA (PORCINE) 5,000 UNITS/ML 1ML VIAL SQ ONE (06:01)
--- NOTE | 2019-02-27 06:01 | HP ---
CHIEF COMPLAINT: chest pain PCP: unknown HISTORY OF PRESENT ILLNESS: 63 y.o. M PMH polysubstance abuse (EtOH, heroin, cocaine), HTN, HLD, s/p 2 PR's & 2 stent placements, untreated hepatitis C, BPH, depression presenting from [facility] rehab for chest pain. Pain began at rest while watching TV, 7/10, radiates to L chest and shoulder. Pt says he has not use alcohol or drugs for the past 1 month. Pt was seen at [facility] 1 mo ago for similar symptoms where he had a negative cardiac workup including cath. While at [facility] patient received 3x 0.4mg sublingual nitro with no relief of his chest pain. Pt says he took his daily aspirin dose in the morning. ER course was notable for: (1) EKG: sinus prem, LBBB (2) 1 x sublingual nitro (3) Recent Travel: denies PAST MEDICAL HISTORY: as per HPI PAST SURGICAL HISTORY: 2 stent placements Social History: lives with his siblings. unemployed. Smokin-3 cigarettes daily x 51 years Alcohol: drank 3 pints liquor daily-- hasnt drank in 1 month Drugs: hasnt used in 1 month, when he did he only snorted did not use IV- cocaine, heroin Allergies acetaminophen [From Tylenol] Allergy (Intermediate, Verified 02/23/19 18:15) Rash ibuprofen Allergy (Intermediate, Verified 02/23/19 18:15) Rash HOME MEDICATIONS: Home Medications Medication Instructions Recorded Aspirin [ASA -] 81 mg PO DAILY #30 tab.chew 06/15/16 traZODone HCL [Desyrel -] 50 mg PO HS #30 tablet 10/24/16 Atorvastatin Ca [Lipitor] 20 mg PO HS #30 tablet 12/13/17 Clopidogrel Bisulfate [Plavix -] 75 mg PO DAILY #30 tablet 12/13/17 Amlodipine Besylate [Norvasc -] 10 mg PO DAILY 06/24/18 Isosorbide Mononitrate [Imdur -] 30 mg PO DAILY 06/24/18 Nitroglycerin 0.4 mg SL DAILY 06/24/18 Folic Acid 1 mg PO DAILY 02/13/19 PHYSICAL EXAMINATION Vital Signs - 24 hr 02/26/19 23:33 Temperature 98.2 F Pulse Rate 51 L Respiratory 14 Rate Blood Pressure 129/62 O2 Sat by Pulse 99 Oximetry (%) GENERAL: AOx3 in mild distress d/t chest pain HEENT: NCAT. PERRLA. LUNGS: CTABL. No incr work of breathing, no wheezing/ crackles ABDOMEN: Soft NTND. + bowel sounds EXTR: 2+ pulses palpated b/l. No peripheral edema. NEUROLOGICAL: Cranial nerves II-XII intact. Normal speech. PSYCHIATRIC: Cooperative. Good eye contact. Appropriate mood and affect. SKIN: No rashes or lesions noted Laboratory Results - last 24 hr 02/27/19 02/27/19 02/27/19 00:50 00:50 01:57 WBC 4.5 RBC 4.55 Hgb 10.5 L Hct 33.5 L MCV 73.7 L MCH 23.0 L MCHC 31.3 L RDW 15.8 Plt Count 202 D MPV 8.9 Absolute Neuts (auto) 2.3 Neutrophils % 50.8 Lymphocytes % 29.4 Monocytes % 16.8 H Eosinophils % 1.8 Basophils % 1.2 Nucleated RBC % 0 Sodium Cancelled 139 Potassium Cancelled 4.6 Chloride Cancelled 109 H Carbon Dioxide Cancelled 25 Anion Gap Cancelled 5 L BUN Cancelled 23.0 H Creatinine Cancelled 1.2 Est GFR (CKD-EPI)AfAm Cancelled 74.14 Est GFR (CKD-EPI)NonAf Cancelled 63.97 Random Glucose Cancelled 124 H Calcium Cancelled 8.9 Total Bilirubin Cancelled 0.4 AST Cancelled 75 H ALT Cancelled 91 H Alkaline Phosphatase Cancelled 82 Creatine Kinase Cancelled 215 Creatine Kinase Index 1.5 CK-MB (CK-2) 3.4 Troponin I Cancelled 0.03 Total Protein Cancelled 7.3 Albumin Cancelled 3.4 ASSESSMENT/PLAN: 63 y.o. M PMH polysubstance abuse (EtOH, heroin, cocaine), HTN, HLD, s/p 2 PR's & 2 stent placements, untreated hepatitis C, BPH, depression presenting from [facility] rehab for chest pain. #Chest pain r/o ACS -EKG shows sinus prem, LBBB; f/u repeat EKG -F/u repeat trop -Cardio consulted (Dr. Hernandez) -F/u echo -C/w home meds imdur, nitro, asa, plavix, amlodipine, statin -Tele observation #HTN -C/w home meds: imdur, nitro, asa, amlodipine -Monitor vitals #HLD -C/w home statin #Polysbustance abuse -Seizure/ fall precautions -Thiamine & folic acid, multivitamins -Seizure, fall precautions #Untreated hep C -F/u hepatitic C viral load PCR -F/u with GI on discharge #FEN -no standing fluids -trend lytes replete prn -Na controlled diet #DVT PPX -Heparin SQ #Dispo tele observation Visit type - Emergency Visit Emergency Visit: Yes ED Registration Date: 02/27/19 Care time: The patient presented to the Emergency Department on the above date and was hospitalized for further evaluation of their emergent condition. - New Patient This patient is new to me today: Yes Date on this admission: 02/27/19 - Critical Care Critical Care patient: No ATTENDING PHYSICIAN STATEMENT I saw and evaluated the patient. I reviewed the resident's note and discussed the case with the resident. I agree with the resident's findings and plan as documented. SUBJECTIVE: OBJECTIVE: ASSESSMENT AND PLAN:
--- NOTE | 2019-02-27 08:33 | PN ---
Progress Note, Physician History of Present Illness: 63 y.o. M PMH polysubstance abuse (EtOH, heroin, cocaine), HTN, HLD, s/p 2 NH's & 2 stent placements, untreated hepatitis C, BPH, depression presenting from [facility] rehab for chest pain. Pain began at rest while watching TV, 7/10, radiates to L chest and shoulder down arm. Pt says he has not use alcohol or drugs for the past 1 month. Pt was seen at [facility] 1 mo ago for similar symptoms where he had a reported negative cardiac workup including cath. While at [facility] patient received 3x 0.4mg sublingual nitro with no relief of his chest pain. Pt says he took his daily aspirin dose in the morning. - Current Medication List Current Medications: Active Medications Amlodipine Besylate (Norvasc -) 10 mg PO DAILY [facility] Aspirin (Asa -) 81 mg PO DAILY ELINA Atorvastatin Calcium (Lipitor -) 20 mg PO HS ELINA Clopidogrel Bisulfate (Plavix -) 75 mg PO DAILY ELINA Folic Acid (Folic Acid -) 1 mg PO DAILY [facility] Multivitamins/Minerals/Vitamin C (Tab-A-Vit -) 1 tab PO DAILY ELINA Thiamine HCl (Vitamin B1 -) 100 mg PO DAILY ELINA - Objective Vital Signs: Vital Signs Temperature 98.2 F 02/26/19 23:33 Pulse Rate 51 L 02/26/19 23:33 Respiratory Rate 14 02/26/19 23:33 Blood Pressure 129/62 02/26/19 23:33 O2 Sat by Pulse Oximetry (%) 99 02/26/19 23:33 Constitutional: Yes: Well Nourished, No Distress, Calm Eyes: Yes: WNL, Conjunctiva Clear HENT: Yes: WNL, Atraumatic, Normocephalic Neck: Yes: WNL, Supple, Trachea Midline Cardiovascular: Yes: WNL, Regular Rate and Rhythm Respiratory: Yes: WNL, Regular, CTA Bilaterally Gastrointestinal: Yes: WNL, Normal Bowel Sounds ...Rectal Exam: Yes: Deferred Genitourinary: Yes: WNL Breast(s): Yes: WNL Musculoskeletal: Yes: WNL Extremities: Yes: WNL Edema: No Peripheral Pulses WNL: Yes Peripheral Pulses: Left Radial: 2+, Right Radial: 2+, Left Doralis Pedis: 2+, Right Dorsalis Pedis: 2+, Left Femoral: 2+, Right Femoral: 2+ Integumentary: Yes: WNL Neurological: Yes: WNL, Alert, Oriented ...Motor Strength: WNL Psychiatric: Yes: WNL, Alert, Oriented Labs: CBC, BMP 02/27/19 00:50 02/27/19 01:57 - ....Imaging Chest X-ray: Image Reviewed (no acute pathology) Problem List - Problems (1) Polysubstance abuse Assessment/Plan: return back to [facility] for rehab c/w mvi/thiamine/folate Code(s): F19.10 - OTHER PSYCHOACTIVE SUBSTANCE ABUSE, UNCOMPLICATED (2) Stented coronary artery Assessment/Plan: c/w asa c/w plavix c/w statin attempted to obtain records from [facility]cath and [facility]-medical records and interventional cardiology closed due to holiday Code(s): Z95.5 - PRESENCE OF CORONARY ANGIOPLASTY IMPLANT AND GRAFT (3) Smoking Code(s): F17.200 - NICOTINE DEPENDENCE, UNSPECIFIED, UNCOMPLICATED (4) Chest pain Assessment/Plan: pain persists despite Ntg relieved only by MSO4 TTE with EF 35-40 % trop negative x 2 continue on tele monitoring(pt currently refusing) will try to obtain cardiology records in am from [facility] Code(s): R07.9 - CHEST PAIN, UNSPECIFIED Qualifiers: Chest pain type: unspecified Qualified Code(s): R07.9 - Chest pain, unspecified (5) Hyperlipidemia Assessment/Plan: c/w statin Code(s): E78.5 - HYPERLIPIDEMIA, UNSPECIFIED Qualifiers: Hyperlipidemia type: unspecified Qualified Code(s): E78.5 - Hyperlipidemia , unspecified (6) Hypertension Assessment/Plan: c/w norvasc Code(s): I10 - ESSENTIAL (PRIMARY) HYPERTENSION Qualifiers: Hypertension type: essential hypertension Qualified Code(s): I10 - Essential (primary) hypertension (7) Hepatitis C Assessment/Plan: F/u hepatitic C viral load PCR F/u with GI on discharge Code(s): B19.20 - UNSPECIFIED VIRAL HEPATITIS C WITHOUT HEPATIC COMA Qualifiers: Viral hepatitis chronicity: chronic Hepatic coma status: without hepatic coma Qualified Code(s): B18.2 - Chronic viral hepatitis C Visit type - Emergency Visit Emergency Visit: Yes ED Registration Date: 02/27/19 Care time: The patient presented to the Emergency Department on the above date and was hospitalized for further evaluation of their emergent condition. - New Patient This patient is new to me today: Yes Date on this admission: 02/27/19 - Critical Care Critical Care patient: No - Discharge Referral Referred to [facility] No
[2019-02-27] MEDS ORDERED: MORPHINE SULFATE 2 MG/ML VIAL IVPUSH ONE ×2 (09:28→15:31)
[2019-02-27] MEDS ORDERED: MORPHINE SULFATE 2 MG/ML VIAL ONE ×2 (09:49→15:45)
[2019-02-27] MEDS ORDERED: FOLIC ACID 1 MG TABLET (FP) PO SCH (10:00)
[2019-02-27] MEDS: THIAMINE HCL 100 MG TABLET (FP) PO SCH (10:47)
[2019-02-27] MEDS: CLOPIDOGREL BISULFATE 75 MG TABLET (FP) PO SCH (10:47)
[2019-02-27] MEDS: amLODIPine BESYLATE 5 MG TABLET (FP) PO SCH (10:47)
[2019-02-27] MEDS: MULTIVITAMINS (DAILY MVI) TABLET (FP) PO SCH (10:47)
[2019-02-27] MEDS: FOLIC ACID 1 MG TABLET (FP) PO SCH (10:47)
[2019-02-27] MEDS: ASPIRIN 81 MG CHEWABLE TABLETS PO SCH (10:47)
--- NOTE | 2019-02-27 12:04 | CON.CARD ---
Cardiology Consult (text) - Consultation Consultation Note: cc: cp hpi: 63 m hx htn, hld, cad/mi/pci, dm, hcv, heroin/cocaine abuse, here with cp. At detox rehab and yesterday starting having sharp left/central cp, constant. No sob palps dizzy loc pnd orthopnea le edema. Different than his prior mi cp. Had same cp about a month ago and reports he was admitted at [facility] and had echo, stress test, and cath then and was told everything was ok. pmh: per hpi psh: pci social: +tob, +heroin, +cocaine fam: no premature cad, scd ros: per hpi; all others nl meds: Home Medications Medication Instructions Recorded Aspirin [ASA -] 81 mg PO DAILY #30 tab.chew 06/15/16 traZODone HCL [Desyrel -] 50 mg PO HS #30 tablet 10/24/16 Atorvastatin Ca [Lipitor] 20 mg PO HS #30 tablet 12/13/17 Clopidogrel Bisulfate [Plavix -] 75 mg PO DAILY #30 tablet 12/13/17 Amlodipine Besylate [Norvasc -] 10 mg PO DAILY 06/24/18 Isosorbide Mononitrate [Imdur -] 30 mg PO DAILY 06/24/18 Nitroglycerin 0.4 mg SL DAILY 06/24/18 Folic Acid 1 mg PO DAILY 02/13/19 pe: Vital Signs Period Temp Pulse Resp BP Sys/Paulino Pulse Ox Last 24 Hr 98.2 F 51 14 129/62 99 nad no jvd rrr s1s2 no mrg cta bl nl eff abd nt nd pos bs no jaundice diaphoresis pos dp pt no carotid bruits no le e/c/c aao3 Laboratory Last Values WBC 4.5 K/mm3 (4.0-10.0) 02/27/19 00:50 RBC 4.55 M/mm3 (4.00-5.60) 02/27/19 00:50 Hgb 10.5 GM/dL (11.7-16.9) L 02/27/19 00:50 Hct 33.5 % (35.4-49) L 02/27/19 00:50 MCV 73.7 fl (80-96) L 02/27/19 00:50 MCH 23.0 pg (25.7-33.7) L 02/27/19 00:50 MCHC 31.3 g/dl (32.0-35.9) L 02/27/19 00:50 RDW 15.8 % (11.9-15.9) 02/27/19 00:50 Plt Count 202 K/MM3 (134-434) D 02/27/19 00:50 MPV 8.9 fl (7.5-11.1) 02/27/19 00:50 Absolute Neuts (auto) 2.3 K/mm3 (1.5-8.0) 02/27/19 00:50 Neutrophils % 50.8 % (42.8-82.8) 02/27/19 00:50 Lymphocytes % 29.4 % (8-40) 02/27/19 00:50 Monocytes % 16.8 % (3.8-10.2) H 02/27/19 00:50 Eosinophils % 1.8 % (0-4.5) 02/27/19 00:50 Basophils % 1.2 % (0-2.0) 02/27/19 00:50 Nucleated RBC % 0 % (0-0) 02/27/19 00:50 Sodium 139 mmol/L (136-145) 02/27/19 01:57 Potassium 4.6 mmol/L (3.5-5.1) 02/27/19 01:57 Chloride 109 mmol/L (98-107) H 02/27/19 01:57 Carbon Dioxide 25 mmol/L (21-32) 02/27/19 01:57 Anion Gap 5 MMOL/L (8-16) L 02/27/19 01:57 BUN 23.0 mg/dL (7-18) H 02/27/19 01:57 Creatinine 1.2 mg/dL (0.55-1.3) 02/27/19 01:57 Est GFR (CKD-EPI)AfAm 74.14 02/27/19 01:57 Est GFR (CKD-EPI)NonAf 63.97 02/27/19 01:57 Random Glucose 124 mg/dL (74-106) H 02/27/19 01:57 Calcium 8.9 mg/dL (8.5-10.1) 02/27/19 01:57 Total Bilirubin 0.4 mg/dL (0.2-1) 02/27/19 01:57 AST 75 U/L (15-37) H 02/27/19 01:57 ALT 91 U/L (13-61) H 02/27/19 01:57 Alkaline Phosphatase 82 U/L (45-117) 02/27/19 01:57 Creatine Kinase 215 U/L (26-308) 02/27/19 01:57 Creatine Kinase Index 1.5 % (0.0-5.0) 02/27/19 01:57 CK-MB (CK-2) 3.4 ng/mL (0.5-3.6) 02/27/19 01:57 Troponin I 0.03 ng/ml (0.00-0.05) 02/27/19 01:57 Total Protein 7.3 g/dl (6.4-8.2) 02/27/19 01:57 Albumin 3.4 g/dl (3.4-5.0) 02/27/19 01:57 cxr: clear lungs ecg: sr, nonspec IVCD, no sig change prior a/p: 63 m hx htn, hld, cad/mi/pci, dm, hcv, heroine/cocaine abuse, here with cp. cp,cad: -pt with hx cad/mi/pci -here with cp. ecg w/o ischemic changes. first trop neg. would check second trop and cont tele for now. -Had same cp about a month ago and reports he was admitted at [facility] and had echo, stress test, and cath then and was told everything was ok-->would attempt to get records, if these tests were all benign recently then no need for further cardiac testing now. -cont dapt, statin, ccb htn: -stable, cont ccb hld: -cont statin drug abuse, smoking: -cessation discussed
--- NOTE | 2019-02-27 12:52 | EKG ---
Test Reason : Blood Pressure : / mmHG Vent. Rate : 051 BPM Atrial Rate : 051 BPM P-R Int : 220 ms QRS Dur : 132 ms QT Int : 448 ms P-R-T Axes : 078 -74 -50 degrees QTc Int : 412 ms SINUS BRADYCARDIA WITH 1ST DEGREE A-V BLOCK LEFT AXIS DEVIATION LEFT BUNDLE BRANCH BLOCK ABNORMAL ECG WHEN COMPARED WITH ECG OF 26-FEB-2019 23:29, NO SIGNIFICANT CHANGE WAS FOUND Confirmed by GEORGIA LEYVA MD ([id number]) on 02/27/2019 12:51:31 PM Referred By: Confirmed By:GEORGIA LEYVA MD
--- NOTE | 2019-02-27 13:01 | EKG ---
Test Reason : Blood Pressure : / mmHG Vent. Rate : 051 BPM Atrial Rate : 051 BPM P-R Int : 204 ms QRS Dur : 140 ms QT Int : 454 ms P-R-T Axes : 078 -74 -29 degrees QTc Int : 418 ms SINUS BRADYCARDIA LEFT AXIS DEVIATION NON-SPECIFIC INTRA-VENTRICULAR CONDUCTION BLOCK CANNOT RULE OUT SEPTAL INFARCT , AGE UNDETERMINED ABNORMAL ECG WHEN COMPARED WITH ECG OF 26-FEB-2019 21:32, NON-SPECIFIC INTRA-VENTRICULAR CONDUCTION BLOCK HAS REPLACED LEFT BUNDLE BRANCH BLOCK MINIMAL CRITERIA FOR SEPTAL INFARCT ARE NOW PRESENT Confirmed by GEORGIA LEYVA MD ([id number]) on 02/27/2019 1:01:06 PM Referred By: Confirmed By:GEORGIA LEYVA MD
--- NOTE | 2019-02-27 14:01 | ECHO ---
Name: SHOAIB KINSEY Exam:Adult Echocardiogram Study Date: 02/27/2019 10:24 AM Age: 63 yrs Reason For Study: CHEST PAIN Height: 67 in Weight: 163 lb BSA: 1.9 m2 MMode/2D Measurements & Calculations IVSd: 0.94 cm Ao root diam: 2.6 cm LVIDd: 5.5 cm LA dimension: 3.9 cm LVIDs: 4.5 cm LVPWd: 0.72 cm EDV(Teich): 148.6 ml LVOT diam: 2.1 cm ESV(Teich): 94.5 ml LAV (MOD-bp): 94.0 ml Doppler Measurements & Calculations MV E max candelaria: 105.6 cm/sec Ao V2 max: 163.3 cm/sec MV A max candelaria: 30.1 cm/sec Ao max P.7 mmHg MV E/A: 3.5 MV dec time: 0.32 sec CATE(V,D): 1.8 cm2 LV V1 max P.9 mmHg MR max candelaria: 437.5 cm/sec LV V1 max: 85.6 cm/sec MR max P.6 mmHg TR max candelaria: 152.5 cm/sec TR max P.4 mmHg Procedure A complete two-dimensional transthoracic echocardiogram was performed (2D, M-mode, Doppler and color flow Doppler). Left Ventricle The left ventricle is normal in size. Left ventricular systolic function is moderately reduced. Eject ion Fraction = 35-40%. There is moderate global hypokinesis of the left ventricle. Right Ventricle The right ventricle is normal size. The right ventricular systolic function is normal. RV systolic TD I is 12 cm/s. Atria The left atrial size is normal. Right atrial size is normal. Mitral Valve The mitral valve is normal in structure and function. There is mild mitral regurgitation. Tricuspid Valve The tricuspid valve is normal in structure and function. There is mild tricuspid regurgitation. Right ventricular systolic pressure is normal. Aortic Valve There is mild aortic sclerosis.;. Mild aortic regurgitation. Pulmonic Valve The pulmonic valve is not well visualized. Great Vessels The aortic root is normal size. Pericardium/Pleura Small pericardial effusion (<1cm). Interpretation Summary The left ventricle is normal in size. Left ventricular systolic function is moderately reduced. There is moderate global hypokinesis of the left ventricle. Ejection Fraction = 35-40%. The right ventricular systolic function is normal. The left atrial size is normal. Right atrial size is normal. There is mild mitral regurgitation. There is mild tricuspid regurgitation. Right ventricular systolic pressure is normal. There is mild aortic sclerosis. Mild aortic regurgitation. Small pericardial effusion (<1cm) Previous study is not available for comparison Reno Stover MD 02/27/2019 02:01 PM
[2019-02-27] MEDS ORDERED: ATORVASTATIN CA 20 MG TABLET (FP) PO SCH (22:00)
[2019-02-27] MEDS ORDERED: ATORVASTATIN CA 20 MG TABLET (FP) ONE (22:40)
[2019-02-28] MEDS: amLODIPine BESYLATE 5 MG TABLET (FP) PO SCH (09:14)
[2019-02-28] MEDS: MULTIVITAMINS (DAILY MVI) TABLET (FP) PO SCH (09:14)
[2019-02-28] MEDS: CLOPIDOGREL BISULFATE 75 MG TABLET (FP) PO SCH (09:14)
[2019-02-28] MEDS: FOLIC ACID 1 MG TABLET (FP) PO SCH (09:14)
[2019-02-28] MEDS: THIAMINE HCL 100 MG TABLET (FP) PO SCH (09:14)
[2019-02-28] MEDS: ASPIRIN 81 MG CHEWABLE TABLETS PO SCH (09:14)
--- NOTE | 2019-02-28 11:06 | DS ---
Physical Exam: SUBJECTIVE: Patient seen and examined in the ED. Wants to go back to [facility] for rehab. refusing further labs, vitals. wants to eventually enter a assisted program for abstinence of drugs. no chest pain, palps, dizziness or dyspnea OBJECTIVE: d/c back to [facility] seen by cardiology, lisinopril recommended on d/c Patient is a 63 year old male with a significant past medical history of polysubstance abuse (EtOH, heroin, cocaine), HTN, HLD, s/p 2 ME's & 2 stent placements, untreated hepatitis C, BPH, depression presenting from [facility] rehab for chest pain. Pt was seen at [facility] 1 month ago for similar symptoms where he had a negative cardiac workup including cath. While at [facility] patient received 3x 0.4mg sublingual nitro with no relief of his chest pain. Vital Signs Period Temp Pulse Resp BP Sys/Paulino Pulse Ox Last 24 Hr 98.1 F-98.3 F 56-72 16-18 144-151/72-80 98-100 PHYSICAL EXAM GENERAL: The patient is awake, alert, and fully oriented, in no acute distress. HEAD: Normal with no signs of trauma. EYES: PERRL, extraocular movements intact, sclera anicteric, conjunctiva clear. ENT: Ears normal, nares patent, oropharynx clear without exudates, moist mucous membranes. NECK: Trachea midline, full range of motion, supple. LUNGS: Breath sounds equal, clear to auscultation bilaterally, no wheezes HEART: Regular rate and rhythm ABDOMEN: Soft, nontender, nondistended, normoactive bowel sounds, no guarding, no rebound, no hepatosplenomegaly, no masses. EXTREMITIES: no edema. NEUROLOGICAL: Normal speech, gait not observed. PSYCH: Normal mood, normal affect. SKIN: Warm, dry, normal turgor, no rashes or lesions noted. LABS Laboratory Results - last 24 hr 02/27/19 12:44 Troponin I 0.04 HOSPITAL COURSE: Date of Admission:02/27/19 Date of Discharge: 02/28/19 Patient is a 63 year old male with a significant past medical history of polysubstance abuse (EtOH, heroin, cocaine), HTN, HLD, s/p 2 ME's & 2 stent placements, untreated hepatitis C, BPH, depression presenting from [facility] rehab for chest pain. Pt was seen at [facility] 1 month ago for similar symptoms where he had a negative cardiac workup including cath. While at [facility] patient received 3x 0.4mg sublingual nitro with no relief of his chest pain. Chest pain: resolved ekg w/o ischemic changes troponins negative x 2 started on lisinopril 5mg daily had similar chest pain in past and was worked up at [facility] per patient, all testing negative avoid BB given chest pain Minutes to complete discharge: 45 Discharge Summary Problems reviewed: Yes Reason For Visit: CHEST PAIN,RULE OUT ACUTE MYOCARDIAL INFARCTION Current Active Problems Chest pain (Acute) Polysubstance abuse (Acute) Smoking (Acute) Stented coronary artery (Acute) Condition: Improved - Instructions Diet, Activity, Other Instructions: discharge back to [facility] rehab. new medications: lisinopril 5mg ONCE per day and please follow up with your supervisor claims. thank you for allowing us to care for you. Referrals: Collette Bermeo DO [Staff Physician] - Disposition: TRANSFER ACUTE CARE/OTHER HOSP - Home Medications Comprehensive Discharge Medication List: Ambulatory Orders Aspirin [ASA -] 81 mg PO DAILY #30 tab.chew 06/15/16 traZODone HCL [Desyrel -] 50 mg PO HS #30 tablet 10/24/16 Atorvastatin Ca [Lipitor] 20 mg PO HS #30 tablet 12/13/17 Clopidogrel Bisulfate [Plavix -] 75 mg PO DAILY #30 tablet 12/13/17 Amlodipine Besylate [Norvasc -] 10 mg PO DAILY 06/24/18 Isosorbide Mononitrate [Imdur -] 30 mg PO DAILY 06/24/18 Nitroglycerin 0.4 mg SL DAILY 06/24/18 Folic Acid 1 mg PO DAILY 02/13/19 Lisinopril [Prinivil] 5 mg PO DAILY #30 tablet 02/28/19 Thiamine HCl [Vitamin B1 -] 100 mg PO DAILY tablet 02/28/19 This patient is new to me today: Yes Date on this admission: 02/28/19 Emergency Visit: Yes ED Registration Date: 02/27/19 Care time: The patient presented to the Emergency Department on the above date and was hospitalized for further evaluation of their emergent condition. Critical Care patient: No - Discharge Referral Referred to [facility] Med P.C.: No
[2019-02-28] MEDS ORDERED: LISINOPRIL 5 MG TABLET (FP) PO SCH (11:15)
--- NOTE | 2019-02-28 11:19 | PN ---
Progress Note (short form) - Note Progress Note: s: no chest pain, palps, dizziness, dyspnea. wants to go home. Current Medications Amlodipine Besylate (Norvasc -) 10 mg PO DAILY [facility] Last Admin: 02/28/19 09:14 Dose: Not Given Aspirin (Asa -) 81 mg PO DAILY [facility] Last Admin: 02/28/19 09:14 Dose: Not Given Atorvastatin Calcium (Lipitor -) 20 mg PO HS [facility] Last Admin: 02/27/19 22:51 Dose: 20 mg Clopidogrel Bisulfate (Plavix -) 75 mg PO DAILY [facility] Last Admin: 02/28/19 09:14 Dose: Not Given Folic Acid (Folic Acid -) 1 mg PO DAILY [facility] Last Admin: 02/28/19 09:14 Dose: Not Given Lisinopril (Prinivil) 5 mg PO DAILY [facility] Multivitamins/Minerals/Vitamin C (Tab-A-Vit -) 1 tab PO DAILY [facility] Last Admin: 02/28/19 09:14 Dose: Not Given Thiamine HCl (Vitamin B1 -) 100 mg PO DAILY [facility] Last Admin: 02/28/19 09:14 Dose: Not Given Vital Signs Period Temp Pulse Resp BP Sys/Paulino Pulse Ox Last 24 Hr 98.1 F-98.3 F 56-72 16-18 144-151/72-80 98-100 nad no jvd rrr s1s2 no mrg cta bl nl eff abd nt nd pos bs no jaundice diaphoresis pos dp pt no carotid bruits no le e/c/c aao3 cxr: clear lungs ecg: sr, nonspec IVCD, no sig change prior echo 02/2019 EF 35-40%, RV nl, mild MR, mild TR, mild AR, small pericardial effusion <1 cm a/p: 63 m hx htn, hld, cad/mi/pci, dm, hcv, heroine/cocaine abuse, here with cp. cp,cad: -pt with hx cad/mi/pci -CP resolved ecg w/o ischemic changes, trop neg x 2, unlikely ACS -Had same cp about a month ago and reports he was admitted at [facility] and had echo, stress test, and cath then and was told everything was ok - echo here shows EF 35-40%, per patient he was told this before. He used to be on enalapril and was most recently on lisinopril, not sure of dose - start lisinopril 5 mg daily, avoid bb given cocaine use -cont dapt, statin, ccb htn: -stable, cont ccb hld: -cont statin drug abuse, smoking: -cessation discussed stable for dc from cardiac perspective
[2019-02-28 11:22] VITALS: BP 126/85; PULSE 57; TEMP 97.9
[2019-02-28] MEDS ORDERED: LISINOPRIL 5 MG TABLET (FP) ONE (11:45)
== END 2019-02-28 12:50 | disposition other institution (70) ==
LOC: JER 23:07 → JERBED 02-27 01:54
PROVIDERS: ADMIT Internal Medicine; ATTEND Nurse Practitioner Family
PROC: 3E0333Z Introduction of Anti-inflammatory into Peripheral Vein, Percutaneous Approach (ICD-10-PCS; principal; 2019-02-27)
PROC: 3E0337Z Introduction of Electrolytic and Water Balance Substance into Peripheral Vein, Percutaneous Approach (ICD-10-PCS; 2019-02-27)
PROC: 3E013GC Introduction of Other Therapeutic Substance into Subcutaneous Tissue, Percutaneous Approach (ICD-10-PCS; 2019-02-27)
DX: R07.89 Other chest pain (principal); I11.0 Hypertensive heart disease with heart failure; I25.2 Old myocardial infarction; I50.9 Heart failure, unspecified; E78.5 Hyperlipidemia, unspecified; F11.10 Opioid abuse, uncomplicated; F10.10 Alcohol abuse, uncomplicated; F14.10 Cocaine abuse, uncomplicated; F17.210 Nicotine dependence, cigarettes, uncomplicated; R00.1 Bradycardia, unspecified; I44.7 Left bundle-branch block, unspecified; B18.2 Chronic viral hepatitis C; N40.0 Benign prostatic hyperplasia without lower urinary tract symptoms; Z95.5 Presence of coronary angioplasty implant and graft; Z88.6 Allergy status to analgesic agent; Z79.82 Long term (current) use of aspirin
CPT/HCPCS: 36415; 71045-TC-FY; 80053; 82550; 82553; 84484; 85025; 87522; 93005; 93010; 93306-TC; 96361; 96372; 96374; 96376; 99284-25; G0378; J1644

== ENCOUNTER 2019-02-28 14:10 | Inpatient (IN) | payer OTHER ==
[2019-02-28 14:27] VITALS: BMI 25.3
--- NOTE | 2019-02-28 14:58 | HP ---
CIWA Score - Admission Criteria [facility]ASAS Guidelines: Admission for Medically Managed Detox: Requires at least one of the followin. CIWA greater than 12 2. Seizures within the past 24 hours 3. Delirium tremens within the past 24 hours 4. Hallucinations within the past 24 hours 5. Acute intervention needed for co occurring medical disorder 6. Acute intervention needed for co occurring psychiatric disorder 7. Severe withdrawal that cannot be handled at a lower level of care (continued vomiting, continued diarrhea, abnormal vital signs) requiring intravenous medication and/or fluids 8. Admitting History and Physical - Past Medical History Cardiovascular: Yes: CAD, HTN, Hyperlipdemia, ME Endocrine: Yes: Diabetes Mellitus - Smoking History Smoking history: Current every day smoker Have you smoked in the past 12 months: Yes Aproximately how many cigarettes per day: 3 - Alcohol/Substance Use Hx Alcohol Use: Yes History of Substance Use: reports: Cocaine, Heroin, Marijuana Admission ROS [facility] Chief Complaint: Patient returning from hospital to complete rehab. Allergies/Adverse Reactions: Allergies Allergy/AdvReac Type Severity Reaction Status Date / Time acetaminophen [From Tylenol] Allergy Intermediate Rash Verified 02/28/19 14:27 ibuprofen Allergy Intermediate Rash Verified 02/28/19 14:27 History of Present Illness: Anderson Chin is a 63 year old male presenting for alcohol, heroin, and cocaine abuse. Alcohol: 3 pints weekly. Drinking every other day. Denies seizures, blackouts, falls, head hits. Started drinking at around age 16. Longest period of sobriety 3 years. 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 Started drinking again due to want. Cocaine: 200-300$ worth per day. Smoking. Denies IVDU. Heroin: 10-15 bags daily. Inhalation. Denies IVDU. Denies overdose. Has a Narcan kit, knows how to use them. In the last week, has been to [facility] for chest pain. Was cleared by hospital each time. Presented here from [facility] where he had chest pain and was medically cleared to return to rehab. Medical History: HTN, HLD, 2 stents, 2 MIs previously, Hep C (untreated), ? prostate issues (on Flomax) Psychiatric History: depression Surgical History: 2 stents Smokin cigarettes/day currently. Previously smoked up to a pack a day. 51 years. Social: Stays with siblings. 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 Will be readmitted for rehab for alcohol, heroin, cocaine. Returning from hospital for chest pain after being cleared. Advised to follow up with a primary care provider upon completing rehab to manage chronic medical conditions. Advised to follow up with his hip hop dancer to manage his cardiac conditions. Exam Limitations: No Limitations - Ebola screening Have you traveled outside of the country in the last 21 days: No (N) Have you had contact with anyone from an Ebola affected area: No Do you have a fever: No - Review of Systems Constitutional: No Symptoms Reported EENT: reports: No Symptoms Reported Respiratory: reports: No Symptoms reported Cardiac: reports: No Symptoms Reported GI: reports: No Symptoms Reported : reports: No Symptoms Reported Musculoskeletal: reports: No Symptoms Reported Integumentary: reports: No Symptoms Reported Neuro: reports: No Symptoms reported Endocrine: reports: No Symptoms Reported Hematology: reports: No Symptoms Reported Psychiatric: reports: No Sypmtoms Reported Patient History - Patient Medical History Hx Anemia: No Hx Asthma: No Hx Chronic Obstructive Pulmonary Disease (COPD): No Hx Cancer: No Hx Cardiac Disorders: No Hx Congestive Heart Failure: No Hx Hypertension: Yes Hx Hypercholesterolemia: Yes Hx Pacemaker: No HX Cerebrovascular Accident: No Hx Seizures: No Hx Dementia: No Hx Diabetes: Yes Hx Gastrointestinal Disorders: No Hx Liver Disease: No Hx Genitourinary Disorders: No Hx Sexually Transmitted Disorders: Yes (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, treated) Hx Renal Disease (ESRD): No Hx Thyroid Disease: No Hx Human Immunodeficiency Virus (HIV): No Hx Hepatitis C: Yes (No treatment) Hx Depression: Yes Hx Suicide Attempt: No Hx Bipolar Disorder: No Hx Schizophrenia: No - Patient Surgical History Past Surgical History: Yes Hx Neurologic Surgery: No Hx Cataract Extraction: No Hx Cardiac Surgery: Yes (2011 cardiac stent, 2016) Hx Lung Surgery: No Hx Breast Surgery: No Hx Breast Biopsy: No Hx Abdominal Surgery: No Hx Appendectomy: No Hx Cholecystectomy: No Hx Genitourinary Surgery: No Hx Orthopedic Surgery: No Other Surgical History: Stent Placement in 2011 Anesthesia Reaction: No - PPD History Date: 02/15/19 Results: neg - Smoking Cessation Smoking history: Current every day smoker Have you smoked in the past 12 months: Yes Aproximately how many cigarettes per day: 3 Cigars Per Day: 0 Hx Chewing Tobacco Use: No Initiated information on smoking cessation: No - Substance & Tx. History Hx Alcohol Use: Yes Hx Substance Use: Yes Substance Use Type: Alcohol - Substances abused Cocaine Substance route: Smoking Frequency: 3-6 times per week Amount used: $200-$300 Age of first use: 40 Date of last use: 02/06/19 Heroin Substance route: Inhalation Frequency: Daily Amount used: 10-15 bags Age of first use: 53 Date of last use: 02/12/19 Alcohol Substance route: Oral Frequency: 3-6 times per week Amount used: 1 pint liqyousif Age of first use: 50 Date of last use: 02/12/19 Admission Physical Exam [facility] - Vital Signs Vital Signs: Vital Signs - 24 hr 02/28/19 14:24 Temperature 98.1 F Pulse Rate 48 L Respiratory 18 Rate Blood Pressure 143/83 - Physical General Appearance: Yes: No Apparent Distress, Appropriately Dressed HEENTM: Yes: EOMI, Normal ENT Inspection, Normocephalic, Normal Voice, SHELLIE, Pharynx Normal, Other (multiple teeth missing) Respiratory: Yes: Chest Non-Tender, Lungs Clear, Normal Breath Sounds, No Respiratory Distress, No Accessory Muscle Use Neck: Yes: No masses,lesions,Nodules, Trachea in good position Breast: Yes: Breast Exam Deferred Cardiology: Yes: Regular Rhythm, Regular Rate, S1, S2 Abdominal: Yes: Normal Bowel Sounds, Non Tender, Flat, Soft Genitourinary: Yes: Within Normal Limits Back: Yes: Normal Inspection Musculoskeletal: Yes: full range of Motion Extremities: Yes: Normal Capillary Refill, Normal Inspection, Normal Range of Motion, Non-Tender Neurological: Yes: spa associate II-XII NML intact, Fully Oriented, Alert, Motor Strength 5/5, Normal Mood/Affect Integumentary: Yes: Normal Color, Dry, Warm, Other (dry skin on lower extremities) - Diagnostic (1) Alcohol dependence Current Visit: No Status: Acute (2) Cocaine dependence Current Visit: No Status: Acute (3) History of syphilis Current Visit: No Status: Acute Comment: TREATED. (4) Nicotine dependence Current Visit: No Status: Acute (5) Stented coronary artery Current Visit: No Status: Acute (6) CAD (coronary artery disease) Current Visit: No Status: Chronic Qualifiers: Coronary Disease-Associated Artery/Lesion type: unspecified vessel or lesion type [place] vs. transplanted heart: [place] heart Associated angina: with unspecified angina Qualified Code(s): I25.119 - Atherosclerotic heart disease of [place] coronary artery with unspecified angina pectoris (7) Enlarged prostate with lower urinary tract symptoms (LUTS) Current Visit: No Status: Chronic (8) Hepatitis C Current Visit: No Status: Chronic Qualifiers: Viral hepatitis chronicity: chronic Hepatic coma status: without hepatic coma Qualified Code(s): B18.2 - Chronic viral hepatitis C (9) History of heart artery stent Current Visit: No Status: Chronic Comment: On Plavix (10) Hyperlipidemia Current Visit: No Status: Chronic Qualifiers: Hyperlipidemia type: unspecified Qualified Code(s): E78.5 - Hyperlipidemia , unspecified (11) Hypertension Current Visit: No Status: Chronic Qualifiers: Hypertension type: essential hypertension Qualified Code(s): I10 - Essential (primary) hypertension (12) Hypertensive cardiomyopathy Current Visit: No Status: Chronic Breathalyzer - Breathalyzer Breathalyzer: 0 Urine Drug Screen - Test Device Lot number: [id number] Expiration date: 10/14/20 - Control Is test valid?: Yes - Results Drug screen NEGATIVE: Yes Urine drug screen results: MTD-Methadone, BUP-Suboxone Inpatient Rehab Admission - Rehab Decision to Admit Inpatient rehab admission?: Yes - Initial Determination Are CD services needed?: Yes Free of communicable disease: Yes Not in need of hospitalization: Yes - Rehab Admission Criteria Previous failed treatment: Yes Poor recovery environment: Yes Comorbidities: Yes Lacks judgement: Yes Patient is meeting Inpatient Rehab admission criteria:: Yes (returning to rehab after presenting from hospital for chest pain)
[2019-02-28] MEDS ORDERED: LOPERAMIDE HCL 2 MG CAPSULE PO PRN (15:06)
[2019-02-28] MEDS ORDERED: MAGNESIUM HYDROX 2400MG/30ML ORAL SUSPENSION 30 ML CUP PO PRN (15:06)
[2019-02-28] MEDS ORDERED: MAG HYDROX/AL HYDROX/SIMETH 30 ML UNIT-DOSE CUP PO PRN (15:06)
[2019-02-28] MEDS ORDERED: P-EPHED 60MG/TRIPROLIDI 2.5MG TABLET PO PRN (15:06)
[2019-02-28] MEDS ORDERED: MAGNESIUM CITRATE 300 ML BOTTLE PO PRN (15:06)
[2019-02-28] MEDS ORDERED: MENTHOL/PHENOL 1 EACH UD MM PRN (15:06)
[2019-02-28] MEDS ORDERED: guaiFENesin 200 MG/10 ML 10 ML UNIT-DOSE CUPS PO PRN (15:06)
--- NOTE | 2019-02-28 15:18 | PN ---
Teaching Attending Note Name of Resident: Pascual Jean ATTENDING PHYSICIAN STATEMENT I saw and evaluated the patient. I reviewed the resident's note and discussed the case with the resident. I agree with the resident's findings and plan as documented. SUBJECTIVE: 63 year old male presenting for rehab, returned from hospitalization 2/2 chest pain , states he is feeling better today , new meds : Lisinopril 5 mg, Ef 35-40 % Alcohol: 3 pints weekly , denies seizures, blackouts, falls, started drinking alcohol at around age 16, longest period of sobriety 3 years . Cocaine: 200-300$ worth per day via inhalation. Denies IVDU. Heroin: 10-15 bags daily via inhalation. Denies IVDU. Denies overdose. Has a Narcan kit, knows how to use it. In the last 2 weeks was at [facility] for chest pain. Medical History: HTN, HLD, 2 stents, 2 MIs, Hep C (untreated), BPH ( previously on Flomax). Psychiatric History: depression denies SI / HI Smokin cigarettes/day currently, previously 1 ppd x 51 years. Social: Stays with siblings. 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 OBJECTIVE: wnwd . Vital Signs - 24 hr 02/28/19 14:24 Temperature 98.1 F Pulse Rate 48 L Respiratory 18 Rate Blood Pressure 143/83 ASSESSMENT AND PLAN: Alcohol dependence in early remission / Cocaine dependence / Opiate dependence / Nicotine dependence - rehab
[2019-02-28] MEDS: ATORVASTATIN CA 20 MG TABLET (FP) PO SCH (21:28)
[2019-02-28] MEDS: THIAMINE HCL 100 MG TABLET (FP) PO SCH (21:28)
[2019-03-01] MEDS ORDERED: NITROGLYCERIN SUBLINGUAL 1/150 0.4 MG TAB SL PRN (09:44)
[2019-03-01] MEDS ORDERED: NITROGLYCERIN SUBLINGUAL 1/150 0.4 MG TAB SL SCH (10:00)
[2019-03-01] MEDS: amLODIPine BESYLATE 10 MG TABLET (FP) PO SCH (10:44)
[2019-03-01] MEDS: ISOSORBIDE MONONITRATE 30 MG TAB.SR.24H (FP) PO SCH (10:44)
[2019-03-01] MEDS: ASPIRIN 81 MG CHEWABLE TABLETS PO SCH (10:44)
[2019-03-01] MEDS: CLOPIDOGREL BISULFATE 75 MG TABLET (FP) PO SCH (10:44)
[2019-03-01] MEDS: LISINOPRIL 5 MG TABLET (FP) PO SCH (10:44)
[2019-03-01] MEDS: PRENATAL VITAMINS W/ FOLIC ACID TABLET (FP) PO SCH (10:44)
[2019-03-01] MEDS: NICOTINE 7 MG/24 HOURS TOPICAL PATCH TD SCH (10:45)
[2019-03-01] MEDS: NICOTINE POLACRILEX 2 MG GUM BUC PRN (10:47)
[2019-03-01] MEDS: ATORVASTATIN CA 20 MG TABLET (FP) PO SCH (21:42)
[2019-03-01] MEDS: THIAMINE HCL 100 MG TABLET (FP) PO SCH (21:42)
[2019-03-01] MEDS: MELATONIN 5 MG TABLETS PO PRN (21:42)
[2019-03-02] MEDS: PRENATAL VITAMINS W/ FOLIC ACID TABLET (FP) PO SCH (10:39)
[2019-03-02] MEDS: ASPIRIN 81 MG CHEWABLE TABLETS PO SCH (10:40)
[2019-03-02] MEDS: NICOTINE 7 MG/24 HOURS TOPICAL PATCH TD SCH (10:40)
[2019-03-02] MEDS: LISINOPRIL 5 MG TABLET (FP) PO SCH (10:40)
[2019-03-02] MEDS: CLOPIDOGREL BISULFATE 75 MG TABLET (FP) PO SCH (10:40)
[2019-03-02] MEDS: amLODIPine BESYLATE 10 MG TABLET (FP) PO SCH (10:40)
[2019-03-02] MEDS: ISOSORBIDE MONONITRATE 30 MG TAB.SR.24H (FP) PO SCH (10:41)
[2019-03-02] MEDS: NICOTINE POLACRILEX 2 MG GUM BUC PRN (10:43)
[2019-03-02] MEDS: THIAMINE HCL 100 MG TABLET (FP) PO SCH (21:42)
[2019-03-02] MEDS: MELATONIN 5 MG TABLETS PO PRN (21:42)
[2019-03-02] MEDS: ATORVASTATIN CA 20 MG TABLET (FP) PO SCH (21:42)
[2019-03-03] MEDS: ASPIRIN 81 MG CHEWABLE TABLETS PO SCH (10:58)
[2019-03-03] MEDS: amLODIPine BESYLATE 10 MG TABLET (FP) PO SCH (10:58)
[2019-03-03] MEDS: CLOPIDOGREL BISULFATE 75 MG TABLET (FP) PO SCH (10:58)
[2019-03-03] MEDS: LISINOPRIL 5 MG TABLET (FP) PO SCH (10:58)
[2019-03-03] MEDS: PRENATAL VITAMINS W/ FOLIC ACID TABLET (FP) PO SCH (10:58)
[2019-03-03] MEDS: ISOSORBIDE MONONITRATE 30 MG TAB.SR.24H (FP) PO SCH (10:59)
[2019-03-03] MEDS: NICOTINE 7 MG/24 HOURS TOPICAL PATCH TD SCH (10:59)
[2019-03-03] MEDS: ATORVASTATIN CA 20 MG TABLET (FP) PO SCH (21:24)
[2019-03-03] MEDS: MELATONIN 5 MG TABLETS PO PRN (21:24)
[2019-03-03] MEDS: THIAMINE HCL 100 MG TABLET (FP) PO SCH (21:24)
[2019-03-04] MEDS: PRENATAL VITAMINS W/ FOLIC ACID TABLET (FP) PO SCH (10:09)
[2019-03-04] MEDS: ASPIRIN 81 MG CHEWABLE TABLETS PO SCH (10:09)
[2019-03-04] MEDS: NICOTINE 7 MG/24 HOURS TOPICAL PATCH TD SCH (10:09)
[2019-03-04] MEDS: amLODIPine BESYLATE 10 MG TABLET (FP) PO SCH (10:09)
[2019-03-04] MEDS: LISINOPRIL 5 MG TABLET (FP) PO SCH (10:09)
[2019-03-04] MEDS: CLOPIDOGREL BISULFATE 75 MG TABLET (FP) PO SCH (10:10)
[2019-03-04] MEDS: ISOSORBIDE MONONITRATE 30 MG TAB.SR.24H (FP) PO SCH (10:58)
[2019-03-04] MEDS: ATORVASTATIN CA 20 MG TABLET (FP) PO SCH (21:36)
[2019-03-04] MEDS: MELATONIN 5 MG TABLETS PO PRN (21:36)
[2019-03-04] MEDS: THIAMINE HCL 100 MG TABLET (FP) PO SCH (21:36)
[2019-03-05] MEDS: ASPIRIN 81 MG CHEWABLE TABLETS PO SCH (10:08)
[2019-03-05] MEDS: CLOPIDOGREL BISULFATE 75 MG TABLET (FP) PO SCH (10:08)
[2019-03-05] MEDS: LISINOPRIL 5 MG TABLET (FP) PO SCH (10:08)
[2019-03-05] MEDS: PRENATAL VITAMINS W/ FOLIC ACID TABLET (FP) PO SCH (10:08)
[2019-03-05] MEDS: ISOSORBIDE MONONITRATE 30 MG TAB.SR.24H (FP) PO SCH (10:09)
[2019-03-05] MEDS: NICOTINE 7 MG/24 HOURS TOPICAL PATCH TD SCH (10:09)
[2019-03-05] MEDS: amLODIPine BESYLATE 10 MG TABLET (FP) PO SCH (10:09)
[2019-03-05] MEDS: THIAMINE HCL 100 MG TABLET (FP) PO SCH (21:32)
[2019-03-05] MEDS: MELATONIN 5 MG TABLETS PO PRN (21:32)
[2019-03-05] MEDS: ATORVASTATIN CA 20 MG TABLET (FP) PO SCH (21:32)
[2019-03-06] MEDS: CLOPIDOGREL BISULFATE 75 MG TABLET (FP) PO SCH (10:36)
[2019-03-06] MEDS: ASPIRIN 81 MG CHEWABLE TABLETS PO SCH (10:36)
[2019-03-06] MEDS: ISOSORBIDE MONONITRATE 30 MG TAB.SR.24H (FP) PO SCH (10:36)
[2019-03-06] MEDS: PRENATAL VITAMINS W/ FOLIC ACID TABLET (FP) PO SCH (10:36)
[2019-03-06] MEDS: LISINOPRIL 5 MG TABLET (FP) PO SCH (10:36)
[2019-03-06] MEDS: NICOTINE 7 MG/24 HOURS TOPICAL PATCH TD SCH (10:36)
[2019-03-06] MEDS: amLODIPine BESYLATE 10 MG TABLET (FP) PO SCH (10:36)
[2019-03-06] MEDS: NICOTINE POLACRILEX 2 MG GUM BUC PRN (10:36)
[2019-03-06] MEDS: THIAMINE HCL 100 MG TABLET (FP) PO SCH (21:48)
[2019-03-06] MEDS: ATORVASTATIN CA 20 MG TABLET (FP) PO SCH (21:48)
[2019-03-06] MEDS: MELATONIN 5 MG TABLETS PO PRN (21:48)
[2019-03-07] MEDS: LISINOPRIL 5 MG TABLET (FP) PO SCH (10:32)
[2019-03-07] MEDS: PRENATAL VITAMINS W/ FOLIC ACID TABLET (FP) PO SCH (10:32)
[2019-03-07] MEDS: ASPIRIN 81 MG CHEWABLE TABLETS PO SCH (10:32)
[2019-03-07] MEDS: amLODIPine BESYLATE 10 MG TABLET (FP) PO SCH (10:32)
[2019-03-07] MEDS: ISOSORBIDE MONONITRATE 30 MG TAB.SR.24H (FP) PO SCH (10:32)
[2019-03-07] MEDS: CLOPIDOGREL BISULFATE 75 MG TABLET (FP) PO SCH (10:33)
[2019-03-07] MEDS: NICOTINE 7 MG/24 HOURS TOPICAL PATCH TD SCH (10:33)
[2019-03-07] MEDS: ATORVASTATIN CA 20 MG TABLET (FP) PO SCH (21:58)
[2019-03-07] MEDS: THIAMINE HCL 100 MG TABLET (FP) PO SCH (21:58)
[2019-03-07] MEDS: MELATONIN 5 MG TABLETS PO PRN (21:58)
[2019-03-08] MEDS: ISOSORBIDE MONONITRATE 30 MG TAB.SR.24H (FP) PO SCH (10:54)
[2019-03-08] MEDS: ASPIRIN 81 MG CHEWABLE TABLETS PO SCH (10:54)
[2019-03-08] MEDS: LISINOPRIL 5 MG TABLET (FP) PO SCH (10:54)
[2019-03-08] MEDS: CLOPIDOGREL BISULFATE 75 MG TABLET (FP) PO SCH (10:54)
[2019-03-08] MEDS: amLODIPine BESYLATE 10 MG TABLET (FP) PO SCH (10:54)
[2019-03-08] MEDS: NICOTINE 7 MG/24 HOURS TOPICAL PATCH TD SCH (10:54)
[2019-03-08] MEDS: PRENATAL VITAMINS W/ FOLIC ACID TABLET (FP) PO SCH (10:55)
[2019-03-08] MEDS: ATORVASTATIN CA 20 MG TABLET (FP) PO SCH (21:43)
[2019-03-08] MEDS: THIAMINE HCL 100 MG TABLET (FP) PO SCH (21:44)
[2019-03-08] MEDS: MELATONIN 5 MG TABLETS PO PRN (21:44)
[2019-03-09] MEDS: ISOSORBIDE MONONITRATE 30 MG TAB.SR.24H (FP) PO SCH (10:43)
[2019-03-09] MEDS: CLOPIDOGREL BISULFATE 75 MG TABLET (FP) PO SCH (10:43)
[2019-03-09] MEDS: LISINOPRIL 5 MG TABLET (FP) PO SCH (10:43)
[2019-03-09] MEDS: ASPIRIN 81 MG CHEWABLE TABLETS PO SCH (10:43)
[2019-03-09] MEDS: PRENATAL VITAMINS W/ FOLIC ACID TABLET (FP) PO SCH (10:43)
[2019-03-09] MEDS: amLODIPine BESYLATE 10 MG TABLET (FP) PO SCH (10:43)
[2019-03-09] MEDS: NICOTINE 7 MG/24 HOURS TOPICAL PATCH TD SCH (10:44)
--- NOTE | 2019-03-09 12:20 | PN ---
[facility] Progress Note Note: Pt with an extensive dental decay, c/o gum pain. Pt reports he has been referred to dentists multiple times but never made it to take care of the dental issues and states "i really need to get it together". Pt states he has been referred to [facility] dental clinic in the past and will likely go there after rehab. Vital Signs - 24 hr 03/09/19 03/09/19 03/09/19 00:30 03:30 07:21 Temperature 97.9 F Pulse Rate 64 Respiratory 18 18 18 Rate Blood Pressure 129/71 03/09/19 11:28 Temperature 97.9 F Pulse Rate 61 Respiratory 18 Rate Blood Pressure 139/75 Oral Exam:MMM Teeth:very sparsely located throughout mouth. all teeth with evidence of decay. Gums, pink with no swelling. A/P Gingivitis Poor dental hygiene Peridex soln oral rinse BID as directed Follow up with dental care at [facility] dental clinic after rehab for dental management.
[2019-03-09] MEDS: CHLORHEXIDINE GLUCONATE 118 ML MOUTHWASH MM SCH ×2 (14:40→21:49)
[2019-03-09] MEDS: THIAMINE HCL 100 MG TABLET (FP) PO SCH (21:50)
[2019-03-09] MEDS: MELATONIN 5 MG TABLETS PO PRN (21:50)
[2019-03-09] MEDS: ATORVASTATIN CA 20 MG TABLET (FP) PO SCH (21:50)
[2019-03-10] MEDS: ASPIRIN 81 MG CHEWABLE TABLETS PO SCH (10:47)
[2019-03-10] MEDS: ISOSORBIDE MONONITRATE 30 MG TAB.SR.24H (FP) PO SCH (10:47)
[2019-03-10] MEDS: PRENATAL VITAMINS W/ FOLIC ACID TABLET (FP) PO SCH (10:47)
[2019-03-10] MEDS: CLOPIDOGREL BISULFATE 75 MG TABLET (FP) PO SCH (10:47)
[2019-03-10] MEDS: amLODIPine BESYLATE 10 MG TABLET (FP) PO SCH (10:47)
[2019-03-10] MEDS: LISINOPRIL 5 MG TABLET (FP) PO SCH (10:47)
[2019-03-10] MEDS: NICOTINE 7 MG/24 HOURS TOPICAL PATCH TD SCH (10:48)
[2019-03-10] MEDS: CHLORHEXIDINE GLUCONATE 118 ML MOUTHWASH MM SCH ×2 (10:48→22:07)
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
[2019-03-10] MEDS: NITROGLYCERIN SUBLINGUAL 1/150 0.4 MG TAB SL PRN (19:43)
[2019-03-10] MEDS ORDERED: PANTOPRAZOLE 40 MG TABLET (FP) PO ONE (21:06)
--- NOTE | 2019-03-10 21:06 | PN ---
[facility] Progress Note Note: C/o chest pain - sharp/mid-sternal/non-radiating. Received 2 doses of NTG w/ minimal response. No changes on EKG. Denies diarrhea. Denies abd pain. Abd S/NT. Murmur noted on exam. EKG: w/o significant change from prior. Vital Signs 03/10/19 18:47 Pulse Rate 72 Respiratory 18 Rate Blood Pressure 134/72 Plan: Continue Plavix. Start on protonix Serum amylase and lipase.
[2019-03-10] MEDS: THIAMINE HCL 100 MG TABLET (FP) PO SCH (22:08)
[2019-03-10] MEDS: ATORVASTATIN CA 20 MG TABLET (FP) PO SCH (22:08)
[2019-03-10] MEDS: traZODone HCL 100 MG TABLET (FP) PO SCH (22:08)
[2019-03-10] MEDS: MELATONIN 5 MG TABLETS PO PRN (22:09)
[2019-03-10] MEDS ORDERED: MAG HYDROX/AL HYDROX/SIMETH 30 ML UNIT-DOSE CUP PO ONE (22:15)
--- NOTE | 2019-03-11 00:09 | PN ---
[facility] Progress Note Note: Patient denies chest pain. Feels better after protonix and mylanta. Vital Signs 03/10/19 03/10/19 18:47 23:00 Pulse Rate 72 85 Respiratory 18 18 Rate Plan:Blood Pressure 134/72 113/70 Plan: Continue on protonix. Start 20 mg Po BID. F/u prn.
[2019-03-11] MEDS: ISOSORBIDE MONONITRATE 30 MG TAB.SR.24H (FP) PO SCH (10:28)
[2019-03-11] MEDS: CLOPIDOGREL BISULFATE 75 MG TABLET (FP) PO SCH (10:29)
[2019-03-11] MEDS: PANTOPRAZOLE 20 MG TABLET (FP) PO SCH ×2 (10:29→22:49)
[2019-03-11] MEDS: ASPIRIN 81 MG CHEWABLE TABLETS PO SCH (10:29)
[2019-03-11] MEDS: NICOTINE 7 MG/24 HOURS TOPICAL PATCH TD SCH (10:29)
[2019-03-11] MEDS: amLODIPine BESYLATE 10 MG TABLET (FP) PO SCH (10:29)
[2019-03-11] MEDS: PRENATAL VITAMINS W/ FOLIC ACID TABLET (FP) PO SCH (10:29)
[2019-03-11] MEDS: CHLORHEXIDINE GLUCONATE 118 ML MOUTHWASH MM SCH ×2 (10:31→22:49)
[2019-03-11] MEDS: LISINOPRIL 5 MG TABLET (FP) PO SCH (10:32)
[2019-03-11 12:23] LABS: AMYLASE 215 U/L (25-115); LIPASE 261 U/L (73-393)
--- NOTE | 2019-03-11 14:09 | EKG ---
Test Reason : Blood Pressure : / mmHG Vent. Rate : 068 BPM Atrial Rate : 068 BPM P-R Int : 180 ms QRS Dur : 138 ms QT Int : 432 ms P-R-T Axes : 081 -77 062 degrees QTc Int : 459 ms NORMAL SINUS RHYTHM LEFT AXIS DEVIATION NON-SPECIFIC INTRA-VENTRICULAR CONDUCTION BLOCK ABNORMAL ECG WHEN COMPARED WITH ECG OF 27-FEB-2019 01:49, NE INTERVAL HAS DECREASED NON-SPECIFIC INTRA-VENTRICULAR CONDUCTION BLOCK HAS REPLACED LEFT BUNDLE BRANCH BLOCK T WAVE INVERSION NO LONGER EVIDENT IN INFERIOR LEADS Confirmed by WIL PÉREZ, STEVEN ([id number]) on 03/11/2019 2:08:34 PM Referred By: Confirmed By:STEVEN DE LA TORRE MD
[2019-03-11] MEDS: NITROGLYCERIN SUBLINGUAL 1/150 0.4 MG TAB SL PRN ×2 (17:51→18:16)
--- NOTE | 2019-03-11 18:08 | PN ---
C[facility] Progress Note Note: call,patient having chest pain substernal chest pain persist ,no radiation no sob history of heroin cocaine and alcohol nicotine dependence 2 cigarette/day pain scale of 8 receiving 2 dose of nitroglycerine without improvement history of old mi in 2011,2016,had angioplasty with stent at [facility] last cardiac cath 02/02 no sob lung clear no wheezing no abdominal pain no calf tenderness impression chest pain r/o mi hypertension hyperchplesterolemia heroin dependence cocaine dependence alcohol dependence treatment to er for evaluation and treatment,spoke with dr Gage Magallon patient to be transported by [facility]
[2019-03-11] MEDS: ATORVASTATIN CA 20 MG TABLET (FP) PO SCH (22:49)
[2019-03-11] MEDS: traZODone HCL 100 MG TABLET (FP) PO SCH (22:49)
[2019-03-11] MEDS: THIAMINE HCL 100 MG TABLET (FP) PO SCH (22:49)
[2019-03-12] MEDS: CLOPIDOGREL BISULFATE 75 MG TABLET (FP) PO SCH (10:40)
[2019-03-12] MEDS: PANTOPRAZOLE 20 MG TABLET (FP) PO SCH ×2 (10:40→21:43)
[2019-03-12] MEDS: LISINOPRIL 5 MG TABLET (FP) PO SCH (10:40)
[2019-03-12] MEDS: ISOSORBIDE MONONITRATE 30 MG TAB.SR.24H (FP) PO SCH (10:40)
[2019-03-12] MEDS: ASPIRIN 81 MG CHEWABLE TABLETS PO SCH (10:40)
--- NOTE | 2019-03-12 10:40 | EKG ---
Test Reason : Blood Pressure : / mmHG Vent. Rate : 051 BPM Atrial Rate : 051 BPM P-R Int : 198 ms QRS Dur : 142 ms QT Int : 450 ms P-R-T Axes : 072 -75 -29 degrees QTc Int : 414 ms SINUS BRADYCARDIA LEFT AXIS DEVIATION NON-SPECIFIC INTRA-VENTRICULAR CONDUCTION BLOCK CANNOT RULE OUT SEPTAL INFARCT , AGE UNDETERMINED ABNORMAL ECG WHEN COMPARED WITH ECG OF 10-MAR-2019 18:35, T WAVE INVERSION NOW EVIDENT IN INFERIOR LEADS NONSPECIFIC T WAVE ABNORMALITY, WORSE IN LATERAL LEADS Confirmed by WIL PÉREZ, STEVEN ([id number]) on 03/12/2019 10:40:17 AM Referred By: Confirmed By:STEVEN DE LA TORRE MD
[2019-03-12] MEDS: NICOTINE 7 MG/24 HOURS TOPICAL PATCH TD SCH (10:41)
[2019-03-12] MEDS: amLODIPine BESYLATE 10 MG TABLET (FP) PO SCH (10:41)
[2019-03-12] MEDS: CHLORHEXIDINE GLUCONATE 118 ML MOUTHWASH MM SCH ×2 (10:41→21:42)
[2019-03-12] MEDS: PRENATAL VITAMINS W/ FOLIC ACID TABLET (FP) PO SCH (10:41)
[2019-03-12] MEDS: MELATONIN 5 MG TABLETS PO PRN (21:43)
[2019-03-12] MEDS: THIAMINE HCL 100 MG TABLET (FP) PO SCH (21:43)
[2019-03-12] MEDS: traZODone HCL 100 MG TABLET (FP) PO SCH (21:43)
[2019-03-12] MEDS: ATORVASTATIN CA 20 MG TABLET (FP) PO SCH (21:44)
[2019-03-13] MEDS: amLODIPine BESYLATE 10 MG TABLET (FP) PO SCH (11:13)
[2019-03-13] MEDS: PANTOPRAZOLE 20 MG TABLET (FP) PO SCH ×2 (11:13→21:51)
[2019-03-13] MEDS: CLOPIDOGREL BISULFATE 75 MG TABLET (FP) PO SCH (11:13)
[2019-03-13] MEDS: ASPIRIN 81 MG CHEWABLE TABLETS PO SCH (11:14)
[2019-03-13] MEDS: PRENATAL VITAMINS W/ FOLIC ACID TABLET (FP) PO SCH (11:14)
[2019-03-13] MEDS: ISOSORBIDE MONONITRATE 30 MG TAB.SR.24H (FP) PO SCH (11:14)
[2019-03-13] MEDS: LISINOPRIL 5 MG TABLET (FP) PO SCH (11:14)
[2019-03-13] MEDS: CHLORHEXIDINE GLUCONATE 118 ML MOUTHWASH MM SCH ×2 (11:14→21:51)
[2019-03-13] MEDS: NICOTINE 7 MG/24 HOURS TOPICAL PATCH TD SCH (11:15)
--- NOTE | 2019-03-13 14:56 | PN ---
S Progress Note Note: Patient is scheduled for discharge tomorrow. Script for 30 days supply of Trazadone 100 mg/hs will be electronically transmitted to [facility] at [address] [place], [place] [id number]
--- NOTE | 2019-03-13 16:29 | DS ---
[facility] Rehab Discharge Summary - [facility] Rehab Discharge Summary Admission Date: 02/28/19 Discharge Date: 03/14/19 - History Present History: Alcohol dependence, Cocaine dependence, Opioid dependence Additional Comments: Pt is a 63 y/o male with a hx of opioid dependence admitted to rehab and scheduled to discharge tomorrow 03/14/19. Pt was seen by his counselor today and has made arrangement for pt referral to [facility]care [facility]. Pt has no current Primary care and has been instructed to follow up at [facility] outpatient clinic after discharge. Pertinent Past History: All Active Problems ADELIA (acute kidney injury) (Acute) Cocaine dependence (Acute) Cocaine dependence in remission (Acute) Gingiva disorder (Acute) History of syphilis (Acute) Non-compliance (Acute) CAD (coronary artery disease) (Chronic) Chest pain (Chronic) Depressive disorder (Chronic) Diabetes mellitus type II, controlled (Chronic) Enlarged prostate hx GERD (gastroesophageal reflux disease) (Chronic) Hepatitis C (Chronic) Hyperlipidemia (Chronic) Hypertension (Chronic) Hypertensive cardiomyopathy (Chronic) Insomnia (Chronic) Murmur, cardiac (Chronic) Poor dental hygiene (Chronic) Two Stented coronary artery (Chronic) - Discharge Physical Exam Vital Signs: Vital Signs Temperature 97.9 F 03/12/19 09:37 Pulse Rate 64 03/13/19 10:00 Respiratory Rate 18 03/13/19 10:00 Blood Pressure 114/66 03/13/19 10:00 O2 Sat by Pulse Oximetry (%) Alert o x 3 nad oob ambulating with steady gait cardiac:s1 s2, rrr lungs:cta,leticia. abdomen:+bs,soft,nt,nd extremities/skin:no edema,full ROM,skin intact. Pertinent Admission Physical Exam Findings: Laboratory Tests 03/11/19 07:55 Total Amylase 215 H Lipase 261 - Treatment Discharge Condition: Discharge condition good Hospital Course: Rehabilitated safely and responded well CD aftercare referral accepted - Medication Discharge Medications: Ambulatory Orders Amlodipine Besylate [Norvasc -] 10 mg PO DAILY #15 tablet 03/13/19 Aspirin [ASA -] 81 mg PO DAILY #30 tab.chew 03/13/19 Atorvastatin Ca [Lipitor] 20 mg PO HS #15 tablet 03/13/19 Clopidogrel Bisulfate [Plavix -] 75 mg PO DAILY #15 tablet 03/13/19 Isosorbide Mononitrate [Imdur -] 30 mg PO DAILY #15 tab.sr.24h 03/13/19 Lisinopril [Prinivil] 5 mg PO DAILY #15 tablet 03/13/19 Nitroglycerin 0.4 mg SL ONCE PRN 15 Days tab.subl 03/13/19 traZODone HCL [Desyrel -] 100 mg PO HS #30 tablet 03/13/19 Amlodipine Besylate [Norvasc -] 10 mg PO DAILY #30 tablet 03/14/19 Aspirin [ASA -] 81 mg PO DAILY #30 tab.chew 03/14/19 Atorvastatin Ca [Lipitor] 20 mg PO HS #30 tablet 03/14/19 Clopidogrel Bisulfate [Plavix -] 75 mg PO DAILY #30 tablet 03/14/19 Folic Acid 1 mg PO DAILY #30 tablet 03/14/19 Isosorbide Mononitrate [Imdur -] 30 mg PO DAILY #30 tab.sr.24h 03/14/19 Lisinopril [Prinivil] 5 mg PO DAILY #30 tablet 03/14/19 Nitroglycerin Sublingual [Nitrostat -] 0.4 mg SL ONCE PRN #30 tab 03/14/19 Nitroglycerin Sublingual [Nitrostat -] 0.4 mg SL Q5M PRN #7 tab 03/14/19 traZODone HCL [Desyrel -] 50 mg PO HS #30 tablet 03/14/19 traZODone HCL [Trazodone HCl] 100 mg PO HS #30 tablet 03/14/19 - Medication-Assisted Treatment (MAT) Medication-Assisted Treatment (MAT): No - Discharge Instructions Diet, activity, other medical instructions: Diet:THEO Activity: oob ad franck Other medical instructions:Follow up with [facility] as scheduled. Follow up with Primary Care at [facility] for Medical management within 1 week after discharge. Follow up with dental appointment and care at [facility] Dental clinic 1-2 weeks after discharge. - Diagnosis (1) Gingiva disorder Status: Acute (2) Opioid dependence Status: Chronic Qualifiers: Substance use status: uncomplicated Qualified Code(s): F11.20 - Opioid dependence, uncomplicated (3) Poor dental hygiene Status: Chronic (4) Alcohol dependence Status: Chronic Qualifiers: Substance use status: uncomplicated Qualified Code(s): F10.20 - Alcohol dependence, uncomplicated (5) Chest pain Status: Chronic Qualifiers: Chest pain type: unspecified Qualified Code(s): R07.9 - Chest pain, unspecified (6) Stented coronary artery Status: Chronic (7) CAD (coronary artery disease) Status: Chronic Qualifiers: Coronary Disease-Associated Artery/Lesion type: unspecified vessel or lesion type [place] vs. transplanted heart: [place] heart Associated angina: with unspecified angina Qualified Code(s): I25.119 - Atherosclerotic heart disease of [place] coronary artery with unspecified angina pectoris (8) Cocaine dependence Status: Chronic Qualifiers: Substance use status: uncomplicated Qualified Code(s): F14.20 - Cocaine dependence, uncomplicated (9) GERD (gastroesophageal reflux disease) Status: Chronic Qualifiers: Esophagitis presence: esophagitis presence not specified Qualified Code(s) : K21.9 - Gastro-esophageal reflux disease without esophagitis (10) Hepatitis C Status: Chronic Qualifiers: Viral hepatitis chronicity: chronic Hepatic coma status: without hepatic coma Qualified Code(s): B18.2 - Chronic viral hepatitis C (11) Hyperlipidemia Status: Chronic Qualifiers: Hyperlipidemia type: unspecified Qualified Code(s): E78.5 - Hyperlipidemia , unspecified (12) Hypertension Status: Chronic Qualifiers: Hypertension type: essential hypertension Qualified Code(s): I10 - Essential (primary) hypertension (13) Nicotine dependence Status: Chronic Qualifiers: Nicotine product type: cigarettes Substance use status: uncomplicated Qualified Code(s): F17.210 - Nicotine dependence, cigarettes, uncomplicated (14) Hx of myocardial infarction Status: Resolved (15) Non-compliance Status: Chronic - Follow-up Referral Minutes to complete discharge: 30 - AMA Did Patient Leave Against Medical Advice: No Additional Comments: Courtesy Rx for 15 days as above have been 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 Pt is adviced to follow up with primary care due to chronic morbid conditions for appropriate medical management.
[2019-03-13] MEDS: traZODone HCL 100 MG TABLET (FP) PO SCH (21:51)
[2019-03-13] MEDS: THIAMINE HCL 100 MG TABLET (FP) PO SCH (21:51)
[2019-03-13] MEDS: ATORVASTATIN CA 20 MG TABLET (FP) PO SCH (21:51)
[2019-03-14 07:10] VITALS: TEMP 97.7
[2019-03-14] MEDS: CLOPIDOGREL BISULFATE 75 MG TABLET (FP) PO SCH (09:06)
[2019-03-14] MEDS: PRENATAL VITAMINS W/ FOLIC ACID TABLET (FP) PO SCH (09:06)
[2019-03-14] MEDS: ASPIRIN 81 MG CHEWABLE TABLETS PO SCH (09:06)
[2019-03-14] MEDS: LISINOPRIL 5 MG TABLET (FP) PO SCH (09:06)
[2019-03-14] MEDS: PANTOPRAZOLE 20 MG TABLET (FP) PO SCH (09:06)
[2019-03-14] MEDS: amLODIPine BESYLATE 10 MG TABLET (FP) PO SCH (09:06)
[2019-03-14] MEDS: ISOSORBIDE MONONITRATE 30 MG TAB.SR.24H (FP) PO SCH (09:06)
[2019-03-14] MEDS: CHLORHEXIDINE GLUCONATE 118 ML MOUTHWASH MM SCH (09:07)
[2019-03-14] MEDS: NICOTINE 7 MG/24 HOURS TOPICAL PATCH TD SCH (09:07)
[2019-03-14 09:10] VITALS: BP 114/67; PULSE 74
== END 2019-03-14 11:15 | disposition home or self-care (01) | DRG 772 ==
LOC: YASAS 14:10 → Y5N 15:14
PROVIDERS: ADMIT Neuromusculoskeletal Medicine & OMM; ATTEND Neuromusculoskeletal Medicine & OMM
PROC: HZ42ZZZ Group Counseling for Substance Abuse Treatment, Cognitive-Behavioral (ICD-10-PCS; principal; 2019-02-28)
DX: F11.20 Opioid dependence, uncomplicated (principal); F10.20 Alcohol dependence, uncomplicated; F14.20 Cocaine dependence, uncomplicated; F17.210 Nicotine dependence, cigarettes, uncomplicated; F19.24 Other psychoactive substance dependence with psychoactive substance-induced mood disorder; F19.282 Other psychoactive substance dependence with psychoactive substance-induced sleep disorder; E11.9 Type 2 diabetes mellitus without complications; E78.5 Hyperlipidemia, unspecified; I10 Essential (primary) hypertension; K05.10 Chronic gingivitis, plaque induced; K08.9 Disorder of teeth and supporting structures, unspecified; R07.9 Chest pain, unspecified; I25.119 Atherosclerotic heart disease of native coronary artery with unspecified angina pectoris; K21.9 Gastro-esophageal reflux disease without esophagitis; I25.2 Old myocardial infarction; N18.2 Chronic kidney disease, stage 2 (mild); Z95.5 Presence of coronary angioplasty implant and graft; Z91.14 Patient's other noncompliance with medication regimen; Z87.438 Personal history of other diseases of male genital organs; Z88.6 Allergy status to analgesic agent
CPT/HCPCS: 36415; 82150; 83690; 93005; 93010

== ENCOUNTER 2019-03-11 19:46 | Emergency (ER) | payer OTHER ==
--- NOTE | 2019-03-11 19:50 | PDOC ---
Attending Attestation - Resident Resident Name: Damari Hoover - ED Attending Attestation I have performed the following: I have examined & evaluated the patient, The case was reviewed & discussed with the resident, I agree w/resident's findings & plan - HPI HPI: 03/11/19 20:35 Pt comes with his usual GERD chest pain. He had it last night improved with protonix - Physicial Exam PE: 03/11/19 20:36 Normal exam Agree with resident exam - Medical Decision Making 03/11/19 20:36 Labs will be checked. EKG same as old Pt will be treated with muscle relaxants and protonix and maalox. 03/11/19 21:12 Cardiac enzymes normal; pt can return to [facility]. 03/11/19 22:16 Pt is refusing pain meds; he is allergic to motrin and tylenol and we discussed that I cannot give him morphine for the pain because he is addicted to heroin and he is curretly in rehab. Pt is in agreement and he feels ok at this time. He states that he has a MUNOZ from the nitro, but he is ok with no analgesics at this time. Heart Score/ECG Review - ECG Intrepretation Rhythm: Regular Rhythm - P and GA Comment:: 03/11/19 20:41 interventricular conduction delay - QRS Poor R Wave Progression: No Q Wave Present: No - ST and T Early Repolarization: No Non Specific ST-T Wave changes: Yes Comment:: 03/11/19 20:42 flipped inferolateral T waves; same as old 02/27/19 - ECG Impressions Normal ECG: Yes Non-specific ST Elevation: No Ischemic Changes: No Bradycardia: No
[2019-03-11] MEDS ORDERED: METHOCARBAMOL 500 MG TABLET PO ONE (20:00)
[2019-03-11] MEDS ORDERED: PANTOPRAZOLE 40 MG TABLET (FP) PO ONE (20:03)
[2019-03-11] MEDS ORDERED: MAG HYDROX/AL HYDROX/SIMETH 30 ML UNIT-DOSE CUP PO ONE (20:04)
--- NOTE | 2019-03-11 20:11 | PDOC ---
History of Present Illness - General Stated Complaint: CHEST PAIN Time Seen by Provider: 03/11/19 19:49 - History of Present Illness Initial Comments: Anderson Chin is a 63yo man with a PMH of polysubstance abuse (EtOH, heroin, cocaine), HTN, HLD, s/p 2 OR's & 2 stent placements, untreated hepC, BPH, depression who presents from rehab with sharp mid-sternal chest pain. He was recently admitted for ACS workup on 02/27, which was negative. Today he reports that the pain started at about 4pm and is worse when he lays down. Mr Chin reports that the pain feels sharp but is unable to characterize it further. He has had similar pain in the past. He denies any associated lightheadedness, sweating, nausea/vomiting, sweating or other associated symptoms. He was given nitro x2 at rehab without improvement in his pain. Per chart review, Mr Chin had similar pain yesterday which did not improve with nitro but resolved with protonix. Past History - Past Medical History Allergies/Adverse Reactions: Allergies Allergy/AdvReac Type Severity Reaction Status Date / Time acetaminophen [From Tylenol] Allergy Intermediate Rash Verified 02/28/19 14:27 ibuprofen Allergy Intermediate Rash Verified 02/28/19 14:27 Home Medications: Ambulatory Orders Aspirin [ASA -] 81 mg PO DAILY #30 tab.chew 06/15/16 traZODone HCL [Desyrel -] 50 mg PO HS #30 tablet 10/24/16 Atorvastatin Ca [Lipitor] 20 mg PO HS #30 tablet 12/13/17 Clopidogrel Bisulfate [Plavix -] 75 mg PO DAILY #30 tablet 12/13/17 Amlodipine Besylate [Norvasc -] 10 mg PO DAILY 06/24/18 Isosorbide Mononitrate [Imdur -] 30 mg PO DAILY 06/24/18 Nitroglycerin 0.4 mg SL DAILY PRN 06/24/18 Folic Acid 1 mg PO DAILY 02/13/19 Lisinopril [Prinivil] 5 mg PO DAILY #30 tablet 02/28/19 Thiamine HCl [Vitamin B1 -] 100 mg PO DAILY tablet 02/28/19 Anemia: No Asthma: No Cancer: No Cardiac Disorders: Yes (CAD with stentx2 in 2011 2016) CVA: No COPD: No CHF: No Dementia: No Diabetes: Yes (Not on meds.) GI Disorders: No Disorders: No HTN: Yes Hypercholesterolemia: Yes Kidney Stones: No Liver Disease: No Seizures: No Thyroid Disease: No - Surgical History Abdominal Surgery: No Appendectomy: No Cardiac Surgery: Yes (2012 cardiac stent, 2017) Cholecystectomy: No Lung Surgery: No Neurologic Surgery: No Orthopedic Surgery: No - Reproductive History Testicular Surgery: No - Psycho Social/Smoking Cessation Hx Smoking History: Current every day smoker Have you smoked in the past 12 months: Yes Number of Cigarettes Smoked Daily: 3 Cigars Per Day: 0 'Breaking Loose' booklet given: 02/23/19 Hx Alcohol Use: Yes Drug/Substance Use Hx: Yes Substance Use Type: Alcohol Hx Substance Use Treatment: Yes Review of Systems - Review of Systems Comments:: General: No fevers, no chills, no weight or appetite change, no malaise HEENT: No changes in vision, no changes in hearing, no congestion, no sore throat CV: + chest pain, no palpitations, no LE edema Pulm: No SOB, no cough, no wheezing GI: No nausea or vomiting, no change in bowel habits, no melena : No frequency, no urgency, no dysuria Musc: No back pain, no joint swelling, no recent injury Skin: No rash, no lesions, no erythema Endo: No excessive thirst, no heat/cold intolerance Heme: No unusual bruising or bleeding, no swollen glands Neuro: No syncope, no numbness/tingling, no focal weakness Vasc: No claudication Psych: No recent change in mood, no SI or HI *Physical Exam - Physical Exam Comments: General: Comfortable, no acute distress HEENT: PERRL, EOMI, MMM, voice normal, normal neck ROM Cards: RRR, no murmur appreciated, no reproducible pain Pulm: Comfortable on room air, clear to auscultation bilaterally Abd: Soft, nontender, nondistended Ext: Atraumatic. No LE edema. ROM intact. Strength 5/5 and equal bilaterally Vasc: Extremities WWP. Skin: Normal color, no rashes or lesions Neuro: A&Ox3, CN grossly intact, normal speech, motor/sensory grossly intact and symmetric Psych: Mood appropriate to situation Medical Decision Making - Medical Decision Making 03/11/19 20:03 Anderson Chin is a 63yo man with a PMH of polysubstance abuse (EtOH, heroin, cocaine), HTN, HLD, s/p 2 OR's & 2 stent placements, untreated hepC, BPH, depression who presents from rehab with sharp mid-sternal chest pain since 4pm. He denies any associated symptoms. - Per chart review, pain yesterday improved with protonix. Reflux likely but with significant cardiac history cannot exclude ACS - EKG, cardiac profile - Protonix, mylanta as pt already had nitro without improvement 03/11/19 20:41 - Patient declined medications - EKG w/ sinus bradycardia, HR 51, left axis, prolonged QRS at 142, inverted t- waves in V5 and V6. Unchanged from EKG on 02/27/19 - Cardiac profile pending 03/11/19 21:14 - Troponin 0.02, previous from 02/27 was 0.05 - Given unchanged EKG, negative trop, pain is unlikely to represent an OR. As he had similar pain in the past that - Pt continues to decline offered medications - Call placed to [facility]. OK to transfer back to rehab. Updated overnight physician regarding refusal of meds. Discussed with Dr Rach Hoover PGY2 Discharge - Discharge Information Problems reviewed: Yes Clinical Impression/Diagnosis: Chest pain Qualifiers: Chest pain type: unspecified Qualified Code(s): R07.9 - Chest pain, unspecified Condition: Stable Disposition: HOME - Admission No - Follow up/Referral - Patient Discharge Instructions Patient Printed Discharge Instructions: DI for Chest Pain Additional Instructions: Discharge Instructions: You were seen in the emergency department for chest pain. Your EKG and cardiac ( heart) blood tests were not concerning. Please continue to take all of your regular medications as prescribed. Consider taking an acid dietitian teacher such as pantoprazole or famotidine for your symptoms Seek immediate medical care for worsening symptoms, difficulty breathing, Chest pain with shortness of breath or nausea, fainting, or any other medical emergency. - Post Discharge Activity
[2019-03-11 20:22] VITALS: TEMP 98.4; BMI 26.3
[2019-03-11] MEDS ORDERED: MAG HYDROX/AL HYDROX/SIMETH 30 ML UNIT-DOSE CUP ONE (20:26)
[2019-03-11] MEDS ORDERED: PANTOPRAZOLE 40 MG TABLET (FP) ONE (20:26)
[2019-03-11] MEDS ORDERED: METHOCARBAMOL 500 MG TABLET ONE (20:26)
[2019-03-11 22:13] VITALS: BP 154/91; PULSE 63
--- NOTE | 2019-05-06 14:39 | EKG ---
Test Reason : Blood Pressure : / mmHG Vent. Rate : 071 BPM Atrial Rate : 071 BPM P-R Int : 190 ms QRS Dur : 140 ms QT Int : 440 ms P-R-T Axes : 080 -78 068 degrees QTc Int : 478 ms NORMAL SINUS RHYTHM LEFT AXIS DEVIATION LEFT BUNDLE BRANCH BLOCK ABNORMAL ECG WHEN COMPARED WITH ECG OF 10-MAR-2019 18:35, NO SIGNIFICANT CHANGE WAS FOUND Confirmed by KOKO HUNG MD ([id number]) on 05/06/2019 2:38:44 PM Referred By: Confirmed By:KOKO HUNG MD
== END 2019-03-11 22:13 | disposition home or self-care (01) ==
LOC: JER 19:46
DX: R07.89 Other chest pain (principal); K21.9 Gastro-esophageal reflux disease without esophagitis; R00.1 Bradycardia, unspecified; Z95.5 Presence of coronary angioplasty implant and graft; I25.10 Atherosclerotic heart disease of native coronary artery without angina pectoris; I10 Essential (primary) hypertension; I25.2 Old myocardial infarction; E11.9 Type 2 diabetes mellitus without complications; B18.2 Chronic viral hepatitis C; N40.0 Benign prostatic hyperplasia without lower urinary tract symptoms; F10.10 Alcohol abuse, uncomplicated; F11.10 Opioid abuse, uncomplicated; F14.10 Cocaine abuse, uncomplicated; F17.210 Nicotine dependence, cigarettes, uncomplicated; Z88.6 Allergy status to analgesic agent
CPT/HCPCS: 36415; 82550; 82553; 84484; 93005; 93010; 99285-25

== ENCOUNTER 2021-11-03 14:42 | Inpatient (IN) | payer OTHER ==
[2021-11-03 15:16] VITALS: BMI 25.0
[2021-11-03] MEDS ORDERED: P-EPHED 60MG/TRIPROLIDI 2.5MG TABLET PO PRN (16:55)
[2021-11-03] MEDS ORDERED: MAGNESIUM CITRATE 300 ML BOTTLE PO PRN (16:55)
[2021-11-03] MEDS ORDERED: LOPERAMIDE HCL 2 MG CAPSULE PO PRN (16:55)
[2021-11-03] MEDS ORDERED: ONDANSETRON *ODT* 4 MG TABLET SL PRN (16:55)
[2021-11-03] MEDS ORDERED: DICYCLOMINE HCL 10 MG CAPSULE PO PRN (16:55)
[2021-11-03] MEDS ORDERED: MAGNESIUM HYDROX 2400MG/30ML ORAL SUSPENSION 30 ML CUP PO PRN (16:55)
[2021-11-03] MEDS ORDERED: MAG HYDROX/AL HYDROX/SIMETH 30 ML UNIT-DOSE CUP PO PRN (16:55)
[2021-11-03] MEDS ORDERED: BENZOCAINE/MENTHOL (CHLORASEPTIC ) LOZENGE MM PRN (16:55)
[2021-11-03] MEDS ORDERED: cloNIDine HCL 0.1 MG TABLET PO PRN (20:10)
[2021-11-03] MEDS ORDERED: methaDONE HCL 10 MG TABLET (FOR DETOX USE ONLY) PO ONE (20:10)
[2021-11-03] MEDS: THIAMINE HCL 100 MG TABLET (FP) PO SCH (22:13)
[2021-11-03] MEDS: ATORVASTATIN CA 20 MG TABLET (FP) PO SCH (22:13)
[2021-11-04] MEDS ORDERED: methaDONE HCL 10 MG TABLET (FOR DETOX USE ONLY) ONE (09:25)
[2021-11-04] MEDS ORDERED: NITROGLYCERIN SUBLINGUAL 1/150 0.4 MG TAB SL PRN (09:51)
[2021-11-04 09:52] LABS: HEMATOCRIT 34.6 % (35.4-49); HEMOGLOBIN 10.7 GM/dL (11.7-16.9); MCH 22.1 pg (25.7-33.7); MEAN CELL VOLUME 71.1 fl (80-96); PLATELET COUNT 176 10^3/uL (134-434); RBC 4.87 M/mm3 (4.00-5.60); WHITE BLOOD COUNT 4.7 K/mm3 (4.0-10.0)
[2021-11-04] MEDS: hydrOXYzine PAMOATE 25 MG CAPSULE (FP) PO PRN (10:14)
[2021-11-04] MEDS: PRENATAL VITAMINS W/ FOLIC ACID TABLET (FP) PO SCH (10:14)
[2021-11-04] MEDS: amLODIPine BESYLATE 10 MG TABLET (FP) PO SCH (10:14)
[2021-11-04] MEDS: CLOPIDOGREL BISULFATE 75 MG TABLET (FP) PO SCH (10:14)
[2021-11-04] MEDS: METHOCARBAMOL 500 MG TABLET PO PRN (10:14)
[2021-11-04] MEDS: ASPIRIN 81 MG CHEWABLE TABLETS PO SCH (10:14)
[2021-11-04 10:33] LABS: ALBUMIN 2.8 g/dl (3.4-5.0); BLOOD UREA NITROGEN 17.3 mg/dL (7-18); CALCIUM 8.6 mg/dL (8.5-10.1)
[2021-11-04 10:38] LABS: BILIRUBIN,TOTAL 0.4 mg/dL (0.2-1)
[2021-11-04 10:39] LABS: TOT PROT 6.3 g/dl (6.4-8.2)
[2021-11-04] MEDS: LISINOPRIL 5 MG TABLET PO SCH (10:45)
[2021-11-04] MEDS: FOLIC ACID 1 MG TABLET (FP) PO SCH (10:45)
[2021-11-04] MEDS: ISOSORBIDE MONONITRATE 30 MG TAB.SR.24H (FP) PO SCH (10:46)
[2021-11-04] MEDS: ATORVASTATIN CA 20 MG TABLET (FP) PO SCH (23:46)
[2021-11-04] MEDS: THIAMINE HCL 100 MG TABLET (FP) PO SCH (23:46)
[2021-11-05] MEDS ORDERED: methaDONE HCL 10 MG TABLET (FOR DETOX USE ONLY) PO ONE (10:00)
[2021-11-05] MEDS: FOLIC ACID 1 MG TABLET (FP) PO SCH (10:17)
[2021-11-05] MEDS: ASPIRIN 81 MG CHEWABLE TABLETS PO SCH (10:17)
[2021-11-05] MEDS: ISOSORBIDE MONONITRATE 30 MG TAB.SR.24H (FP) PO SCH (10:17)
[2021-11-05] MEDS: PRENATAL VITAMINS W/ FOLIC ACID TABLET (FP) PO SCH (10:17)
[2021-11-05] MEDS: amLODIPine BESYLATE 10 MG TABLET (FP) PO SCH (10:17)
[2021-11-05] MEDS: CLOPIDOGREL BISULFATE 75 MG TABLET (FP) PO SCH (10:17)
[2021-11-05] MEDS: LISINOPRIL 5 MG TABLET PO SCH (10:17)
[2021-11-05] MEDS: ATORVASTATIN CA 20 MG TABLET (FP) PO SCH (23:00)
[2021-11-05] MEDS: THIAMINE HCL 100 MG TABLET (FP) PO SCH (23:01)
[2021-11-06] MEDS ORDERED: methaDONE HCL 10 MG TABLET (FOR DETOX USE ONLY) ONE (09:20)
[2021-11-06] MEDS: CLOPIDOGREL BISULFATE 75 MG TABLET (FP) PO SCH (10:22)
[2021-11-06] MEDS: PRENATAL VITAMINS W/ FOLIC ACID TABLET (FP) PO SCH (10:22)
[2021-11-06] MEDS: LISINOPRIL 5 MG TABLET PO SCH (10:22)
[2021-11-06] MEDS: METHOCARBAMOL 500 MG TABLET PO PRN (10:22)
[2021-11-06] MEDS: ASPIRIN 81 MG CHEWABLE TABLETS PO SCH (10:22)
[2021-11-06] MEDS: hydrOXYzine PAMOATE 25 MG CAPSULE (FP) PO PRN (10:23)
[2021-11-06] MEDS: amLODIPine BESYLATE 10 MG TABLET (FP) PO SCH (10:23)
[2021-11-06] MEDS: FOLIC ACID 1 MG TABLET (FP) PO SCH (10:24)
[2021-11-06] MEDS: ISOSORBIDE MONONITRATE 30 MG TAB.SR.24H (FP) PO SCH (10:24)
[2021-11-06] MEDS: THIAMINE HCL 100 MG TABLET (FP) PO SCH (22:42)
[2021-11-06] MEDS: MELATONIN 5 MG TABLETS PO PRN (22:43)
[2021-11-06] MEDS: ATORVASTATIN CA 20 MG TABLET (FP) PO SCH (22:43)
[2021-11-07] MEDS ORDERED: methaDONE HCL 10 MG TABLET (FOR DETOX USE ONLY) PO ONE (10:00)
[2021-11-07] MEDS: ASPIRIN 81 MG CHEWABLE TABLETS PO SCH (10:29)
[2021-11-07] MEDS: hydrOXYzine PAMOATE 25 MG CAPSULE (FP) PO PRN (10:29)
[2021-11-07] MEDS: METHOCARBAMOL 500 MG TABLET PO PRN (10:29)
[2021-11-07] MEDS: PRENATAL VITAMINS W/ FOLIC ACID TABLET (FP) PO SCH (10:29)
[2021-11-07] MEDS: LISINOPRIL 5 MG TABLET PO SCH (10:29)
[2021-11-07] MEDS: CLOPIDOGREL BISULFATE 75 MG TABLET (FP) PO SCH (10:29)
[2021-11-07] MEDS: amLODIPine BESYLATE 10 MG TABLET (FP) PO SCH (10:29)
[2021-11-07] MEDS: ISOSORBIDE MONONITRATE 30 MG TAB.SR.24H (FP) PO SCH (10:30)
[2021-11-07] MEDS: FOLIC ACID 1 MG TABLET (FP) PO SCH (10:30)
[2021-11-07] MEDS: MELATONIN 5 MG TABLETS PO PRN (22:35)
[2021-11-07] MEDS: ATORVASTATIN CA 20 MG TABLET (FP) PO SCH (22:35)
[2021-11-07] MEDS: THIAMINE HCL 100 MG TABLET (FP) PO SCH (22:35)
[2021-11-08] MEDS: amLODIPine BESYLATE 10 MG TABLET (FP) PO SCH (10:27)
[2021-11-08] MEDS: PRENATAL VITAMINS W/ FOLIC ACID TABLET (FP) PO SCH (10:27)
[2021-11-08] MEDS: FOLIC ACID 1 MG TABLET (FP) PO SCH (10:27)
[2021-11-08] MEDS: CLOPIDOGREL BISULFATE 75 MG TABLET (FP) PO SCH (10:27)
[2021-11-08] MEDS: LISINOPRIL 5 MG TABLET PO SCH (10:27)
[2021-11-08] MEDS: ASPIRIN 81 MG CHEWABLE TABLETS PO SCH (10:27)
[2021-11-08] MEDS: ISOSORBIDE MONONITRATE 30 MG TAB.SR.24H (FP) PO SCH (10:28)
[2021-11-08 14:16] VITALS: BP 151/87; PULSE 49; TEMP 97.7
== END 2021-11-08 20:00 | disposition other institution (70) | DRG 897 ==
LOC: YASAS 14:42 → Y6N 19:02 → UNDODISIN 11-08 18:30
PROVIDERS: ADMIT Allergy & Immunology; ATTEND Surgery
PROC: HZ2ZZZZ Detoxification Services for Substance Abuse Treatment (ICD-10-PCS; principal; 2021-11-03)
DX: F11.23 Opioid dependence with withdrawal (principal); F14.20 Cocaine dependence, uncomplicated; F10.230 Alcohol dependence with withdrawal, uncomplicated; F17.210 Nicotine dependence, cigarettes, uncomplicated; F10.282 Alcohol dependence with alcohol-induced sleep disorder; F41.9 Anxiety disorder, unspecified; F32.A Depression, unspecified; I25.10 Atherosclerotic heart disease of native coronary artery without angina pectoris; I10 Essential (primary) hypertension; I25.2 Old myocardial infarction; E78.2 Mixed hyperlipidemia; E11.9 Type 2 diabetes mellitus without complications; K21.9 Gastro-esophageal reflux disease without esophagitis; B18.2 Chronic viral hepatitis C; R00.1 Bradycardia, unspecified; Z88.6 Allergy status to analgesic agent
CPT/HCPCS: 36415; 80053; 82962; 85027; 86593; 86780; C9803-CS; U0003; U0005

== ENCOUNTER 2021-11-08 22:06 | Inpatient (IN) | payer OTHER ==
[2021-11-08] MEDS ORDERED: morphine CARPU-JECT 4 MG/1 ML DISP.SYRIN IVPUSH ONE (22:56)
[2021-11-08] MEDS ORDERED: morphine SULFATE 4 MG/ML VIAL ONE (22:57)
[2021-11-08 23:18] LABS: BASO % 0.7 % (0-2.0); EOS % 2.8 % (0-4.5); HEMATOCRIT 34.6 % (35.4-49); LYMPH % 36.4 % (8-40); MCH 22.5 pg (25.7-33.7); MCHC 31.8 g/dl (32.0-35.9); MEAN CELL VOLUME 70.7 fl (80-96); MEAN PLT VOLUME 8.6 fl (7.5-11.1); MONO % 12.7 % (3.8-10.2); NEUT % 47.4 % (42.8-82.8); PLATELET COUNT 186 10^3/uL (134-434); RBC 4.89 M/mm3 (4.00-5.60); RDW 15.8 % (11.9-15.9); WHITE BLOOD COUNT 5.1 K/mm3 (4.0-10.0)
[2021-11-08 23:26] LABS: INR 0.92 (0.83-1.09); PROTHROMBIN TIME (PATIENT) 10.6 SEC (9.7-13.0)
[2021-11-08 23:29] LABS: ACTIVATED PTT 27.7 SECONDS (25.2-36.5)
[2021-11-08 23:51] LABS: BLOOD UREA NITROGEN 19.4 mg/dL (7-18); CALCIUM 8.8 mg/dL (8.5-10.1); MAGNESIUM 1.7 mg/dL (1.8-2.4)
[2021-11-08 23:54] LABS: CREATININE 0.9 mg/dL (0.55-1.3)
[2021-11-08 23:56] LABS: BILIRUBIN,TOTAL 0.4 mg/dL (0.2-1); TOT PROT 6.9 g/dl (6.4-8.2)
[2021-11-09] MEDS ORDERED: ASPIRIN 81 MG CHEWABLE TABLETS PO ONE (00:31)
[2021-11-09] MEDS ORDERED: NITROGLYCERIN SUBLINGUAL 1/150 0.4 MG TAB SL ONE (00:32)
[2021-11-09] MEDS ORDERED: GABAPENTIN 100 MG CAPSULE ONE ×3 (06:02→21:49)
[2021-11-09] MEDS: GABAPENTIN 100 MG CAPSULE PO SCH ×3 (06:06→21:55)
[2021-11-09] MEDS ORDERED: TAMSULOSIN HCL 0.4 MG CAP ONE (07:12)
[2021-11-09 07:39] LABS: BASO % 0.7 % (0-2.0); EOS % 3.3 % (0-4.5); HEMATOCRIT 33.3 % (35.4-49); HEMOGLOBIN 10.6 GM/dL (11.7-16.9); LYMPH % 38.6 % (8-40); MCH 22.8 pg (25.7-33.7); MEAN CELL VOLUME 71.3 fl (80-96); MEAN PLT VOLUME 8.5 fl (7.5-11.1); MONO % 12.2 % (3.8-10.2); NEUT % 45.2 % (42.8-82.8); PLATELET COUNT 159 10^3/uL (134-434); RBC 4.67 M/mm3 (4.00-5.60); RDW 15.7 % (11.9-15.9); WHITE BLOOD COUNT 4.6 K/mm3 (4.0-10.0)
[2021-11-09] MEDS: INSULIN SLIDING SCALE (NOVOLOG) 1 VIAL SQ SCH ×4 (07:45→22:38)
[2021-11-09 07:54] LABS: CHLORIDE 109 mmol/L (98-107); SODIUM 141 mmol/L (136-145)
[2021-11-09 08:01] LABS: ANION GAP 5 MMOL/L (8-16); BLOOD UREA NITROGEN 19.1 mg/dL (7-18); CALCIUM 8.6 mg/dL (8.5-10.1); CO2 26 mmol/L (21-32); GLUCOSE,RANDOM 213 mg/dL (74-106); MAGNESIUM 1.7 mg/dL (1.8-2.4)
[2021-11-09 08:03] LABS: CHOLESTEROL 121 mg/dL (50-200); LDL CHOLESTEROL (ONLY SJRH) 52 mg/dL (5-100)
[2021-11-09 08:05] LABS: PHOSPHOROUS 4.1 mg/dL (2.5-4.9); TRIGLYCERIDES 231 mg/dL (0-150)
[2021-11-09] MEDS ORDERED: MAGNESIUM OXIDE 400 MG TABLET (FP) PO ONE (08:05)
[2021-11-09 08:07] LABS: HDL CHOLESTEROL 27 mg/dL (40-60)
[2021-11-09] MEDS: TAMSULOSIN HCL 0.4 MG CAP PO SCH (08:09)
[2021-11-09 08:26] LABS: IRON SERUM 84 ug/dL (50-175)
[2021-11-09 08:30] LABS: TOTAL IRON BINDING CAPACITY 300 ug/dL (250-450)
[2021-11-09] MEDS ORDERED: MAGNESIUM OXIDE 400 MG TABLET (FP) ONE ×2 (08:33→08:36)
[2021-11-09] MEDS ORDERED: SERTRALINE HCL 50 MG TABLET (FP) ONE (09:52)
[2021-11-09] MEDS ORDERED: amLODIPine BESYLATE 10 MG TABLET (FP) ONE (09:52)
[2021-11-09] MEDS ORDERED: RANOLAZINE E.R. 500 MG TABLET (FP) ONE ×2 (09:52→21:49)
[2021-11-09] MEDS ORDERED: CARVEDILOL 6.25 MG TABLET (FP) ONE ×2 (09:52→21:49)
[2021-11-09] MEDS ORDERED: CLOPIDOGREL BISULFATE 75 MG TABLET (FP) ONE (09:52)
[2021-11-09] MEDS ORDERED: ENOXAPARIN NA (PORCINE) 40 MG/0.4 ML DISP.SYRIN SQ ONE (09:52)
[2021-11-09] MEDS: ENOXAPARIN NA (PORCINE) 40 MG/0.4 ML DISP.SYRIN SQ SCH (10:01)
[2021-11-09] MEDS: RANOLAZINE E.R. 500 MG TABLET (FP) PO SCH ×2 (10:02→21:55)
[2021-11-09] MEDS: SERTRALINE HCL 25 MG TABLET (FP) PO SCH (10:02)
[2021-11-09] MEDS: CLOPIDOGREL BISULFATE 75 MG TABLET (FP) PO SCH (10:02)
[2021-11-09] MEDS: amLODIPine BESYLATE 10 MG TABLET (FP) PO SCH (10:02)
[2021-11-09] MEDS ORDERED: morphine CARPU-JECT 2 MG/1 ML DISP.SYRIN IVPUSH ONE (10:59)
[2021-11-09] MEDS: CARVEDILOL 6.25 MG TABLET (FP) PO SCH ×2 (11:04→21:55)
[2021-11-09 11:57] LABS: ERYTHROCYTE SEDIMENTATION RATE 12 mm/hr (0-20)
[2021-11-09 16:25] LABS: ANISOCYTOSIS 2+; MACROCYTOSIS 0
[2021-11-09 17:36] LABS: RETICULOCYTES 1.34 % (0.5-1.5)
[2021-11-09] MEDS ORDERED: ISOSORBIDE MONONITRATE 60 MG TAB.SR.24H (FP) PO ONE (20:09)
[2021-11-09] MEDS: ISOSORBIDE MONONITRATE 60 MG TAB.SR.24H (FP) PO SCH (20:13)
[2021-11-09] MEDS ORDERED: ATORVASTATIN CA 80 MG TABLET (FP) ONE (21:48)
[2021-11-09] MEDS: ATORVASTATIN CA 80 MG TABLET (FP) PO SCH (21:55)
[2021-11-09] MEDS: traZODone HCL 50 MG TABLET (FP) PO SCH (21:55)
[2021-11-10 02:34] VITALS: BMI 23.6
[2021-11-10] MEDS: GABAPENTIN 100 MG CAPSULE PO SCH ×3 (06:14→21:37)
[2021-11-10] MEDS: INSULIN SLIDING SCALE (NOVOLOG) 1 VIAL SQ SCH ×4 (06:16→21:49)
[2021-11-10] MEDS: TAMSULOSIN HCL 0.4 MG CAP PO SCH (09:23)
[2021-11-10] MEDS: ISOSORBIDE MONONITRATE 60 MG TAB.SR.24H (FP) PO SCH ×2 (09:23→16:45)
[2021-11-10] MEDS: amLODIPine BESYLATE 10 MG TABLET (FP) PO SCH ×2 (09:23→16:45)
[2021-11-10] MEDS: CARVEDILOL 6.25 MG TABLET (FP) PO SCH ×2 (09:23→21:37)
[2021-11-10] MEDS: ENOXAPARIN NA (PORCINE) 40 MG/0.4 ML DISP.SYRIN SQ SCH (09:23)
[2021-11-10] MEDS: CLOPIDOGREL BISULFATE 75 MG TABLET (FP) PO SCH ×2 (09:24→16:45)
[2021-11-10] MEDS: RANOLAZINE E.R. 500 MG TABLET (FP) PO SCH ×2 (09:24→21:37)
[2021-11-10] MEDS: SERTRALINE HCL 25 MG TABLET (FP) PO SCH (09:24)
[2021-11-10] MEDS: ATORVASTATIN CA 80 MG TABLET (FP) PO SCH (21:37)
[2021-11-10] MEDS: traZODone HCL 50 MG TABLET (FP) PO SCH (21:37)
[2021-11-10] MEDS ORDERED: MELATONIN 5 MG TABLETS PO ONE (22:45)
[2021-11-11] MEDS: GABAPENTIN 100 MG CAPSULE PO SCH (06:17)
[2021-11-11] MEDS: INSULIN SLIDING SCALE (NOVOLOG) 1 VIAL SQ SCH ×2 (06:17→11:55)
[2021-11-11] MEDS: TAMSULOSIN HCL 0.4 MG CAP PO SCH (11:45)
[2021-11-11] MEDS: ISOSORBIDE MONONITRATE 60 MG TAB.SR.24H (FP) PO SCH (11:45)
[2021-11-11] MEDS: CLOPIDOGREL BISULFATE 75 MG TABLET (FP) PO SCH (11:46)
[2021-11-11] MEDS: ENOXAPARIN NA (PORCINE) 40 MG/0.4 ML DISP.SYRIN SQ SCH (11:46)
[2021-11-11] MEDS: RANOLAZINE E.R. 500 MG TABLET (FP) PO SCH (11:55)
[2021-11-11] MEDS: SERTRALINE HCL 25 MG TABLET (FP) PO SCH (11:55)
[2021-11-11 13:29] VITALS: BP 96/59; PULSE 47; TEMP 97.7
[2021-11-11] MEDS: CARVEDILOL 6.25 MG TABLET (FP) PO SCH (13:57)
[2021-11-11] MEDS: amLODIPine BESYLATE 10 MG TABLET (FP) PO SCH (13:57)
== END 2021-11-11 14:12 | disposition other institution (70) | DRG 313 ==
LOC: JER 22:06 → JERBED 11-09 00:16 → INTOOBSV 11-09 01:47 → OBSVTOIN 11-09 01:47 → J6S 11-10 02:24 → OBSVTOIN 11-11 12:17
PROVIDERS: ADMIT Hospitalist; ATTEND Internal Medicine
DX: R07.89 Other chest pain (principal); I50.22 Chronic systolic (congestive) heart failure; I45.2 Bifascicular block; B18.2 Chronic viral hepatitis C; E11.9 Type 2 diabetes mellitus without complications; I11.0 Hypertensive heart disease with heart failure; E03.9 Hypothyroidism, unspecified; I35.1 Nonrheumatic aortic (valve) insufficiency; D50.9 Iron deficiency anemia, unspecified; I25.10 Atherosclerotic heart disease of native coronary artery without angina pectoris; E78.2 Mixed hyperlipidemia; K21.9 Gastro-esophageal reflux disease without esophagitis; N40.0 Benign prostatic hyperplasia without lower urinary tract symptoms; E87.8 Other disorders of electrolyte and fluid balance, not elsewhere classified; E83.42 Hypomagnesemia; Z98.61 Coronary angioplasty status; E78.5 Hyperlipidemia, unspecified
CPT/HCPCS: 36415; 71045-TC-FY; 80048; 80053; 80061; 82607; 82728; 82962; 83036; 83540; 83550; 83690; 83735; 84100; 84439; 84443; 84484; 85025; 85045; 85610; 85651; 85730; 86140; 93005; 93010; 97116-GP; 97162-GP; 99285-25; G0378

== ENCOUNTER 2021-12-06 12:56 | Inpatient (IN) | payer OTHER ==
[2021-12-06 15:51] VITALS: BMI 23.5
[2021-12-06] MEDS ORDERED: ONDANSETRON *ODT* 4 MG TABLET SL PRN (16:53)
[2021-12-06] MEDS ORDERED: BENZOCAINE/MENTHOL (CHLORASEPTIC ) LOZENGE MM PRN (16:53)
[2021-12-06] MEDS ORDERED: NALOXONE HCL (KLOXXADO) 8 MG SPRAY NS PRN (16:53)
[2021-12-06] MEDS ORDERED: MAGNESIUM CITRATE 300 ML BOTTLE PO PRN (16:53)
[2021-12-06] MEDS ORDERED: LOPERAMIDE HCL 2 MG CAPSULE PO PRN (16:53)
[2021-12-06] MEDS ORDERED: MAGNESIUM HYDROX 2400MG/30ML ORAL SUSPENSION 30 ML CUP PO PRN (16:53)
[2021-12-06] MEDS ORDERED: guaiFENesin 200 MG/10 ML 10 ML UNIT-DOSE CUPS PO PRN (16:53)
[2021-12-06] MEDS ORDERED: NALOXONE HCL 0.4 MG/ML VIAL IM PRN (16:53)
[2021-12-06] MEDS ORDERED: METHOCARBAMOL 500 MG TABLET PO PRN (16:53)
[2021-12-06] MEDS ORDERED: DICYCLOMINE HCL 10 MG CAPSULE PO PRN (16:53)
[2021-12-06] MEDS ORDERED: NICOTINE POLACRILEX 2 MG GUM BUC PRN (16:53)
[2021-12-06] MEDS ORDERED: MAG HYDROX/AL HYDROX/SIMETH 30 ML UNIT-DOSE CUP PO PRN (16:53)
[2021-12-06] MEDS ORDERED: BISMUTH SUBSALICYLATE 524 MG/30 ML PO PRN (16:53)
[2021-12-06] MEDS ORDERED: P-EPHED 60MG/TRIPROLIDI 2.5MG TABLET PO PRN (16:53)
[2021-12-06] MEDS: THIAMINE HCL 100 MG TABLET (FP) PO SCH (22:24)
[2021-12-06] MEDS: MELATONIN 5 MG TABLETS PO SCH (22:24)
[2021-12-07 09:03] LABS: HEMOGLOBIN 11.3 GM/dL (11.7-16.9); MCHC 30.7 g/dl (32.0-35.9); MEAN CELL VOLUME 71.8 fl (80-96); MEAN PLT VOLUME 9.2 fl (7.5-11.1); PLATELET COUNT 170 10^3/uL (134-434); RBC 5.16 M/mm3 (4.00-5.60); RDW 15.1 % (11.9-15.9); WHITE BLOOD COUNT 6.2 K/mm3 (4.0-10.0)
[2021-12-07 09:11] LABS: CALCIUM 9.3 mg/dL (8.5-10.1)
[2021-12-07 09:12] LABS: ALBUMIN 3.1 g/dl (3.4-5.0); BLOOD UREA NITROGEN 27.6 mg/dL (7-18)
[2021-12-07 09:15] LABS: CREATININE 1.3 mg/dL (0.55-1.3)
[2021-12-07 09:17] LABS: BILIRUBIN,TOTAL 0.3 mg/dL (0.2-1); TOT PROT 7.2 g/dl (6.4-8.2)
[2021-12-07] MEDS: NICOTINE 14 MG/24 HOURS TOPICAL PATCH TD SCH (10:21)
[2021-12-07] MEDS: PRENATAL VITAMINS W/ FOLIC ACID TABLET (FP) PO SCH (10:21)
[2021-12-07] MEDS ORDERED: LORazepam 1 MG TABLET PO PRN (10:35)
[2021-12-07] MEDS: LORazepam 1 MG TABLET PO SCH ×3 (10:47→22:31)
[2021-12-07] MEDS: INSULIN SLIDING SCALE (NOVOLOG) 1 VIAL SQ SCH ×2 (20:28→21:36)
[2021-12-07] MEDS: MELATONIN 5 MG TABLETS PO SCH (22:31)
[2021-12-07] MEDS: GABAPENTIN 100 MG CAPSULE PO SCH (22:31)
[2021-12-07] MEDS: THIAMINE HCL 100 MG TABLET (FP) PO SCH (22:31)
[2021-12-07] MEDS: ATORVASTATIN CA 80 MG TABLET (FP) PO SCH (22:31)
[2021-12-07] MEDS: traZODone HCL 50 MG TABLET (FP) PO SCH (22:31)
[2021-12-07] MEDS: CARVEDILOL 6.25 MG TABLET (FP) PO SCH (22:32)
[2021-12-08] MEDS ORDERED: LORazepam 0.5 MG TABLET PO PRN
[2021-12-08] MEDS: RANOLAZINE E.R. 500 MG TABLET (FP) PO SCH ×3 (00:11→21:28)
[2021-12-08] MEDS: GABAPENTIN 100 MG CAPSULE PO SCH ×3 (08:00→21:28)
[2021-12-08] MEDS: LORazepam 0.5 MG TABLET PO SCH ×4 (08:00→22:44)
[2021-12-08] MEDS: INSULIN SLIDING SCALE (NOVOLOG) 1 VIAL SQ SCH ×4 (08:00→22:43)
[2021-12-08] MEDS ORDERED: DAPAGLIFLOZIN PROPANEDIOL 10 MG TABLET PO SCH (10:00)
[2021-12-08] MEDS ORDERED: CLOPIDOGREL BISULFATE 75 MG TABLET (FP) PO SCH (10:00)
[2021-12-08] MEDS: PRENATAL VITAMINS W/ FOLIC ACID TABLET (FP) PO SCH (10:00)
[2021-12-08] MEDS ORDERED: amLODIPine BESYLATE 10 MG TABLET (FP) PO SCH (10:00)
[2021-12-08] MEDS ORDERED: ISOSORBIDE MONONITRATE 60 MG TAB.SR.24H (FP) PO SCH (10:00)
[2021-12-08] MEDS ORDERED: TAMSULOSIN HCL 0.4 MG CAP PO SCH (10:00)
[2021-12-08] MEDS: NICOTINE 14 MG/24 HOURS TOPICAL PATCH TD SCH (10:02)
[2021-12-08] MEDS: CARVEDILOL 6.25 MG TABLET (FP) PO SCH ×2 (11:54→21:28)
[2021-12-08 17:05] VITALS: RESP 18
[2021-12-08] MEDS: THIAMINE HCL 100 MG TABLET (FP) PO SCH (21:28)
[2021-12-08] MEDS: traZODone HCL 50 MG TABLET (FP) PO SCH (21:28)
[2021-12-08] MEDS: ATORVASTATIN CA 80 MG TABLET (FP) PO SCH (21:28)
[2021-12-08] MEDS: MELATONIN 5 MG TABLETS PO SCH (22:43)
[2021-12-09] MEDS ORDERED: LORazepam 0.5 MG TABLET PO ONE (05:00)
[2021-12-09 06:09] VITALS: BP 129/93; PULSE 97; TEMP 98.2
[2021-12-09] MEDS: GABAPENTIN 100 MG CAPSULE PO SCH (06:53)
== END 2021-12-09 02:00 | disposition short-term general hospital (02) | DRG 897 ==
LOC: YASAS 12:56 → Y3N 17:26
PROVIDERS: ADMIT Allergy & Immunology; ATTEND Surgery
PROC: HZ2ZZZZ Detoxification Services for Substance Abuse Treatment (ICD-10-PCS; principal; 2021-12-06)
DX: F10.230 Alcohol dependence with withdrawal, uncomplicated (principal); F14.20 Cocaine dependence, uncomplicated; F19.282 Other psychoactive substance dependence with psychoactive substance-induced sleep disorder; F17.210 Nicotine dependence, cigarettes, uncomplicated; I25.10 Atherosclerotic heart disease of native coronary artery without angina pectoris; I10 Essential (primary) hypertension; I25.2 Old myocardial infarction; Z95.5 Presence of coronary angioplasty implant and graft; R07.9 Chest pain, unspecified; K21.9 Gastro-esophageal reflux disease without esophagitis; E78.5 Hyperlipidemia, unspecified; E11.9 Type 2 diabetes mellitus without complications; Z79.4 Long term (current) use of insulin; Z86.19 Personal history of other infectious and parasitic diseases; Z88.6 Allergy status to analgesic agent
CPT/HCPCS: 0241U-QW; 36415; 71045-TC-FY; 80053; 82962; 83036; 84484; 85025; 85027; 85610; 85730; 86593; 86780; 93005; 93010; C9803-CS; U0003; U0005

== ENCOUNTER 2021-12-09 07:58 | Inpatient (IN) | payer OTHER ==
[2021-12-09 10:29] VITALS: BMI 24.9
[2021-12-09] MEDS ORDERED: LOPERAMIDE HCL 2 MG CAPSULE PO PRN (10:50)
[2021-12-09] MEDS ORDERED: BENZOCAINE/MENTHOL (CHLORASEPTIC ) LOZENGE MM PRN (10:50)
[2021-12-09] MEDS ORDERED: IBUPROFEN 600 MG TABLET (FP) PO PRN (10:50)
[2021-12-09] MEDS ORDERED: BISMUTH SUBSALICYLATE 262 MG/15 ML BTL PO PRN (10:50)
[2021-12-09] MEDS ORDERED: NICOTINE 10 MG CARTRIDGE (INHALER) IH PRN (10:50)
[2021-12-09] MEDS ORDERED: MAGNESIUM HYDROX 2400MG/30ML ORAL SUSPENSION 30 ML CUP PO PRN (10:50)
[2021-12-09] MEDS ORDERED: ONDANSETRON *ODT* 4 MG TABLET SL PRN (10:50)
[2021-12-09] MEDS ORDERED: ACETAMINOPHEN 325 MG TABLET (FP) PO PRN ×2 (10:50)
[2021-12-09] MEDS ORDERED: MAGNESIUM CITRATE 300 ML BOTTLE PO PRN (10:50)
[2021-12-09] MEDS ORDERED: DICYCLOMINE HCL 10 MG CAPSULE PO PRN (10:50)
[2021-12-09] MEDS ORDERED: MAG HYDROX/AL HYDROX/SIMETH 30 ML UNIT-DOSE CUP PO PRN (10:50)
[2021-12-09] MEDS ORDERED: IBUPROFEN 400 MG TABLET (FP) PO PRN (10:50)
[2021-12-09] MEDS: LORazepam 0.5 MG TABLET PO SCH ×3 (12:42→22:09)
[2021-12-09] MEDS: METHOCARBAMOL 500 MG TABLET PO PRN (12:42)
[2021-12-09] MEDS: NICOTINE 7 MG/24 HOURS TOPICAL PATCH TD SCH (12:43)
[2021-12-09] MEDS: PRENATAL VITAMINS W/ FOLIC ACID TABLET (FP) PO SCH (12:43)
[2021-12-09] MEDS ORDERED: cloNIDine HCL 0.1 MG TABLET PO ONE (12:57)
[2021-12-09] MEDS: GABAPENTIN 100 MG CAPSULE PO SCH ×2 (13:39→22:05)
[2021-12-09] MEDS: hydrOXYzine PAMOATE 25 MG CAPSULE (FP) PO PRN (13:40)
[2021-12-09] MEDS ORDERED: THIAMINE HCL 100 MG TABLET (FP) PO SCH (22:00)
[2021-12-09] MEDS ORDERED: traZODone HCL 50 MG TABLET (FP) PO SCH (22:00)
[2021-12-09] MEDS ORDERED: ATORVASTATIN CA 80 MG TABLET (FP) PO SCH (22:00)
[2021-12-09] MEDS ORDERED: MELATONIN 5 MG TABLETS PO SCH (22:00)
[2021-12-09] MEDS: CARVEDILOL 6.25 MG TABLET (FP) PO SCH (22:04)
[2021-12-10] MEDS: LORazepam 0.5 MG TABLET PO SCH (05:18)
[2021-12-10] MEDS: GABAPENTIN 100 MG CAPSULE PO SCH ×2 (06:18→13:18)
[2021-12-10] MEDS ORDERED: DAPAGLIFLOZIN PROPANEDIOL 10 MG TABLET PO SCH (08:00)
[2021-12-10] MEDS ORDERED: TAMSULOSIN HCL 0.4 MG CAP PO SCH (08:30)
[2021-12-10] MEDS ORDERED: LORazepam 0.5 MG TABLET PO ONE ×2 (10:00→17:39)
[2021-12-10] MEDS ORDERED: amLODIPine BESYLATE 10 MG TABLET (FP) PO SCH (10:00)
[2021-12-10] MEDS ORDERED: CLOPIDOGREL BISULFATE 75 MG TABLET (FP) PO SCH (10:00)
[2021-12-10] MEDS ORDERED: ISOSORBIDE MONONITRATE 60 MG TAB.SR.24H (FP) PO SCH (10:00)
[2021-12-10] MEDS: CARVEDILOL 6.25 MG TABLET (FP) PO SCH (10:53)
[2021-12-10] MEDS: METHOCARBAMOL 500 MG TABLET PO PRN ×2 (10:53→16:00)
[2021-12-10] MEDS: PRENATAL VITAMINS W/ FOLIC ACID TABLET (FP) PO SCH (10:53)
[2021-12-10] MEDS: hydrOXYzine PAMOATE 25 MG CAPSULE (FP) PO PRN ×2 (10:53→16:00)
[2021-12-10] MEDS: NICOTINE 7 MG/24 HOURS TOPICAL PATCH TD SCH (10:54)
[2021-12-10 12:59] VITALS: RESP 18
[2021-12-10 15:02] VITALS: BP 136/79; PULSE 61; TEMP 96.8
== END 2021-12-10 21:22 | disposition home or self-care (01) | DRG 895 ==
LOC: YASAS 07:58 → Y6N 11:32 → UNDODISIN 12-10 14:30 → Y3E 12-10 14:55
PROVIDERS: ADMIT Allergy & Immunology; ATTEND Surgery
PROC: HZ2ZZZZ Detoxification Services for Substance Abuse Treatment (ICD-10-PCS; 2021-12-09)
PROC: HZ42ZZZ Group Counseling for Substance Abuse Treatment, Cognitive-Behavioral (ICD-10-PCS; principal; 2021-12-10)
DX: F11.20 Opioid dependence, uncomplicated (principal); F14.20 Cocaine dependence, uncomplicated; F10.20 Alcohol dependence, uncomplicated; F17.210 Nicotine dependence, cigarettes, uncomplicated; E11.9 Type 2 diabetes mellitus without complications; I25.10 Atherosclerotic heart disease of native coronary artery without angina pectoris; I10 Essential (primary) hypertension; I25.2 Old myocardial infarction; Z95.5 Presence of coronary angioplasty implant and graft; E78.5 Hyperlipidemia, unspecified; K21.9 Gastro-esophageal reflux disease without esophagitis; B18.2 Chronic viral hepatitis C; N40.0 Benign prostatic hyperplasia without lower urinary tract symptoms; R07.9 Chest pain, unspecified; R94.31 Abnormal electrocardiogram [ECG] [EKG]; Z56.0 Unemployment, unspecified; Z59.00 Homelessness unspecified
CPT/HCPCS: 36415; 80053; 84484; 85025; 87811; 93005; 93010; 99282-25; C9803-CS; J0735; U0003; U0005